=== PATIENT | female | born 1970 | race Caucasian/White ===

== ENCOUNTER 2017-01-16 07:15 | Emergency (ER) | payer BC ==
[2017-01-16 07:24] VITALS: BP 112/71
[2017-01-16] MEDS ORDERED: Lidocaine 2% EPI 1:200000 MPF* 20 ML VIAL INJ ONE (07:33)
[2017-01-16] MEDS ORDERED: Lidocaine 2% W/EPI 1:100,000* 20 ML MDV ONE (07:35)
--- NOTE | 2017-01-16 07:55 | UC ---
Skin Complaint HPI - HPI Summary HPI Summary: cyst upper back x 3 years getting bigger for the past 3 days, + redness, tender, no fever, no chills - History of Current Complaint Chief Complaint: UCSkin Time Seen by Provider: 01/16/17 07:29 Stated Complaint: SKIN COMPLAINT Hx Obtained From: Patient Hx Last Menstrual Period: n/a ?: No Onset/Duration: Gradual Onset, Lasting Days - 3, Still Present Timing: Constant Onset Severity: Moderate Current Severity: Moderate Location: Discrete - upper back Character: Swelling, Pain, Redness, Raised, Painful Aggravating Factor(s): Touch Alleviating Factor(s): Nothing Associated Signs & Symptoms: Positive: Tenderness - Allergy/Home Medications Allergies/Adverse Reactions: Allergies Allergy/AdvReac Type Severity Reaction Status Date / Time Penicillins Allergy Hives Verified 01/16/17 07:24 Home Medications: Home Medications Calcium Carbonate [Calcium 600] 600 mg PO DAILY 01/16/17 [History Confirmed ] Cholecalciferol TAB* [Vitamin D TAB*] 1,000 unit PO DAILY 01/16/17 [History Confirmed 01/16/17] Citalopram TAB* [Celexa TAB*] 20 mg PO DAILY 01/16/17 [History Confirmed ] Ibrance 100 mg PO DAILY 01/16/17 [History Confirmed 01/16/17] Letrozole (NF) [Femara (NF)] 2.5 mg PO DAILY 01/16/17 [History Confirmed ] Venlafaxine EXT RELEASE CAP* [Effexor Xr CAP*] 75 mg PO BID 01/16/17 [History Confirmed 01/16/17] Review of Systems Constitutional: Negative Eyes: Negative ENT: Negative Respiratory: Negative Cardiovascular: Negative Gastrointestinal: Negative Is Patient Immunocompromised?: No All Other Systems Reviewed And Are Negative: Yes PMH/Surg Hx/FS Hx/Imm Hx Previously Healthy: Yes - Surgical History Surgical History: Yes Surgery Procedure, Year, and Place: mastectomy with reconstruction. hysterectomy. knee surgery - Family History Known Family History: Negative: Diabetes - Social History Alcohol Use: Weekly Substance Use Type: None Smoking Status (MU): Never Smoked Tobacco - Immunization History Most Recent Influenza Vaccination: no Physical Exam Triage Information Reviewed: Yes Appearance: Well-Appearing, No Pain Distress, Well-Nourished Vital Signs: Initial Vital Signs Temp 98.2 F 01/16/17 07:19 Pulse 83 01/16/17 07:19 Resp 15 01/16/17 07:19 BP 112/71 01/16/17 07:19 Pulse Ox 100 01/16/17 07:19 Vital Signs Reviewed: Yes Eyes: Positive: Conjunctiva Clear ENT: Positive: Normal ENT inspection, Hearing grossly normal, Pharynx normal Neck: Positive: Supple, Nontender, No Lymphadenopathy Respiratory: Positive: Chest non-tender, Lungs clear, Normal breath sounds Cardiovascular: Positive: RRR, No Murmur, Pulses Normal Musculoskeletal Exam: Normal Musculoskeletal: Positive: Strength Intact Skin: Positive: Other - cyst mid upper back : + erythema, tender, swelling , Course/Dx - Diagnoses Provider Diagnoses: inclusion cyst mid upper back Procedures - Incision and Drainage Site: cyst mid upper back Anesthesia: Local - lidocane 2 % with epi x 5 cc , Lidocaine Instrument(s): Scalpel - # 11 , Needle - 25 g Discharge - Discharge Plan Condition: Stable Disposition: HOME Patient Education Materials: Epidermal Inclusion Cysts (ED) Additional Instructions: follow up as needed
== END 2017-01-16 08:02 | disposition home or self-care (01) ==
LOC: UCCORT 07:15
DX: L72.0 Epidermal cyst (principal); Z90.710 Acquired absence of both cervix and uterus; Z90.10 Acquired absence of unspecified breast and nipple; Z88.0 Allergy status to penicillin
CPT/HCPCS: 10060; 99211; G0463

== ENCOUNTER 2017-03-15 07:50 | Emergency (ER) | payer BC ==
[2017-03-15 08:23] VITALS: BP 124/77
--- NOTE | 2017-03-15 08:52 | RAD ---
INDICATION: Pain following fall on outstretched hand COMPARISON: None. TECHNIQUE: AP, lateral, and oblique views RIGHT wrist. REPORT AND IMPRESSION: Comminuted impacted fracture of the distal radius extending from the distal metaphysis to the distal radioarticular surface. Disproportionate dorsal impaction with resulting loss of the normal volar tilt of the distal radioarticular surface. Negative for associated fracture of the ulna. Negative for dislocation.
--- NOTE | 2017-03-15 08:52 | RAD ---
Indication: Left ankle pain. 3 views of left ankle demonstrates no fracture. No definite fracture is noted. IMPRESSION: No fracture of the left ankle is noted.
--- NOTE | 2017-03-15 09:06 | ED ---
Upper Extremity Pain - HPI Summary HPI Summary: 47 yr old female with right wrist pain and left ankle pain. Onset this morning. She was doing steps for exercise and she twisted left ankle. She fell and broke fall with right hand, and has pain in the right wrist. Pain is worse with movement, and palpation. The patient has some associated swelling over the wrist and also some swelling over the lateral left ankle. Pain is moderate. She has no other complaints. Denies other injuries. - History of Current Complaint Chief Complaint: UCUpperExtremity Stated Complaint: RIGHT WRIST INJURY Time Seen by Provider: 03/15/17 08:11 Hx Last Menstrual Period: n/a - Allergies/Home Medications Allergies/Adverse Reactions: Allergies Allergy/AdvReac Type Severity Reaction Status Date / Time Penicillins Allergy Hives Verified 03/15/17 08:11 PMH/Surg Hx/FS Hx/Imm Hx - Cancer History Cancer Type, Location and Year: Breast CA, currently undergoing chemo - Surgical History Surgery Procedure, Year, and Place: BILATERAL mastectomy with reconstruction. hysterectomy. knee surgery Infectious Disease History: Yes Infectious Disease History: Reports: Hx Clostridium Difficile Denies: Traveled Outside the [place] in Last 30 Days - Family History Known Family History: Negative: Diabetes - Social History Alcohol Use: Occasionally Substance Use Type: Reports: None Smoking Status (MU): Never Smoked Tobacco Review of Systems Constitutional: Negative Positive: Other - pain right wrist,and left ankle. Negative: Paresthesia, Numbness All Other Systems Reviewed And Are Negative: Yes Physical Exam Triage Information Reviewed: Yes Vital Signs On Initial Exam: Initial Vitals Temp Pulse Resp BP Pulse Ox 97.5 F 62 20 124/77 100 03/15/17 08:16 03/15/17 08:16 03/15/17 08:16 03/15/17 08:16 03/15/17 08:16 Vital Signs Reviewed: Yes Appearance: Positive: Well-Appearing, Pain Distress - mild Skin: Positive: Warm, Skin Color Reflects Adequate Perfusion Head/Face: Positive: Normal Head/Face Inspection Eyes: Positive: EOMI ENT: Positive: Normal ENT inspection Respiratory/Lung Sounds: Positive: Clear to Auscultation, Breath Sounds Present Cardiovascular: Positive: RRR, Pulses are Symmetrical in both Upper and Lower Extremities Abdomen Description: Positive: Nontender Musculoskeletal: Positive: Other - There is tenderness and STS over the right distal radius. She has mild tenderness over the left lateral malleolus. Neurological: Positive: Sensory/Motor Intact, Alert, Oriented to Person Place, Time, CN Intact II-III Psychiatric: Positive: Normal - Ever Coma Scale Best Eye Response: 4 - Spontaneous Best Motor Response: 6 - Obeys Commands Best Verbal Response: 5 - Oriented Procedures - Splinting Location: right forearm, wrist Hand-Made Type: orthoglass Splint: volar Pre-Proc Neuro Vasc Exam: normal Post-Proc Neuro Vasc Exam: normal Diagnostics - Vital Signs Vital Signs Temp Pulse Resp BP Pulse Ox 03/15/17 08:16 97.5 F 62 20 124/77 100 - Laboratory Lab Statement: Any lab studies that have been ordered have been reviewed, and results considered in the medical decision making process. - Radiology right wrist and left ankle xrays Xray Interpretation: Positive (See Comments) - Ankle neg; right wrist with comminuted impacted distal radius fracutre. Radiology Interpretation Completed By: Radiologist Course/Dx - Course Course Of Treatment: Dr Altamirano office at [facility] contacted and they will see the patient tomorrow. Splint and sling applied. - Diagnoses Provider Diagnoses: Distal radius fracture, right Discharge - Discharge Plan Condition: Good Disposition: HOME Patient Education Materials: Wrist Fracture in Adults (ED), Splint Care (ED) Referrals: Katie Blakely MD [Primary Care Provider] - Dante Altamirano MD [Medical Doctor] - 03/15/17 Additional Instructions: See Dr Altamirano tomorrow at [facility] [employer] [place], [place] [phone]
== END 2017-03-15 09:43 | disposition home or self-care (01) ==
LOC: UCCORT 07:50
DX: S52.501A Unspecified fracture of the lower end of right radius, initial encounter for closed fracture (principal); W10.9XXA Fall (on) (from) unspecified stairs and steps, initial encounter; Y93.A9 Activity, other involving cardiorespiratory exercise; Y92.9 Unspecified place or not applicable; Z88.0 Allergy status to penicillin
CPT/HCPCS: 24640; 25600; 99211; 99212; G0463

== ENCOUNTER 2017-03-18 15:03 | Day surgery (SDC) | payer BC ==
[~2017-03-18 15:03] MED LIST: Buffered Lidocaine 0.9% SYRIN* 5 ML/SYR SYRINGE INTRADERM ONE; Clindamycin 900 MG IVPREMIX(* 900 MG/50 ML SDV IV ONE; Dexamethasone IV* 4 MG/ML 1 ML (4 MG) IV SLOW PU ONE; Famotidine IV* 10 MG/ML 2 ML (20 mg) IV ONE
[2017-03-18] MEDS ORDERED: Bupivacaine 0.25% SDV* 30 ML ONE (15:47)
[2017-03-18] MEDS ORDERED: fentaNYL* 50 MCG/ML 5 ML VIAL (250 MCG VIAL) ONE (16:03)
[2017-03-18] MEDS ORDERED: Midazolam* 1 MG/ML 2 ML VIAL (2 MG) ONE (16:03)
[2017-03-18] MEDS ORDERED: Lidocaine 2% PF * 5 ML VIAL ONE (16:04)
[2017-03-18] MEDS ORDERED: Ondansetron INJ* 2 MG/ML VIAL ONE (16:04)
[2017-03-18] MEDS ORDERED: Propofol* 10 MG/ML 20 ML BTL IV PUSH ONE (16:04)
[2017-03-18] MEDS ORDERED: Ketorolac INJ* 30 MG/ML 1 ML VIAL ONE (16:04)
[2017-03-18] MEDS ORDERED: Buffered Lidocaine 0.9% SYRIN* 5 ML/SYR SYRINGE ONE (16:10)
[2017-03-18] MEDS ORDERED: Glycopyrrolate IV* 0.2 MG/ML 1 ML VIAL ONE (16:41)
[2017-03-18] MEDS ORDERED: oxyCODONE/Acetamin 5/325 MG* TAB PO PRN (16:53)
[2017-03-18] MEDS ORDERED: Scopolamine 1.5 mg* PATCH TRANSDERM PRN (16:53)
[2017-03-18] MEDS ORDERED: fentaNYL* 50 MCG/ML 2 ML VIAL (100 MCG VIAL) IV PRN (16:53)
[2017-03-18] MEDS ORDERED: HYDROmorphone INJ* 1 MG/ML CARPUJECT SYRINGE IV PRN (16:53)
[2017-03-18] MEDS ORDERED: DiMENhydriNATE IV* 50 MG/ML VIAL IV PUSH PRN (16:53)
[2017-03-18] MEDS ORDERED: Ondansetron INJ* 2 MG/ML VIAL IV PRN (16:53)
[2017-03-18] MEDS ORDERED: fentaNYL* 50 MCG/ML 2 ML VIAL (100 MCG VIAL) ONE (17:13)
[2017-03-18 18:18] VITALS: BP 127/68
--- NOTE | 2017-03-20 19:07 | OP ---
DATE OF OPERATION: 03/18/17 - [facility] DATE OF : 70 SURGEON: Dante Altamirano MD BOXING MACHINE OPERATOR: ELIAZAR Lambert. An lpn or medical assistant was needed to aid in positioning of the arm and to assist with the placement of the pins as I held the reduction. ANESTHESIOLOGIST: Dr. Mcnamara. ANESTHESIA: General. PRE-OP DIAGNOSIS: Right distal radius displaced fracture. POST-OP DIAGNOSIS: Right distal radius displaced fracture. OPERATIVE PROCEDURE: Open reduction and pin fixation of right distal radius intraarticular fracture. INDICATIONS: Catarina fell and fractured the right distal radius. She had some dorsal tilt and loss of radial inclination. She has had a prior lymph node dissection, which was about 15 or 16 years ago. Last year she had recurrence of her cancer. She is on a daily chemotherapy medicine, Ibrance, daily. She went to her oncologist and got a shot of Neupogen. I had talked to her about her options. I told her we probably should not put a tourniquet on the arm. I wanted to minimize any additional trauma to the arm and that it was not displaced such that I felt likely we needed to proceed with an open reduction internal fixation, but I would try to just do a closed reduction and pin fixation of the fracture to see if we can keep it in pretty good alignment while it heals. She understood the risk of lymphedema and other risks, she wanted to proceed. ESTIMATED BLOOD LOSS: 10 mL. COMPLICATIONS: None. FINDINGS: As expected. DESCRIPTION OF PROCEDURE: Catarina was seen in the preoperative holding area. The correct side, site, and procedure were identified. We came back to the operating room. The arm was prepped and draped in the usual fashion. A time- out was performed. I began by placing the arm in 10 pounds of traction. I performed a closed reduction maneuver. There was an impacted intraarticular piece with a dorsal rim that was actually reasonably well aligned. I made a 1 cm incision dorsally and then introduced through that a barajas elevator. This was placed between the fracture fragments dorsally and brought up on to the subchondral bone. A mallet was used and that piece was tapped back up into good position. Once I had it in good position, I placed two 0.062 K-wires through the radial styloid and out the ulnar cortex. I then placed one K-wire starting on the dorsal ulnar aspect of the bone and it was placed in rafting position, exiting out volarly and holding the articular piece up in good position. Once all the pins were placed, I confirmed the alignment with mini C-arm fluoroscopy. The arm was then washed off. The wound was irrigated out and closed with a couple of 3- 0 Monocryl sutures. The pins were clipped and bent and pin caps were placed. They were dressed with Xeroform, 4x4s, they were well padded, and then a dorsal and volar slab wrist splint was applied. She was then woken up and taken to the recovery room in stable condition. Tourniquet was not used throughout any portion of the procedure. [id number]/[facility] #: [id number] CAROL
[2017-03-21] MEDS ORDERED: Scopolamine PATCH Remove* 1 NOTE MISC PATCH OFF ONE (16:54)
--- NOTE | 2017-03-24 14:55 | RAD ---
INDICATION: Traumatic fracture right wrist COMPARISON: March 15, 2017 FINDINGS: 2 minutes and 14 seconds of fluoroscopy were provided for the orthopedics department. Fluoroscopic spot imaging of the right wrist were obtained for operative control and show interval pinning of the intra-articular distal radial fracture . CPT II Codes: 6045F (fluoro time doc)
== END 2017-03-18 18:18 | disposition home or self-care (01) ==
LOC: OREAST 15:03
PROVIDERS: ATTEND Orthopaedic Surgery Hand Surgery
DX: S52.571A Other intraarticular fracture of lower end of right radius, initial encounter for closed fracture (principal); W18.30XA Fall on same level, unspecified, initial encounter; Y92.9 Unspecified place or not applicable; Z85.3 Personal history of malignant neoplasm of breast; S93.402A Sprain of unspecified ligament of left ankle, initial encounter; F41.9 Anxiety disorder, unspecified; Z88.0 Allergy status to penicillin
CPT/HCPCS: 76000; C1776; J1885; J2250; J2405; J2704; J3010

== ENCOUNTER 2019-01-18 07:06 | Emergency (ER) | payer BC ==
--- OUTSIDE RECORDS SUMMARY | 2019-01-18 07:19 | XMS REPORT | Continuity of Care Document ---
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 Pleural effusion, not elsewhere Tim Aquino DO Onset: 06/08/2016 classified Neutropenia due to and following Tim Aquino DO Onset: 07/09/2016 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 Cough Tim Aquino DO Onset: 02/07/2018 Generalized anxiety disorder Gladis Hannah FNP Onset: 04/28/2018 Neutropenia Cyn Pacheco DO Onset: 10/28/2018 Vitamin B deficiency Cyn Pacheco DO Onset: 10/03/2018 Neutropenia due to and following Tim Aquino DO Onset: 05/13/2018 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 Social History Type Date Description Comments Sex Unknown Tobacco Use Start: Unknown Never Smoked Cigarettes ETOH Use Occasionally consumes alcohol Tobacco Use Start: Unknown Patient has never smoked Recreational Drug Use Denies Drug Use Smoking Status Reviewed: 05/13/18 Patient has never smoked Exercise Type/Frequency Exercises regularly Allergies, Adverse Reactions, Alerts Active Allergies Reaction Severity Comments Date Penicillins 09/24/2008 Amoxicillin 12/02/2011 Medications Active Medications SIG Qnty Indications Ordering Date Provider Magic Mouthwash 1 part diphenhydramine 240ml Boufal, 11/30/2018 12.5mg/5mL; 1 part Cyn, DO viscous lidocaine 2%; 1 part Maalox Swish and spit 5 ml four times daily as needed Afinitor 1 tab by mouth daily, 28tabs D48.61 Boufal, 11/11/2018 10mg days 1-28 Cyn, DO Tablets C79.51 Benadryl Itch apply to affected 28.300gm Cyn Pacheco, 10/03/2018 Stopping area up to three DO 1-0.1% Cream times a day Miralax 1 tablespoon in 8 510gm K59.00 Clune, 04/28/2018 3350NF Powder ounces of water Jeninkunjferchaka, V[employer]YL INSTALLER twice a day Xgeva SQ q6 Months Cyn Pacheco, 08/18/2016 120mg/1.7ML DO Solution Vitamin D 1 by mouth every Boufal, Cyn, 07/08/2016 4000Units day DO Tablets Venlafaxine HCL 1 by mouth twice a 180tabs [place]une, 05/03/2012 100mg day Jenniferleigh, VINYL INSTALLER Tablets Citalopram 1 by mouth every 90tabs [place], 05/03/2012 Hydrobromide day Jenniferleimartín, VINYL INSTALLER 20mg Tablets Calcium 1200 chew one by mouth Unknown daily [id number] Chewtabs Medications Administered in Office Medication SIG Qnty Indications Ordering Provider Date Vitamin B12 Injection 1000 Cyn Pacheco, DO 10/28/2018 mcg/Ml Injection Vitamin B12 Injection 1000 Oncology Nurse 10/14/2018 mcg/Ml Injection Immunizations CPT Code Status Date Vaccine Lot # [id number] Given 10/15/2015 Tdap injection [id number] U-Td Given 02/18/2000 Td(Adult),Unspecified Vital Signs Date Vital Result Comment 01/11/2019 7:55am BP Systolic 129 mmHg left BP Diastolic 82 mmHg left Body Temperature 97.7 F Heart Rate 78 /min Respiratory Rate 16 /min Height 64 inches 5'4" Weight 153.50 lb BMI (Body Mass Index) 26.3 kg/m2 BSA (Body Surface Area) 1.75 m2 Coyle body weight in kilograms 54 kg O2 % BldC Oximetry 98 % Ra Pain Level 0 12/14/2018 7:44am BP Systolic 113 mmHg BP Diastolic 77 mmHg Body Temperature 98.3 F Heart Rate 87 /min Respiratory Rate 16 /min Weight 154.00 lb O2 % BldC Oximetry 97 % Pain Level 0 Results Test Date Facility Test Result H/L Range Note CBC 01/11/2019 [facility] White Blood 3.0 K/uL Low 3.1-10.7 1 W/Automated [address] [place] [address] [phone] Red Blood Count 4.18 M/uL Normal 3.90-5.40 Hemoglobin 12.7 gm/dL Normal 11.6-15.8 Hematocrit 38.0 % Normal 36.0-46.1 Mean Cell Volume 90.9 fl Normal 80.9-99.0 Mean Corpuscular HGB 30.4 pg Normal 25.9-32.7 Mean Corpuscular HGB Conc 33.4 g/dL Normal 30.8-34.3 Platelet Count 187 K/uL Normal 155-360 Red Cell Distri Width SD 43.3 fl Normal 36-47 Red Cell Distri Width %CV 13.0 % Normal 11.7-14.4 Mean Platelet Volume 10.1 fl Normal 8.9-12.4 Neut% 59.3 % Normal 40.4-72.8 Lymph % 24.0 % Normal 20.0-42.0 [place] % 11.0 % Normal 4.3-13.2 Eo% 4.7 % Normal 0.0-6.6 Bas% 0.7 % Normal 0.0-1.1 Immature Grans 0.3 % Normal 0.0-5.0 NRBC % 0.0 /100WBC < 10/ 100 WBC Neut# 1.78 K/uL Low 1.8-7.0 Lymph # 0.72 K/uL Low 1.0-4.0 [place] # 0.33 K/uL Normal 0.3-0.9 Eos # 0.14 K/uL Normal 0.0-0.5 Baso # 0.02 K/uL Normal 0.0-0.1 Immature Grans Absolute 0.01 K/uL NRBC # 0.00 K/uL Comprehensive Metabolic 01/11/2019 [facility] Glucose 127 mg/dL High 74-[address] [place] [address] [phone] BUN 17 mg/dL Normal 7-18 Creatinine 0.7 mg/dL Normal 0.6-1.3 Glom Filtration Rate, Estimate >60 mL/min >60 If >60 mL/min >60 2 BUN/Creat 24.2 ratio Sodium 137 mmol/L Normal 136-145 Potassium 3.7 mmol/L Normal 3.5-5.1 Chloride 106 mmol/L Normal 98-107 Carbon Dioxide 25 mmol/L Normal 21-32 Anion Gap 6 mEq/L Low 8-16 Calcium 9.0 mg/dL Normal 8.5-10.1 Total Protein 7.5 g/dL Normal 6.4-8.2 Albumin 3.6 g/dL Normal 3.4-5.0 Globulin 3.9 g/dL Normal 1.9-4.3 Alb/Glob 0.9 ratio Bilirubin,Total 0.3 mg/dL Normal 0.2-1.0 Sgot/Ast 36 U/L Normal 15-37 SGPT/Alt 23 U/L Normal 12-78 Alkaline Phosphatase 130 U/L High 45-117 Laboratory test 01/11/2019 [facility] CA 27.29 391.6 U/mL High 0.0-38.6 [address] [place] [address] [phone] Slide Review 01/11/2019 [facility] Slide (SEE NOTE) [address] [place] [address] [phone] Path Review: 01/11/2019 [facility] Path NI [address] Review: AVE [place] [address] [phone] CBC W/Automated 12/14/2018 [facility] White Blood 3.5 K/uL Normal 3.1-10.7 [address] [place] [address] [phone] Red Blood Count 4.22 M/uL Normal 3.90-5.40 Hemoglobin 13.6 gm/dL Normal 11.6-15.8 Hematocrit 40.3 % Normal 36.0-46.1 Mean Cell Volume 95.5 fl Normal 80.9-99.0 Mean Corpuscular HGB 32.2 pg Normal 25.9-32.7 Mean Corpuscular HGB Conc 33.7 g/dL Normal 30.8-34.3 Platelet Count 190 K/uL Normal 155-360 Red Cell Distri Width SD 44.5 fl Normal 36-47 Red Cell Distri Width %CV 12.6 % Normal 11.7-14.4 Mean Platelet Volume 10.0 fl Normal 8.9-12.4 Neut% 42.4 % Normal 40.4-72.8 Lymph % 26.8 % Normal 20.0-42.0 [place] % 10.1 % Normal 4.3-13.2 Eo% 19.3 % High 0.0-6.6 Bas% 1.4 % High 0.0-1.1 Immature Grans 0.0 % Normal 0.0-5.0 NRBC % 0.0 /100WBC < 10/ 100 WBC Neut# 1.47 K/uL Low 1.8-7.0 Lymph # 0.93 K/uL Low 1.0-4.0 [place] # 0.35 K/uL Normal 0.3-0.9 Eos # 0.67 K/uL High 0.0-0.5 Baso # 0.05 K/uL Normal 0.0-0.1 Immature Grans Absolute 0.00 K/uL NRBC # 0.00 K/uL Comprehensive Metabolic 12/14/2018 [facility] Glucose 128 mg/dL High 74-106 Panel [address] [place] [address] [phone] BUN 20 mg/dL High 7-18 Creatinine 0.8 mg/dL Normal 0.6-1.3 Glom Filtration Rate, Estimate >60 mL/min >60 If >60 mL/min >60 7 BUN/Creat 25.0 ratio Sodium 140 mmol/L Normal 136-145 Potassium 3.7 mmol/L Normal 3.5-5.1 Chloride 106 mmol/L Normal 98-107 Carbon Dioxide 26 mmol/L Normal 21-32 Anion Gap 8 mEq/L Normal 8-16 Calcium 9.5 mg/dL Normal 8.5-10.1 Total Protein 7.8 g/dL Normal 6.4-8.2 Albumin 3.4 g/dL Normal 3.4-5.0 Globulin 4.4 g/dL High 1.9-4.3 Alb/Glob 0.8 ratio Bilirubin,Total 0.2 mg/dL Normal 0.2-1.0 Sgot/Ast 44 U/L High 15-37 SGPT/Alt 30 U/L Normal 12-78 Alkaline Phosphatase 126 U/L High 45-117 Laboratory test 12/14/2018 [facility] CA 27.29 510.0 High 0.0-38.6 [address] U/mL AVE [place] [address] [phone] Laboratory test 11/30/2018 [facility] Path <pending> [address] Review: AVE [place] [address] [phone] Slide Review 11/30/2018 [facility] Slide (SEE [address] Review NOTE) AVE [place] [address] [phone] Comprehensive 11/30/2018 [facility] Glucose 102 mg/dL Normal 74-106 Metabolic Panel [address] [place] [address] [phone] BUN 21 mg/dL High 7-18 Creatinine 0.8 mg/dL Normal 0.6-1.3 Glom Filtration Rate, Estimate >60 mL/min >60 If >60 mL/min >60 11 BUN/Creat 26.2 ratio Sodium 140 mmol/L Normal 136-145 Potassium 3.7 mmol/L Normal 3.5-5.1 Chloride 107 mmol/L Normal 98-107 Carbon Dioxide 26 mmol/L Normal 21-32 Anion Gap 7 mEq/L Low 8-16 Calcium 9.0 mg/dL Normal 8.5-10.1 Total Protein 7.4 g/dL Normal 6.4-8.2 Albumin 3.3 g/dL Low 3.4-5.0 Globulin 4.1 g/dL Normal 1.9-4.3 Alb/Glob 0.8 ratio Bilirubin,Total 0.4 mg/dL Normal 0.2-1.0 Sgot/Ast 42 U/L High 15-37 SGPT/Alt 25 U/L Normal 12-78 Alkaline Phosphatase 108 U/L Normal 45-117 CBC W/Automated 11/30/2018 [facility] White Blood 2.4 K/uL Low 3.1-10.[address] [place] [address] [phone] Red Blood Count 4.06 M/uL Normal 3.90-5.40 Hemoglobin 13.4 gm/dL Normal 11.6-15.8 Hematocrit 40.1 % Normal 36.0-46.1 Mean Cell Volume 98.8 fl Normal 80.9-99.0 Mean Corpuscular HGB 33.0 pg High 25.9-32.7 Mean Corpuscular HGB Conc 33.4 g/dL Normal 30.8-34.3 Platelet Count 143 K/uL Low 155-360 Red Cell Distri Width SD 45.1 fl Normal 36-47 Red Cell Distri Width %CV 12.4 % Normal 11.7-14.4 Mean Platelet Volume 9.9 fl Normal 8.9-12.4 Neut% 45.4 % Normal 40.4-72.8 Lymph % 30.6 % Normal 20.0-42.0 [place] % 8.7 % Normal 4.3-13.2 Eo% 14.5 % High 0.0-6.6 Bas% 0.8 % Normal 0.0-1.1 Immature Grans 0.0 % Normal 0.0-5.0 NRBC % 0.0 /100WBC < 10/ 100 WBC Neut# 1.10 K/uL Low 1.8-7.0 Lymph # 0.74 K/uL Low 1.0-4.0 [place] # 0.21 K/uL Low 0.3-0.9 Eos # 0.35 K/uL Normal 0.0-0.5 Baso # 0.02 K/uL Normal 0.0-0.1 Immature Grans Absolute 0.00 K/uL NRBC # 0.00 K/uL CBC W/Automated 11/15/2018 [facility] White Blood 4.1 K/uL 3.1-10.7 [address] [place] [address] [phone] Red Blood Count 3.89 M/uL Low 3.90-5.40 Hemoglobin 13.4 gm/dL Normal 11.6-15.8 Hematocrit 39.1 % Normal 36.0-46.1 Mean Cell Volume 100.5 fl High 80.9-99.0 Mean Corpuscular HGB 34.4 pg High 25.9-32.7 Mean Corpuscular HGB Conc 34.3 g/dL Normal 30.8-34.3 Platelet Count 291 K/uL Normal 155-360 Red Cell Distri Width SD 47.8 fl High 36-47 Red Cell Distri Width %CV 12.9 % Normal 11.7-14.4 Mean Platelet Volume 9.4 fl Normal 8.9-12.4 Neut% 54.2 % Normal 40.4-72.8 Lymph % 31.0 % Normal 20.0-42.0 [place] % 11.1 % Normal 4.3-13.2 Eo% 1.5 % Normal 0.0-6.6 Bas% 2.0 % High 0.0-1.1 Immature Grans 0.2 % Normal 0.0-5.0 NRBC % 0.0 /100WBC < 10/ 100 WBC Neut# 2.20 K/uL Normal 1.8-7.0 Lymph # 1.26 K/uL Normal 1.0-4.0 [place] # 0.45 K/uL Normal 0.3-0.9 Eos # 0.06 K/uL Normal 0.0-0.5 Baso # 0.08 K/uL Normal 0.0-0.1 Immature Grans Absolute 0.01 K/uL NRBC # 0.00 K/uL Comprehensive Metabolic 11/15/2018 [facility] Glucose 70 mg/dL Low 74-106 Panel [address] [place] [address] [phone] BUN 24 mg/dL High 7-18 Creatinine 0.9 mg/dL Normal 0.6-1.3 Glom Filtration Rate, Estimate >60 mL/min >60 If >60 mL/min >60 13 BUN/Creat 26.6 ratio Sodium 139 mmol/L Normal 136-145 Potassium 4.4 mmol/L Normal 3.5-5.1 Chloride 103 mmol/L Normal 98-107 Carbon Dioxide 29 mmol/L Normal 21-32 Anion Gap 7 mEq/L Low 8-16 Calcium 9.3 mg/dL Normal 8.5-10.1 Total Protein 8.1 g/dL Normal 6.4-8.2 Albumin 3.9 g/dL Normal 3.4-5.0 Globulin 4.2 g/dL Normal 1.9-4.3 Alb/Glob 0.9 ratio Bilirubin,Total 0.3 mg/dL Normal 0.2-1.0 Sgot/Ast 36 U/L Normal 15-37 SGPT/Alt 27 U/L Normal 12-78 Alkaline Phosphatase 108 U/L Normal 45-117 Laboratory test 11/15/2018 [facility] Magnesium 2.3 Normal 1.8-2.[address] mg/dL [place]VE [place] [address] [phone] Path Review: 11/09/2018 [facility] Path Review: NI 14, [address] [place] [address] [phone] Slide Review 11/09/2018 [facility] Slide Review (SEE [address] NOTE) AVE [place] [address] [phone] Laboratory test 11/09/2018 [facility] CA 27.29 635.6 High 0.0-38.6 [address] U/mL AVE [place] [address] [phone] Comprehensive 11/09/2018 [facility] Glucose 89 mg/dL Normal 74-106 Metabolic Panel [address] [place] [address] [phone] BUN 18 mg/dL Normal 7-18 Creatinine 0.8 mg/dL Normal 0.6-1.3 Glom Filtration Rate, Estimate >60 mL/min >60 If >60 mL/min >60 18 BUN/Creat 22.5 ratio Sodium 140 mmol/L Normal 136-145 Potassium 4.1 mmol/L Normal 3.5-5.1 Chloride 105 mmol/L Normal 98-107 Carbon Dioxide 28 mmol/L Normal 21-32 Anion Gap 7 mEq/L Low 8-16 Calcium 9.4 mg/dL Normal 8.5-10.1 Total Protein 8.0 g/dL Normal 6.4-8.2 Albumin 3.8 g/dL Normal 3.4-5.0 Globulin 4.2 g/dL Normal 1.9-4.3 Alb/Glob 0.9 ratio Bilirubin,Total 0.2 mg/dL Normal 0.2-1.0 Sgot/Ast 37 U/L Normal 15-37 SGPT/Alt 25 U/L Normal 12-78 Alkaline Phosphatase 97 U/L Normal 45-117 CBC W/Automated 11/09/2018 [facility] White Blood 2.4 K/uL Low 3.1-10.[address] [place] [address] [phone] Red Blood Count 3.80 M/uL Low 3.90-5.40 Hemoglobin 13.0 gm/dL Normal 11.6-15.8 Hematocrit 39.2 % Normal 36.0-46.1 Mean Cell Volume 103.2 fl High 80.9-99.0 Mean Corpuscular HGB 34.2 pg High 25.9-32.7 Mean Corpuscular HGB Conc 33.2 g/dL Normal 30.8-34.3 Platelet Count 286 K/uL Normal 155-360 Red Cell Distri Width SD 50.9 fl High 36-47 Red Cell Distri Width %CV 13.3 % Normal 11.7-14.4 Mean Platelet Volume 9.4 fl Normal 8.9-12.4 Neut% 49.8 % Normal 40.4-72.8 Lymph % 33.6 % Normal 20.0-42.0 [place] % 12.4 % Normal 4.3-13.2 Eo% 1.7 % Normal 0.0-6.6 Bas% 2.1 % High 0.0-1.1 Immature Grans 0.4 % Normal 0.0-5.0 NRBC % 0.0 /100WBC < 10/ 100 WBC Neut# 1.20 K/uL Low 1.8-7.0 Lymph # 0.81 K/uL Low 1.0-4.0 [place] # 0.30 K/uL Normal 0.3-0.9 Eos # 0.04 K/uL Normal 0.0-0.5 Baso # 0.05 K/uL Normal 0.0-0.1 Immature Grans Absolute 0.01 K/uL NRBC # 0.00 K/uL CBC W/Automated 10/28/2018 [facility] White 1.4 K/uL Critical low 3.1-10.[address] [place] [address] Count [phone] Red Blood Count 3.70 M/uL Low 3.90-5.40 Hemoglobin 12.5 gm/dL Normal 11.6-15.8 Hematocrit 37.9 % Normal 36.0-46.1 Mean Cell Volume 102.4 fl High 80.9-99.0 Mean Corpuscular HGB 33.8 pg High 25.9-32.7 Mean Corpuscular HGB Conc 33.0 g/dL Normal 30.8-34.3 Platelet Count 172 K/uL Normal 155-360 Red Cell Distri Width SD 52.0 fl High 36-47 Red Cell Distri Width %CV 13.8 % Normal 11.7-14.4 Mean Platelet Volume 9.7 fl Normal 8.9-12.4 Neut% 40.9 % Normal 40.4-72.8 Lymph % 42.4 % High 20.0-42.0 [place] % 11.8 % Normal 4.3-13.2 Eo% 1.4 % Normal 0.0-6.6 Bas% 3.5 % High 0.0-1.1 Immature Grans 0.0 % Normal 0.0-5.0 NRBC % 0.0 /100WBC < 10/ 100 WBC Neut# 0.59 K/uL Critical low 1.8-7.0 Lymph # 0.61 K/uL Low 1.0-4.0 [place] # 0.17 K/uL Low 0.3-0.9 Eos # 0.02 K/uL Normal 0.0-0.5 Baso # 0.05 K/uL Normal 0.0-0.1 Immature Grans Absolute 0.00 K/uL NRBC # 0.00 K/uL [facility] 10/28/2018 [facility] Glucose 88 mg/dL Normal 74-106 Metabolic Panel [address] [place] [address] [phone] BUN 21 mg/dL High 7-18 Creatinine 1.0 mg/dL Normal 0.6-1.3 Glom Filtration Rate, Estimate >60 mL/min >60 If >60 mL/min >60 19 BUN/Creat 21.0 ratio Sodium 139 mmol/L Normal 136-145 Potassium 4.0 mmol/L Normal 3.5-5.1 Chloride 105 mmol/L Normal 98-107 Carbon Dioxide 28 mmol/L Normal 21-32 Anion Gap 6 mEq/L Low 8-16 Calcium 9.5 mg/dL Normal 8.5-10.1 Total Protein 7.7 g/dL Normal 6.4-8.2 Albumin 3.8 g/dL Normal 3.4-5.0 Globulin 3.9 g/dL Normal 1.9-4.3 Alb/Glob 1.0 ratio Bilirubin,Total 0.4 mg/dL Normal 0.2-1.0 Sgot/Ast 32 U/L Normal 15-37 SGPT/Alt 23 U/L Normal 12-78 Alkaline Phosphatase 98 U/L Normal 45-117 Vitamin B12 And 10/28/2018 [facility] Vitamin B12 350 pg/mL Normal 193-[address] [place] [address] [phone] Folic Acid 10.7 ng/mL Normal 3.1-17.5 Slide Review 10/28/2018 [facility] Slide Review (SEE NOTE) [address] [place] [address] [phone] Laboratory test 10/28/2018 [facility] Path Review: (SEE NOTE) [address] [place] [address] [phone] Path Review: 10/18/2018 [facility] Anticoagulant Unknown [address] Therapy? [place] [address] [phone] Slide Review 10/18/2018 [facility] Slide Review (SEE NOTE) [address] [place] [address] [phone] Anticoagulant Therapy? Unknown Laboratory 10/18/2018 [facility] Vitamin 65.8 30.0-100.0 23 test finding [address] D,25-Hydroxy ng/[place] [address] [phone] Vitamin B12 10/18/2018 [facility] Vitamin B12 471 Normal 193-9[address] pg/[place] [address] [phone] Folic Acid 9.2 ng/mL Normal 3.1-17.5 CBC W/Automated 10/18/2018 [facility] White 1.8 K/uL Critical low 3.1-10.[address] [place] [address] Count [phone] Red Blood Count 3.81 M/uL Low 3.90-5.40 Hemoglobin 13.2 gm/dL Normal 11.6-15.8 Hematocrit 39.0 % Normal 36.0-46.1 Mean Cell Volume 102.4 fl High 80.9-99.0 Mean Corpuscular HGB 34.6 pg High 25.9-32.7 Mean Corpuscular HGB Conc 33.8 g/dL Normal 30.8-34.3 Platelet Count 272 K/uL Normal 155-360 Red Cell Distri Width SD 51.6 fl High 36-47 Red Cell Distri Width %CV 13.6 % Normal 11.7-14.4 Mean Platelet Volume 9.1 fl Normal 8.9-12.4 Neut% 62.2 % Normal 40.4-72.8 Lymph % 27.2 % Normal 20.0-42.0 [place] % 6.1 % Normal 4.3-13.2 Eo% 1.1 % Normal 0.0-6.6 Bas% 2.8 % High 0.0-1.1 Immature Grans 0.6 % Normal 0.0-5.0 NRBC % 0.0 /100WBC < 10/ 100 WBC Neut# 1.12 K/uL Low 1.8-7.0 Lymph # 0.49 K/uL Low 1.0-4.0 [place] # 0.11 K/uL Low 0.3-0.9 Eos # 0.02 K/uL Normal 0.0-0.5 Baso # 0.05 K/uL Normal 0.0-0.1 Immature Grans Absolute 0.01 K/uL NRBC # 0.00 K/uL Anticoagulant Therapy? Unknown Protime 10/18/2018 [facility] Protime 13.2 seconds Normal 12.0-14.4 [address] [place] [address] [phone] Inr 1.0 Normal 0.9-1.1 24 Anticoagulant Therapy? Unknown Act Partial 10/18/2018 [facility] Act Partial 26.8 seconds Normal 23.4-35.0 Thrombo Time [address] [facility] [place] [place] [address] [phone] Anticoagulant Therapy? Unknown Laboratory test 10/18/2018 [facility] Ferritin 62 ng/mL Normal 8-252 25 finding [address] [place] [address] [phone] Iron-Tibc-%Sat 10/18/2018 [facility] Serum Iron 92 g/dL Normal 50-170 [address] [place] [address] [phone] Total Iron Binding Capacity 417 g/dL Normal 250-450 Transferrin %Saturation 22 % Normal 12-57 Comprehensive 10/18/2018 [facility] Glucose 90 mg/dL Normal 74-106 Metabolic Panel [address] [place] [address] [phone] BUN 26 mg/dL High 7-18 Creatinine 1.1 mg/dL Normal 0.6-1.3 Glom Filtration Rate, Estimate 56 mL/min >60 If >60 mL/min >60 26 BUN/Creat 23.6 ratio Sodium 139 mmol/L Normal 136-145 Potassium 4.6 mmol/L Normal 3.5-5.1 Chloride 104 mmol/L Normal 98-107 Carbon Dioxide 27 mmol/L Normal 21-32 Anion Gap 8 mEq/L Normal 8-16 Calcium 9.6 mg/dL Normal 8.5-10.1 Total Protein 8.1 g/dL Normal 6.4-8.2 Albumin 4.0 g/dL Normal 3.4-5.0 Globulin 4.1 g/dL Normal 1.9-4.3 Alb/Glob 1.0 ratio Bilirubin,Total 0.3 mg/dL Normal 0.2-1.0 Sgot/Ast 38 U/L High 15-37 SGPT/Alt 29 U/L Normal 12-78 Alkaline Phosphatase 113 U/L Normal 45-117 Laboratory test finding 10/18/2018 [facility] Nucleotidase,5 7 IU/L 0-10 27 [address] [place] [address] [phone] CA 27.29 595.7 U/mL High 0.0-38.6 28 Laboratory test 09/20/2018 [facility] Ferritin 58 ng/mL Normal 8-252 finding [address] [place], [place] [id number] [phone] Laboratory test 09/20/2018 [facility] CA 27.29 506.9 High 0.0-38.6 29 finding [address] [facility] U/[place] [address] [phone] Vitamin B12 And 09/20/2018 [facility] Vitamin B12 273 pg/mL Normal 193-986 Folate [address] [place] [address] [phone] Folic Acid 9.4 ng/mL Normal 3.1-17.5 Iron-Tibc-%Sat 09/20/2018 [facility] Serum Iron 106 g/dL Normal 50-[address] [place] [address] [phone] Total Iron Binding Capacity 452 g/dL High 250-450 Transferrin %Saturation 23 % Normal 12-57 Laboratory test 09/20/2018 [facility] Vitamin 68.6 30.0-100.0 [address] D,25-Hydroxy ng/[place] [address] [phone] Laboratory test 09/19/2018 [facility] Path Review: <pendin [address] g> [place] [address] [phone] Comprehensive 09/19/2018 [facility] Glucose 86 Normal 74-106 Metabolic Panel [address] mg/[place] [address] [phone] BUN 24 mg/dL High 7-18 Creatinine 0.9 mg/dL Normal 0.6-1.3 Glom Filtration Rate, Estimate >60 mL/min >60 If >60 mL/min >60 32 BUN/Creat 26.6 ratio Sodium 136 mmol/L Normal 136-145 Potassium 4.2 mmol/L Normal 3.5-5.1 Chloride 103 mmol/L Normal 98-107 Carbon Dioxide 27 mmol/L Normal 21-32 Anion Gap 6 mEq/L Low 8-16 Calcium 9.1 mg/dL Normal 8.5-10.1 Total Protein 7.4 g/dL Normal 6.4-8.2 Albumin 3.6 g/dL Normal 3.4-5.0 Globulin 3.8 g/dL Normal 1.9-4.3 Alb/Glob 0.9 ratio Bilirubin,Total 0.3 mg/dL Normal 0.2-1.0 Sgot/Ast 40 U/L High 15-37 SGPT/Alt 31 U/L Normal 12-78 Alkaline Phosphatase 96 U/L Normal 45-117 CBC W/Automated 09/19/2018 [facility] White Blood 2.5 K/uL Low 3.1-10.[address] [place] [address] [phone] Red Blood Count 3.62 M/uL Low 3.90-5.40 Hemoglobin 12.4 gm/dL Normal 11.6-15.8 Hematocrit 37.7 % Normal 36.0-46.1 Mean Cell Volume 104.1 fl High 80.9-99.0 Mean Corpuscular HGB 34.3 pg High 25.9-32.7 Mean Corpuscular HGB Conc 32.9 g/dL Normal 30.8-34.3 Platelet Count 297 K/uL Normal 155-360 Red Cell Distri Width SD 50.6 fl High 36-47 Red Cell Distri Width %CV 13.1 % Normal 11.7-14.4 Mean Platelet Volume 9.2 fl Normal 8.9-12.4 Neut% 64.7 % Normal 40.4-72.8 Lymph % 26.1 % Normal 20.0-42.0 [place] % 5.2 % Normal 4.3-13.2 Eo% 1.2 % Normal 0.0-6.6 Bas% 2.8 % High 0.0-1.1 Immature Grans 0.0 % Normal 0.0-5.0 NRBC % 0.0 /100WBC < 10/ 100 WBC Neut# 1.61 K/uL Low 1.8-7.0 Lymph # 0.65 K/uL Low 1.0-4.0 [place] # 0.13 K/uL Low 0.3-0.9 Eos # 0.03 K/uL Normal 0.0-0.5 Baso # 0.07 K/uL Normal 0.0-0.1 Immature Grans Absolute 0.00 K/uL NRBC # 0.00 K/uL Slide Review 09/19/2018 [facility] Slide Review (SEE NOTE) [address] [place] [address] [phone] CBC 08/22/2018 [facility] White Blood 2.4 K/uL Low 3.1-10.7 W/Automated [address] [place] [address] [phone] Red Blood Count 3.72 M/uL Low 3.90-5.40 Hemoglobin 12.5 gm/dL Normal 11.6-15.8 Hematocrit 38.9 % Normal 36.0-46.1 Mean Cell Volume 104.6 fl High 80.9-99.0 Mean Corpuscular HGB 33.6 pg High 25.9-32.7 Mean Corpuscular HGB Conc 32.1 g/dL Normal 30.8-34.3 Platelet Count 265 K/uL Normal 155-360 Red Cell Distri Width SD 46.8 fl Normal 36-47 Red Cell Distri Width %CV 12.1 % Normal 11.7-14.4 Mean Platelet Volume 9.2 fl Normal 8.9-12.4 Neut% 53.8 % Normal 40.4-72.8 Lymph % 35.0 % Normal 20.0-42.0 [place] % 5.8 % Normal 4.3-13.2 Eo% 2.5 % Normal 0.0-6.6 Bas% 2.1 % High 0.0-1.1 Immature Grans 0.8 % Normal 0.0-5.0 NRBC % 0.0 /100WBC < 10/ 100 WBC Neut# 1.29 K/uL Low 1.8-7.0 Lymph # 0.84 K/uL Low 1.0-4.0 [place] # 0.14 K/uL Low 0.3-0.9 Eos # 0.06 K/uL Normal 0.0-0.5 Baso # 0.05 K/uL Normal 0.0-0.1 Immature Grans Absolute 0.02 K/uL NRBC # 0.00 K/uL Slide Review 08/22/2018 [facility] Slide Review . [address] [place] [address] [phone] Laboratory test 08/22/2018 [facility] Path Review: <pending finding [address] > [place] [address] [phone] Comprehensive 08/22/2018 [facility] Glucose 82 mg/dL Normal 74-10 Metabolic Panel [address] [place] [address] [phone] BUN 24 mg/dL High 7-18 Creatinine 0.9 mg/dL Normal 0.6-1.3 Glom Filtration Rate, Estimate >60 mL/min >60 If >60 mL/min >60 35 BUN/Creat 26.6 ratio Sodium 134 mmol/L Low 136-145 Potassium 3.9 mmol/L Normal 3.5-5.1 Chloride 103 mmol/L Normal 98-107 Carbon Dioxide 27 mmol/L Normal 21-32 Anion Gap 4 mEq/L Low 8-16 Calcium 9.0 mg/dL Normal 8.5-10.1 Total Protein 7.9 g/dL Normal 6.4-8.2 Albumin 4.0 g/dL Normal 3.4-5.0 Globulin 3.9 g/dL Normal 1.9-4.3 Alb/Glob 1.0 ratio Bilirubin,Total 0.3 mg/dL Normal 0.2-1.0 Sgot/Ast 33 U/L Normal 15-37 SGPT/Alt 26 U/L Normal 12-78 Alkaline Phosphatase 111 U/L Normal 45-117 CBC W/Automated 08/08/2018 [facility] White 3.2 K/uL Normal 3.1-10.7 36 Diff [address] [place] [address] Count [phone] Red Blood Count 3.85 M/uL Low 3.90-5.40 Hemoglobin 13.6 gm/dL Normal 11.6-15.8 Hematocrit 39.5 % Normal 36.0-46.1 Mean Cell Volume 102.6 fl High 80.9-99.0 Mean Corpuscular HGB 35.3 pg High 25.9-32.7 Mean Corpuscular HGB Conc 34.4 g/dL High 30.8-34.3 Platelet Count 334 K/uL Normal 155-360 Red Cell Distri Width SD 45.7 fl Normal 36-47 Red Cell Distri Width %CV 12.1 % Normal 11.7-14.4 Mean Platelet Volume 9.3 fl Normal 8.9-12.4 Neut% 55.7 % Normal 40.4-72.8 Lymph % 28.5 % Normal 20.0-42.0 [place] % 9.8 % Normal 4.3-13.2 Eo% 1.9 % Normal 0.0-6.6 Bas% 3.5 % High 0.0-1.1 Immature Grans 0.6 % Normal 0.0-5.0 NRBC % 0.0 /100WBC < 10/ 100 WBC Neut# 1.76 K/uL Low 1.8-7.0 Lymph # 0.90 K/uL Low 1.0-4.0 [place] # 0.31 K/uL Normal 0.3-0.9 Eos # 0.06 K/uL Normal 0.0-0.5 Baso # 0.11 K/uL High 0.0-0.1 Immature Grans Absolute 0.02 K/uL NRBC # 0.00 K/uL Comprehensive 08/08/2018 [facility] Glucose 88 mg/dL Normal 74-106 Metabolic Panel [address] [place] [address] [phone] BUN 18 mg/dL Normal 7-18 Creatinine 0.9 mg/dL Normal 0.6-1.3 Glom Filtration Rate, Estimate >60 mL/min >60 If >60 mL/min >60 37 BUN/Creat 20.0 ratio Sodium 139 mmol/L Normal 136-145 Potassium 4.1 mmol/L Normal 3.5-5.1 Chloride 106 mmol/L Normal 98-107 Carbon Dioxide 26 mmol/L Normal 21-32 Anion Gap 7 mEq/L Low 8-16 Calcium 9.3 mg/dL Normal 8.5-10.1 Total Protein 7.7 g/dL Normal 6.4-8.2 Albumin 3.5 g/dL Normal 3.4-5.0 Globulin 4.2 g/dL Normal 1.9-4.3 Alb/Glob 0.8 ratio Bilirubin,Total 0.3 mg/dL Normal 0.2-1.0 Sgot/Ast 36 U/L Normal 15-37 SGPT/Alt 24 U/L Normal 12-78 Alkaline Phosphatase 106 U/L Normal 45-117 CBC W/Automated 08/01/2018 [facility] White Blood 2.8 K/uL Low 3.1-10.[address] [place] [address] [phone] Red Blood Count 3.72 M/uL Low 3.90-5.40 Hemoglobin 13.2 gm/dL Normal 11.6-15.8 Hematocrit 39.1 % Normal 36.0-46.1 Mean Cell Volume 105.1 fl High 80.9-99.0 Mean Corpuscular HGB 35.5 pg High 25.9-32.7 Mean Corpuscular HGB Conc 33.8 g/dL Normal 30.8-34.3 Platelet Count 188 K/uL Normal 155-360 Red Cell Distri Width SD 49.2 fl High 36-47 Red Cell Distri Width %CV 12.6 % Normal 11.7-14.4 Mean Platelet Volume 9.0 fl Normal 8.9-12.4 Neut% 48.5 % Normal 40.4-72.8 Lymph % 34.4 % Normal 20.0-42.0 [place] % 12.8 % Normal 4.3-13.2 Eo% 0.7 % Normal 0.0-6.6 Bas% 3.2 % High 0.0-1.1 Immature Grans 0.4 % Normal 0.0-5.0 NRBC % 0.0 /100WBC < 10/ 100 WBC Neut# 1.37 K/uL Low 1.8-7.0 Lymph # 0.97 K/uL Low 1.0-4.0 [place] # 0.36 K/uL Normal 0.3-0.9 Eos # 0.02 K/uL Normal 0.0-0.5 Baso # 0.09 K/uL Normal 0.0-0.1 Immature Grans Absolute 0.01 K/uL NRBC # 0.00 K/uL Comprehensive 08/01/2018 [facility] Glucose 83 mg/dL Normal 74-106 Metabolic Panel [address] [place] [address] [phone] BUN 23 mg/dL High 7-18 Creatinine 0.8 mg/dL Normal 0.6-1.3 Glom Filtration Rate, Estimate >60 mL/min >60 If >60 mL/min >60 38 BUN/Creat 28.7 ratio Sodium 137 mmol/L Normal 136-145 Potassium 3.9 mmol/L Normal 3.5-5.1 Chloride 103 mmol/L Normal 98-107 Carbon Dioxide 30 mmol/L Normal 21-32 Anion Gap 4 mEq/L Low 8-16 Calcium 9.1 mg/dL Normal 8.5-10.1 Total Protein 7.8 g/dL Normal 6.4-8.2 Albumin 4.0 g/dL Normal 3.4-5.0 Globulin 3.8 g/dL Normal 1.9-4.3 Alb/Glob 1.1 ratio Bilirubin,Total 0.3 mg/dL Normal 0.2-1.0 Sgot/Ast 36 U/L Normal 15-37 SGPT/Alt 26 U/L Normal 12-78 Alkaline Phosphatase 99 U/L Normal 45-117 Slide Review 08/01/2018 [facility] Slide Review (SEE NOTE) [address] [place] [address] [phone] Path Review: 08/01/2018 [facility] Path Review: TNP [address] [place] [address] [phone] CBC 07/25/2018 [facility] White Blood 1.6 K/uL Critical low 3.1-1 41 W/Automated [address] [place] [address] [phone] Red Blood Count 3.47 M/uL Low 3.90-5.40 Hemoglobin 12.5 gm/dL Normal 11.6-15.8 Hematocrit 36.5 % Normal 36.0-46.1 Mean Cell Volume 105.2 fl High 80.9-99.0 Mean Corpuscular HGB 36.0 pg High 25.9-32.7 Mean Corpuscular HGB Conc 34.2 g/dL Normal 30.8-34.3 Platelet Count 154 K/uL Low 155-360 Red Cell Distri Width SD 48.8 fl High 36-47 Red Cell Distri Width %CV 12.6 % Normal 11.7-14.4 Mean Platelet Volume 9.3 fl Normal 8.9-12.4 Neut% 47.2 % Normal 40.4-72.8 Lymph % 36.8 % Normal 20.0-42.0 [place] % 11.7 % Normal 4.3-13.2 Eo% 1.2 % Normal 0.0-6.6 Bas% 3.1 % High 0.0-1.1 Immature Grans 0.0 % Normal 0.0-5.0 NRBC % 0.0 /100WBC < 10/ 100 WBC Neut# 0.77 K/uL Critical low 1.8-7.0 Lymph # 0.60 K/uL Low 1.0-4.0 [place] # 0.19 K/uL Low 0.3-0.9 Eos # 0.02 K/uL Normal 0.0-0.5 Baso # 0.05 K/uL Normal 0.0-0.1 Immature Grans Absolute 0.00 K/uL NRBC # 0.00 K/uL Comprehensive 07/25/2018 [facility] Glucose 88 mg/dL Normal 74-106 Metabolic Panel [address] [place] [address] [phone] BUN 21 mg/dL High 7-18 Creatinine 0.9 mg/dL Normal 0.6-1.3 Glom Filtration Rate, Estimate >60 mL/min >60 If >60 mL/min >60 42 BUN/Creat 23.3 ratio Sodium 137 mmol/L Normal 136-145 Potassium 3.9 mmol/L Normal 3.5-5.1 Chloride 104 mmol/L Normal 98-107 Carbon Dioxide 28 mmol/L Normal 21-32 Anion Gap 5 mEq/L Low 8-16 Calcium 9.3 mg/dL Normal 8.5-10.1 Total Protein 7.3 g/dL Normal 6.4-8.2 Albumin 3.6 g/dL Normal 3.4-5.0 Globulin 3.7 g/dL Normal 1.9-4.3 Alb/Glob 1.0 ratio Bilirubin,Total 0.4 mg/dL Normal 0.2-1.0 Sgot/Ast 37 U/L Normal 15-37 SGPT/Alt 21 U/L Normal 12-78 Alkaline Phosphatase 93 U/L Normal 45-117 Laboratory test 07/25/2018 [facility] CA 27.29 438.2 U/mL High 0.0-38.6 43 finding [address] [place] [address] [phone] Slide Review 07/25/2018 [facility] Slide Review (SEE NOTE) [address] [place] [address] [phone] Laboratory test 07/25/2018 [facility] Path Review: (SEE NOTE) 45 finding [address] [place] [address] [phone] 1 D48.61 C79.51 Z51.11 2 Note: Persistent reduction for 3 months or more in an eGFR <60 mL/min/1.73 m2 defines CKD. Patients with eGFR values >/=60 mL/min/1.73 m2 may also have CKD if evidence of persistent proteinuria is present. The original MDRD equation for estimated GFR is not valid for patients less than 18 years of age. Additional information may be found at [email or web address]. 3 Quick2LAUNCH Immunochemiluminometric Methodology (ICMA) Values obtained with different assay methods or kits cannot be used interchangeably. Results cannot be interpreted as absolute evidence of the presence or absence of malignant disease. Performed at: [address] [id number] Vocational Horticulture Instructor: Paulina Miranda MD, Phone: [phone] 4 Instrument flagged sample for slide review. Less than 10% Bands seen, no other immature WBC's seen. RBC morphology essentially normal. Platelet estimate = NORMAL 5 Reviewed previous history, path review not indicated 6 Z51.11 C79.51 D48.61 E53.9 D64.9 Z51.12 7 Note: Persistent reduction for 3 months or more in an eGFR <60 mL/min/1.73 m2 defines CKD. Patients with eGFR values >/=60 mL/min/1.73 m2 may also have CKD if evidence of persistent proteinuria is present. The original MDRD equation for estimated GFR is not valid for patients less than 18 years of age. Additional information may be found at [email or web address]. 8 Specimen was diluted in order to obtain results. Results were repeated. Siemens Centaur Immunochemiluminometric Methodology (ICMA) Values obtained with different assay methods or kits cannot be used interchangeably. Results cannot be interpreted as absolute evidence of the presence or absence of malignant disease. Performed at: [address] [id number] Vocational Horticulture Instructor: Paulina Miranda MD, Phone: [phone] 9 Z51.11 D48.61 C79.51 E53.9 10 Instrument flagged sample for slide review. Less than 10% Bands seen, no other immature WBC's seen. RBC morphology essentially normal. Platelet estimate = SLIGHTLY DECREASED 11 Note: Persistent reduction for 3 months or more in an eGFR <60 mL/min/1.73 m2 defines CKD. Patients with eGFR values >/=60 mL/min/1.73 m2 may also have CKD if evidence of persistent proteinuria is present. The original MDRD equation for estimated GFR is not valid for patients less than 18 years of age. Additional information may be found at [email or web address]. 12 D48.61 C79.51 Z51.11 13 Note: Persistent reduction for 3 months or more in an eGFR <60 mL/min/1.73 m2 defines CKD. Patients with eGFR values >/=60 mL/min/1.73 m2 may also have CKD if evidence of persistent proteinuria is present. The original MDRD equation for estimated GFR is not valid for patients less than 18 years of age. Additional information may be found at [email or web address]. 14 D48.61 C79.51 15 Reviewed previous history, path review not indicated 16 Instrument flagged sample for slide review. Less than 10% Bands seen, no other immature WBC's seen. RBC morphology essentially normal. Platelet estimate = NORMAL 17 Specimen was diluted in order to obtain results. Results were repeated. Siemens Pink Rebel Shoesauip.access Immunochemiluminometric Methodology (ICMA) Values obtained with different assay methods or kits cannot be used interchangeably. Results cannot be interpreted as absolute evidence of the presence or absence of malignant disease. Performed at: - [facility] [address] [id number] Vocational Horticulture Instructor: Paulina Miranda MD, Phone: [phone] 18 Note: Persistent reduction for 3 months or more in an eGFR <60 mL/min/1.73 m2 defines CKD. Patients with eGFR values >/=60 mL/min/1.73 m2 may also have CKD if evidence of persistent proteinuria is present. The original MDRD equation for estimated GFR is not valid for patients less than 18 years of age. Additional information may be found at [email or web address]. 19 Note: Persistent reduction for 3 months or more in an eGFR <60 mL/min/1.73 m2 defines CKD. Patients with eGFR values >/=60 mL/min/1.73 m2 may also have CKD if evidence of persistent proteinuria is present. The original MDRD equation for estimated GFR is not valid for patients less than 18 years of age. Additional information may be found at [email or web address]. 20 Instrument flagged sample for slide review. Less than 10% Bands seen, no other immature WBC's seen. RBC morphology essentially normal. Platelet estimate = NORMAL 21 CHECKED CALLED WBC, ANC TO CLAUDIA C AT 0945 10/28/18 by LAB.[email or web address] 22 Instrument flagged sample for slide review. Less than 10% Bands seen, no other immature WBC's seen. RBC morphology essentially normal. Platelet estimate = NORMAL 23 Vitamin D deficiency has been defined by the [place] of [employer] and an Endocrine Society practice guideline as a level of serum 25-OH vitamin D less than 20 ng/mL (1,2). The Endocrine Society went on to further define vitamin D insufficiency as a level between 21 and 29 ng/mL (2). 1. IOM ([place] of Medicine). 2010. Dietary reference intakes for calcium and D. [place]: The National Academies Press. 2. Dick MF, Leticia [place], Romina CHAVEZ, et al. Evaluation, treatment, and prevention of vitamin D deficiency: an Endocrine Society clinical practice guideline. JCEM. 2010; 96(7):1911-30. Performed at: [address] [id number] Vocational Horticulture Instructor: Paulina Miranda MD, Phone: [phone] 24 THERAPEUTIC INR RANGE: 2.0 - 3.0 DVT, Pulmonary embolus, prophylaxis against venous thrombosis or systemic embolization in high risk patients. 2.5 - 3.5 Mechanical heart valves [address] [place] 26 Note: Persistent reduction for 3 months or more in an eGFR <60 mL/min/1.73 m2 defines CKD. Patients with eGFR values >/=60 mL/min/1.73 m2 may also have CKD if evidence of persistent proteinuria is present. The original MDRD equation for estimated GFR is not valid for patients less than 18 years of age. Additional information may be found at [email or web address]. 27 Performed at: [facility] [address] [id number] Vocational Horticulture Instructor: Paulina Miranda MD, Phone: [phone] Performed at: [facility] [address] [id number] Vocational Horticulture Instructor: Domenic Pulido MD, Phone: [phone] 28 Specimen was diluted in order to obtain results. Results were repeated. Siemens Centaur Immunochemiluminometric Methodology (ICMA) Values obtained with different assay methods or kits cannot be used interchangeably. Results cannot be interpreted as absolute evidence of the presence or absence of malignant disease. 29 Specimen was diluted in order to obtain results. Results were repeated. Siemens Centaur Immunochemiluminometric Methodology (ICMA) Values obtained with different assay methods or kits cannot be used interchangeably. Results cannot be interpreted as absolute evidence of the presence or absence of malignant disease. Performed at: RN - [facility] [address] [id number] Vocational Horticulture Instructor: Paulina Miranda MD, Phone: [phone] 30 Vitamin D deficiency has been defined by the [place] of [employer] and an Endocrine Society practice guideline as a level of serum 25-OH vitamin D less than 20 ng/mL (1,2). The Endocrine Society went on to further define vitamin D insufficiency as a level between 21 and 29 ng/mL (2). 1. IOM ([place] of Medicine). 2010. Dietary reference intakes for calcium and D. [place]: The National Academies Press. 2. Dick MF, [place], Romina CHAVEZ, et al. Evaluation, treatment, and prevention of vitamin D deficiency: an Endocrine Society clinical practice guideline. JCEM. 2010; 96(7):1911-30. Performed at: RN - [facility] [address] [id number] Vocational Horticulture Instructor: Paulina Miranda MD, Phone: [phone] 31 Z51.11 D48.61 32 Note: Persistent reduction for 3 months or more in an eGFR <60 mL/min/1.73 m2 defines CKD. Patients with eGFR values >/=60 mL/min/1.73 m2 may also have CKD if evidence of persistent proteinuria is present. The original MDRD equation for estimated GFR is not valid for patients less than 18 years of age. Additional information may be found at www.[email or web address]. 33 Instrument flagged sample for slide review. Less than 10% Bands seen, no other immature WBC's seen. RBC morphology essentially normal. Platelet estimate = NORMAL 34 Instrument flagged sample for slide review. Less than 10% Bands seen, no other immature WBC's seen. RBC morphology essentially normal. Platelet estimate = NORMAL 35 Note: Persistent reduction for 3 months or more in an eGFR <60 mL/min/1.73 m2 defines CKD. Patients with eGFR values >/=60 mL/min/1.73 m2 may also have CKD if evidence of persistent proteinuria is present. The original MDRD equation for estimated GFR is not valid for patients less than 18 years of age. Additional information may be found at www.[email or web address]. 36 D48.61 D70.1 Z51.11 37 Note: Persistent reduction for 3 months or more in an eGFR <60 mL/min/1.73 m2 defines CKD. Patients with eGFR values >/=60 mL/min/1.73 m2 may also have CKD if evidence of persistent proteinuria is present. The original MDRD equation for estimated GFR is not valid for patients less than 18 years of age. Additional information may be found at [email or web address]. 38 Note: Persistent reduction for 3 months or more in an eGFR <60 mL/min/1.73 m2 defines CKD. Patients with eGFR values >/=60 mL/min/1.73 m2 may also have CKD if evidence of persistent proteinuria is present. The original MDRD equation for estimated GFR is not valid for patients less than 18 years of age. Additional information may be found at [email or web address]. 39 Instrument flagged sample for slide review. Less than 10% Bands seen, no other immature WBC's seen. RBC morphology essentially normal. Platelet estimate = NORMAL 40 Reviewed previous history, path review not indicated 41 D48.61 D70.1 42 Note: Persistent reduction for 3 months or more in an eGFR <60 mL/min/1.73 m2 defines CKD. Patients with eGFR values >/=60 mL/min/1.73 m2 may also have CKD if evidence of persistent proteinuria is present. The original MDRD equation for estimated GFR is not valid for patients less than 18 years of age. Additional information may be found at [email or web address]. 43 Siemens Pink Rebel Shoesaur Immunochemiluminometric Methodology (ICMA) Values obtained with different assay methods or kits cannot be used interchangeably. Results cannot be interpreted as absolute evidence of the presence or absence of malignant disease. Performed at: RN - [facility] [address] [id number] Vocational Horticulture Instructor: Paulina Miranda MD, Phone: [phone] 44 Instrument flagged sample for slide review. Less than 10% Bands seen, no other immature WBC's seen. RBC morphology essentially normal. 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 K12.31 Oral mucositis (ulcerative) due to antineoplastic therapy D70.1 Agranulocytosis secondary to cancer chemotherapy Office Visit 11/30/2018 7:30a Infusion Center Aga Z51.11 Encounter for Savita Hare., antineoplastic [facility] [facility] chemotherapy 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 K12.31 Oral mucositis (ulcerative) due to antineoplastic therapy Office Visit 11/16/2018 7:30a Infusion Center [facility] Z51.11 Encounter for Savita Hare., antineoplastic [facility] [facility] chemotherapy 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 Office Visit 11/09/2018 7:30a Oncology Office [place], D48.61 Neoplasm of Cyn, DO uncertain 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 E53.9 Vitamin B deficiency, unspecified Office Visit 10/28/2018 7:30a Oncology Office [place], D48.61 Neoplasm of Cyn, DO uncertain 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 E53.9 Vitamin B deficiency, unspecified D70.9 Neutropenia, unspecified Office Visit 10/18/2018 7:45a Oncology Office [place], D48.61 Neoplasm of Cyn, DO uncertain 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 Office Visit 10/03/2018 4:30p Oncology Office [place], D48.61 Neoplasm of Cyn, DO uncertain 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 E53.9 Vitamin B deficiency, unspecified Office Visit 09/20/2018 7:45a Oncology Office [place], D48.61 Neoplasm of Cyn, DO uncertain 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 D70.1 Agranulocytosis secondary to cancer chemotherapy Office Visit 08/29/2018 7:45a Oncology Office [place], D48.61 Neoplasm of Cyn, DO uncertain 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 D70.1 Agranulocytosis secondary to cancer chemotherapy Office Visit 07/25/2018 4:00p Oncology Office Aga Z51.11 Encounter for Savita B., antineoplastic [facility] [facility] chemotherapy 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 , [employer] breast 01/11/2019 C79.51 Secondary malignant neoplasm of bone [place], Savita B., [employer] 01/11/2019 K12.31 Oral mucositis (ulcerative) due to [place] am[place] B., [facility] [facility]ER antineoplastic therapy 12/14/2018 Z51.11 Encounter for antineoplastic chemotherapy AgaSavita B., [facility] [facility] 12/14/2018 D48.61 Neoplasm of uncertain behavior of right [place], Savita B. , [employer] breast 12/14/2018 C79.51 Secondary malignant neoplasm of bone [place], Savita B., [employer]ER 12/14/2018 K12.31 Oral mucositis (ulcerative) due to [place] B., [employer] [facility] antineoplastic therapy 12/14/2018 D70.1 Agranulocytosis secondary to cancer [place], Savita B., [employer] chemotherapy 11/30/2018 Z51.11 Encounter for antineoplastic chemotherapy AgaRyanie B., [employer] 11/30/2018 C79.51 Secondary malignant neoplasm of bone [place], Savita B., [employer] 11/30/2018 D48.61 Neoplasm of uncertain behavior of right Aga, Savita B. , [employer] breast 11/30/2018 K12.31 Oral mucositis (ulcerative) due to AgaRyanie B., [employer]ER antineoplastic therapy 11/16/2018 Z51.11 Encounter for antineoplastic chemotherapy [place], Savita B., [employer] 11/16/2018 D48.61 Neoplasm of uncertain behavior of right [place], Savita B. , [employer] breast 11/16/2018 C79.51 Secondary malignant neoplasm of bone Aga, Saivta B., [employer] 11/09/2018 D48.61 Neoplasm of uncertain behavior of right [place], Cyn, DO breast 11/09/2018 C79.51 Secondary malignant neoplasm of bone [place], Cyn, DO 11/09/2018 E53.9 Vitamin B deficiency, unspecified [place], Cyn, DO 10/28/2018 D48.61 Neoplasm of uncertain behavior of right [place], Cyn, DO breast 10/28/2018 C79.51 Secondary malignant neoplasm of bone [place], Cyn, DO 10/28/2018 E53.9 Vitamin B deficiency, unspecified [place], Cyn, DO 10/28/2018 D70.9 Neutropenia, unspecified [place], Cyn, DO 10/18/2018 D48.61 Neoplasm of uncertain behavior of right [place], Cyn, DO breast 10/18/2018 C79.51 Secondary malignant neoplasm of bone [place], Cyn, DO 10/14/2018 D48.61 Neoplasm of uncertain behavior of right [place], Cyn, DO breast 10/14/2018 D48.61 Neoplasm of uncertain behavior of right Oncology Nurse breast 10/14/2018 E53.9 Vitamin B deficiency, unspecified [place], Cyn, DO 10/14/2018 E53.9 Vitamin B deficiency, unspecified Oncology Nurse 10/03/2018 D48.61 Neoplasm of uncertain behavior of right [place]fal, Cyn, DO breast 10/03/2018 C79.51 Secondary malignant neoplasm of bone Bou[place], Cyn, DO 10/03/2018 E53.9 Vitamin B deficiency, unspecified [place], Cyn, DO 09/20/2018 D48.61 Neoplasm of uncertain behavior of right Boufal, Cyn, DO breast 09/20/2018 C79.51 Secondary malignant neoplasm of bone Bou[place], Cyn, DO 09/20/2018 D70.1 Agranulocytosis secondary to cancer [place], Cyn, DO chemotherapy 08/29/2018 D48.61 Neoplasm of uncertain behavior of right Boufal, Cyn, DO breast 08/29/2018 C79.51 Secondary malignant neoplasm of bone Boufal, Cyn, DO 08/29/2018 D70.1 Agranulocytosis secondary to cancer [place], Cyn, DO chemotherapy 07/25/2018 Z51.11 Encounter for antineoplastic chemotherapy Savita Yung, [employer]CHER 07/25/2018 D48.61 Neoplasm of uncertain behavior of right Savita Yung , [place] breast 07/25/2018 C79.51 Secondary malignant neoplasm of bone Savita Yung, [employer]CHER 07/25/2018 D70.1 Agranulocytosis secondary to cancer Savita Yung NP chemotherapy Plan of Treatment Future Appointment(s):02/08/2019 7:30 am - Infusion Chair 8 at Infusion Kbtfvc5702/08/2019 8:00 am - Savita Yung, CARROT BUNCHER at Infusion Qsackp7903/08/2019 7:30 am - Infusion Chair 8 at Infusion Olyxbu7603/08/2019 8:00 am - Savita Yung, C[facility]OT BUNCHER at Infusion Rivcmo7301/11/2019 - Savita Yung, NPZ51.11 Encounter for antineoplastic chemotherapyComments:No contraindication to continuation of HamtzcemV97.61 Neoplasm of uncertain behavior of right breastComments:Continue Afinitor. Patient is tolerating it well. CA-27-29 was 510 last month and is 391 today. Faslodex is due today-patient reports tolerating this with no adverse effects as well.C79.51 Secondary malignant neoplasm of boneComments:Patient was last administered Denosumab 120 mg subcutaneously 12/14/18. She is currently on a every 3 month dosing schedule. She tolerates this with no adverse effects.Follow up:As scheduled for evaluation for [id number] Oral mucositis (ulcerative) due to antineoplastic therapyComments:Patient had no issues with oral mucositis over the course of the last month. Continue to monitor Functional Status Description No Information Available Mental Status Description No Information Available Referrals Description No Information Available
--- OUTSIDE RECORDS SUMMARY | 2019-01-18 07:20 | XMS REPORT | Continuity of Care Document ---
:1970 External Reference #:[id number] Author Name Savita Yung [employer] Address [address] [place] [address] Care Team Providers Name Role Phone Gladis Hannah NP - Nurse Care Team Information Informatics Spec Practitioner Problems Active Problems Provider Date Personal [...] Clune, 04/28/2018 [id number] Powder ounces of water Jennikunjferchaka, [employer] SUPER[employer]OR twice a day Xgeva SQ q6 Months Cyn Pacheco, 08/18/2016 120mg/1.7ML DO Solution Vitamin D 1 by mouth every [place], Cyn, 07/08/2016 4000Units day DO Tablets Venlafaxine HCL 1 by mouth twice a 180tabs Clune, 05/03/2012 100mg day Jenniferleigh, [employer]OR Tablets Citalopram 1 by mouth every 90tabs [place], 05/03/2012 Hydrobromide day Jenniferchaka, [employer]OR 20mg Tablets Calcium 1200 chew one by mouth Unknown daily [id number] Chewtabs Medications Administered in Office Medication SIG Qnty Indications Ordering Provider Date Vitamin B12 Injection 1000 Cyn Pacheco, DO 10/28/2018 mcg/Ml Injection Vitamin B12 Injection 1000 Oncology Nurse 10/14/2018 mcg/Ml Injection Immunizations CPT Code Status Date Vaccine Lot # [id number] Given 10/15/2015 Tdap injection [id number] U-Td Given 02/18/2000 Td(Adult),Unspecified Vital Signs Date Vital Result Comment 12/14/2018 7:44am BP Systolic 113 mmHg BP Diastolic 77 mmHg Body Temperature 98.3 F Heart Rate 87 /min Respiratory Rate 16 /min Weight 154.00 lb O2 % BldC Oximetry 97 % Pain Level 0 11/30/2018 7:38am BP Systolic 113 mmHg BP Diastolic 75 mmHg Body Temperature 98.5 F Heart Rate 73 /min Respiratory Rate 18 /min Weight 153.50 lb O2 % BldC Oximetry 99 % Pain Level 3 mouth ulcers Results Test Date Facility Test Result H/L Range Note CBC 12/14/2018 [facility] White Blood 3.5 K/uL Normal 3.1-10.7 1 W/Automated [address] [place] [address] [phone] Red Blood Count 4.22 M/uL Normal 3.90-5.40 [...] 40.4-72.8 Lymph % 26.8 % Normal 20.0-42.0 Toombs % 10.1 % Normal 4.3-13.2 Eo% 19.3 % High 0.0-6.6 Bas% 1.4 % High 0.0-1.1 Immature Grans 0.0 % Normal 0.0-5.0 NRBC % 0.0 /100WBC < 10/ 100 WBC Neut# 1.47 K/uL Low 1.8-7.0 Lymph # 0.93 K/uL Low 1.0-4.0 Toombs # 0.35 K/uL Normal 0.3-0.9 Eos # 0.67 K/uL High 0.0-0.5 Baso # 0.05 K/uL Normal 0.0-0.1 Immature Grans Absolute 0.00 K/uL NRBC # 0.00 K/uL Comprehensive Metabolic 12/14/2018 [facility] Glucose 128 mg/dL High 74-106 Panel [address] [place] [address] [phone] BUN 20 mg/dL High 7-18 Creatinine 0.8 mg/dL Normal 0.6-1.3 Glom Filtration Rate, Estimate >60 mL/min >60 If >60 mL/min >60 2 BUN/Creat 25.0 ratio Sodium 140 mmol/L Normal [...] 126 U/L High 45-117 Laboratory test 12/14/2018 [facility] CA 27.29 <pending> finding [address] [place] [address] [phone] CBC W/Automated 11/30/2018 [facility] White Blood 2.4 K/uL Low 3.1-10. 3 Diff 134 [facility] Count 7 [place] [address] [phone] Red Blood Count 4.06 M/uL Normal 3.90-5.40 [...] 40.4-72.8 Lymph % 30.6 % Normal 20.0-42.0 Toombs % 8.7 % Normal 4.3-13.2 Eo% 14.5 % High 0.0-6.6 Bas% 0.8 % Normal 0.0-1.1 Immature Grans 0.0 % Normal 0.0-5.0 NRBC % 0.0 /100WBC < 10/ 100 WBC Neut# 1.10 K/uL Low 1.8-7.0 Lymph # 0.74 K/uL Low 1.0-4.0 Toombs # 0.21 K/uL Low 0.3-0.9 Eos # 0.35 K/uL Normal 0.0-0.5 Baso # 0.02 K/uL Normal 0.0-0.1 Immature Grans Absolute 0.00 K/uL NRBC # 0.00 K/uL Comprehensive 11/30/2018 [facility] Glucose 102 mg/dL Normal 74-106 Metabolic Panel [address] [place] [address] [phone] BUN 21 mg/dL High 7-18 Creatinine 0.8 mg/dL Normal 0.6-1.3 Glom Filtration Rate, Estimate >60 mL/min >60 If >60 mL/min >60 4 BUN/Creat 26.2 ratio Sodium 140 mmol/L Normal [...] 12-78 Alkaline Phosphatase 108 U/L Normal 45-117 Slide Review 11/30/2018 [facility] Slide Review (SEE NOTE) 5 [address] [place] [address] [phone] Laboratory test 11/30/2018 [facility] Path Review: <pending> finding [address] [place] [address] [phone] CBC W/Automated 11/15/2018 [facility] White Blood 4.1 K/uL 3.1-10. [address] [place] [address] [phone] Red Blood Count 3.89 M/uL Low 3.90-5.40 [...] 40.4-72.8 Lymph % 31.0 % Normal 20.0-42.0 Toombs % 11.1 % Normal 4.3-13.2 Eo% 1.5 % Normal 0.0-6.6 Bas% 2.0 % High 0.0-1.1 Immature Grans 0.2 % Normal 0.0-5.0 NRBC % 0.0 /100WBC < 10/ 100 WBC Neut# 2.20 K/uL Normal 1.8-7.0 Lymph # 1.26 K/uL Normal 1.0-4.0 Toombs # 0.45 K/uL Normal 0.3-0.9 Eos # 0.06 K/uL Normal 0.0-0.5 Baso # 0.08 K/uL Normal 0.0-0.1 Immature Grans Absolute 0.01 K/uL NRBC # 0.00 K/uL Comprehensive Metabolic 11/15/2018 [facility] Glucose 70 mg/dL Low 74-[address] [place] [address] [phone] BUN 24 mg/dL High 7-18 Creatinine 0.9 mg/dL Normal 0.6-1.3 Glom Filtration Rate, Estimate >60 mL/min >60 If >60 mL/min >60 7 BUN/Creat 26.6 ratio Sodium 139 mmol/L Normal [...] 108 U/L Normal 45-117 Laboratory test 11/15/2018 [facility] Magnesium 2.3 Normal 1.8-2.[address] mg/[place] [address] [phone] Path Review: 11/09/2018 [facility] Path Review: NI 8, [address] [place] [address] [phone] Slide Review 11/09/2018 [facility] Slide Review (SEE [address] NOTE) [place] [address] [phone] Laboratory test 11/09/2018 [facility] CA 27.29 635.6 High 0.0-38.6 [address] U/[place] [address] [phone] Comprehensive 11/09/2018 [facility] Glucose 89 mg/dL Normal 74-106 Metabolic Panel [address] [place] [address] [phone] BUN 18 mg/dL Normal 7-18 Creatinine 0.8 mg/dL Normal 0.6-1.3 Glom Filtration Rate, Estimate >60 mL/min >60 If >60 mL/min >60 12 BUN/Creat 22.5 ratio Sodium 140 mmol/L Normal [...] 97 U/L Normal 45-117 CBC W/Automated 11/09/2018 [facility] White Blood 2.4 K/uL Low 3.1-10.[address] [place] [address] [phone] Red Blood Count 3.80 M/uL Low 3.90-5.40 [...] 40.4-72.8 Lymph % 33.6 % Normal 20.0-42.0 Toombs % 12.4 % Normal 4.3-13.2 Eo% 1.7 % Normal 0.0-6.6 Bas% 2.1 % High 0.0-1.1 Immature Grans 0.4 % Normal 0.0-5.0 NRBC % 0.0 /100WBC < 10/ 100 WBC Neut# 1.20 K/uL Low 1.8-7.0 Lymph # 0.81 K/uL Low 1.0-4.0 Toombs # 0.30 K/uL Normal 0.3-0.9 Eos # 0.04 K/uL Normal 0.0-0.5 Baso # 0.05 K/uL Normal 0.0-0.1 Immature Grans Absolute 0.01 K/uL NRBC # 0.00 K/uL CBC W/Automated 10/28/2018 [facility] White 1.4 K/uL Critical low 3.1-10.[address] [place] [address] Count [phone] Red Blood Count 3.70 M/uL Low 3.90-5.40 [...] 40.4-72.8 Lymph % 42.4 % High 20.0-42.0 Toombs % 11.8 % Normal 4.3-13.2 Eo% 1.4 % Normal 0.0-6.6 Bas% 3.5 % High 0.0-1.1 Immature Grans 0.0 % Normal 0.0-5.0 NRBC % 0.0 /100WBC < 10/ 100 WBC Neut# 0.59 K/uL Critical low 1.8-7.0 Lymph # 0.61 K/uL Low 1.0-4.0 Toombs # 0.17 K/uL Low 0.3-0.9 Eos # 0.02 K/uL Normal 0.0-0.5 Baso # 0.05 K/uL Normal 0.0-0.1 Immature Grans Absolute 0.00 K/uL NRBC # 0.00 K/uL Comprehensive 10/28/2018 [facility] Glucose 88 mg/dL Normal 74-106 Metabolic Panel [address] [place] [address] [phone] BUN 21 mg/dL High 7-18 Creatinine 1.0 mg/dL Normal 0.6-1.3 Glom Filtration Rate, Estimate >60 mL/min >60 If >60 mL/min >60 13 BUN/Creat 21.0 ratio Sodium 139 mmol/L Normal [...] U/L Normal 45-117 Vitamin B12 And 10/28/2018 [facility] Vitamin B12 350 pg/mL Normal 193-986 Folate [address] [place], [place] [phone] Folic Acid 10.7 ng/mL Normal 3.1-17.5 Slide Review 10/28/2018 [facility] Slide Review (SEE NOTE) 14 [address] [place] [address] [phone] Laboratory test 10/28/2018 [facility] Path Review: (SEE NOTE) 15 finding [address] [place], [place] [address] [phone] Path Review: 10/18/2018 [facility] Anticoagulant Unknown [address] Therapy? [place] [address] [phone] Slide Review 10/18/2018 [facility] Slide Review (SEE NOTE) 16 [address] [place] [address] [phone] Anticoagulant Therapy? Unknown Laboratory 10/18/2018 [facility] Vitamin 65.8 30.0-100.0 17 test finding [address] D,25-Hydroxy ng/[place] [address] [phone] Vitamin B12 10/18/2018 [facility] Vitamin B12 471 Normal 193-[address] pg/[place] [address] [phone] Folic Acid 9.2 ng/mL Normal 3.1-17.5 CBC W/Automated 10/18/2018 [facility] White 1.8 K/uL Critical low 3.1-10.[address] [place] [address] Count [phone] Red Blood Count 3.81 M/uL Low 3.90-5.40 [...] 40.4-72.8 Lymph % 27.2 % Normal 20.0-42.0 Toombs % 6.1 % Normal 4.3-13.2 Eo% 1.1 % Normal 0.0-6.6 Bas% 2.8 % High 0.0-1.1 Immature Grans 0.6 % Normal 0.0-5.0 NRBC % 0.0 /100WBC < 10/ 100 WBC Neut# 1.12 K/uL Low 1.8-7.0 Lymph # 0.49 K/uL Low 1.0-4.0 Toombs # 0.11 K/uL Low 0.3-0.9 Eos # 0.02 K/uL Normal 0.0-0.5 Baso # 0.05 K/uL Normal 0.0-0.1 Immature Grans Absolute 0.01 K/uL NRBC # 0.00 K/uL Anticoagulant Therapy? Unknown Protime 10/18/2018 [facility] Protime 13.2 seconds Normal 12.0-14.4 [address] [place], [place] [id number] [phone] Inr 1.0 Normal 0.9-1.1 18 Anticoagulant Therapy? Unknown Act Partial 10/18/2018 [facility] Act Partial 26.8 seconds Normal 23.4-35.0 Thrombo Time 134 [facility] [place] [address] [phone] Anticoagulant Therapy? Unknown Laboratory test 10/18/2018 [facility] Ferritin 62 ng/mL Normal 8-252 19 finding [address] [place] [address] [phone] Iron-Tibc-%Sat 10/18/2018 [facility] Serum Iron 92 g/dL Normal 50-170 [address] [place] [address] [phone] Total Iron Binding Capacity 417 g/dL Normal 250-450 Transferrin %Saturation 22 % Normal 12-57 Comprehensive 10/18/2018 [facility] Glucose 90 mg/dL Normal 74-106 Metabolic Panel [address] [place], [place] [address] [phone] BUN 26 mg/dL High 7-18 Creatinine 1.1 mg/dL Normal 0.6-1.3 Glom Filtration Rate, Estimate 56 mL/min >60 If >60 mL/min >60 20 BUN/Creat 23.6 ratio Sodium 139 mmol/L Normal [...] U/L Normal 45-117 Laboratory test finding 10/18/2018 [facility] Nucleotidase,5 7 IU/L 0-10 21 134 [place] [address] [phone] CA 27.29 595.7 U/mL High 0.0-38.6 22 Laboratory test 09/20/2018 [facility] Ferritin 58 ng/mL Normal 8-[address] [place] [address] [phone] Laboratory test 09/20/2018 [facility] CA 27.29 506.9 High 0.0-38.6 [address] U/[place] [address] [phone] Vitamin B12 And 09/20/2018 [facility] Vitamin B12 273 pg/mL Normal 193-986 Folate [address] [place] [address] [phone] Folic Acid 9.4 ng/mL Normal 3.1-17.5 Iron-Tibc-%Sat 09/20/2018 [facility] Serum Iron 106 g/dL Normal 50-170 [address] [place] [address] [phone] Total Iron Binding Capacity 452 g/dL High 250-450 Transferrin %Saturation 23 % Normal 12-57 Laboratory test 09/20/2018 [facility] Vitamin 68.6 30.0-100.0 [address] D,25-Hydroxy ng/[place] [address] [phone] Laboratory test 09/19/2018 [facility] Path Review: <pendin [address] g> [place] [address] [phone] Comprehensive 09/19/2018 [facility] Glucose 86 Normal 74-106 Metabolic Panel [address] mg/[place] [address] [phone] BUN 24 mg/dL High 7-18 Creatinine 0.9 mg/dL Normal 0.6-1.3 Glom Filtration Rate, Estimate >60 mL/min >60 If >60 mL/min >60 26 BUN/Creat 26.6 ratio Sodium 136 mmol/L Normal [...] 96 U/L Normal 45-117 CBC W/Automated 09/19/2018 [facility] White Blood 2.5 K/uL Low 3.1-10.[address] [place] [address] [phone] Red Blood Count 3.62 M/uL Low 3.90-5.40 [...] 40.4-72.8 Lymph % 26.1 % Normal 20.0-42.0 Toombs % 5.2 % Normal 4.3-13.2 Eo% 1.2 % Normal 0.0-6.6 Bas% 2.8 % High 0.0-1.1 Immature Grans 0.0 % Normal 0.0-5.0 NRBC % 0.0 /100WBC < 10/ 100 WBC Neut# 1.61 K/uL Low 1.8-7.0 Lymph # 0.65 K/uL Low 1.0-4.0 Toombs # 0.13 K/uL Low 0.3-0.9 Eos # 0.03 K/uL Normal 0.0-0.5 Baso # 0.07 K/uL Normal 0.0-0.1 Immature Grans Absolute 0.00 K/uL NRBC # 0.00 K/uL Slide Review 09/19/2018 [facility] Slide Review (SEE NOTE) [address] [place] [address] [phone] Comprehensive 08/22/2018 [facility] Glucose 82 mg/dL Normal 74-10 Metabolic Panel [address] [place] [address] [phone] BUN 24 mg/dL High 7-18 Creatinine 0.9 mg/dL Normal 0.6-1.3 Glom Filtration Rate, Estimate >60 mL/min >60 If >60 mL/min >60 28 BUN/Creat 26.6 ratio Sodium 134 mmol/L Low [...] Phosphatase 111 U/L Normal 45-117 CBC W/Automated 08/22/2018 [facility] White Blood 2.4 K/uL Low 3.1-10.[address] [place] [address] [phone] Red Blood Count 3.72 M/uL Low 3.90-5.40 [...] 40.4-72.8 Lymph % 35.0 % Normal 20.0-42.0 Toombs % 5.8 % Normal 4.3-13.2 Eo% 2.5 % Normal 0.0-6.6 Bas% 2.1 % High 0.0-1.1 Immature Grans 0.8 % Normal 0.0-5.0 NRBC % 0.0 /100WBC < 10/ 100 WBC Neut# 1.29 K/uL Low 1.8-7.0 Lymph # 0.84 K/uL Low 1.0-4.0 Toombs # 0.14 K/uL Low 0.3-0.9 Eos # 0.06 K/uL Normal 0.0-0.5 Baso # 0.05 K/uL Normal 0.0-0.1 Immature Grans Absolute 0.02 K/uL NRBC # 0.00 K/uL Slide Review 08/22/2018 [facility] Slide Review . [address] [place] [address] [phone] Laboratory test 08/22/2018 [facility] Path Review: <pending finding [address] > AVE [place] [id number] [phone] CBC W/Automated 08/08/2018 [facility] White Blood 3.2 K/uL Normal 3.1-10. [address] Count [address] [place] [address] [phone] Red Blood Count 3.85 M/uL Low 3.90-5.40 [...] 40.4-72.8 Lymph % 28.5 % Normal 20.0-42.0 Toombs % 9.8 % Normal 4.3-13.2 Eo% 1.9 % Normal 0.0-6.6 Bas% 3.5 % High 0.0-1.1 Immature Grans 0.6 % Normal 0.0-5.0 NRBC % 0.0 /100WBC < 10/ 100 WBC Neut# 1.76 K/uL Low 1.8-7.0 Lymph # 0.90 K/uL Low 1.0-4.0 Toombs # 0.31 K/uL Normal 0.3-0.9 Eos # 0.06 K/uL Normal 0.0-0.5 Baso # 0.11 K/uL High 0.0-0.1 Immature Grans Absolute 0.02 K/uL NRBC # 0.00 K/uL Comprehensive 08/08/2018 [facility] Glucose 88 mg/dL Normal 74-106 Metabolic Panel [address] [place] [id number] [phone] BUN 18 mg/dL Normal 7-18 Creatinine 0.9 mg/dL Normal 0.6-1.3 Glom Filtration Rate, Estimate >60 mL/min >60 If >60 mL/min >60 31 BUN/Creat 20.0 ratio Sodium 139 mmol/L Normal [...] 12-78 Alkaline Phosphatase 106 U/L Normal 45-117 Comprehensive 08/01/2018 [facility] Glucose 83 mg/dL Normal 74-[address] [place] [address] [phone] BUN 23 mg/dL High 7-18 Creatinine 0.8 mg/dL Normal 0.6-1.3 Glom Filtration Rate, Estimate >60 mL/min >60 If >60 mL/min >60 32 BUN/Creat 28.7 ratio Sodium 137 mmol/L Normal [...] 99 U/L Normal 45-117 Slide Review 08/01/2018 [facility] Slide Review (SEE NOTE) [address] [place] [phone] Path Review: 08/01/2018 [facility] Path Review: TNP [address] [facility] [address] [address] [phone] CBC 08/01/2018 [facility] White Blood 2.8 K/uL Low 3.1-10.7 W/Automated [address] Count Diff [place], [place] [phone] Red Blood Count 3.72 M/uL Low 3.90-5.40 [...] 40.4-72.8 Lymph % 34.4 % Normal 20.0-42.0 Toombs % 12.8 % Normal 4.3-13.2 Eo% 0.7 % Normal 0.0-6.6 Bas% 3.2 % High 0.0-1.1 Immature Grans 0.4 % Normal 0.0-5.0 NRBC % 0.0 /100WBC < 10/ 100 WBC Neut# 1.37 K/uL Low 1.8-7.0 Lymph # 0.97 K/uL Low 1.0-4.0 Toombs # 0.36 K/uL Normal 0.3-0.9 Eos # 0.02 K/uL Normal 0.0-0.5 Baso # 0.09 K/uL Normal 0.0-0.1 Immature Grans Absolute 0.01 K/uL NRBC # 0.00 K/uL CBC W/Automated 07/25/2018 [facility] White 1.6 K/uL Critical low 3.1-10.7 35 Diff [address] [facility] [place] [address] Count [phone] Red Blood Count 3.47 M/uL Low 3.90-5.40 [...] 40.4-72.8 Lymph % 36.8 % Normal 20.0-42.0 Toombs % 11.7 % Normal 4.3-13.2 Eo% 1.2 % Normal 0.0-6.6 Bas% 3.1 % High 0.0-1.1 Immature Grans 0.0 % Normal 0.0-5.0 NRBC % 0.0 /100WBC < 10/ 100 WBC Neut# 0.77 K/uL Critical low 1.8-7.0 Lymph # 0.60 K/uL Low 1.0-4.0 Toombs # 0.19 K/uL Low 0.3-0.9 Eos # 0.02 K/uL Normal 0.0-0.5 Baso # 0.05 K/uL Normal 0.0-0.1 Immature Grans Absolute 0.00 K/uL NRBC # 0.00 K/uL Comprehensive 07/25/2018 [facility] Glucose 88 mg/dL Normal 74-106 Metabolic Panel [address] [place] [address] [phone] BUN 21 mg/dL High 7-18 Creatinine 0.9 mg/dL Normal 0.6-1.3 Glom Filtration Rate, Estimate >60 mL/min >60 If >60 mL/min >60 36 BUN/Creat 23.3 ratio Sodium 137 mmol/L Normal [...] 93 U/L Normal 45-117 Laboratory test 07/25/2018 [facility] CA 27.29 438.2 High 0.0-38.6 [address] U/mL AVE [place] [address] [phone] Slide Review 07/25/2018 [facility] Slide (SEE [address] Review NOTE) AVE [place] [address] [phone] Laboratory test 07/25/2018 [facility] Path (SEE [address] Review: NOTE) [place], [place] [id number] [phone] Comprehensive 06/28/2018 [facility] Glucose 75 mg/dL Normal 74-106 40 Metabolic Panel [address] [place], [place] [id number] [phone] BUN 14 mg/dL Normal 7-18 Creatinine 0.8 mg/dL Normal 0.6-1.3 Glom Filtration Rate, Estimate >60 mL/min >60 If >60 mL/min >60 41 BUN/Creat 17.5 ratio Sodium 137 mmol/L Normal 136-145 Potassium 3.8 mmol/L Normal 3.5-5.1 Chloride 102 mmol/L Normal 98-107 Carbon Dioxide 29 mmol/L Normal 21-32 Anion Gap 6 mEq/L Low 8-16 Calcium 8.9 mg/dL Normal 8.5-10.1 Total Protein 7.6 g/dL Normal 6.4-8.2 Albumin 3.8 g/dL Normal 3.4-5.0 Globulin 3.8 g/dL Normal 1.9-4.3 Alb/Glob 1.0 ratio Bilirubin,Total 0.3 mg/dL Normal 0.2-1.0 Sgot/Ast 41 U/L High 15-37 SGPT/Alt 25 U/L Normal 12-78 Alkaline Phosphatase 88 U/L Normal 45-117 CBC W/Automated 06/28/2018 [facility] White 2.0 K/uL Critical low 3.1-10.[address] [place] [address] Count [phone] Red Blood Count 3.63 M/uL Low 3.90-5.40 Hemoglobin 12.5 gm/dL Normal 11.6-15.8 Hematocrit 38.8 % Normal 36.0-46.1 Mean Cell Volume 106.9 fl High 80.9-99.0 Mean Corpuscular HGB 34.4 pg High 25.9-32.7 Mean Corpuscular HGB Conc 32.2 g/dL Normal 30.8-34.3 Platelet Count 149 K/uL Low 155-360 Red Cell Distri Width SD 49.3 fl High 36-47 Red Cell Distri Width %CV 13.1 % Normal 11.7-14.4 Mean Platelet Volume 9.1 fL Normal 8.9-12.4 Neut% 47.3 % Normal 40.4-72.8 Lymph % 40.2 % Normal 20.0-42.0 Toombs % 8.5 % Normal 4.3-13.2 Eo% 0.5 % Normal 0.0-6.6 Bas% 3.5 % High 0.0-1.1 Neut# 0.94 K/uL Critical low 1.8-7.0 Lymph # 0.80 K/uL Low 1.0-4.0 Toombs # 0.17 K/uL Low 0.3-0.9 Eos # 0.01 K/uL Normal 0.0-0.5 Baso # 0.07 K/uL Normal 0.0-0.1 Slide Review 06/28/2018 [facility] Slide Review (SEE NOTE) [address] [place] [address] [phone] Laboratory test finding 06/28/2018 [facility] Path Review: <pending> [address] [place] [address] [phone] RBC Morphology Only 06/28/2018 [facility] Hypochromia 0-1+ [address] [place] [address] [phone] Macrocytosis 1+ 1 Z51.11 C79.51 D48.61 E53.9 D64.9 Z51.12 2 Note: Persistent reduction for 3 months or more in an eGFR <60 mL/min/1.73 m2 defines CKD. Patients with eGFR values >/=60 mL/min/1.73 m2 may also have CKD if evidence of persistent proteinuria is present. The original MDRD equation for estimated GFR is not valid for patients less than 18 years of age. Additional information may be found at www.kdoqi.org. 3 Z51.11 D48.61 C79.51 E53.9 4 Note: Persistent reduction for 3 months or more in an eGFR <60 mL/min/1.73 m2 defines CKD. Patients with eGFR values >/=60 mL/min/1.73 m2 may also have CKD if evidence of persistent proteinuria is present. The original MDRD equation for estimated GFR is not valid for patients less than 18 years of age. Additional information may be found at [email or web address]. 5 Instrument flagged sample for slide review. Less than 10% Bands seen, no other immature WBC's seen. RBC morphology essentially normal. Platelet estimate = SLIGHTLY DECREASED 6 D48.61 C79.51 Z51.11 7 Note: Persistent reduction for 3 months or more in an eGFR <60 mL/min/1.73 m2 defines CKD. Patients with eGFR values >/=60 mL/min/1.73 m2 may also have CKD if evidence of persistent proteinuria is present. The original MDRD equation for estimated GFR is not valid for patients less than 18 years of age. Additional information may be found at [email or web address]. 8 D48.61 C79.51 9 Reviewed previous history, path review not indicated 10 Instrument flagged sample for slide review. Less than 10% Bands seen, no other immature WBC's seen. RBC morphology essentially normal. Platelet estimate = NORMAL 11 Specimen was diluted in order to obtain results. Results were repeated. meevl Immunochemiluminometric Methodology (ICMA) Values obtained with different assay methods or kits cannot be used interchangeably. Results cannot be interpreted as absolute evidence of the presence or absence of malignant disease. Performed at: RN - [facility] [address] [id number] Hr Recruiter: Paulina Miranda MD, Phone: [phone] 12 Note: Persistent reduction for 3 months or more in an eGFR <60 mL/min/1.73 m2 defines CKD. Patients with eGFR values >/=60 mL/min/1.73 m2 may also have CKD if evidence of persistent proteinuria is present. The original MDRD equation for estimated GFR is not valid for patients less than 18 years of age. Additional information may be found at [email or web address] 13 Note: Persistent reduction for 3 months or more in an eGFR <60 mL/min/1.73 m2 defines CKD. Patients with eGFR values >/=60 mL/min/1.73 m2 may also have CKD if evidence of persistent proteinuria is present. The original MDRD equation for estimated GFR is not valid for patients less than 18 years of age. Additional information may be found at [email or web address] 14 Instrument flagged sample for slide review. Less than 10% Bands seen, no other immature WBC's seen. RBC morphology essentially normal. Platelet estimate = NORMAL 15 CHECKED CALLED WBC, ANC TO CLAUDIA C AT 0945 10/28/18 by [email or web address] 16 Instrument flagged sample for slide review. Less than 10% Bands seen, no other immature WBC's seen. RBC morphology essentially normal. Platelet estimate = NORMAL 17 Vitamin D deficiency has been defined by the [place] [employer] and an Endocrine Society practice guideline as a level of serum 25-OH vitamin D less than 20 ng/mL (1,2). The Endocrine Society went on to further define vitamin D insufficiency as a level between 21 and 29 ng/mL (2). 1. IOM ([place] [employer]). 2010. Dietary reference intakes for calcium and D. [place]: The National Academies Press. 2. Dick MF, Leticia RAMEY, Romina CHAVEZ, et al. Evaluation, treatment, and prevention of vitamin D deficiency: an Endocrine Society clinical practice guideline. JCEM. 2010; 96(7):1911-30. Performed at: [facility] [address] [id number] Hr Recruiter: Paulina Miranda MD, Phone: [phone] 18 THERAPEUTIC INR RANGE: 2.0 - 3.0 DVT, Pulmonary embolus, prophylaxis against venous thrombosis or systemic embolization in high risk patients. 2.5 - 3.5 Mechanical heart valves [address] PACHECO 20 Note: Persistent reduction for 3 months or more in an eGFR <60 mL/min/1.73 m2 defines CKD. Patients with eGFR values >/=60 mL/min/1.73 m2 may also have CKD if evidence of persistent proteinuria is present. The original MDRD equation for estimated GFR is not valid for patients less than 18 years of age. Additional information may be found at [email or web address] 21 Performed at: [facility] [address] [id number] Hr Recruiter: Paulina Miranda MD, Phone: [phone] Performed at: [facility] [address] [id number] Hr Recruiter: Domenic Pulido MD, Phone: [phone] 22 Specimen was diluted in order to obtain results. Results were repeated. Siemens ActiveRainaur Immunochemiluminometric Methodology (ICMA) Values obtained with different assay methods or kits cannot be used interchangeably. Results cannot be interpreted as absolute evidence of the presence or absence of malignant disease. 23 Specimen was diluted in order to obtain results. Results were repeated. Siemens ActiveRainauLoveSurf Immunochemiluminometric Methodology (ICMA) Values obtained with different assay methods or kits cannot be used interchangeably. Results cannot be interpreted as absolute evidence of the presence or absence of malignant disease. Performed at: [facility] [id number] Hr Recruiter: Paulina Miranda MD, Phone: [phone] 24 Vitamin D deficiency has been defined by the [place] of [employer] and an Endocrine Society practice guideline as a level of serum 25-OH vitamin D less than 20 ng/mL (1,2). The Endocrine Society went on to further define vitamin D insufficiency as a level between 21 and 29 ng/mL (2). 1. IOM ([place] of [employer]). 2010. Dietary reference intakes for calcium and D. [place]: The National Academies Press. 2. Dick MF, Leticia RAMEY, Romina CHAVEZ, et al. Evaluation, treatment, and prevention of vitamin D deficiency: an Endocrine Society clinical practice guideline. JCEM. 2010; 96(7):1911-30. Performed at: [facility] [id number] Hr Recruiter: Paulina Miranda MD, Phone: [phone] 25 Z51.11 D48.61 26 Note: Persistent reduction for 3 months or more in an eGFR <60 mL/min/1.73 m2 defines CKD. Patients with eGFR values >/=60 mL/min/1.73 m2 may also have CKD if evidence of persistent proteinuria is present. The original MDRD equation for estimated GFR is not valid for patients less than 18 years of age. Additional information may be found at [email or web address]. 27 Instrument flagged sample for slide review. Less than 10% Bands seen, no other immature WBC's seen. RBC morphology essentially normal. Platelet estimate = NORMAL 28 Note: Persistent reduction for 3 months or more in an eGFR <60 mL/min/1.73 m2 defines CKD. Patients with eGFR values >/=60 mL/min/1.73 m2 may also have CKD if evidence of persistent proteinuria is present. The original MDRD equation for estimated GFR is not valid for patients less than 18 years of age. Additional information may be found at [email or web address]. 29 Instrument flagged sample for slide review. Less than 10% Bands seen, no other immature WBC's seen. RBC morphology essentially normal. Platelet estimate = NORMAL 30 D48.61 D70.1 Z51.11 31 Note: Persistent reduction for 3 months or more in an eGFR <60 mL/min/1.73 m2 defines CKD. Patients with eGFR values >/=60 mL/min/1.73 m2 may also have CKD if evidence of persistent proteinuria is present. The original MDRD equation for estimated GFR is not valid for patients less than 18 years of age. Additional information may be found at [email or web address]. 32 Note: Persistent reduction for 3 months [...] essentially normal. Platelet estimate = NORMAL 34 Reviewed previous history, path review not indicated 35 D48.61 D70.1 36 Note: Persistent reduction for 3 months or more in an eGFR <60 mL/min/1.73 m2 defines CKD. Patients with eGFR values >/=60 mL/min/1.73 m2 may also have CKD if evidence of persistent proteinuria is present. The original MDRD equation for estimated GFR is not valid for patients less than 18 years of age. Additional information may be found at [email or web address]. 37 Siemens Centaur Immunochemiluminometric Methodology (ICMA) Values obtained with different assay methods or kits cannot be used interchangeably. Results cannot be interpreted as absolute evidence of the presence or absence of malignant disease. Performed at: RN [facility] [address] [id number] Hr Recruiter: Paulina Miranda MD, Phone: [phone] 38 Instrument flagged sample for slide review. Less than 10% Bands seen, no other immature WBC's seen. RBC morphology essentially normal. Platelet estimate = NORMAL 39 CHECKED CALLED WBC, ANC TO CLAUDIA C AT 1200 07/25/18 by [email or web address] 40 D48.61 C79.51 D64.9 41 Note: Persistent reduction for 3 months or more in an eGFR <60 mL/min/1.73 m2 defines CKD. Patients with eGFR values >/=60 mL/min/1.73 m2 may also have CKD if evidence of persistent proteinuria is present. The original MDRD equation for estimated GFR is not valid for patients less than 18 years of age. Additional information may be found at [email or web address]. 42 Instrument flagged sample for slide review. Less than 10% Bands seen, no other immature WBC's seen. 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 K12.31 Oral mucositis (ulcerative) due to antineoplastic therapy Office Visit 11/16/2018 7:30a Infusion Center Aga Z51.11 Encounter for Savita Solares, antineoplastic [employer]OR chemotherapy 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 Office Visit 11/09/2018 7:30a Oncology Office Boufal, D48.61 Neoplasm of Cyn, DO uncertain 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 E53.9 Vitamin B deficiency, unspecified Office Visit 10/28/2018 7:30a Oncology Office Lloyd, D48.61 Neoplasm of Cyn, DO uncertain 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 E53.9 Vitamin B deficiency, unspecified D70.9 Neutropenia, unspecified Office Visit 10/18/2018 7:45a Oncology Office [place], D48.61 Neoplasm of Cyn, DO uncertain behavior [...] chemotherapy Office Visit 08/29/2018 7:45a Oncology Office [place], D48.61 Neoplasm of Cyn, DO uncertain 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 D70.1 Agranulocytosis secondary to cancer chemotherapy Office Visit 07/25/2018 4:00p Oncology Office Aga, Z51.11 Encounter for Savita Solares, antineoplastic [employer] chemotherapy 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 , VET[employer]INARY [employer] INSPECTOR breast 12/14/2018 C79.51 Secondary malignant neoplasm of bone Savita Yung B., VET[employer] INSPECTOR 12/14/2018 K12.31 Oral mucositis (ulcerative) due to Savita Yung., VET[employer]OR antineoplastic therapy 12/14/2018 D70.1 Agranulocytosis secondary to cancer ChadwicksSavita B., VET[employer]PECTOR chemotherapy 11/30/2018 Z51.11 Encounter for antineoplastic chemotherapy Savita Yung B., VET[employer]ARY [employer] INSPECTOR 11/30/2018 C79.51 Secondary malignant neoplasm of bone Savita Yung B., VETERINARY [employer] INSPECTOR 11/30/2018 D48.61 Neoplasm of uncertain behavior of right AgaSavita B. , VET[employer]PECTOR breast 11/30/2018 K12.31 Oral mucositis (ulcerative) due to Savita Yung B., VET[employer]INARY [employer] INSPECTOR antineoplastic therapy 11/16/2018 Z51.11 Encounter for antineoplastic chemotherapy Savita Yung B., VETERINARY [employer] INSPECTOR 11/16/2018 D48.61 Neoplasm of uncertain behavior of right Savita Yung B. , VET[employer]OR breast 11/16/2018 C79.51 Secondary malignant neoplasm of bone Savita Yung B., VET[employer]INARY [employer] INSPECTOR 11/09/2018 D48.61 Neoplasm of uncertain behavior of right Boufal Cyn, DO breast 11/09/2018 C79.51 Secondary malignant [...] of uncertain behavior of right Boufal, Cyn, breast 08/29/2018 C79.51 Secondary malignant neoplasm of bone Cyn Pacheco, DO 08/29/2018 D70.1 Agranulocytosis secondary to cancer Cyn Pacheco, DO chemotherapy 07/25/2018 Z51.11 Encounter for antineoplastic chemotherapy Savita Yung, V[employer]OR 07/25/2018 D48.61 Neoplasm of uncertain behavior of right Savita Yung , V[employer] INS[employer]OR breast 07/25/2018 C79.51 Secondary malignant neoplasm of bone Savita Yung, V[employer] INS[employer]OR 07/25/2018 D70.1 Agranulocytosis secondary to cancer Savita Yung, [place] chemotherapy Plan of Treatment Future Appointment(s):03/08/2019 7:30 am - Infusion Chair 8 at Infusion Wldmzt8303/08/2019 8:00 am - Savita Yung, VETERINARY VIRUS [employer]UM INSPECTOR at Infusion Euppaq6701/11/2019 7:30 am - Infusion Chair 8 at Infusion Qtgctw6601/11/2019 8:00 am - Savita Yung, VETERINARY V[employer]US [employer]UM INSPECTOR at Infusion Xhshns2512/14/2018 - Savita Yung, NPZ51.11 Encounter for antineoplastic chemotherapyComments:No contraindication to continuation of DkpqpialO74.61 Neoplasm of uncertain behavior of right breastComments:Patient's disease progressed on Ibrance. Treatment regimen has been changed to Faslodex/Afinitor - C1D1 on 11/16. Pt is to begin C2 today. Overall, she is tolerating treatment well. Did suffer a Grade 2 oral mucositis a couple of weeks ago. This has resolved. Ca 27-29 drawn todayFollow up:4 weeks for evaluation for cycle 3 day 1 of treatment.C79.51 Secondary malignant neoplasm of boneComments:Denosumab 120mg SubQ today. Per Dr. Pacheco, pt will return to q3 month dosing. Patient has had this in the past with no adverse effects. She denies jaw pain and recent invasive dental procedures.K12.31 Oral mucositis (ulcerative) due to antineoplastic therapyComments:Patient did suffer a grade 2 oral mucositis couple of weeks ago. This has since completely resolved.D70.1 Agranulocytosis secondary to cancer chemotherapyComments:Grade 2 neutropenia with ANC of 1.1 2 weeks ago and an ANC of 1.47 today. Patient has been afebrilewith no signs or symptoms of infection. Continue to monitor. No change in treatment plan at this time. Functional Status Description No Information Available Mental Status Description No Information Available Referrals Description No Information Available
--- OUTSIDE RECORDS SUMMARY | 2019-01-18 07:20 | XMS REPORT | Continuity of Care Document ---
:1970 External Reference #:[id number] Author Name Savita Yung [employer]DD TICKET CLERK Address [address] [place] [address] Care Team Providers Name Role Phone Gladis Hannah NP - Nurse Care Team Information Is Analyst [phone] Practitioner Problems Active Problems Provider Date Personal [...] 04/28/2018 [id number] Powder ounces of water Jennikunjferchaka, MD ALLERGY IMMUNOLOGY twice a day Xgeva SQ q6 Months Cyn Pacheco, 08/18/2016 120mg/1.7ML DO Solution Vitamin D 1 by mouth every Boufal, Cyn, 07/08/2016 4000Units day DO Tablets Venlafaxine HCL 1 by mouth twice a 180tabs Clune, 05/03/2012 100mg day Jenniferleigh, MD ALLERGY IMMUNOLOGY Tablets Citalopram 1 by mouth every 90tabs Clayton, 05/03/2012 Hydrobromide day Jenniferchaka, MD ALLERGY IMMUNOLOGY 20mg Tablets Calcium 1200 chew one by mouth Unknown daily [id number]-Uwyn Chewtabs Medications Administered in Office Medication SIG Qnty Indications Ordering Provider Date Vitamin B12 Injection 1000 Cyn Pacheco, DO 10/28/2018 mcg/Ml Injection Vitamin B12 Injection 1000 Oncology Nurse 10/14/2018 mcg/Ml Injection Immunizations CPT Code Status Date Vaccine Lot # [id number] Given 10/15/2015 Tdap injection [id number] U-Td Given 02/18/2000 Td(Adult),Unspecified Vital Signs Date Vital Result Comment 11/30/2018 7:38am BP Systolic 113 mmHg BP Diastolic 75 mmHg Body Temperature 98.5 F Heart Rate 73 /min Respiratory Rate 18 /min Weight 153.50 lb O2 % BldC Oximetry 99 % Pain Level 3 mouth ulcers 11/16/2018 7:48am BP Systolic 118 mmHg L BP Diastolic 81 mmHg L Body Temperature 97.3 F Heart Rate 78 /min Respiratory Rate 16 /min Weight 153.12 lb O2 % BldC Oximetry 98 % Pain Level 0 Results Test Date Facility Test Result H/L Range Note CBC 11/30/2018 [facility] White Blood 2.4 K/uL Low 3.1-10.7 1 W/Automated [address] [place] [address] [phone] Red Blood Count 4.06 M/uL Normal 3.90-5.40 [...] 40.4-72.8 Lymph % 30.6 % Normal 20.0-42.0 [place] % 8.7 % Normal 4.3-13.2 Eo% 14.5 % High 0.0-6.6 Bas% 0.8 % Normal 0.0-1.1 Immature Grans 0.0 % Normal 0.0-5.0 NRBC % 0.0 /100WBC < 10/ 100 WBC Neut# 1.10 K/uL Low 1.8-7.0 Lymph # 0.74 K/uL Low 1.0-4.0 [place] # 0.21 K/uL Low 0.3-0.9 Eos # 0.35 K/uL Normal 0.0-0.5 Baso # 0.02 K/uL Normal 0.0-0.1 Immature Grans Absolute 0.00 K/uL NRBC # 0.00 K/uL Comprehensive 11/30/2018 [facility] Glucose 102 mg/dL Normal 74-[address] [address] [phone] BUN 21 mg/dL High 7-18 Creatinine 0.8 mg/dL Normal 0.6-1.3 Glom Filtration Rate, Estimate >60 mL/min >60 If >60 mL/min >60 2 BUN/Creat 26.2 ratio Sodium 140 mmol/L Normal [...] 108 U/L Normal 45-117 Slide Review 11/30/2018 [facility] Slide Review (SEE NOTE) [address] [address] [phone] Laboratory test 11/30/2018 [facility] Path Review: <pending> finding [address] [place] [address] [phone] CBC W/Automated 11/15/2018 [facility] White Blood 4.1 K/uL 3.1-10. 4 Diff [address] [place] Count [address] [place] [address] [phone] Red Blood Count 3.89 M/uL Low 3.90-5.40 [...] 40.4-72.8 Lymph % 31.0 % Normal 20.0-42.0 [place] % 11.1 % Normal 4.3-13.2 Eo% 1.5 % Normal 0.0-6.6 Bas% 2.0 % High 0.0-1.1 Immature Grans 0.2 % Normal 0.0-5.0 NRBC % 0.0 /100WBC < 10/ 100 WBC Neut# 2.20 K/uL Normal 1.8-7.0 Lymph # 1.26 K/uL Normal 1.0-4.0 [place] # 0.45 K/uL Normal 0.3-0.9 Eos # 0.06 K/uL Normal 0.0-0.5 Baso # 0.08 K/uL Normal 0.0-0.1 Immature Grans Absolute 0.01 K/uL NRBC # 0.00 K/uL Comprehensive Metabolic 11/15/2018 [facility] Glucose 70 mg/dL Low 74-106 Panel [address] [place] [address] [phone] BUN 24 mg/dL High 7-18 Creatinine 0.9 mg/dL Normal 0.6-1.3 Glom Filtration Rate, Estimate >60 mL/min >60 If >60 mL/min >60 5 BUN/Creat 26.6 ratio Sodium 139 mmol/L Normal [...] 108 U/L Normal 45-117 Laboratory test 11/15/2018 [facility] Magnesium 2.3 Normal 1.8-2.[address] mg/dL [place]VE [place] [address] [phone] Path Review: 11/09/2018 [facility] Path Review: NI 6, [address] [place] [phone] Slide Review 11/09/2018 [facility] Slide Review (SEE [address] NOTE) AVE [place] [phone] Laboratory test 11/09/2018 [facility] CA 27.29 635.6 High 0.0-38.6 [address] U/mL AVE [place] [phone] Comprehensive 11/09/2018 [facility] Glucose 89 mg/dL Normal 74-106 Metabolic Panel [address] [place] [address] [phone] BUN 18 mg/dL Normal 7-18 Creatinine 0.8 mg/dL Normal 0.6-1.3 Glom Filtration Rate, Estimate >60 mL/min >60 If >60 mL/min >60 10 BUN/Creat 22.5 ratio Sodium 140 mmol/L Normal [...] 97 U/L Normal 45-117 CBC W/Automated 11/09/2018 [facility] White Blood 2.4 K/uL Low 3.1-10.[address] [place] [place] [address] [phone] Red Blood Count 3.80 M/uL Low 3.90-5.40 [...] 40.4-72.8 Lymph % 33.6 % Normal 20.0-42.0 [place] % 12.4 % Normal 4.3-13.2 Eo% 1.7 % Normal 0.0-6.6 Bas% 2.1 % High 0.0-1.1 Immature Grans 0.4 % Normal 0.0-5.0 NRBC % 0.0 /100WBC < 10/ 100 WBC Neut# 1.20 K/uL Low 1.8-7.0 Lymph # 0.81 K/uL Low 1.0-4.0 [place] # 0.30 K/uL Normal 0.3-0.9 Eos # 0.04 K/uL Normal 0.0-0.5 Baso # 0.05 K/uL Normal 0.0-0.1 Immature Grans Absolute 0.01 K/uL NRBC # 0.00 K/uL CBC W/Automated 10/28/2018 [facility] White 1.4 K/uL Critical low 3.1-10.[address] [place] [address] Count [phone] Red Blood Count 3.70 M/uL Low 3.90-5.40 [...] 40.4-72.8 Lymph % 42.4 % High 20.0-42.0 [place] % 11.8 % Normal 4.3-13.2 Eo% 1.4 % Normal 0.0-6.6 Bas% 3.5 % High 0.0-1.1 Immature Grans 0.0 % Normal 0.0-5.0 NRBC % 0.0 /100WBC < 10/ 100 WBC Neut# 0.59 K/uL Critical low 1.8-7.0 Lymph # 0.61 K/uL Low 1.0-4.0 [place] # 0.17 K/uL Low 0.3-0.9 Eos # 0.02 K/uL Normal 0.0-0.5 Baso # 0.05 K/uL Normal 0.0-0.1 Immature Grans Absolute 0.00 K/uL NRBC # 0.00 K/uL Comprehensive 10/28/2018 [facility] Glucose 88 mg/dL Normal 74-106 Metabolic Panel [address] [place] [address] [phone] BUN 21 mg/dL High 7-18 Creatinine 1.0 mg/dL Normal 0.6-1.3 Glom Filtration Rate, Estimate >60 mL/min >60 If >60 mL/min >60 11 BUN/Creat 21.0 ratio Sodium 139 mmol/L Normal [...] U/L Normal 45-117 Vitamin B12 And 10/28/2018 [facility] Vitamin B12 350 pg/mL Normal 193-[address] [place] [address] [phone] Folic Acid 10.7 ng/mL Normal 3.1-17.5 Slide Review 10/28/2018 [facility] Slide Review (SEE NOTE) [address] [place] [address] [phone] Laboratory test 10/28/2018 [facility] Path Review: (SEE NOTE) [address] [place] [address] [phone] Path Review: 10/18/2018 [facility] Anticoagulant Unknown [address] Therapy? AVE [place] [address] [phone] Slide Review 10/18/2018 [facility] Slide Review (SEE NOTE) [address] [place] [address] [phone] Anticoagulant Therapy? Unknown Laboratory 10/18/2018 [facility] Vitamin 65.8 30.0-100.0 15 test finding [address] D,25-Hydroxy ng/[place] [address] [phone] Vitamin B12 10/18/2018 [facility] Vitamin B12 471 Normal 193-[address] pg/[place] [address] [phone] Folic Acid 9.2 ng/mL Normal 3.1-17.5 CBC W/Automated 10/18/2018 [facility] White 1.8 K/uL Critical low 3.1-10.[address] [place] [address] Count [phone] Red Blood Count 3.81 M/uL Low 3.90-5.40 [...] 40.4-72.8 Lymph % 27.2 % Normal 20.0-42.0 [place] % 6.1 % Normal 4.3-13.2 Eo% 1.1 % Normal 0.0-6.6 Bas% 2.8 % High 0.0-1.1 Immature Grans 0.6 % Normal 0.0-5.0 NRBC % 0.0 /100WBC < 10/ 100 WBC Neut# 1.12 K/uL Low 1.8-7.0 Lymph # 0.49 K/uL Low 1.0-4.0 [place] # 0.11 K/uL Low 0.3-0.9 Eos # 0.02 K/uL Normal 0.0-0.5 Baso # 0.05 K/uL Normal 0.0-0.1 Immature Grans Absolute 0.01 K/uL NRBC # 0.00 K/uL Anticoagulant Therapy? Unknown Protime 10/18/2018 [facility] Protime 13.2 seconds Normal 12.0-14.4 [address] [place] [address] [phone] Inr 1.0 Normal 0.9-1.1 16 Anticoagulant Therapy? Unknown Act Partial 10/18/2018 [facility] Act Partial 26.8 seconds Normal 23.4-35.0 Thrombo Time [address] [facility] [place] [address] [phone] Anticoagulant Therapy? Unknown Laboratory test 10/18/2018 [facility] Ferritin 62 ng/mL Normal 8-252 17 finding [address] [place] [address] [phone] Iron-Tibc-%Sat 10/18/2018 [facility] Serum Iron 92 g/dL Normal 50-170 [address] [place] [address] [phone] Total Iron Binding Capacity 417 g/dL Normal 250-450 Transferrin %Saturation 22 % Normal 12-57 Comprehensive 10/18/2018 [facility] Glucose 90 mg/dL Normal 74-106 Metabolic Panel [address] [place] [address] [phone] BUN 26 mg/dL High 7-18 Creatinine 1.1 mg/dL Normal 0.6-1.3 Glom Filtration Rate, Estimate 56 mL/min >60 If >60 mL/min >60 18 BUN/Creat 23.6 ratio Sodium 139 mmol/L Normal [...] U/L Normal 45-117 Laboratory test finding 10/18/2018 [facility] Nucleotidase,5 7 IU/L 0-10 19 [address] [place] [address] [phone] CA 27.29 595.7 U/mL High 0.0-38.6 20 Laboratory test 09/20/2018 [facility] Ferritin 58 ng/mL Normal 8-252 finding [address] [place] [address] [phone] Laboratory test 09/20/2018 [facility] [place] 27.29 506.9 High 0.0-38.6 21 finding [address] [facility] U/[place] [address] [phone] Vitamin B12 And 09/20/2018 [facility] Vitamin B12 273 pg/mL Normal 193-986 Folate [address] [place], [place] [address] [phone] Folic Acid 9.4 ng/mL Normal 3.1-17.5 Iron-Tibc-%Sat 09/20/2018 [facility] Serum Iron 106 g/dL Normal 50-170 [address] [place] [address] [phone] Total Iron Binding Capacity 452 g/dL High 250-450 Transferrin %Saturation 23 % Normal 12-57 Laboratory test 09/20/2018 [facility] Vitamin 68.6 30.0-100.0 [address] D,25-Hydroxy ng/mL [place] [address] [phone] Laboratory test 09/19/2018 [facility] Path Review: <pendin [address] g> AVE [place] [facility] [phone] Comprehensive 09/19/2018 [facility] Glucose 86 Normal 74-106 Metabolic Panel [address] mg/dL [place] [address] [phone] BUN 24 mg/dL High 7-18 Creatinine 0.9 mg/dL Normal 0.6-1.3 Glom Filtration Rate, Estimate >60 mL/min >60 If >60 mL/min >60 24 BUN/Creat 26.6 ratio Sodium 136 mmol/L Normal [...] 96 U/L Normal 45-117 CBC W/Automated 09/19/2018 [facility] White Blood 2.5 K/uL Low 3.1-10.[address] [place] [address] [phone] Red Blood Count 3.62 M/uL Low 3.90-5.40 [...] 40.4-72.8 Lymph % 26.1 % Normal 20.0-42.0 [place] % 5.2 % Normal 4.3-13.2 Eo% 1.2 % Normal 0.0-6.6 Bas% 2.8 % High 0.0-1.1 Immature Grans 0.0 % Normal 0.0-5.0 NRBC % 0.0 /100WBC < 10/ 100 WBC Neut# 1.61 K/uL Low 1.8-7.0 Lymph # 0.65 K/uL Low 1.0-4.0 [place] # 0.13 K/uL Low 0.3-0.9 Eos # 0.03 K/uL Normal 0.0-0.5 Baso # 0.07 K/uL Normal 0.0-0.1 Immature Grans Absolute 0.00 K/uL NRBC # 0.00 K/uL Slide Review 09/19/2018 [facility] Slide Review (SEE NOTE) [address] [place] [address] [phone] [facility] 08/22/2018 [facility] Glucose 82 mg/dL Normal 74-10 Metabolic Panel [address] [place] [address] [phone] BUN 24 mg/dL High 7-18 Creatinine 0.9 mg/dL Normal 0.6-1.3 Glom Filtration Rate, Estimate >60 mL/min >60 If >60 mL/min >60 26 BUN/Creat 26.6 ratio Sodium 134 mmol/L Low [...] 111 U/L Normal 45-117 CBC W/Automated 08/22/2018 [facility] White Blood 2.4 K/uL Low 3.1-10.[address] [place] [address] [phone] Red Blood Count 3.72 M/uL Low 3.90-5.40 [...] 40.4-72.8 Lymph % 35.0 % Normal 20.0-42.0 [place] % 5.8 % Normal 4.3-13.2 Eo% 2.5 % Normal 0.0-6.6 Bas% 2.1 % High 0.0-1.1 Immature Grans 0.8 % Normal 0.0-5.0 NRBC % 0.0 /100WBC < 10/ 100 WBC Neut# 1.29 K/uL Low 1.8-7.0 Lymph # 0.84 K/uL Low 1.0-4.0 [place] # 0.14 K/uL Low 0.3-0.9 Eos # 0.06 K/uL Normal 0.0-0.5 Baso # 0.05 K/uL Normal 0.0-0.1 Immature Grans Absolute 0.02 K/uL NRBC # 0.00 K/uL Slide Review 08/22/2018 [facility] Slide Review . [address] [place] [address] [phone] Laboratory test 08/22/2018 [facility] Path Review: <pending finding [address] > AVE [place] [address] [phone] CBC W/Automated 08/08/2018 [facility] White Blood 3.2 K/uL Normal 3.1-10. [address] Count [address] [place] [address] [phone] Red Blood Count 3.85 M/uL Low 3.90-5.40 [...] 40.4-72.8 Lymph % 28.5 % Normal 20.0-42.0 [place] % 9.8 % Normal 4.3-13.2 Eo% 1.9 % Normal 0.0-6.6 Bas% 3.5 % High 0.0-1.1 Immature Grans 0.6 % Normal 0.0-5.0 NRBC % 0.0 /100WBC < 10/ 100 WBC Neut# 1.76 K/uL Low 1.8-7.0 Lymph # 0.90 K/uL Low 1.0-4.0 [place] # 0.31 K/uL Normal 0.3-0.9 Eos # 0.06 K/uL Normal 0.0-0.5 Baso # 0.11 K/uL High 0.0-0.1 Immature Grans Absolute 0.02 K/uL NRBC # 0.00 K/uL Comprehensive 08/08/2018 [facility] Glucose 88 mg/dL Normal 74-106 Metabolic Panel [address] [place] [address] [phone] BUN 18 mg/dL Normal 7-18 Creatinine 0.9 mg/dL Normal 0.6-1.3 Glom Filtration Rate, Estimate >60 mL/min >60 If >60 mL/min >60 29 BUN/Creat 20.0 ratio Sodium 139 mmol/L Normal [...] 106 U/L Normal 45-117 CBC W/Automated 08/01/2018 [facility] White Blood 2.8 K/uL Low 3.1-10.[address] [place] [address] [phone] Red Blood Count 3.72 M/uL Low 3.90-5.40 [...] 40.4-72.8 Lymph % 34.4 % Normal 20.0-42.0 [place] % 12.8 % Normal 4.3-13.2 Eo% 0.7 % Normal 0.0-6.6 Bas% 3.2 % High 0.0-1.1 Immature Grans 0.4 % Normal 0.0-5.0 NRBC % 0.0 /100WBC < 10/ 100 WBC Neut# 1.37 K/uL Low 1.8-7.0 Lymph # 0.97 K/uL Low 1.0-4.0 [place] # 0.36 K/uL Normal 0.3-0.9 Eos # 0.02 K/uL Normal 0.0-0.5 Baso # 0.09 K/uL Normal 0.0-0.1 Immature Grans Absolute 0.01 K/uL NRBC # 0.00 K/uL Comprehensive 08/01/2018 [facility] Glucose 83 mg/dL Normal 74-106 Metabolic Panel [address] [place] [place] [address] [phone] BUN 23 mg/dL High 7-18 Creatinine 0.8 mg/dL Normal 0.6-1.3 Glom Filtration Rate, Estimate >60 mL/min >60 If >60 mL/min >60 30 BUN/Creat 28.7 ratio Sodium 137 mmol/L Normal [...] 99 U/L Normal 45-117 Slide Review 08/01/2018 [facility] Slide (SEE [address] Review NOTE) [place]VE [place] [address] [phone] Path Review: 08/01/2018 [facility] Path TNP [address] Review: AVE [place] [address] [phone] Laboratory test 07/25/2018 [facility] Path (SEE 33, [address] Review: NOTE) AVE [place] [address] [phone] Laboratory test 07/25/2018 [facility] CA 27.29 438.2 High 0.0- [address] U/mL 38.[address] [place] [address] [phone] Slide Review 07/25/2018 [facility] Slide (SEE [address] Review NOTE) AVE [place] [address] [phone] CBC W/Automated 07/25/2018 [facility] White 1.6 K/uL Critical low 3.1- Diff [address] Blood [address] [place] [address] Count [phone] Red Blood Count 3.47 M/uL Low 3.90-5.40 [...] 40.4-72.8 Lymph % 36.8 % Normal 20.0-42.0 [place] % 11.7 % Normal 4.3-13.2 Eo% 1.2 % Normal 0.0-6.6 Bas% 3.1 % High 0.0-1.1 Immature Grans 0.0 % Normal 0.0-5.0 NRBC % 0.0 /100WBC < 10/ 100 WBC Neut# 0.77 K/uL Critical low 1.8-7.0 Lymph # 0.60 K/uL Low 1.0-4.0 [place] # 0.19 K/uL Low 0.3-0.9 Eos # 0.02 K/uL Normal 0.0-0.5 Baso # 0.05 K/uL Normal 0.0-0.1 Immature Grans Absolute 0.00 K/uL NRBC # 0.00 K/uL Comprehensive 07/25/2018 [facility] Glucose 88 mg/dL Normal 74-106 Metabolic Panel [address] [place] [address] [phone] BUN 21 mg/dL High 7-18 Creatinine 0.9 mg/dL Normal 0.6-1.3 Glom Filtration Rate, Estimate >60 mL/min >60 If >60 mL/min >60 37 BUN/Creat 23.3 ratio Sodium 137 mmol/L Normal [...] Phosphatase 93 U/L Normal 45-117 Laboratory test 06/28/2018 [facility] Path Review: <pending> 38, 39 finding [address] [place] [address] [phone] RBC Morphology Only 06/28/2018 [facility] Hypochromia 0-1+ [address] [place] [address] [phone] Macrocytosis 1+ Comprehensive 06/28/2018 [facility] Glucose 75 mg/dL Normal 74-106 Metabolic Panel [address] [place] [address] [phone] BUN 14 mg/dL Normal 7-18 Creatinine 0.8 mg/dL Normal 0.6-1.3 Glom Filtration Rate, Estimate >60 mL/min >60 If >60 mL/min >60 40 BUN/Creat 17.5 ratio Sodium 137 mmol/L Normal [...] 88 U/L Normal 45-117 CBC W/Automated 06/28/2018 [facility] White 2.0 K/uL Critical low 3.1-10.7 Diff [address] [facility] [place] [place] [address] Count [phone] Red Blood Count 3.63 M/uL Low 3.90-5.40 [...] 40.4-72.8 Lymph % 40.2 % Normal 20.0-42.0 [place] % 8.5 % Normal 4.3-13.2 Eo% 0.5 % Normal 0.0-6.6 Bas% 3.5 % High 0.0-1.1 Neut# 0.94 K/uL Critical low 1.8-7.0 Lymph # 0.80 K/uL Low 1.0-4.0 [place] # 0.17 K/uL Low 0.3-0.9 Eos # 0.01 K/uL Normal 0.0-0.5 Baso # 0.07 K/uL Normal 0.0-0.1 Slide Review 06/28/2018 [facility] Slide Review (SEE NOTE) [address] [place] [place] [address] [phone] Laboratory test 06/14/2018 [facility] CA 27.29 493.7 U/mL High 0.0-3 42, [address] 8.6 [place] [address] [phone] Differential-WBC 06/13/2018 [facility] Total Cells 100 #CELLS [address] Counted [place] [address] [phone] Neutrophils% 48 % Normal 33-73 Lymph% 29 % Normal 20-42 Atypical Lymph% 8 % High 0-7 Monocyte% 14 % High 0-10 Basophil% 1 % Normal 0-2 Platelet Estimate NORMAL Anisocytosis 1+ Macrocytosis 2+ Differential Comment FEW SMUDGE CELLS 45 Laboratory test 06/13/2018 [facility] CA 27.29 <pending> finding [address] [place] [address] [phone] CBC W/Automated 06/13/2018 [facility] White Blood 2.3 K/uL Low 3.1-10. Diff [address] Count [address] [place] [address] [phone] Red Blood Count 3.63 M/uL Low 3.90-5.40 Hemoglobin 12.3 gm/dL Normal 11.6-15.8 Hematocrit 38.4 % Normal 36.0-46.1 Mean Cell Volume 105.8 fl High 80.9-99.0 Mean Corpuscular HGB 33.9 pg High 25.9-32.7 Mean Corpuscular HGB Conc 32.0 g/dL Normal 30.8-34.3 Platelet Count 290 K/uL Normal 155-360 Red Cell Distri Width SD 48.5 fl High 36-47 Red Cell Distri Width %CV 13.0 % Normal 11.7-14.4 Mean Platelet Volume 9.0 fL Normal 8.9-12.4 Neut% 46.6 % Normal 40.4-72.8 Lymph % 40.1 % Normal 20.0-42.0 [place] % 7.5 % Normal 4.3-13.2 Eo% 1.8 % Normal 0.0-6.6 Bas% 4.0 % High 0.0-1.1 Neut# 1.06 K/uL Critical low 1.8-7.0 46 Lymph # 0.91 K/uL Low 1.0-4.0 [place] # 0.17 K/uL Low 0.3-0.9 Eos # 0.04 K/uL Normal 0.0-0.5 Baso # 0.09 K/uL Normal 0.0-0.1 Comprehensive 06/13/2018 [facility] Glucose 79 mg/dL Normal 74-[address] [place] [address] [phone] BUN 19 mg/dL High 7-18 Creatinine 0.9 mg/dL Normal 0.6-1.3 Glom Filtration Rate, Estimate >60 mL/min >60 If >60 mL/min >60 47 BUN/Creat 21.1 ratio Sodium 137 mmol/L Normal 136-145 Potassium 3.9 mmol/L Normal 3.5-5.1 Chloride 103 mmol/L Normal 98-107 Carbon Dioxide 29 mmol/L Normal 21-32 Anion Gap 5 mEq/L Low 8-16 Calcium 8.8 mg/dL Normal 8.5-10.1 Total Protein 7.7 g/dL Normal 6.4-8.2 Albumin 3.8 g/dL Normal 3.4-5.0 Globulin 3.9 g/dL Normal 1.9-4.3 Alb/Glob 1.0 ratio Bilirubin,Total 0.3 mg/dL Normal 0.2-1.0 Sgot/Ast 32 U/L Normal 15-37 SGPT/Alt 24 U/L Normal 12-78 Alkaline Phosphatase 95 U/L Normal 45-117 Slide Review 06/13/2018 [facility] Slide Review DIFF ORDERED [address] [place] [address] [phone] Laboratory test 06/13/2018 [facility] Path Review: <pending> finding [address] [place] [address] [phone] 1 Z51.11 D48.61 C79.51 E53.9 2 Note: Persistent reduction for 3 months or more in an eGFR <60 mL/min/1.73 m2 defines CKD. Patients with eGFR values >/=60 mL/min/1.73 m2 may also have CKD if evidence of persistent proteinuria is present. The original MDRD equation for estimated GFR is not valid for patients less than 18 years of age. Additional information may be found at www.[email or web address]. 3 Instrument flagged sample for slide review. Less than 10% Bands seen, no other immature WBC's seen. RBC morphology essentially normal. Platelet estimate = SLIGHTLY DECREASED 4 D48.61 C79.51 Z51.11 5 Note: Persistent reduction for 3 months or more in an eGFR <60 mL/min/1.73 m2 defines CKD. Patients with eGFR values >/=60 mL/min/1.73 m2 may also have CKD if evidence of persistent proteinuria is present. The original MDRD equation for estimated GFR is not valid for patients less than 18 years of age. Additional information may be found at [email or web address]. 6 D48.61 C79.51 7 Reviewed previous history, path review not indicated 8 Instrument flagged sample for slide review. Less than 10% Bands seen, no other immature WBC's seen. RBC morphology essentially normal. Platelet estimate = NORMAL 9 Specimen was diluted in order to obtain results. Results were repeated. Siemens AMCADaur Immunochemiluminometric Methodology (ICMA) Values obtained with different assay methods or kits cannot be used interchangeably. Results cannot be interpreted as absolute evidence of the presence or absence of malignant disease. Performed at: RN - [facility] [address] [id number] [employer]: Paulina Miranda MD, Phone: [phone] Note: Persistent reduction for 3 months or more in an eGFR <60 mL/min/1.73 m2 defines CKD. Patients with eGFR values >/=60 mL/min/1.73 m2 may also have CKD if evidence of persistent proteinuria is present. The original MDRD equation for estimated GFR is not valid for patients less than 18 years of age. Additional information may be found at [email or web address]. 11 Note: Persistent reduction for 3 months or more in an eGFR <60 mL/min/1.73 m2 defines CKD. Patients with eGFR values >/=60 mL/min/1.73 m2 may also have CKD if evidence of persistent proteinuria is present. The original MDRD equation for estimated GFR is not valid for patients less than 18 years of age. Additional information may be found at [email or web address]. 12 Instrument flagged sample for slide review. Less than 10% Bands seen, no other immature WBC's seen. RBC morphology essentially normal. Platelet estimate = NORMAL 13 CHECKED CALLED WBC, ANC TO CLAUDIA Nava AT 0945 10/28/18 by [email or web address] 14 Instrument flagged sample for slide review. Less than 10% Bands seen, no other immature WBC's seen. RBC morphology essentially normal. Platelet estimate = NORMAL 15 Vitamin D deficiency has been defined by the [place] [employer] and an Endocrine Society practice guideline as a level of serum 25-OH vitamin D less than 20 ng/mL (1,2). The Endocrine Society went on to further define vitamin D insufficiency as a level between 21 and 29 ng/mL (2). 1. IOM ([place] of [employer]). 2010. Dietary reference intakes for calcium and D. [place]: The National Academies Press. 2. Dick MF, Leticia RAMEY, Romina CHAVEZ, et al. Evaluation, treatment, and prevention of vitamin D deficiency: an Endocrine Society clinical practice guideline. JCEM. 2010; 96(7):1911-30. Performed at: [facility] [id number] [employer]: Paulina Miranda MD, Phone: [phone] 16 THERAPEUTIC INR RANGE: 2.0 - 3.0 DVT, Pulmonary embolus, prophylaxis against venous thrombosis or systemic embolization in high risk patients. 2.5 - 3.5 Mechanical heart valves [address] PACHECO 18 Note: Persistent reduction for 3 months or more in an eGFR <60 mL/min/1.73 m2 defines CKD. Patients with eGFR values >/=60 mL/min/1.73 m2 may also have CKD if evidence of persistent proteinuria is present. The original MDRD equation for estimated GFR is not valid for patients less than 18 years of age. Additional information may be found at [email or web address]. 19 Performed at: [facility] Near [address] [id number] [employer]: Paulina Miranda MD, Phone: [phone] Performed at: [facility] [address], [place] [id number] [employer]: Domenic Pulido MD, Phone: [phone] 20 Specimen was diluted in order to obtain results. Results were repeated. Siemens Centaur Immunochemiluminometric Methodology (ICMA) Values obtained with different assay methods or kits cannot be used interchangeably. Results cannot be interpreted as absolute evidence of the presence or absence of malignant disease. 21 Specimen was diluted in order to obtain results. Results were repeated. Siemens Centaur Immunochemiluminometric Methodology (ICMA) Values obtained with different assay methods or kits cannot be used interchangeably. Results cannot be interpreted as absolute evidence of the presence or absence of malignant disease. Performed at: [address] [id number] [employer]: Paulina Miranda MD, Phone: [phone] 22 Vitamin D deficiency has been defined by the [place] of [employer] and an Endocrine Society practice guideline as a level of serum 25-OH vitamin D less than 20 ng/mL (1,2). The Endocrine Society went on to further define vitamin D insufficiency as a level between 21 and 29 ng/mL (2). 1. IOM ([place] of Medicine). 2010. Dietary reference intakes for calcium and D. [place]: The National Academies Press. 2. Dick MF, [place], Romina CHAVEZ, et al. Evaluation, treatment, and prevention of vitamin D deficiency: an Endocrine Society clinical practice guideline. JCEM. 2010; 96(7):1911-30. Performed at: [facility] [address] [id number] [employer]: Paulina Miranda MD, Phone: [phone] 23 Z51.11 D48.61 24 Note: Persistent reduction for 3 months or more in an eGFR <60 mL/min/1.73 m2 defines CKD. Patients with eGFR values >/=60 mL/min/1.73 m2 may also have CKD if evidence of persistent proteinuria is present. The original MDRD equation for estimated GFR is not valid for patients less than 18 years of age. Additional information may be found at [email or web address]. 25 Instrument flagged sample for slide review. Less than 10% Bands seen, no other immature WBC's seen. RBC morphology essentially normal. Platelet estimate = NORMAL 26 Note: Persistent reduction for 3 months [...] essentially normal. Platelet estimate = NORMAL 28 D48.61 D70.1 Z51.11 29 Note: Persistent reduction for 3 months or more in an eGFR <60 mL/min/1.73 m2 defines CKD. Patients with eGFR values >/=60 mL/min/1.73 m2 may also have CKD if evidence of persistent proteinuria is present. The original MDRD equation for estimated GFR is not valid for patients less than 18 years of age. Additional information may be found at [email or web address]. 30 Note: Persistent reduction for 3 months or more in an eGFR <60 mL/min/1.73 m2 defines CKD. Patients with eGFR values >/=60 mL/min/1.73 m2 may also have CKD if evidence of persistent proteinuria is present. The original MDRD equation for estimated GFR is not valid for patients less than 18 years of age. Additional information may be found at [email or web address]. 31 Instrument flagged sample for slide review. Less than 10% Bands seen, no other immature WBC's seen. RBC morphology essentially normal. Platelet estimate = NORMAL 32 Reviewed previous history, path review not indicated 33 D48.61 D70.1 34 CHECKED CALLED WBC, ANC TO CLAUDIA C AT 1200 07/25/18 by [email or web address] 35 Siemens Centaur Immunochemiluminometric Methodology (ICMA) Values obtained with different assay methods or kits cannot be used interchangeably. Results cannot be interpreted as absolute evidence of the presence or absence of malignant disease. Performed at: RN - [facility] [address] [id number] [employer]: Paulina Miranda MD, Phone: [phone] 36 Instrument flagged sample for slide review. Less than 10% Bands seen, no other immature WBC's seen. RBC morphology essentially normal. Platelet estimate = NORMAL 37 Note: Persistent reduction for 3 months or more in an eGFR <60 mL/min/1.73 m2 defines CKD. Patients with eGFR values >/=60 mL/min/1.73 m2 may also have CKD if evidence of persistent proteinuria is present. The original MDRD equation for estimated GFR is not valid for patients less than 18 years of age. Additional information may be found at [email or web address]. 38 D48.61 C79.51 D64.9 39 CALLED WBC AND NEUT TO BAL G AT 1528 06/28/18 by [email or web address] 40 Note: Persistent reduction for 3 months or more in an eGFR <60 mL/min/1.73 m2 defines CKD. Patients with eGFR values >/=60 mL/min/1.73 m2 may also have CKD if evidence of persistent proteinuria is present. The original MDRD equation for estimated GFR is not valid for patients less than 18 years of age. Additional information may be found at [email or web address]. 41 Instrument flagged sample for slide review. Less than 10% Bands seen, no other immature WBC's seen. Platelet estimate = NORMAL 42 D48.61 C79.51 Z51.11 43 Specimen was diluted in order to obtain results. Results were repeated. Siemens AMCAD[employer]Elsa[employer] Biotech Immunochemiluminometric Methodology (ICMA) Values obtained with different assay methods or kits cannot be used interchangeably. Results cannot be interpreted as absolute evidence of the presence or absence of malignant disease. Performed at: RN - [facility] [address] [id number] [employer]: Paulina Miranda MD, Phone: [phone] 44 D48.61 C79.51 D64.9 45 FEW SMUDGE CELLS 46 Result confirmed by repeat analysis. 47 Note: Persistent reduction for 3 months or more in an eGFR <60 mL/min/1.73 m2 defines CKD. Patients with eGFR values >/=60 mL/min/1.73 m2 may also have CKD if evidence of persistent proteinuria is present. The original MDRD equation for estimated GFR is not valid for patients less than 18 years of age. Additional information may be found at [email or web address]. 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 Office Visit 11/09/2018 7:30a Oncology Office [place], D48.61 Neoplasm of Cyn, DO uncertain 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 E53.9 Vitamin B deficiency, unspecified Office Visit 10/28/2018 7:30a Oncology Office [place], D48.61 Neoplasm of [...] chemotherapy Office Visit 07/25/2018 4:00p Oncology Office Wally Yung51.11 Encounter for Savita Solares, antineoplastic ODD TICKET CLERK chemotherapy 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 D70.1 Agranulocytosis secondary to cancer chemotherapy Office Visit 06/14/2018 8:00a Infusion Center Wally Yung51.12 Encounter for Savita B., antineoplastic ODD TICKET CLERK immunotherapy 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 , ODD TICKET CLERK breast 11/30/2018 K12.31 Oral mucositis (ulcerative) due to Savita Yung, ODD TICKET CLERK antineoplastic therapy 11/16/2018 Z51.11 Encounter for antineoplastic chemotherapy Savita Yung, ODD TICKET CLERK 11/16/2018 D48.61 Neoplasm of uncertain behavior of right Aga Savita B. , ODD TICKET CLERK breast 11/16/2018 C79.51 Secondary malignant neoplasm of bone AgaSavita amador, ODD TICKET CLERK 11/09/2018 D48.61 Neoplasm of uncertain behavior of [...] D48.61 Neoplasm of uncertain behavior of right Cyn Pacheco, DO breast 10/03/2018 C79.51 Secondary malignant neoplasm of bone Cyn Pacheco, DO 10/03/2018 E53.9 Vitamin B deficiency, unspecified Cyn Pacheco, DO 09/20/2018 D48.61 Neoplasm of uncertain behavior of right Cyn Pacheco, DO breast 09/20/2018 C79.51 Secondary malignant neoplasm of bone Cyn Pacheco, DO 09/20/2018 D70.1 Agranulocytosis secondary to cancer Cyn Pacheco, DO chemotherapy 08/29/2018 D48.61 Neoplasm of uncertain behavior of right Cyn Pacheco, DO breast 08/29/2018 C79.51 Secondary malignant neoplasm of bone Cyn Pacheco, DO 08/29/2018 D70.1 Agranulocytosis secondary to cancer Cyn Pacheco, DO chemotherapy 07/25/2018 Z51.11 Encounter for antineoplastic chemotherapy Savita Yung, ODD TICKET CLERK 07/25/2018 D48.61 Neoplasm of uncertain behavior of right Savita Yung. , ODD TICKET CLERK breast 07/25/2018 C79.51 Secondary malignant neoplasm of bone Savita Yung, ODD TICKET CLERK 07/25/2018 D70.1 Agranulocytosis secondary to cancer Savita Yung, ODD TICKET CLERK chemotherapy 06/14/2018 Z51.12 Encounter for antineoplastic immunotherapy Savita Yung, ODD TICKET CLERK 06/14/2018 D48.61 Neoplasm of uncertain behavior of right Savita Yung , ODD TICKET CLERK breast 06/14/2018 D70.1 Agranulocytosis secondary to cancer Savita Yung, ODD TICKET CLERK chemotherapy 06/14/2018 Z79.811 manager intermediate (current) use of aromatase Savita Yung ODD TICKET CLERK inhibitors 06/14/2018 C79.51 Secondary malignant neoplasm of bone Savita Yung, [place] Plan of Treatment Future Appointment(s):12/14/2018 7:30 am - Savita Yung NP at Infusion [id number]/14/2018 7:30 am - Infusion Chair 2 at Infusion [id number]/30/2018 - Savita Yung, NPZ51.11 Encounter for antineoplastic chemotherapyComments: No contraindication to continuation of YhrozdrpK26.51 Secondary malignant neoplasm of boneComments:Patient is to receive Denosumab with her next Faslodex injection. Per Dr. Pacheco, patient will be changed to a every 3 month dosing schedule.Follow up:As scheduled for evaluation for roxxanuxwC81.61 Neoplasm of uncertain behavior of right breastComments:Patient's disease progressed on Ibrance. Treatment regimen has been changed to Faslodex/Afinitor - C1D1 on . Patient is suffering from a grade 2 oral mucositis. She is otherwise tolerating treatment well. Due for Faslodex today.Follow up:2 weeks for evaluation for cycle 2 day 1 of treatment.K12.31 Oral mucositis (ulcerative) due to antineoplastic therapyComments:Grade 2. Discussed importance of avoiding spicy and acidic foods. Magic mouthwash was prescribed.Discussed medication reason for use, instructions for use, potential risks and benefits, as well as common side effects. Patient verbalized understanding and stated questions were answered to her satisfactionFollow up:Patient is to call the office if mucositis interferes with her ability to eat or drink. Functional Status Description No Information Available Mental Status Description No Information Available Referrals Description No Information Available
--- OUTSIDE RECORDS SUMMARY | 2019-01-18 07:20 | XMS REPORT | Continuity of Care Document ---
:1970 External Reference #:[id number] Author Name Savita Yung DYE AND CHEMICAL COORDINATOR Address [address] [place] [address] Care Team Providers Name Role Phone Gladis Hannah NP - Nurse Care Team Information Scheduling Administrator [phone] Practitioner Problems Active Problems Provider Date Personal [...] Medications Active Medications SIG Qnty Indications Ordering Provider Date Afinitor 1 tab by mouth 28tabs D48.61 LloydRadhat, 11/11/2018 10mg Tablets daily, days DO 1-28 C79.51 Benadryl Itch apply to affected 28.300gm Cyn Pacheco, 10/03/2018 Stopping area up to three DO 1-0.1% Cream times a day Miralax 1 tablespoon in 8 510gm K59.00 Clune, 04/28/2018 [id number] Powder ounces of water LEISA Griffith twice a day Xgeva SQ q6 Months Cyn Pacheco, 08/18/2016 120mg/1.7ML DO Solution Vitamin D 1 by mouth every Cyn Pacheco, 07/08/2016 4000Units day DO Tablets Venlafaxine HCL 1 by mouth twice a 180tabs Tera López MD 05/03/2012 100mg day Tablets Citalopram 1 by mouth every 90tabs Brielle, 05/03/2012 Hydrobromide day LEISA Griffith 20mg Tablets Calcium 1200 chew one by mouth Unknown daily [id number]-[id number] Chewtabs Probiotic Acidophilus 1 po daily Unknown Capsules Medications Administered in Office Medication SIG Qnty Indications Ordering Provider Date Vitamin B12 Injection 1000 Cyn Pacheco, DO 10/28/2018 mcg/Ml Injection Vitamin B12 Injection 1000 Oncology Nurse 10/14/2018 mcg/Ml Injection Immunizations CPT Code Status Date Vaccine Lot # [id number] Given 10/15/2015 Tdap injection [id number] U-Td Given 02/18/2000 Td(Adult),Unspecified Vital Signs Date Vital Result Comment 11/16/2018 7:48am BP Systolic 118 mmHg L BP Diastolic 81 mmHg L Body Temperature 97.3 F Heart Rate 78 /min Respiratory Rate 16 /min Weight 153.12 lb O2 % BldC Oximetry 98 % Pain Level 0 10/28/2018 7:43am BP Systolic 124 mmHg BP Diastolic 74 mmHg Body Temperature 97.5 F Heart Rate 71 /min Weight 153.38 lb O2 % BldC Oximetry 99 % Pain Level 0 Results Test Date Facility Test Result H/L Range Note CBC 11/15/2018 [facility] White Blood 4.1 K/uL 3.1-10.7 1 W/Automated [address] [place] [address] [phone] Red Blood Count 3.89 M/uL Low 3.90-5.40 [...] 40.4-72.8 Lymph % 31.0 % Normal 20.0-42.0 [place] % 11.1 % Normal 4.3-13.2 Eo% 1.5 % Normal 0.0-6.6 Bas% 2.0 % High 0.0-1.1 Immature Grans 0.2 % Normal 0.0-5.0 NRBC % 0.0 /100WBC < 10/ 100 WBC Neut# 2.20 K/uL Normal 1.8-7.0 Lymph # 1.26 K/uL Normal 1.0-4.0 [place] # 0.45 K/uL Normal 0.3-0.9 Eos # 0.06 K/uL Normal 0.0-0.5 Baso # 0.08 K/uL Normal 0.0-0.1 Immature Grans Absolute 0.01 K/uL NRBC # 0.00 K/uL Comprehensive Metabolic 11/15/2018 [facility] Glucose 70 mg/dL Low 74-[address] [place] [address] [phone] BUN 24 mg/dL High 7-18 Creatinine 0.9 mg/dL Normal 0.6-1.3 Glom Filtration Rate, Estimate >60 mL/min >60 If >60 mL/min >60 2 BUN/Creat 26.6 ratio Sodium 139 mmol/L Normal [...] 108 U/L Normal 45-117 Laboratory test 11/15/2018 [facility] Magnesium 2.3 mg/dL Normal 1.8-2.[address] [place] [address] [phone] CBC W/Automated 11/09/2018 [facility] White Blood 2.4 K/uL Low 3.1-10.7 [address] [place] [address] [phone] Red Blood Count 3.80 M/uL Low 3.90-5.40 [...] 40.4-72.8 Lymph % 33.6 % Normal 20.0-42.0 [place] % 12.4 % Normal 4.3-13.2 Eo% 1.7 % Normal 0.0-6.6 Bas% 2.1 % High 0.0-1.1 Immature Grans 0.4 % Normal 0.0-5.0 NRBC % 0.0 /100WBC < 10/ 100 WBC Neut# 1.20 K/uL Low 1.8-7.0 Lymph # 0.81 K/uL Low 1.0-4.0 [place] # 0.30 K/uL Normal 0.3-0.9 Eos # 0.04 K/uL Normal 0.0-0.5 Baso # 0.05 K/uL Normal 0.0-0.1 Immature Grans Absolute 0.01 K/uL NRBC # 0.00 K/uL Comprehensive 11/09/2018 [facility] Glucose 89 mg/dL Normal 74-106 Metabolic Panel [address] [place] [address] [phone] BUN 18 mg/dL Normal 7-18 Creatinine 0.8 mg/dL Normal 0.6-1.3 Glom Filtration Rate, Estimate >60 mL/min >60 If >60 mL/min >60 4 BUN/Creat 22.5 ratio Sodium 140 mmol/L Normal [...] 12-78 Alkaline Phosphatase 97 U/L Normal 45-117 Laboratory test 11/09/2018 [facility] CA 27.29 635.6 U/mL High 0.0-38.6 5 finding [address] [place] [address] [phone] Slide Review 11/09/2018 [facility] Slide Review (SEE NOTE) [address] [address] [phone] Path Review: 11/09/2018 [facility] Path Review: NI [address] [address] [phone] Laboratory test 10/28/2018 [facility] Path Review: (SEE NOTE) [address] [address] [phone] Slide Review 10/28/2018 [facility] Slide Review (SEE NOTE) [address] [place] [address] [phone] Vitamin B12 And 10/28/2018 [facility] Vitamin B12 350 pg/mL Normal 193-[address] [id number] [phone] Folic Acid 10.7 ng/mL Normal 3.1-17.5 Comprehensive 10/28/2018 [facility] Glucose 88 mg/dL Normal 74-106 Metabolic Panel [address] [id number] [phone] BUN 21 mg/dL High 7-18 Creatinine 1.0 mg/dL Normal 0.6-1.3 Glom Filtration Rate, Estimate >60 mL/min >60 If >60 mL/min >60 10 BUN/Creat 21.0 ratio Sodium 139 mmol/L Normal [...] 12-78 Alkaline Phosphatase 98 U/L Normal 45-117 CBC W/Automated 10/28/2018 [facility] White 1.4 K/uL Critical low 3.1-10.7 Diff [address] [place] [address] Count [phone] Red Blood Count 3.70 M/uL Low 3.90-5.40 [...] 40.4-72.8 Lymph % 42.4 % High 20.0-42.0 [place] % 11.8 % Normal 4.3-13.2 Eo% 1.4 % Normal 0.0-6.6 Bas% 3.5 % High 0.0-1.1 Immature Grans 0.0 % Normal 0.0-5.0 NRBC % 0.0 /100WBC < 10/ 100 WBC Neut# 0.59 K/uL Critical low 1.8-7.0 Lymph # 0.61 K/uL Low 1.0-4.0 [place] # 0.17 K/uL Low 0.3-0.9 Eos # 0.02 K/uL Normal 0.0-0.5 Baso # 0.05 K/uL Normal 0.0-0.1 Immature Grans Absolute 0.00 K/uL NRBC # 0.00 K/uL Path Review: 10/18/2018 [facility] Anticoagulant Therapy? Unknown [address] [place] [address] [phone] Slide Review 10/18/2018 [facility] Slide Review (SEE NOTE) 11 [address] [place] [address] [phone] Anticoagulant Therapy? Unknown Laboratory 10/18/2018 [facility] Vitamin 65.8 30.0-100.0 12 test finding [address] D,25-Hydroxy ng/[place] [address] [phone] Vitamin B12 10/18/2018 [facility] Vitamin B12 471 Normal 193-[address] pg/mL [place], [place] [phone] Folic Acid 9.2 ng/mL Normal 3.1-17.5 CBC W/Automated 10/18/2018 [facility] White 1.8 K/uL Critical low 3.1-10.[address] [place] [place] [address] Count [phone] Red Blood Count 3.81 M/uL Low 3.90-5.40 [...] 40.4-72.8 Lymph % 27.2 % Normal 20.0-42.0 [place] % 6.1 % Normal 4.3-13.2 Eo% 1.1 % Normal 0.0-6.6 Bas% 2.8 % High 0.0-1.1 Immature Grans 0.6 % Normal 0.0-5.0 NRBC % 0.0 /100WBC < 10/ 100 WBC Neut# 1.12 K/uL Low 1.8-7.0 Lymph # 0.49 K/uL Low 1.0-4.0 [place] # 0.11 K/uL Low 0.3-0.9 Eos # 0.02 K/uL Normal 0.0-0.5 Baso # 0.05 K/uL Normal 0.0-0.1 Immature Grans Absolute 0.01 K/uL NRBC # 0.00 K/uL Anticoagulant Therapy? Unknown Protime 10/18/2018 [facility] Protime 13.2 seconds Normal 12.0-14.[address] [place], [place] [id number] [phone] Inr 1.0 Normal 0.9-1.1 13 Anticoagulant Therapy? Unknown Act Partial 10/18/2018 [facility] Act Partial 26.8 seconds Normal 23.4-35.0 Thrombo Time [address] [facility] [place] [address] [phone] Anticoagulant Therapy? Unknown Laboratory test 10/18/2018 [facility] Ferritin 62 ng/mL Normal 8-252 14 finding [address] [place] [address] [phone] Iron-Tibc-%Sat 10/18/2018 [facility] Serum Iron 92 g/dL Normal 50-170 [address] [place] [address] [phone] Total Iron Binding Capacity 417 g/dL Normal 250-450 Transferrin %Saturation 22 % Normal 12-57 Comprehensive 10/18/2018 [facility] Glucose 90 mg/dL Normal 74-106 Metabolic Panel [address] [place] [address] [phone] BUN 26 mg/dL High 7-18 Creatinine 1.1 mg/dL Normal 0.6-1.3 Glom Filtration Rate, Estimate 56 mL/min >60 If >60 mL/min >60 15 BUN/Creat 23.6 ratio Sodium 139 mmol/L Normal [...] U/L Normal 45-117 Laboratory test finding 10/18/2018 [facility] Nucleotidase,5 7 IU/L 0-10 16 [address] [place] [address] [phone] CA 27.29 595.7 U/mL High 0.0-38.6 17 Laboratory test 09/20/2018 [facility] Ferritin 58 ng/mL Normal 8-[address] [place] [address] [phone] Laboratory test 09/20/2018 [facility] CA 27.29 506.9 High 0.0-38.6 [address] U/[place] [address] [phone] Vitamin B12 And 09/20/2018 [facility] Vitamin B12 273 pg/mL Normal 193-[address] [place] [address] [phone] Folic Acid 9.4 ng/mL Normal 3.1-17.5 Iron-Tibc-%Sat 09/20/2018 [facility] Serum Iron 106 g/dL Normal 50-[address] [place] [address] [phone] Total Iron Binding Capacity 452 g/dL High 250-450 Transferrin %Saturation 23 % Normal 12-57 Laboratory test 09/20/2018 [facility] Vitamin 68.6 30.0-100.0 [address] D,25-Hydroxy ng/[place] [address] [phone] Laboratory test 09/19/2018 [facility] Path Review: <pendin [address] g> [place] [address] [phone] Comprehensive 09/19/2018 [facility] Glucose 86 Normal 74-106 Metabolic Panel [address] mg/[place] [address] [phone] BUN 24 mg/dL High 7-18 Creatinine 0.9 mg/dL Normal 0.6-1.3 Glom Filtration Rate, Estimate >60 mL/min >60 If >60 mL/min >60 21 BUN/Creat 26.6 ratio Sodium 136 mmol/L Normal [...] 96 U/L Normal 45-117 CBC W/Automated 09/19/2018 [facility] White Blood 2.5 K/uL Low 3.1-10.[address] [place] [address] [phone] Red Blood Count 3.62 M/uL Low 3.90-5.40 [...] 40.4-72.8 Lymph % 26.1 % Normal 20.0-42.0 [place] % 5.2 % Normal 4.3-13.2 Eo% 1.2 % Normal 0.0-6.6 Bas% 2.8 % High 0.0-1.1 Immature Grans 0.0 % Normal 0.0-5.0 NRBC % 0.0 /100WBC < 10/ 100 WBC Neut# 1.61 K/uL Low 1.8-7.0 Lymph # 0.65 K/uL Low 1.0-4.0 [place] # 0.13 K/uL Low 0.3-0.9 Eos # 0.03 K/uL Normal 0.0-0.5 Baso # 0.07 K/uL Normal 0.0-0.1 Immature Grans Absolute 0.00 K/uL NRBC # 0.00 K/uL Slide Review 09/19/2018 [facility] Slide Review (SEE NOTE) [address] [place] [phone] Comprehensive 08/22/2018 [facility] Glucose 82 mg/dL Normal 74-10 Metabolic Panel [address] [place] [address] [phone] BUN 24 mg/dL High 7-18 Creatinine 0.9 mg/dL Normal 0.6-1.3 Glom Filtration Rate, Estimate >60 mL/min >60 If >60 mL/min >60 23 BUN/Creat 26.6 ratio Sodium 134 mmol/L Low [...] 111 U/L Normal 45-117 CBC W/Automated 08/22/2018 [facility] White Blood 2.4 K/uL Low 3.1-10.[address] [place] [address] [phone] Red Blood Count 3.72 M/uL Low 3.90-5.40 [...] 40.4-72.8 Lymph % 35.0 % Normal 20.0-42.0 [place] % 5.8 % Normal 4.3-13.2 Eo% 2.5 % Normal 0.0-6.6 Bas% 2.1 % High 0.0-1.1 Immature Grans 0.8 % Normal 0.0-5.0 NRBC % 0.0 /100WBC < 10/ 100 WBC Neut# 1.29 K/uL Low 1.8-7.0 Lymph # 0.84 K/uL Low 1.0-4.0 [place] # 0.14 K/uL Low 0.3-0.9 Eos # 0.06 K/uL Normal 0.0-0.5 Baso # 0.05 K/uL Normal 0.0-0.1 Immature Grans Absolute 0.02 K/uL NRBC # 0.00 K/uL Slide Review 08/22/2018 [facility] Slide Review . [address] [place] [address] [phone] Laboratory test 08/22/2018 [facility] Path Review: <pending finding [address] > [place] [address] [phone] CBC W/Automated 08/08/2018 [facility] White Blood 3.2 K/uL Normal 3.1-10. [address] Count 7 [place] [address] [phone] Red Blood Count 3.85 M/uL Low 3.90-5.40 [...] 40.4-72.8 Lymph % 28.5 % Normal 20.0-42.0 [place] % 9.8 % Normal 4.3-13.2 Eo% 1.9 % Normal 0.0-6.6 Bas% 3.5 % High 0.0-1.1 Immature Grans 0.6 % Normal 0.0-5.0 NRBC % 0.0 /100WBC < 10/ 100 WBC Neut# 1.76 K/uL Low 1.8-7.0 Lymph # 0.90 K/uL Low 1.0-4.0 [place] # 0.31 K/uL Normal 0.3-0.9 Eos # 0.06 K/uL Normal 0.0-0.5 Baso # 0.11 K/uL High 0.0-0.1 Immature Grans Absolute 0.02 K/uL NRBC # 0.00 K/uL Comprehensive 08/08/2018 [facility] Glucose 88 mg/dL Normal 74-106 Metabolic Panel [address] [place] [address] [phone] BUN 18 mg/dL Normal 7-18 Creatinine 0.9 mg/dL Normal 0.6-1.3 Glom Filtration Rate, Estimate >60 mL/min >60 If >60 mL/min >60 26 BUN/Creat 20.0 ratio Sodium 139 mmol/L Normal [...] 106 U/L Normal 45-117 CBC W/Automated 08/01/2018 [facility] White Blood 2.8 K/uL Low 3.1-10.[address] [place] [address] [phone] Red Blood Count 3.72 M/uL Low 3.90-5.40 [...] 40.4-72.8 Lymph % 34.4 % Normal 20.0-42.0 [place] % 12.8 % Normal 4.3-13.2 Eo% 0.7 % Normal 0.0-6.6 Bas% 3.2 % High 0.0-1.1 Immature Grans 0.4 % Normal 0.0-5.0 NRBC % 0.0 /100WBC < 10/ 100 WBC Neut# 1.37 K/uL Low 1.8-7.0 Lymph # 0.97 K/uL Low 1.0-4.0 [place] # 0.36 K/uL Normal 0.3-0.9 Eos # 0.02 K/uL Normal 0.0-0.5 Baso # 0.09 K/uL Normal 0.0-0.1 Immature Grans Absolute 0.01 K/uL NRBC # 0.00 K/uL Slide Review 08/01/2018 [facility] Slide Review (SEE NOTE) [address] [place] [address] [phone] Comprehensive 08/01/2018 [facility] Glucose 83 mg/dL Normal 74-10 Metabolic Panel [address] [place] [address] [phone] BUN 23 mg/dL High 7-18 Creatinine 0.8 mg/dL Normal 0.6-1.3 Glom Filtration Rate, Estimate >60 mL/min >60 If >60 mL/min >60 28 BUN/Creat 28.7 ratio Sodium 137 mmol/L Normal [...] 12-78 Alkaline Phosphatase 99 U/L Normal 45-117 Path Review: 08/01/2018 [facility] Path Review: TNP [address] [place] [address] [phone] [facility] 07/25/2018 [facility] Glucose 88 mg/dL Normal 74-10 30 Metabolic Panel [address] [place] [address] [phone] BUN 21 mg/dL High 7-18 Creatinine 0.9 mg/dL Normal 0.6-1.3 Glom Filtration Rate, Estimate >60 mL/min >60 If >60 mL/min >60 31 BUN/Creat 23.3 ratio Sodium 137 mmol/L Normal [...] 93 U/L Normal 45-117 Laboratory test 07/25/2018 [facility] Path Review: (SEE [address] NOTE) [place], [place] [id number] [phone] CBC W/Automated 07/25/2018 [facility] White Blood 1.6 K/uL Critical low 3.1- Diff [address] Count 10.7 [place] [address] [phone] Red Blood Count 3.47 M/uL Low 3.90-5.40 [...] 40.4-72.8 Lymph % 36.8 % Normal 20.0-42.0 [place] % 11.7 % Normal 4.3-13.2 Eo% 1.2 % Normal 0.0-6.6 Bas% 3.1 % High 0.0-1.1 Immature Grans 0.0 % Normal 0.0-5.0 NRBC % 0.0 /100WBC < 10/ 100 WBC Neut# 0.77 K/uL Critical low 1.8-7.0 Lymph # 0.60 K/uL Low 1.0-4.0 [place] # 0.19 K/uL Low 0.3-0.9 Eos # 0.02 K/uL Normal 0.0-0.5 Baso # 0.05 K/uL Normal 0.0-0.1 Immature Grans Absolute 0.00 K/uL NRBC # 0.00 K/uL Laboratory test 07/25/2018 [facility] CA 27.29 438.2 High 0.0-38.6 [address] U/mL [place], [place] [id number] [phone] Slide Review 07/25/2018 [facility] Slide (SEE [address] Review NOTE) [place] [address] [phone] Comprehensive 06/28/2018 [facility] Glucose 75 mg/dL Normal 74-106 35 Metabolic Panel [address] [place], [place] [address] [phone] BUN 14 mg/dL Normal 7-18 Creatinine 0.8 mg/dL Normal 0.6-1.3 Glom Filtration Rate, Estimate >60 mL/min >60 If >60 mL/min >60 36 BUN/Creat 17.5 ratio Sodium 137 mmol/L Normal [...] 88 U/L Normal 45-117 CBC W/Automated 06/28/2018 [facility] White 2.0 K/uL Critical low 3.1-10.7 Diff [address] [facility] [place] [address] Count [phone] Red Blood Count 3.63 M/uL Low 3.90-5.40 [...] 40.4-72.8 Lymph % 40.2 % Normal 20.0-42.0 [place] % 8.5 % Normal 4.3-13.2 Eo% 0.5 % Normal 0.0-6.6 Bas% 3.5 % High 0.0-1.1 Neut# 0.94 K/uL Critical low 1.8-7.0 Lymph # 0.80 K/uL Low 1.0-4.0 [place] # 0.17 K/uL Low 0.3-0.9 Eos # 0.01 K/uL Normal 0.0-0.5 Baso # 0.07 K/uL Normal 0.0-0.1 Slide Review 06/28/2018 [facility] Slide Review (SEE NOTE) 37 [address] [place] [address] [phone] Laboratory test finding 06/28/2018 [facility] Path Review: <pending> [address] [place], [place] [id number] [phone] RBC Morphology Only 06/28/2018 [facility] Hypochromia 0-1+ [address] [place] [address] [phone] Macrocytosis 1+ Laboratory test 06/14/2018 [facility] CA 27.29 493.7 High 0.0-38.6 39, [address] U/[place] [address] [phone] CBC W/Automated 06/13/2018 [facility] White 2.3 K/uL Low 3.1-10.7 [address] [place] [address] Count [phone] Red Blood Count 3.63 M/uL Low 3.90-5.40 [...] 40.4-72.8 Lymph % 40.1 % Normal 20.0-42.0 [place] % 7.5 % Normal 4.3-13.2 Eo% 1.8 % Normal 0.0-6.6 Bas% 4.0 % High 0.0-1.1 Neut# 1.06 K/uL Critical low 1.8-7.0 42 Lymph # 0.91 K/uL Low 1.0-4.0 [place] # 0.17 K/uL Low 0.3-0.9 Eos # 0.04 K/uL Normal 0.0-0.5 Baso # 0.09 K/uL Normal 0.0-0.1 Comprehensive 06/13/2018 [facility] Glucose 79 mg/dL Normal 74-106 Metabolic Panel [address] [place] [address] [phone] BUN 19 mg/dL High 7-18 Creatinine 0.9 mg/dL Normal 0.6-1.3 Glom Filtration Rate, Estimate >60 mL/min >60 If >60 mL/min >60 43 BUN/Creat 21.1 ratio Sodium 137 mmol/L Normal [...] 95 U/L Normal 45-117 Slide Review 06/13/2018 [facility] Slide Review DIFF ORDERED [address] [place] [address] [phone] Laboratory test 06/13/2018 [facility] Path Review: <pending> finding [address] [place] [address] [phone] Differential-WBC 06/13/2018 [facility] Total Cells 100 #CELLS Confirm [address] [place] [address] [phone] Neutrophils% 48 % Normal 33-73 Lymph% 29 % Normal 20-42 Atypical Lymph% 8 % High 0-7 Monocyte% 14 % High 0-10 Basophil% 1 % Normal 0-2 Platelet Estimate NORMAL Anisocytosis 1+ Macrocytosis 2+ Differential Comment FEW SMUDGE CELLS 44 Laboratory test finding 06/13/2018 [facility] CA 27.29 <pending> [address] [place] [address] [phone] 1 D48.61 C79.51 Z51.11 2 Note: Persistent [...] information may be found at www.kdoqi.org. 3 D48.61 C79.51 4 Note: Persistent reduction for 3 months or more in an eGFR <60 mL/min/1.73 m2 defines CKD. Patients with eGFR values >/=60 mL/min/1.73 m2 may also have CKD if evidence of persistent proteinuria is present. The original MDRD equation for estimated GFR is not valid for patients less than 18 years of age. Additional information may be found at www.kdoqi.org. 5 Specimen was diluted in order to obtain results. Results were repeated. Siemens OpenBookaur Immunochemiluminometric Methodology (ICMA) Values obtained with different assay methods or kits cannot be used interchangeably. Results cannot be interpreted as absolute evidence of the presence or absence of malignant disease. Performed at: RN - [facility] [address] [id number] Computer [employer]ical Control Machinist: Paulina Miranda MD, Phone: [phone] 6 Instrument flagged sample for slide review. Less than 10% Bands seen, no other immature WBC's seen. RBC morphology essentially normal. Platelet estimate = NORMAL 7 Reviewed previous history, path review not indicated 8 CHECKED CALLED WBC, ANC TO CLAUDIA Nava AT 0945 10/28/18 by LAB.[email or web address] 9 Instrument flagged sample for slide review. Less than 10% Bands seen, no other immature WBC's seen. RBC morphology essentially normal. Platelet estimate = NORMAL 10 Note: Persistent reduction for 3 months or more in an eGFR <60 mL/min/1.73 m2 defines CKD. Patients with eGFR values >/=60 mL/min/1.73 m2 may also have CKD if evidence of persistent proteinuria is present. The original MDRD equation for estimated GFR is not valid for patients less than 18 years of age. Additional information may be found at www.kdoqi.org. 11 Instrument flagged sample for slide review. Less than 10% Bands seen, no other immature WBC's seen. RBC morphology essentially normal. Platelet estimate = NORMAL 12 Vitamin D deficiency has been defined by the [place] of [employer] and an Endocrine Society practice guideline as a level of serum 25-OH vitamin D less than 20 ng/mL (1,2). The Endocrine Society went on to further define vitamin D insufficiency as a level between 21 and 29 ng/mL (2). 1. IOM ([place] of [employer]). 2010. Dietary reference intakes for calcium and D. [place]: The National Academies Press. 2. Dick MF, Leticia [place], Romina CHAVEZ, et al. Evaluation, treatment, and prevention of vitamin D deficiency: an Endocrine Society clinical practice guideline. JCEM. 2010; 96(7):1911-30. Performed at: RN - [facility] [address] [id number] Computer Numer[employer] Control Machinist: Paulina Miranda MD, Phone: [phone] 13 THERAPEUTIC INR RANGE: 2.0 - 3.0 DVT, Pulmonary embolus, prophylaxis against venous thrombosis or systemic embolization in high risk patients. 2.5 - 3.5 Mechanical heart valves [address] PACHECO 15 Note: Persistent reduction for 3 months or more in an eGFR <60 mL/min/1.73 m2 defines CKD. Patients with eGFR values >/=60 mL/min/1.73 m2 may also have CKD if evidence of persistent proteinuria is present. The original MDRD equation for estimated GFR is not valid for patients less than 18 years of age. Additional information may be found at www.kdoqi.org. 16 Performed at: [facility] [id number] Computer Numerical Control Machinist: Paulina Miranda MD, Phone: [phone] Performed at: [facility] [address] [id number] Computer Numerical Control Machinist: Domenic Pulido MD, Phone: [phone] 17 Specimen was diluted in order to obtain results. Results were repeated. Siemens Centaur Immunochemiluminometric Methodology (ICMA) Values obtained with different assay methods or kits cannot be used interchangeably. Results cannot be interpreted as absolute evidence of the presence or absence of malignant disease. 18 Specimen was diluted in order to obtain results. Results were repeated. Siemens Centaur Immunochemiluminometric Methodology (ICMA) Values obtained with different assay methods or kits cannot be used interchangeably. Results cannot be interpreted as absolute evidence of the presence or absence of malignant disease. Performed at: [address] [id number] Computer Numer[employer] Control Machinist: Paulina Miranda MD, Phone: [phone] 19 Vitamin D deficiency has been defined by the [place] [employer] and an Endocrine Society practice guideline as a level of serum 25-OH vitamin D less than 20 ng/mL (1,2). The Endocrine Society went on to further define vitamin D insufficiency as a level between 21 and 29 ng/mL (2). 1. IOM ([place] [employer]). 2010. Dietary reference intakes for calcium and D. [place]: The National Academies Press. 2. Dick MF, Leticia [place], Romina CHAVEZ, et al. Evaluation, treatment, and prevention of vitamin D deficiency: an Endocrine Society clinical practice guideline. JCEM. 2010; 96(7):1911-30. Performed at: [facility] [id number] Computer Numerical Control Machinist: Paulina Miranda MD, Phone: [phone] Z51.11 D48.61 21 Note: Persistent reduction for 3 months or more in an eGFR <60 mL/min/1.73 m2 defines CKD. Patients with eGFR values >/=60 mL/min/1.73 m2 may also have CKD if evidence of persistent proteinuria is present. The original MDRD equation for estimated GFR is not valid for patients less than 18 years of age. Additional information may be found at www.[email or web address]. 22 Instrument flagged sample for slide review. Less than 10% Bands seen, no other immature WBC's seen. RBC morphology essentially normal. Platelet estimate = NORMAL 23 Note: Persistent reduction for 3 months or more in an eGFR <60 mL/min/1.73 m2 defines CKD. Patients with eGFR values >/=60 mL/min/1.73 m2 may also have CKD if evidence of persistent proteinuria is present. The original MDRD equation for estimated GFR is not valid for patients less than 18 years of age. Additional information may be found at [email or web address]. 24 Instrument flagged sample for slide review. Less than 10% Bands seen, no other immature WBC's seen. RBC morphology essentially normal. Platelet estimate = NORMAL 25 D48.61 D70.1 Z51.11 26 Note: Persistent reduction for 3 months [...] information may be found at [email or web address]. 29 Reviewed previous history, path review not indicated 30 D48.61 D70.1 31 Note: Persistent reduction for 3 months or more in an eGFR <60 mL/min/1.73 m2 defines CKD. Patients with eGFR values >/=60 mL/min/1.73 m2 may also have CKD if evidence of persistent proteinuria is present. The original MDRD equation for estimated GFR is not valid for patients less than 18 years of age. Additional information may be found at [email or web address]. 32 CHECKED CALLED WBC, ANC TO CLAUDIA C AT 1200 07/25/18 by [email or web address] 33 Siemens Centaur Immunochemiluminometric Methodology (ICMA) Values obtained with different assay methods or kits cannot be used interchangeably. Results cannot be interpreted as absolute evidence of the presence or absence of malignant disease. Performed at: [address] [id number] Computer Numerical Control Machinist: Paulina Miranda MD, Phone: [phone] 34 Instrument flagged sample for slide review. Less than 10% Bands seen, no other immature WBC's seen. RBC morphology essentially normal. Platelet estimate = NORMAL 35 D48.61 C79.51 D64.9 36 Note: Persistent reduction for 3 months or more in an eGFR <60 mL/min/1.73 m2 defines CKD. Patients with eGFR values >/=60 mL/min/1.73 m2 may also have CKD if evidence of persistent proteinuria is present. The original MDRD equation for estimated GFR is not valid for patients less than 18 years of age. Additional information may be found at [email or web address]. 37 Instrument flagged sample for slide review. Less than 10% Bands seen, no other immature WBC's seen. Platelet estimate = NORMAL 38 CALLED WBC AND NEUT TO BAL G AT 1528 06/28/18 by [email or web address] 39 D48.61 C79.51 Z51.11 40 Specimen was diluted in order to obtain results. Results were repeated. Siemens Centaur Immunochemiluminometric Methodology (ICMA) Values obtained with different assay methods or kits cannot be used interchangeably. Results cannot be interpreted as absolute evidence of the presence or absence of malignant disease. Performed at: [facility] [id number] Computer Numerical Control Machinist: Paulina Miranda MD, Phone: [phone] 41 D48.61 C79.51 D64.9 42 Result confirmed by repeat analysis. 43 Note: Persistent reduction for 3 months or more in an eGFR <60 mL/min/1.73 m2 defines CKD. Patients with eGFR values >/=60 mL/min/1.73 m2 may also have CKD if evidence of persistent proteinuria is present. The original MDRD equation for estimated GFR is not valid for patients less than 18 years of age. Additional information may be found at [email or web address]. 44 FEW SMUDGE CELLS Procedures Date Code Description Status 10/28/2018 36126 Theraputic Or Diagnostic Injection Completed 10/14/2018 42369 Theraputic Or Diagnostic Injection Completed 05/13/2017 361826265 Bone Mineral Density Test Completed Medical Devices Description No Information Available Encounters Type Date Location Provider Dx Diagnosis Office Visit 11/09/2018 Oncology Office Cyn Pacheco D48.61 Neoplasm of 7:30a DO uncertain 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 E53.9 Vitamin B deficiency, unspecified Office Visit 10/28/2018 7:30a Oncology Office Lloyd D48.61 Neoplasm of Cyn, DO uncertain 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 E53.9 Vitamin B deficiency, unspecified D70.9 Neutropenia, unspecified Office Visit 10/18/2018 7:45a Oncology Office [place] D48.61 Neoplasm of Cyn, DO uncertain 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 Office Visit 10/03/2018 4:30p Oncology Office [place], D48.61 Neoplasm of Cyn, DO uncertain 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 E53.9 Vitamin B deficiency, unspecified Office Visit 09/20/2018 7:45a Oncology Office [place], D48.61 Neoplasm of Cyn, DO uncertain 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 D70.1 Agranulocytosis secondary to cancer chemotherapy Office Visit 08/29/2018 7:45a Oncology Office [place], D48.61 Neoplasm of Cyn, DO uncertain 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 D70.1 Agranulocytosis secondary to cancer chemotherapy Office Visit 07/25/2018 4:00p Oncology Office Arnol Yung.11 Encounter for Savita Solares, antineoplastic DYE AND CHEMICAL COORDINATOR chemotherapy 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 D70.1 Agranulocytosis secondary to cancer chemotherapy Office Visit 06/14/2018 8:00a Infusion Center Arnol Yung.12 Encounter for Savita Solares, antineoplastic DYE AND CHEMICAL COORDINATOR immunotherapy D48.61 Neoplasm of uncertain behavior of right breast D70.1 Agranulocytosis secondary to cancer chemotherapy Z79.811 moth exterminator (current) use of aromatase inhibitors C79.51 Secondary malignant neoplasm of bone Assessments Date Code Description Provider 11/16/2018 Z51.11 Encounter for antineoplastic chemotherapy Aga Savita Beck, DYE AND CHEMICAL COORDINATOR 11/16/2018 D48.61 Neoplasm of uncertain behavior of right Aga Savita B. , DYE AND CHEMICAL COORDINATOR breast 11/16/2018 C79.51 Secondary malignant neoplasm of bone Aga Savita Beck, DYE AND CHEMICAL COORDINATOR 11/09/2018 D48.61 Neoplasm of uncertain behavior of right Boufal Cyn, DO breast 11/09/2018 C79.51 Secondary malignant neoplasm of bone Boufal, Cyn, DO 11/09/2018 E53.9 Vitamin B deficiency, unspecified Boufal, Cyn, DO 10/28/2018 D48.61 Neoplasm of uncertain behavior of right Boufal Cyn, DO breast 10/28/2018 C79.51 Secondary malignant neoplasm of bone Boufal, Cyn, DO 10/28/2018 E53.9 Vitamin B deficiency, unspecified Boufal, Cyn, DO 10/28/2018 D70.9 Neutropenia, unspecified Boufal, Cyn, DO 10/18/2018 D48.61 Neoplasm of uncertain behavior of right Boufal Cyn, DO breast 10/18/2018 C79.51 Secondary malignant neoplasm of bone Boufal, Cyn, DO 10/14/2018 D48.61 Neoplasm of uncertain behavior of right Boufal Cyn, DO breast 10/14/2018 D48.61 Neoplasm of [...] 08/29/2018 C79.51 Secondary malignant neoplasm of bone Radha Pachecot, DO 08/29/2018 D70.1 Agranulocytosis secondary to cancer Cyn Pacheco, DO chemotherapy 07/25/2018 Z51.11 Encounter for antineoplastic chemotherapy Savita Yung, DYE AND CHEMICAL COORDINATOR 07/25/2018 D48.61 Neoplasm of uncertain behavior of right Savita Yung. , DYE AND CHEMICAL COORDINATOR breast 07/25/2018 C79.51 Secondary malignant neoplasm of bone Savita Yung, DYE AND CHEMICAL COORDINATOR 07/25/2018 D70.1 Agranulocytosis secondary to cancer Savita Yung, DYE AND CHEMICAL COORDINATOR chemotherapy 06/14/2018 Z51.12 Encounter for antineoplastic immunotherapy Savita Yung, DYE AND CHEMICAL COORDINATOR 06/14/2018 D48.61 Neoplasm of uncertain behavior of right Savita Yung. , DYE AND CHEMICAL COORDINATOR breast 06/14/2018 D70.1 Agranulocytosis secondary to cancer Savita Yung, DYE AND CHEMICAL COORDINATOR chemotherapy 06/14/2018 Z79.811 longterm (current) use of aromatase Savita Yung, DYE AND CHEMICAL COORDINATOR inhibitors 06/14/2018 C79.51 Secondary malignant neoplasm of bone Savita Yung, [place] Plan of Treatment Future Appointment(s):11/30/2018 7:30 am - Savita Yung DYE AND CHEMICAL COORDINATOR at Infusion Nkjlsm5211/30/2018 7:30 am - Infusion Chair 1 at Infusion Afolho0912/12/2018 8:00 am - Infusion Chair 2 at Infusion Rscnrk1812/12/2018 8:00 am - Savita Yung , DYE AND CHEMICAL COORDINATOR at Infusion Zgapkt2911/16/2018 - Savita Yung NPZ51.11 Encounter for antineoplastic chemotherapyComments:No contraindication to initiation of HxsdqgbwY14.61 Neoplasm of uncertain behavior of right breastComments:Patient's disease has progressed on Ibrance. Treatment regimen has been changed to Faslodex/Afinitor. Discussed at length potential risks and benefits of both medications, instructions for use, and common side effects. Printed patient educational materials were also provided. Patient verbalized understanding and stated questions were answered to her satisfaction.Follow up:4 kzrkaN00.51 Secondary malignant neoplasm of boneComments:Denosumab Q 6 month dosing schedule. Last administered 06/14/18Follow up:As scheduled for evaluation for injection Functional Status Description No Information Available Mental Status Description No Information Available Referrals Description No Information Available
[2019-01-18 07:25] VITALS: BP 118/76
--- NOTE | 2019-01-18 07:41 | ED ---
Lower Extremity - HPI Summary HPI Summary: 48 yr old female with the complaint of left knee pain. Onset wednesday, no trauma or injuries, it hurt more, and then she ran 4 miles yesterday. progressively her pain has worsened, with redness, swelling, and increased warmth. No fever. She is on chemo for breast cancer. Pain is moderate and worse with weight bearing. - History of Current Complaint Chief Complaint: UCLowerExtremity Stated Complaint: L KNEE PAIN Time Seen by Provider: 01/18/19 07:29 Hx Last Menstrual Period: n/a - hysterectomy Pain Intensity: 7 - Allergies/Home Medications Allergies/Adverse Reactions: Allergies Allergy/AdvReac Type Severity Reaction Status Date / Time Penicillins Allergy Rash Verified 01/18/19 07:25 Home Medications: Home Medications Denosumab* [Xgeva*] 1.7 ml IM MONTHLY 01/18/19 [History Confirmed 01/18/19] Everolimus [Afinitor] 1 tab PO DAILY 01/18/19 [History Confirmed 01/18/19] Fulvestrant* [Faslodex*] 500 ml IV MONTHLY 01/18/19 [History Confirmed 01/18/19] PMH/Surg Hx/FS Hx/Imm Hx Cardiovascular History: Denies: Hx Pacemaker/ICD Respiratory History: Reports: Other Respiratory Problems/Disorders - PLEURAL EFFUSION 03/2016-STATES RESOLVED Comment Only: Hx Pulmonary Edema - PLEURAL EFFUSION 03/2016- STATES RESOLVED Sensory History: Denies: Hx Contacts or Glasses, Hx Hearing Aid Opthamlomology History: Denies: Hx Contacts or Glasses Psychiatric History: Reports: Hx Anxiety - ON MEDICATION FOR - Cancer History Cancer Type, Location and Year: metastatic breast cancer - currently being treated Hx Chemotherapy: Yes - 2000 AND CURRENTLY ORAL CHEMO - Surgical History Surgery Procedure, Year, and Place: BILATERAL mastectomy with reconstruction. hysterectomy. L knee surgery 05/2016-CATHETER FOR PLEURAL EFFUSION. AND THEM REMOVED. FOOT SURGERY-2015. R wrist Hx Anesthesia Reactions: No Infectious Disease History: No Infectious Disease History: Reports: Hx Clostridium Difficile Denies: Traveled Outside the [place] in Last 30 Days - Family History Known Family History: Positive: None Negative: Diabetes - Social History Alcohol Use: Weekly Substance Use Type: Reports: None Smoking Status (MU): Never Smoked Tobacco Review of Systems Constitutional: Negative Positive: Other - knee pain All Other Systems Reviewed And Are Negative: Yes Physical Exam Triage Information Reviewed: Yes Vital Signs On Initial Exam: Initial Vitals Temp Pulse Resp BP Pulse Ox 98.4 F 86 18 118/76 100 01/18/19 07:19 01/18/19 07:19 01/18/19 07:19 01/18/19 07:19 01/18/19 07:19 Vital Signs Reviewed: Yes Appearance: Positive: Well-Appearing, No Pain Distress Skin: Positive: Warm Head/Face: Positive: Normal Head/Face Inspection Eyes: Positive: EOMI ENT: Positive: Normal ENT inspection Neck: Positive: Nontender Respiratory/Lung Sounds: Positive: Clear to Auscultation, Breath Sounds Present Cardiovascular: Positive: RRR. Negative: Murmur Abdomen Description: Negative: Distended Musculoskeletal: Positive: Strength/ROM Intact, Other - left knee with effusion , redness, and tenderness. Neurological: Positive: Alert, Oriented to Person Place, Time, Speech Normal Psychiatric: Positive: Normal Diagnostics - Vital Signs Vital Signs Temp Pulse Resp BP Pulse Ox 01/18/19 07:19 98.4 F 86 18 118/76 100 - Laboratory Lab Statement: Any lab studies that have been ordered have been reviewed, and results considered in the medical decision making process. Lower Extremity Course/Dx - Course Course Of Treatment: 48 yr old with a possible septic knee. Plan She was offered an ambulance, but she states she will drive to the ER now for further evaluation. Possible septic joint. - Diagnoses Provider Diagnoses: Left knee pain Discharge ED - Sign-Out/Discharge Documenting (check all that apply): Patient Departure All imaging exams completed and their final reports reviewed: No Studies - Discharge Plan Condition: Good Disposition: HOME Patient Education Materials: Swollen Knee Joint (ED), Knee Pain (ED) Referrals: Ketty Hannah NP [Primary Care Provider] - 2 Days - Billing Disposition and Condition Condition: GOOD Disposition: Home
== END 2019-01-18 07:46 | disposition home or self-care (01) ==
LOC: UCCORT 07:06
DX: M25.562 Pain in left knee (principal); Z88.0 Allergy status to penicillin; C79.9 Secondary malignant neoplasm of unspecified site; Z85.3 Personal history of malignant neoplasm of breast; Z90.13 Acquired absence of bilateral breasts and nipples
CPT/HCPCS: 99212; G0463

== ENCOUNTER 2019-03-22 21:36 | Emergency (ER) | payer BC ==
--- NOTE | 2019-03-22 21:42 | UC ---
Skin Complaint HPI - HPI Summary HPI Summary: Patient is a 49yo female currently being treated for metastatic breast cancer presenting with c/o "possible shingles." Patient states that she had burning, tingling, and pain of R upper back/shoulder that began two weeks ago. Notes that a rash appeared 5-6 days ago. Notes some itching. Unsure of any drainage. Notes persistent pain. Denies applying anything to the skin for relief. States that she thought the pain was getting better but that it flared up again today. Patient denies h/o shingles. Does note history of chickenpox. - History of Current Complaint Stated Complaint: SKIN COMPLAINT Hx Obtained From: Patient Hx Last Menstrual Period: n/a - hysterectomy Onset/Duration: Gradual Onset, Lasting Weeks Onset Severity: Mild Current Severity: Moderate - Allergy/Home Medications Allergies/Adverse Reactions: Allergies Allergy/AdvReac Type Severity Reaction Status Date / Time Penicillins Allergy Rash Verified 03/22/19 21:42 PMH/Surg Hx/FS Hx/Imm Hx Cancer History: Breast Cancer - Surgical History Surgical History: Yes Surgery Procedure, Year, and Place: BILATERAL mastectomy with reconstruction. hysterectomy. L knee surgery 2006. 05/2016-CATHETER FOR PLEURAL EFFUSION. AND THEM REMOVED. FOOT SURGERY-2016. R wrist - Family History Known Family History: Positive: None Negative: Diabetes - Social History Alcohol Use: Weekly Substance Use Type: None Smoking Status (MU): Never Smoked Tobacco - Immunization History Most Recent Influenza Vaccination: no Review of Systems All Other Systems Reviewed And Are Negative: No Constitutional: Positive: Negative Skin: Positive: Rash - painful, burning, pruritic rash on R upper back/shoulder Respiratory: Positive: Negative Cardiovascular: Positive: Negative Musculoskeletal: Positive: Negative. Negative: Edema Neurological: Positive: Paresthesia - R upper back. Negative: Numbness Physical Exam Triage Information Reviewed: Yes Appearance: Well-Appearing, No Pain Distress, Well-Nourished Vital Signs: Vital Signs (72 hours) 03/22/19 21:43 Temperature 97.5 F Pulse Rate 85 Respiratory 15 Rate Blood Pressure 125/76 (mmHg) O2 Sat by Pulse 99 Oximetry Vital Signs Reviewed: Yes Eyes: Positive: Conjunctiva Clear Neck: Positive: Supple Respiratory: Positive: No respiratory distress Musculoskeletal: Positive: ROM Intact, No Edema Neurological Exam: Other Neurological: Positive: Alert Skin: Positive: Rashes - multiple scabbed over lesions on an erythematous base in linear distribution noted on R upper back extending laterally from midline. Does not cross the midline. tender to palpation Course/Dx - Course Course Of Treatment: I treated patient with Valtrex for shingles. Instructed to follow up if symptoms do not resolve within 7-10 days. Patient voiced understanding and agreed with treatment plan. - Diagnoses Provider Diagnosis: Shingles rash Discharge ED - Sign-Out/Discharge Documenting (check all that apply): Patient Departure All imaging exams completed and their final reports reviewed: No Studies - Discharge Plan Condition: Stable Disposition: HOME Prescriptions: ValACYclovir (*) [Valtrex 1 GM(*)] 1 gm PO TID #30 tab Patient Education Materials: Shingles (ED) Referrals: Ketty Hannah NP [Primary Care Provider] - If Needed Additional Instructions: Take Valtrex 3 times daily for 10 days. Keep the area clean and dry. Follow up with your PCP if symptom persist or worsen. - Billing Disposition and Condition Condition: STABLE Disposition: Home
--- OUTSIDE RECORDS SUMMARY | 2019-03-22 21:44 | XMS REPORT | Continuity of Care Document ---
:1970 External Reference #:[id number] Author Name Savita Yung, TELEVISION HOST Address [address] [place] [address] Care Team Providers Name Role Phone Gladis Hannah NP - Nurse Care Team Information Grain Shipper [phone] Practitioner Problems Active Problems Provider Date Personal [...] anxiety disorder Gladis Hannah FNP Onset: 04/28/2018 Edema Karen Ramos PA Onset: 02/02/2019 Knee joint effusion Karen Ramos PA Onset: 02/02/2019 Neutropenia Cyn Pacheco DO Onset: 10/28/2018 Vitamin [...] Use Denies Drug Use Smoking Status Reviewed: 02/15/19 Patient has never smoked Exercise Type/Frequency Exercises regularly Allergies, Adverse Reactions, Alerts Active Allergies Reaction Severity Comments Date Penicillins 09/24/2008 Amoxicillin 12/02/2011 Medications Active Medications SIG Qnty Indications Ordering Provider Date Afinitor 1 tab by mouth 28tabs D48.61 Cyn Pacheco, 11/11/2018 10mg Tablets daily, days DO 1-28 C79.51 Miralax 1 tablespoon in 8 510gm K59.00 IfeanyidovLaurynrejichaka, 04/28/2018 [id number] Powder ounces of water PRODUCT DEMONSTRATOR twice a day prn Xgeva SQ q3 Months Cyn Pacheco, DO 08/18/2016 120mg/1.7ML Solution Vitamin D 1 by mouth every Cyn Pacheco, DO 07/08/2016 4000Units day Tablets Venlafaxine HCL 1 by mouth twice a 180tabs Gladis Hannah, 2012 100mg day PRODUCT DEMONSTRATOR Tablets Citalopram 1 by mouth every 90tabs Gladis Hannah, 05/03/2012 Hydrobromide day PRODUCT DEMONSTRATOR 20mg Tablets Calcium 1200 chew one by mouth Unknown daily [id number]-Ldem Chewtabs Faslodex once a month Unknown 250mg/5ML Solution History Medications Magic Mouthwash 1 part diphenhydramine 240ml Cyn Pacheco, 2018 - 12.5mg/5mL; 1 part DO 02/02/2019 viscous lidocaine 2%; 1 part Maalox Swish and spit 5 ml four times daily as needed Benadryl Itch apply to affected area 28.300gm Cyn Pacheco, 2018 - Stopping up to three times a day DO 02/15/2019 1-0.1% Cream Medications Administered in Office Medication SIG Qnty Indications Ordering Provider Date Vitamin B12 Injection 1000 Cyn Pacheco, DO 10/28/2018 mcg/Ml Injection Vitamin B12 Injection 1000 Oncology Nurse 10/14/2018 mcg/Ml Injection Immunizations CPT Code Status Date Vaccine Lot # [id number] Given 10/15/2015 Tdap injection [id number] U-Td Given 02/18/2000 Td(Adult),Unspecified Vital Signs Date Vital Result Comment 03/08/2019 7:40am BP Systolic 135 mmHg BP Diastolic 86 mmHg Body Temperature 97.8 F Heart Rate 99 /min Respiratory Rate 20 /min Height 64 inches 5'4" Weight 157.38 lb BMI (Body Mass Index) 27.0 kg/m2 BSA (Body Surface Area) 1.77 m2 Show Low body weight in kilograms 54 kg O2 % BldC Oximetry 100 % Ra Pain Level 0 02/15/2019 8:39am BP Systolic Sitting Left Arm 115 mmHg BP Diastolic Sitting Left Arm 85 mmHg Body Temperature 96.9 F Heart Rate 78 /min Weight 154.00 lb O2 % BldC Oximetry 98 % Results Test Acquired Date Facility Test Result H/L Range Note CBC 03/08/2019 [facility] White Blood 4.3 K/uL Normal 3.1-10.7 1 W/Automated [address] [place] [address] [phone] Red Blood Count 4.70 M/uL Normal 3.90-5.40 Hemoglobin 12.4 gm/dL Normal 11.6-15.8 Hematocrit 40.2 % Normal 36.0-46.1 Mean Cell Volume 85.5 fl Normal 80.9-99.0 Mean Corpuscular HGB 26.4 pg Normal 25.9-32.7 Mean Corpuscular HGB Conc 30.8 g/dL Normal 30.8-34.3 Platelet Count 251 K/uL Normal 155-360 Red Cell Distri Width SD 41.2 fl Normal 36-47 Red Cell Distri Width %CV 13.2 % Normal 11.7-14.4 Mean Platelet Volume 9.5 fl Normal 8.9-12.4 Neut% 64.0 % Normal 40.4-72.8 Lymph % 20.9 % Normal 20.0-42.0 Searcy % 8.5 % Normal 4.3-13.2 Eo% 5.2 % Normal 0.0-6.6 Bas% 1.2 % High 0.0-1.1 Immature Grans 0.2 % Normal 0.0-5.0 NRBC % 0.0 /100WBC < 10/ 100 WBC Neut# 2.72 K/uL Normal 1.8-7.0 Lymph # 0.89 K/uL Low 1.0-4.0 [place]cy # 0.36 K/uL Normal 0.3-0.9 Eos # 0.22 K/uL Normal 0.0-0.5 Baso # 0.05 K/uL Normal 0.0-0.1 Immature Grans Absolute 0.01 K/uL NRBC # 0.00 K/uL Comprehensive Metabolic 03/08/2019 [facility] Glucose 120 mg/dL High 74-106 Panel [address] [place] [address] [phone] BUN 24 mg/dL High 7-18 Creatinine 1.0 mg/dL Normal 0.6-1.3 Glom Filtration Rate, Estimate >60 mL/min >60 If >60 mL/min >60 2 BUN/Creat 24.0 ratio Sodium 140 mmol/L Normal 136-145 Potassium 4.4 mmol/L Normal 3.5-5.1 Chloride 105 mmol/L Normal 98-107 Carbon Dioxide 29 mmol/L Normal 21-32 Anion Gap 6 mEq/L Low 8-16 Calcium 10.3 mg/dL High 8.5-10.1 Total Protein 7.6 g/dL Normal 6.4-8.2 Albumin 3.6 g/dL Normal 3.4-5.0 Globulin 4.0 g/dL Normal 1.9-4.3 Alb/Glob 0.9 ratio Bilirubin,Total 0.2 mg/dL Normal 0.2-1.0 Sgot/Ast 34 U/L Normal 15-37 SGPT/Alt 25 U/L Normal 12-78 Alkaline Phosphatase 138 U/L High 45-117 Laboratory test 03/08/2019 [facility] CA 27.29 <pending> finding [address] [place] [address] [phone] CBC W/Automated 02/08/2019 [facility] White Blood 3.9 K/uL Normal 3.1-10 3 Diff [address] Count .7 [place] [address] [phone] Red Blood Count 4.51 M/uL Normal 3.90-5.40 Hemoglobin 12.4 gm/dL Normal 11.6-15.8 Hematocrit 40.5 % Normal 36.0-46.1 Mean Cell Volume 89.8 fl Normal 80.9-99.0 Mean Corpuscular HGB 27.5 pg Normal 25.9-32.7 Mean Corpuscular HGB Conc 30.6 g/dL Low 30.8-34.3 Platelet Count 244 K/uL Normal 155-360 Red Cell Distri Width SD 42.3 fl Normal 36-47 Red Cell Distri Width %CV 12.9 % Normal 11.7-14.4 Mean Platelet Volume 9.6 fl Normal 8.9-12.4 Neut% 61.5 % Normal 40.4-72.8 Lymph % 22.1 % Normal 20.0-42.0 Searcy % 9.2 % Normal 4.3-13.2 Eo% 5.6 % Normal 0.0-6.6 Bas% 1.3 % High 0.0-1.1 Immature Grans 0.3 % Normal 0.0-5.0 NRBC % 0.0 /100WBC < 10/ 100 WBC Neut# 2.40 K/uL Normal 1.8-7.0 Lymph # 0.86 K/uL Low 1.0-4.0 Searcy # 0.36 K/uL Normal 0.3-0.9 Eos # 0.22 K/uL Normal 0.0-0.5 Baso # 0.05 K/uL Normal 0.0-0.1 Immature Grans Absolute 0.01 K/uL NRBC # 0.00 K/uL Comprehensive 02/08/2019 [facility] Glucose 103 mg/dL Normal 74-106 Metabolic Panel [address] [place] [address] [phone] BUN 19 mg/dL High 7-18 Creatinine 0.8 mg/dL Normal 0.6-1.3 Glom Filtration Rate, Estimate >60 mL/min >60 If >60 mL/min >60 4 BUN/Creat 23.7 ratio Sodium 138 mmol/L Normal 136-145 Potassium 3.5 mmol/L Normal 3.5-5.1 Chloride 105 mmol/L Normal 98-107 Carbon Dioxide 27 mmol/L Normal 21-32 Anion Gap 6 mEq/L Low 8-16 Calcium 9.8 mg/dL Normal 8.5-10.1 Total Protein 7.8 g/dL Normal 6.4-8.2 Albumin 3.3 g/dL Low 3.4-5.0 Globulin 4.5 g/dL High 1.9-4.3 Alb/Glob 0.7 ratio Bilirubin,Total 0.3 mg/dL Normal 0.2-1.0 Sgot/Ast 33 U/L Normal 15-37 SGPT/Alt 25 U/L Normal 12-78 Alkaline Phosphatase 139 U/L High 45-117 Laboratory test finding 02/08/2019 [facility] Triglycerides 62 mg/dL <[address] [place] [address] [phone] HDL Cholesterol 70 mg/dL >40 6 Direct LDL 02/08/2019 [facility] LDL Chol. 155 mg/dL High 0-[address] (Direct) [place] [address] [phone] Laboratory test 02/08/2019 [facility] CA 27.29 473.9 High 0.0-38.6 [address] U/[place] [address] [phone] Laboratory test 01/20/2019 [facility] Vancomycin,Tr 11.1 Low 15.0-20. [address] ough ug/mL 0 [place] [address] [phone] Basic Metabolic 01/20/2019 [facility] Glucose 90 mg/dL Normal 74-106 Panel [address] [place] [address] [phone] BUN 14 mg/dL Normal 7-18 Creatinine 0.8 mg/dL Normal 0.6-1.3 Glom Filtration Rate, Estimate >60 mL/min >60 If >60 mL/min >60 9 BUN/Creat 17.5 ratio Sodium 142 mmol/L Normal 136-145 Potassium 4.2 mmol/L Normal 3.5-5.1 Chloride 108 mmol/L High 98-107 Carbon Dioxide 28 mmol/L Normal 21-32 Anion Gap 6 mEq/L Low 8-16 Calcium 7.8 mg/dL Low 8.5-10.1 Path Review: 01/20/2019 [facility] Path Review: TNP [address] [place] [address] [phone] CBC 01/20/2019 [facility] White Blood Count 2.9 K/uL Low 3.1-10.7 [address] [place] [address] [phone] Red Blood Count 4.02 M/uL Normal 3.90-5.40 Hemoglobin 11.6 gm/dL Normal 11.6-15.8 Hematocrit 37.0 % Normal 36.0-46.1 Mean Cell Volume 92.0 fl Normal 80.9-99.0 Mean Corpuscular HGB 28.9 pg Normal 25.9-32.7 Mean Corpuscular HGB Conc 31.4 g/dL Normal 30.8-34.3 Platelet Count 169 K/uL Normal 155-360 Red Cell Distri Width SD 42.9 fl Normal 36-47 Red Cell Distri Width %CV 12.6 % Normal 11.7-14.4 Mean Platelet Volume 9.7 fl Normal 8.9-12.4 NRBC % 0.0 /100WBC < 10/ 100 WBC Differential-WBC Confirm 01/19/2019 [facility] Total Cells 100 #CELLS [address] [place] [address] [phone] Band% 9 % High 0-8 Neutrophils% 74 % High 33-73 Lymph% 14 % Low 20-42 Atypical Lymph% 1 % Normal 0-7 Monocyte% 1 % Normal 0-10 Basophil% 1 % Normal 0-2 Platelet Estimate NORMAL Poikilocytosis 0-1+ Anisocytosis 0-1+ Chlam/GC/Trichomonas 01/19/2019 [facility] Ur Trichomonas NEGATIVE Negative PCR, Ur [address] vaginalis,[place] [address] [phone] Ur Chlamydia trachomatis,PCR NEGATIVE Negative Ur Neisseria gonorrhoeae,PCR NEGATIVE Negative 10 Basic Metabolic Panel 01/19/2019 [facility] Glucose 157 mg/dL High 74-[address] [place] [address] [phone] BUN 14 mg/dL Normal 7-18 Creatinine 0.8 mg/dL Normal 0.6-1.3 Glom Filtration Rate, Estimate >60 mL/min >60 If >60 mL/min >60 11 BUN/Creat 17.5 ratio Sodium 139 mmol/L Normal 136-145 Potassium 4.0 mmol/L Normal 3.5-5.1 Chloride 105 mmol/L Normal 98-107 Carbon Dioxide 26 mmol/L Normal 21-32 Anion Gap 8 mEq/L Normal 8-16 Calcium 8.2 mg/dL Low 8.5-10.1 CBC W/Automated 01/19/2019 [facility] White Blood 2.3 K/uL Low 3.1-10.7 Diff [address] [place] [address] [phone] Red Blood Count 3.98 M/uL Normal 3.90-5.40 Hemoglobin 11.9 gm/dL Normal 11.6-15.8 Hematocrit 36.7 % Normal 36.0-46.1 Mean Cell Volume 92.2 fl Normal 80.9-99.0 Mean Corpuscular HGB 29.9 pg Normal 25.9-32.7 Mean Corpuscular HGB Conc 32.4 g/dL Normal 30.8-34.3 Platelet Count 171 K/uL Normal 155-360 Red Cell Distri Width SD 43.2 fl Normal 36-47 Red Cell Distri Width %CV 12.7 % Normal 11.7-14.4 Mean Platelet Volume 10.3 fl Normal 8.9-12.4 Neut% 78.7 % High 40.4-72.8 Lymph % 18.2 % Low 20.0-42.0 Searcy % 2.7 % Low 4.3-13.2 Eo% 0.0 % Normal 0.0-6.6 Bas% 0.4 % Normal 0.0-1.1 Immature Grans 0.0 % Normal 0.0-5.0 NRBC % 0.0 /100WBC < 10/ 100 WBC Neut# 1.77 K/uL Low 1.8-7.0 Lymph # 0.41 K/uL Low 1.0-4.0 Searcy # 0.06 K/uL Low 0.3-0.9 Eos # 0.00 K/uL Normal 0.0-0.5 Baso # 0.01 K/uL Normal 0.0-0.1 Immature Grans Absolute 0.00 K/uL NRBC # 0.00 K/uL Slide Review 01/19/2019 [facility] Slide Review DIFF ORDERED [address] [place] [address] [phone] Laboratory test 01/19/2019 [facility] Path Review: <pending> finding [address] [place] [address] [phone] Anaerobic Culture 01/18/2019 [facility] Gram Stain NO ORGANISMS SEE 12 W/ GR Stain [address] <SEE NOTE> [place] [address] [phone] Gram Stain RARE WHITE BLOOD <SEE NOTE> 13 Anaerobic Culture NO GROWTH Routine Culture W/ 01/18/2019 [facility] Gram Stain NO ORGANISMS SEE 14 Gram Stain [address] <SEE NOTE> [place] [address] [phone] Gram Stain RARE WHITE BLOOD <SEE NOTE> 15 Aerobic Culture NO GROWTH: FINAL <SEE NOTE> 16 Fungal 01/18/2019 [facility] Fungal DANIELITO/Calcofluor p 17 Culture With [address] Fluorochrome <SEE NOTE> [place] [address] Stain [phone] Fungal Culture; Other Sources No yeast or mold <SEE NOTE> 18 Synovial FLD 01/18/2019 [facility] Synovial FLD LEFT KNEE 19 cc/Diff [address] [place] [address] [phone] Synovial FLD Color RED Synovial FLD Appearance HAZY Total Nucleated Cells 99210 /uL < 200 RBC 89052 /uL None Polymorphonuclear % 95 % < 25 Mononuclear % 5 % 20 Smear Review (SEE NOTE) 21 Lyme AB/Western 01/18/2019 [facility] Lyme Total < 0.91 0.00-0.90 22, [address]lex [address] AB/[place] [address] WB [phone] Lyme Disease Antibody,QT,Igm < 0.80 index 0.00-0.79 24 Laboratory 01/18/2019 [facility] Sedimentation 59 mm/hr High 2-40 25, 26 test finding [address] [place] [address] [phone] CBC 01/18/2019 [facility] White Blood 3.1 K/uL Normal 3.1-10. W/Automated [address] Count 7 [place] [address] [phone] Red Blood Count 4.00 M/uL Normal 3.90-5.40 Hemoglobin 11.9 gm/dL Normal 11.6-15.8 Hematocrit 36.4 % Normal 36.0-46.1 Mean Cell Volume 91.0 fl Normal 80.9-99.0 Mean Corpuscular HGB 29.8 pg Normal 25.9-32.7 Mean Corpuscular HGB Conc 32.7 g/dL Normal 30.8-34.3 Platelet Count 169 K/uL Normal 155-360 Red Cell Distri Width SD 42.5 fl Normal 36-47 Red Cell Distri Width %CV 12.8 % Normal 11.7-14.4 Mean Platelet Volume 9.4 fl Normal 8.9-12.4 Neut% 58.6 % Normal 40.4-72.8 Lymph % 22.0 % Normal 20.0-42.0 Searcy % 13.9 % High 4.3-13.2 Eo% 4.9 % Normal 0.0-6.6 Bas% 0.6 % Normal 0.0-1.1 Immature Grans 0.0 % Normal 0.0-5.0 NRBC % 0.0 /100WBC < 10/ 100 WBC Neut# 1.81 K/uL Normal 1.8-7.0 Lymph # 0.68 K/uL Low 1.0-4.0 Searcy # 0.43 K/uL Normal 0.3-0.9 Eos # 0.15 K/uL Normal 0.0-0.5 Baso # 0.02 K/uL Normal 0.0-0.1 Immature Grans Absolute 0.00 K/uL NRBC # 0.00 K/uL Laboratory test 01/18/2019 [facility] C-Reactive 14.7 mg/L High <3.0 27 finding [address] [place] [address] [phone] Uric Acid 2.9 mg/dL Normal 2.6-6.0 Afb Smear And Culture 01/18/2019 [facility] Afb Culture (SEE NOTE) 28 [address] [place] [address] [phone] Aot Request 01/18/2019 [facility] Aot Request Already done [address] [facility] [address] [address] [phone] Tests to be added: serum lyme testi <SEE NOTE> 30 Aot Request 01/18/2019 [facility] Aot Request Test(s) added [address] [place] [address] [phone] Tests to be added: URIC ACID Laboratory test 01/18/2019 [facility] Synovial NO CRYSTALS None [address] [place] [place] [address] Crystals [phone] Comprehensive 01/18/2019 [facility] Glucose 97 mg/dL Normal 74-106 Metabolic Panel [address] [place], [place] [address] [phone] BUN 14 mg/dL Normal 7-18 Creatinine 0.8 mg/dL Normal 0.6-1.3 Glom Filtration Rate, Estimate >60 mL/min >60 If >60 mL/min >60 33 BUN/Creat 17.5 ratio Sodium 138 mmol/L Normal 136-145 Potassium 3.6 mmol/L Normal 3.5-5.1 Chloride 106 mmol/L Normal 98-107 Carbon Dioxide 29 mmol/L Normal 21-32 Anion Gap 3 mEq/L Low 8-16 Calcium 8.8 mg/dL Normal 8.5-10.1 Total Protein 7.4 g/dL Normal 6.4-8.2 Albumin 3.5 g/dL Normal 3.4-5.0 Globulin 3.9 g/dL Normal 1.9-4.3 Alb/Glob 0.9 ratio Bilirubin,Total 0.3 mg/dL Normal 0.2-1.0 Sgot/Ast 33 U/L Normal 15-37 SGPT/Alt 20 U/L Normal 12-78 Alkaline Phosphatase 129 U/L High 45-117 Blood Culture 01/18/2019 [facility] Blood Culture NO GROWTH: FINAL [address] Aerobic <SEE NOTE> [place], [place] [address] [phone] Blood Culture Anaerobic NO GROWTH: FINAL <SEE NOTE> 35 Blood Culture 01/18/2019 [facility] Blood Culture NO GROWTH: FINAL [address] Aerobic <SEE NOTE> [place], [place] [address] [phone] Blood Culture Anaerobic NO GROWTH: FINAL <SEE NOTE> 37 Laboratory test 01/18/2019 [facility] Synovial FLD Total 3.0 g/dL . [address] Protein [place], [place] [address] [phone] Synovial FLD Glucose 55 mg/dL . 39 Fluid Culture W/ 01/18/2019 [facility] Gram Stain MODERATE WHITE B 40 Gram Stain [address] <SEE NOTE> [place] [address] [phone] Gram Stain NO ORGANISMS SEE <SEE NOTE> 41 Fluid Culture NO GROWTH: FINAL <SEE NOTE> 42 CBC W/Automated 01/11/2019 [facility] White Blood 3.0 K/uL Low 3.1-10.7 [address] [place] [address] [phone] Red Blood Count 4.18 M/uL Normal 3.90-5.40 [...] 40.4-72.8 Lymph % 24.0 % Normal 20.0-42.0 Searcy % 11.0 % Normal 4.3-13.2 Eo% 4.7 % Normal 0.0-6.6 Bas% 0.7 % Normal 0.0-1.1 Immature Grans 0.3 % Normal 0.0-5.0 NRBC % 0.0 /100WBC < 10/ 100 WBC Neut# 1.78 K/uL Low 1.8-7.0 Lymph # 0.72 K/uL Low 1.0-4.0 Searcy # 0.33 K/uL Normal 0.3-0.9 Eos # 0.14 K/uL Normal 0.0-0.5 Baso # 0.02 K/uL Normal 0.0-0.1 Immature Grans Absolute 0.01 K/uL NRBC # 0.00 K/uL Comprehensive Metabolic 01/11/2019 [facility] Glucose 127 mg/dL High 74-[address] [place] [address] [phone] BUN 17 mg/dL Normal 7-18 Creatinine 0.7 mg/dL Normal 0.6-1.3 Glom Filtration Rate, Estimate >60 mL/min >60 If >60 mL/min >60 44 BUN/Creat 24.2 ratio Sodium 137 mmol/L Normal [...] 130 U/L High 45-117 Laboratory test 01/11/2019 [facility] CA 27.29 391.6 U/mL High 0.0-38.6 [address] [address] [phone] Slide Review 01/11/2019 [facility] Slide (SEE NOTE) [address] Review [place] [address] [phone] Path Review: 01/11/2019 [facility] Path NI [address] Review: [place] [address] [phone] CBC W/Automated 12/14/2018 [facility] White Blood 3.5 K/uL Normal 3.1-10.[address] [place] [address] [phone] Red Blood Count 4.22 M/uL Normal 3.90-5.40 [...] 40.4-72.8 Lymph % 26.8 % Normal 20.0-42.0 Searcy % 10.1 % Normal 4.3-13.2 Eo% 19.3 % High 0.0-6.6 Bas% 1.4 % High 0.0-1.1 Immature Grans 0.0 % Normal 0.0-5.0 NRBC % 0.0 /100WBC < 10/ 100 WBC Neut# 1.47 K/uL Low 1.8-7.0 Lymph # 0.93 K/uL Low 1.0-4.0 Searcy # 0.35 K/uL Normal 0.3-0.9 Eos # 0.67 K/uL High 0.0-0.5 Baso # 0.05 K/uL Normal 0.0-0.1 Immature Grans Absolute 0.00 K/uL NRBC # 0.00 K/uL Comprehensive Metabolic 12/14/2018 [facility] Glucose 128 mg/dL High 74-106 Panel [address] [place] [address] [phone] BUN 20 mg/dL High 7-18 Creatinine 0.8 mg/dL Normal 0.6-1.3 Glom Filtration Rate, Estimate >60 mL/min >60 If >60 mL/min >60 49 BUN/Creat 25.0 ratio Sodium 140 mmol/L Normal [...] 126 U/L High 45-117 Laboratory test 12/14/2018 [facility] CA 27.29 510.0 U/mL High 0.0-38.6 50 finding [address] [place] [address] [phone] CBC W/Automated 11/30/2018 [facility] White Blood 2.4 K/uL Low 3.1-10.7 [address] [place] [place] [address] [phone] Red Blood Count 4.06 M/uL Normal 3.90-5.40 [...] 40.4-72.8 Lymph % 30.6 % Normal 20.0-42.0 Searcy % 8.7 % Normal 4.3-13.2 Eo% 14.5 % High 0.0-6.6 Bas% 0.8 % Normal 0.0-1.1 Immature Grans 0.0 % Normal 0.0-5.0 NRBC % 0.0 /100WBC < 10/ 100 WBC Neut# 1.10 K/uL Low 1.8-7.0 Lymph # 0.74 K/uL Low 1.0-4.0 Searcy # 0.21 K/uL Low 0.3-0.9 Eos # 0.35 K/uL Normal 0.0-0.5 Baso # 0.02 K/uL Normal 0.0-0.1 Immature Grans Absolute 0.00 K/uL NRBC # 0.00 K/uL Comprehensive 11/30/2018 [facility] Glucose 102 mg/dL Normal 74-106 Metabolic Panel [address] [place] [address] [phone] BUN 21 mg/dL High 7-18 Creatinine 0.8 mg/dL Normal 0.6-1.3 Glom Filtration Rate, Estimate >60 mL/min >60 If >60 mL/min >60 52 BUN/Creat 26.2 ratio Sodium 140 mmol/L Normal [...] 108 U/L Normal 45-117 Slide Review 11/30/2018 [facility] Slide Review (SEE NOTE) [address] [place] [address] [phone] Laboratory test 11/30/2018 [facility] Path Review: <pending> finding [address] [place] [address] [phone] CBC W/Automated 11/15/2018 [facility] White Blood 4.1 K/uL 3.1-10. 54 Diff [address] Count [address] [place] [address] [phone] Red Blood Count 3.89 M/uL Low 3.90-5.40 [...] 40.4-72.8 Lymph % 31.0 % Normal 20.0-42.0 Searcy % 11.1 % Normal 4.3-13.2 Eo% 1.5 % Normal 0.0-6.6 Bas% 2.0 % High 0.0-1.1 Immature Grans 0.2 % Normal 0.0-5.0 NRBC % 0.0 /100WBC < 10/ 100 WBC Neut# 2.20 K/uL Normal 1.8-7.0 Lymph # 1.26 K/uL Normal 1.0-4.0 Searcy # 0.45 K/uL Normal 0.3-0.9 Eos # 0.06 K/uL Normal 0.0-0.5 Baso # 0.08 K/uL Normal 0.0-0.1 Immature Grans Absolute 0.01 K/uL NRBC # 0.00 K/uL Comprehensive Metabolic 11/15/2018 [facility] Glucose 70 mg/dL Low 74-106 Panel [address] [place] [address] [phone] BUN 24 mg/dL High 7-18 Creatinine 0.9 mg/dL Normal 0.6-1.3 Glom Filtration Rate, Estimate >60 mL/min >60 If >60 mL/min >60 55 BUN/Creat 26.6 ratio Sodium 139 mmol/L Normal [...] 108 U/L Normal 45-117 Laboratory test 11/15/2018 [facility] Magnesium 2.3 mg/dL Normal 1.8-2.[address] [place] [address] [phone] CBC W/Automated 11/09/2018 [facility] White Blood 2.4 K/uL Low 3.1-10.7 [address] [place] [address] [phone] Red Blood Count 3.80 M/uL Low 3.90-5.40 [...] 40.4-72.8 Lymph % 33.6 % Normal 20.0-42.0 Searcy % 12.4 % Normal 4.3-13.2 Eo% 1.7 % Normal 0.0-6.6 Bas% 2.1 % High 0.0-1.1 Immature Grans 0.4 % Normal 0.0-5.0 NRBC % 0.0 /100WBC < 10/ 100 WBC Neut# 1.20 K/uL Low 1.8-7.0 Lymph # 0.81 K/uL Low 1.0-4.0 Searcy # 0.30 K/uL Normal 0.3-0.9 Eos # 0.04 K/uL Normal 0.0-0.5 Baso # 0.05 K/uL Normal 0.0-0.1 Immature Grans Absolute 0.01 K/uL NRBC # 0.00 K/uL Comprehensive 11/09/2018 [facility] Glucose 89 mg/dL Normal 74-106 Metabolic Panel [address] [place] [address] [phone] BUN 18 mg/dL Normal 7-18 Creatinine 0.8 mg/dL Normal 0.6-1.3 Glom Filtration Rate, Estimate >60 mL/min >60 If >60 mL/min >60 57 BUN/Creat 22.5 ratio Sodium 140 mmol/L Normal [...] Alkaline Phosphatase 97 U/L Normal 45-117 Laboratory 11/09/2018 [facility] CA 27.29 635.6 High 0.0-38.6 58 test finding [address] U/[place] [address] [phone] Slide Review 11/09/2018 [facility] Slide (SEE [address] Review NOTE) AVE [place] [address] [phone] Path Review: 11/09/2018 [facility] Path NI [address] Review: [place]VE [place] [address] [phone] CBC 10/28/2018 [facility] White 1.4 K/uL Critical 3.1-10.7 W/Automated [address] Blood low Diff [place] [address] Count [phone] Red Blood Count 3.70 M/uL Low 3.90-5.40 [...] 40.4-72.8 Lymph % 42.4 % High 20.0-42.0 [place] % 11.8 % Normal 4.3-13.2 Eo% 1.4 % Normal 0.0-6.6 Bas% 3.5 % High 0.0-1.1 Immature Grans 0.0 % Normal 0.0-5.0 NRBC % 0.0 /100WBC < 10/ 100 WBC Neut# 0.59 K/uL Critical low 1.8-7.0 Lymph # 0.61 K/uL Low 1.0-4.0 [place] # 0.17 K/uL Low 0.3-0.9 Eos # 0.02 K/uL Normal 0.0-0.5 Baso # 0.05 K/uL Normal 0.0-0.1 Immature Grans Absolute 0.00 K/uL NRBC # 0.00 K/uL Comprehensive 10/28/2018 [facility] Glucose 88 mg/dL Normal 74-106 Metabolic Panel [address] [place] [address] [phone] BUN 21 mg/dL High 7-18 Creatinine 1.0 mg/dL Normal 0.6-1.3 Glom Filtration Rate, Estimate >60 mL/min >60 If >60 mL/min >60 61 BUN/Creat 21.0 ratio Sodium 139 mmol/L Normal [...] U/L Normal 45-117 Vitamin B12 And 10/28/2018 [facility] Vitamin B12 350 pg/mL Normal 193-[address] [place] [address] [phone] Folic Acid 10.7 ng/mL Normal 3.1-17.5 Slide Review 10/28/2018 [facility] Slide (SEE NOTE) [address] [place] [address] [phone] Laboratory test 10/28/2018 [facility] Path (SEE NOTE) [address] Review: [place] [address] [phone] CBC W/Automated 10/18/2018 [facility] White Blood 1.8 K/uL Critical low 3.1- Diff [address] [place] [address] [phone] Red Blood Count 3.81 M/uL Low 3.90-5.40 [...] 40.4-72.8 Lymph % 27.2 % Normal 20.0-42.0 [place] % 6.1 % Normal 4.3-13.2 Eo% 1.1 % Normal 0.0-6.6 Bas% 2.8 % High 0.0-1.1 Immature Grans 0.6 % Normal 0.0-5.0 NRBC % 0.0 /100WBC < 10/ 100 WBC Neut# 1.12 K/uL Low 1.8-7.0 Lymph # 0.49 K/uL Low 1.0-4.0 [place] # 0.11 K/uL Low 0.3-0.9 Eos # 0.02 K/uL Normal 0.0-0.5 Baso # 0.05 K/uL Normal 0.0-0.1 Immature Grans Absolute 0.01 K/uL NRBC # 0.00 K/uL Anticoagulant Therapy? Unknown Protime 10/18/2018 [facility] Protime 13.2 seconds Normal 12.0-14.[address] [place] [address] [phone] Inr 1.0 Normal 0.9-1.1 64 Anticoagulant Therapy? Unknown Path Review: 10/18/2018 [facility] Anticoagulant Unknown [address] Therapy? [place] [address] [phone] Act Partial 10/18/2018 [facility] Act Partial 26.8 seconds Normal 23.[address] Thrombo Time -35. [place] [id number] [phone] Anticoagulant Therapy? Unknown Slide Review 10/18/2018 [facility] Slide Review (SEE NOTE) [address] [place] [address] [phone] Anticoagulant Therapy? Unknown Laboratory test 10/18/2018 [facility] Vitamin 65.8 30.0-100.0 [address] D,25-Hydroxy ng/[place] [address] [phone] Comprehensive 10/18/2018 [facility] Glucose 90 Normal 74-106 Metabolic Panel [address] mg/[place] [address] [phone] BUN 26 mg/dL High 7-18 Creatinine 1.1 mg/dL Normal 0.6-1.3 Glom Filtration Rate, Estimate 56 mL/min >60 If >60 mL/min >60 67 BUN/Creat 23.6 ratio Sodium 139 mmol/L Normal [...] 12-78 Alkaline Phosphatase 113 U/L Normal 45-117 Vitamin B12 And 10/18/2018 [facility] Vitamin B12 471 pg/mL Normal 193-986 Folate [address] [place] [address] [phone] Folic Acid 9.2 ng/mL Normal 3.1-17.5 Laboratory test finding 10/18/2018 [facility] Nucleotidase,5 7 IU/L 0-10 68 [address] [place] [address] [phone] CA 27.29 595.7 U/mL High 0.0-38.6 69 Laboratory test 10/18/2018 [facility] Ferritin 62 ng/mL Normal 8-252 70 finding [address] [place] [address] [phone] Iron-Tibc-%Sat 10/18/2018 [facility] Serum Iron 92 g/dL Normal 50-170 [address] [place] [address] [phone] Total Iron Binding Capacity 417 g/dL Normal 250-450 Transferrin %Saturation 22 % Normal 12-57 Vitamin B12 And 09/20/2018 [facility] Vitamin B12 273 pg/mL Normal 193-986 Folate [address] [place] [address] [phone] Folic Acid 9.4 ng/mL Normal 3.1-17.5 Laboratory 09/20/2018 [facility] Vitamin 68.6 30.0-100.0 71 test finding [address] D,25-Hydroxy ng/[place] [address] [phone] Iron-Tibc-%Sa 09/20/2018 [facility] Serum Iron 106 Normal 50-[address] g/[place] [address] [phone] Total Iron Binding Capacity 452 g/dL High 250-450 Transferrin %Saturation 23 % Normal 12-57 Laboratory test 09/20/2018 [facility] CA 27.29 506.9 High 0.0-38.6 [address] U/[place] [address] [phone] Laboratory test 09/20/2018 [facility] Ferritin 58 ng/mL Normal 8-[address] [place] [address] [phone] Comprehensive 09/19/2018 [facility] Glucose 86 mg/dL Normal 74-106 73 Metabolic Panel [address] [place] [address] [phone] BUN 24 mg/dL High 7-18 Creatinine 0.9 mg/dL Normal 0.6-1.3 Glom Filtration Rate, Estimate >60 mL/min >60 If >60 mL/min >60 74 BUN/Creat 26.6 ratio Sodium 136 mmol/L Normal [...] 96 U/L Normal 45-117 CBC W/Automated 09/19/2018 [facility] White Blood 2.5 K/uL Low 3.1-10.[address] [place] [address] [phone] Red Blood Count 3.62 M/uL Low 3.90-5.40 [...] 40.4-72.8 Lymph % 26.1 % Normal 20.0-42.0 [place] % 5.2 % Normal 4.3-13.2 Eo% 1.2 % Normal 0.0-6.6 Bas% 2.8 % High 0.0-1.1 Immature Grans 0.0 % Normal 0.0-5.0 NRBC % 0.0 /100WBC < 10/ 100 WBC Neut# 1.61 K/uL Low 1.8-7.0 Lymph # 0.65 K/uL Low 1.0-4.0 [place] # 0.13 K/uL Low 0.3-0.9 Eos # 0.03 K/uL Normal 0.0-0.5 Baso # 0.07 K/uL Normal 0.0-0.1 Immature Grans Absolute 0.00 K/uL NRBC # 0.00 K/uL Slide Review 09/19/2018 [facility] Slide Review (SEE NOTE) [address] [place] [address] [phone] Laboratory test finding 09/19/2018 [facility] Path Review: <pending> [address] [place] [address] [phone] 1 Z51.11 C79.51 C78.7 D48.61 Z85.3 2 Note: Persistent reduction for 3 months or more in an eGFR <60 mL/min/1.73 m2 defines CKD. Patients with eGFR values >/=60 mL/min/1.73 m2 may also have CKD if evidence of persistent proteinuria is present. The original MDRD equation for estimated GFR is not valid for patients less than 18 years of age. Additional information may be found at [email or web address]. 3 C79.51 C78.7 D48.61 Z51.11 E53.9 4 Note: Persistent reduction for 3 months or more in an eGFR <60 mL/min/1.73 m2 defines CKD. Patients with eGFR values >/=60 mL/min/1.73 m2 may also have CKD if evidence of persistent proteinuria is present. The original MDRD equation for estimated GFR is not valid for patients less than 18 years of age. Additional information may be found at [email or web address]. 5 Reference Guidelines*: Normal: ............. < 150 mg/dL Borderline High: .... 150-199 mg/dL High: ............... 200-499 mg/dL Very High: .......... > 500 mg/dL * Source: National Cholesterol Education Program (NCEP) 6 Reference Guidelines*: Low HDL: ..... < 40 mg/dL Normal: ..... 40-60 mg/dL Desirable: ... > 60 mg/dL *The National Cholesterol Education Program(NCEP) 7 Specimen was diluted in order to obtain results. Results were repeated. [employer] Immunochemiluminometric Methodology (ICMA) Values obtained with different assay methods or kits cannot be used interchangeably. Results cannot be interpreted as absolute evidence of the presence or absence of malignant disease. Performed at: RN - [facility] [address] [id number] Stacker Tender: Paulina Miranda MD, Phone: [phone] 8 INTRACTABLE PAIN 9 Note: Persistent reduction for 3 months or more in an eGFR <60 mL/min/1.73 m2 defines CKD. Patients with eGFR values >/=60 mL/min/1.73 m2 may also have CKD if evidence of persistent proteinuria is present. The original MDRD equation for estimated GFR is not valid for patients less than 18 years of age. Additional information may be found at www.[email or web address]. 10 A negative result for either C. trachomatis and/or N. gonorrhoeae does not preclued an infection because results are dependent on adequate specimen collection, absence of inhibitors, and sufficient DNA to be detected. 11 Note: Persistent reduction for 3 months or more in an eGFR <60 mL/min/1.73 m2 defines CKD. Patients with eGFR values >/=60 mL/min/1.73 m2 may also have CKD if evidence of persistent proteinuria is present. The original MDRD equation for estimated GFR is not valid for patients less than 18 years of age. Additional information may be found at [email or web address]. 12 NO ORGANISMS SEEN 13 RARE WHITE BLOOD CELLS 14 NO ORGANISMS SEEN 15 RARE WHITE BLOOD CELLS 16 NO GROWTH: FINAL REPORT 17 DANIELITO/Calcofluor preparation: no fungus observed 18 No yeast or mold isolated after 4 weeks. Performed at: [address] [id number] Stacker Tender: Paulina Miranda MD, Phone: [phone] 19 SWOLLEN LT KNEE,RED,HOT TO TOUCH 20 TNC (Total Nucleated Cells) = WBCs Mesothelials PMN% = Neutrophils Eosinophils MN% = Lymphocytes Monocytes 21 A cytospin smear has been reviewed. Cell types present in numbers that correlate with the automated differential. No atypical cells or cell clusters seen. 22 INTRACTABLE PAIN 23 Negative <0.91 Equivocal 0.91 - 1.09 Positive >1.09 24 Negative <0.80 Equivocal 0.80 - 1.19 Positive >1.19 IgM levels may peak at 3-6 weeks post infection, then gradually decline. Performed at: [address] [id number] Stacker Tender: Paulina Miranda MD, Phone: [phone] 25 SWOLLEN LT KNEE,RED,HOT TO TOUCH 26 This result was obtained with an ESR method that is not based on the standard Westergren Method. When comparing results obtained from the traditional Westergren ESR and this method it is important to refer to the reference range for each method. Method: Capillary Photometry 27 INTRACTABLE PAIN 28 No acid fast bacilli isolated after 6 weeks Performed at: [address] [id number] Stacker Tender: Paulina Miranda MD, Phone: [phone] 29 Tests: serum lyme testing with reflex Instructions: 30 serum lyme testing with reflex 31 Tests: URIC ACID Instructions: 32 NO CRYSTALS SEEN 33 Note: Persistent reduction for 3 months or more in an eGFR <60 mL/min/1.73 m2 defines CKD. Patients with eGFR values >/=60 mL/min/1.73 m2 may also have CKD if evidence of persistent proteinuria is present. The original MDRD equation for estimated GFR is not valid for patients less than 18 years of age. Additional information may be found at [email or web address]. 34 NO GROWTH: FINAL REPORT 35 NO GROWTH: FINAL REPORT 36 NO GROWTH: FINAL REPORT 37 NO GROWTH: FINAL REPORT 38 : Peritoneal : Pleural : Synovial : : : : : : : Transudate : Exudate : : : : : : : : Not Estab. : <3 g/dL : >3 g/dL : <2.5 g/dL : : : : : : The method performance specifications have not been established for this test in body fluid. The test result should be integrated into the clinical context for interpretation. The method performance specifications have not been established for this test in body fluid. The test result should be integrated into the clinical context for interpretation. Performed at: [facility] [address], [place] [id number] Stacker Tender: Paulina Miranda MD, Phone: [phone] 39 : Peritoneal : Pleural : Synovial : : : : : : : Transudate : Exudate : : : : : : : : Not Estab. : Equal to simultaneously drawn plasma : : : : The method performance specifications have not been established for this test in body fluid. The test result should be integrated into clinical context for interpretation. The reference intervals and other method performance specifications have not been established for this test. The test result should be integrated into the clinical context for interpretation. 40 MODERATE WHITE BLOOD CELLS 41 NO ORGANISMS SEEN 42 NO GROWTH: FINAL REPORT 43 D48.61 C79.51 Z51.11 44 Note: Persistent reduction for 3 months or more in an eGFR <60 mL/min/1.73 m2 defines CKD. Patients with eGFR values >/=60 mL/min/1.73 m2 may also have CKD if evidence of persistent proteinuria is present. The original MDRD equation for estimated GFR is not valid for patients less than 18 years of age. Additional information may be found at [email or web address]. 45 [employer] Immunochemiluminometric Methodology (ICMA) Values obtained with different assay methods or kits cannot be used interchangeably. Results cannot be interpreted as absolute evidence of the presence or absence of malignant disease. Performed at: - [facility] [id number] Stacker Tender: Paulina Miranda MD, Phone: [phone] 46 Instrument flagged sample for slide review. Less than 10% Bands seen, no other immature WBC's seen. RBC morphology essentially normal. Platelet estimate = NORMAL 47 Reviewed previous history, path review not indicated 48 Z51.11 C79.51 D48.61 E53.9 D64.9 Z51.12 49 Note: Persistent reduction for 3 months or more in an eGFR <60 mL/min/1.73 m2 defines CKD. Patients with eGFR values >/=60 mL/min/1.73 m2 may also have CKD if evidence of persistent proteinuria is present. The original MDRD equation for estimated GFR is not valid for patients less than 18 years of age. Additional information may be found at [email or web address]. 50 Specimen was diluted in order to obtain results. Results were repeated. [employer] Immunochemiluminometric Methodology (ICMA) Values obtained with different assay methods or kits cannot be used interchangeably. Results cannot be interpreted as absolute evidence of the presence or absence of malignant disease. Performed at: - [facility] [id number] Stacker Tender: Paulina Miranda MD, Phone: [phone] 51 Z51.11 D48.61 C79.51 E53.9 52 Note: Persistent reduction for 3 months or more in an eGFR <60 mL/min/1.73 m2 defines CKD. Patients with eGFR values >/=60 mL/min/1.73 m2 may also have CKD if evidence of persistent proteinuria is present. The original MDRD equation for estimated GFR is not valid for patients less than 18 years of age. Additional information may be found at [email or web address]. 53 Instrument flagged sample for slide review. Less than 10% Bands seen, no other immature WBC's seen. RBC morphology essentially normal. Platelet estimate = SLIGHTLY DECREASED 54 D48.61 C79.51 Z51.11 55 Note: Persistent reduction for 3 months or more in an eGFR <60 mL/min/1.73 m2 defines CKD. Patients with eGFR values >/=60 mL/min/1.73 m2 may also have CKD if evidence of persistent proteinuria is present. The original MDRD equation for estimated GFR is not valid for patients less than 18 years of age. Additional information may be found at [email or web address]. 56 D48.61 C79.51 57 Note: Persistent reduction for 3 months or more in an eGFR <60 mL/min/1.73 m2 defines CKD. Patients with eGFR values >/=60 mL/min/1.73 m2 may also have CKD if evidence of persistent proteinuria is present. The original MDRD equation for estimated GFR is not valid for patients less than 18 years of age. Additional information may be found at [email or web address]. 58 Specimen was diluted in order to obtain results. Results were repeated. [employer] Immunochemiluminometric Methodology (ICMA) Values obtained with different assay methods or kits cannot be used interchangeably. Results cannot be interpreted as absolute evidence of the presence or absence of malignant disease. Performed at: [facility] [id number] Stacker Tender: Paulina Miranda MD, Phone: [phone] 59 Instrument flagged sample for slide review. Less than 10% Bands seen, no other immature WBC's seen. RBC morphology essentially normal. Platelet estimate = NORMAL 60 Reviewed previous history, path review not indicated 61 Note: Persistent reduction for 3 months or more in an eGFR <60 mL/min/1.73 m2 defines CKD. Patients with eGFR values >/=60 mL/min/1.73 m2 may also have CKD if evidence of persistent proteinuria is present. The original MDRD equation for estimated GFR is not valid for patients less than 18 years of age. Additional information may be found at [email or web address]. 62 Instrument flagged sample for slide review. Less than 10% Bands seen, no other immature WBC's seen. RBC morphology essentially normal. Platelet estimate = NORMAL 63 CHECKED CALLED WBC, ANC TO CLAUDIA C AT 0945 10/28/18 by [email or web address] 64 THERAPEUTIC INR RANGE: 2.0 - 3.0 DVT, Pulmonary embolus, prophylaxis against venous thrombosis or systemic embolization in high risk patients. 2.5 - 3.5 Mechanical heart valves 65 Instrument flagged sample for slide review. Less than 10% Bands seen, no other immature WBC's seen. RBC morphology essentially normal. Platelet estimate = NORMAL 66 Vitamin D deficiency has been defined by the [place] of [employer] and an Endocrine Society practice guideline as a level of serum 25-OH vitamin D less than 20 ng/mL (1,2). The Endocrine Society went on to further define vitamin D insufficiency as a level between 21 and 29 ng/mL (2). 1. IOM ([place] [employer]). 2010. Dietary reference intakes for calcium and D. [place]: The National Academies Press. 2. Dick BRANCH, Leticia RAMEY, Romina CHAVEZ, et al. Evaluation, treatment, and prevention of vitamin D deficiency: an Endocrine Society clinical practice guideline. JCEM. 2010; 96(7):1911-30. Performed at: RN - [facility] [address] [place], [place] [id number] Stacker Tender: Paulina Miranda MD, Phone: [phone] 67 Note: Persistent reduction for 3 months or more in an eGFR <60 mL/min/1.73 m2 defines CKD. Patients with eGFR values >/=60 mL/min/1.73 m2 may also have CKD if evidence of persistent proteinuria is present. The original MDRD equation for estimated GFR is not valid for patients less than 18 years of age. Additional information may be found at www.[email or web address]. 68 Performed at: [facility] [address] [id number] Stacker Tender: Paulina Miranda MD, Phone: [phone] Performed at: [facility] [address] [id number] Stacker Tender: Domenic Pulido MD, Phone: [phone] 69 Specimen was diluted in order to obtain results. Results were repeated. [employer] Immunochemiluminometric Methodology (ICMA) Values obtained with different assay methods or kits cannot be used interchangeably. Results cannot be interpreted as absolute evidence of the presence or absence of malignant disease. [address] [place] 71 Vitamin D deficiency has been defined by the [place] [employer] and an Endocrine Society practice guideline as a level of serum 25-OH vitamin D less than 20 ng/mL (1,2). The Endocrine Society went on to further define vitamin D insufficiency as a level between 21 and 29 ng/mL (2). 1. IOM ([place] [employer]). 2010. Dietary reference intakes for calcium and D. [place]: The National Academies Press. 2. Dick MF, Leticia [place], Romina CHAVEZ, et al. Evaluation, treatment, and prevention of vitamin D deficiency: an Endocrine Society clinical practice guideline. JCEM. 2010; 96(7):1911-30. Performed at: [facility] [id number] Stacker Tender: Paulina Miranda MD, Phone: [phone] 72 Specimen was diluted in order to obtain results. Results were repeated. [employer] Immunochemiluminometric Methodology (ICMA) Values obtained with different assay methods or kits cannot be used interchangeably. Results cannot be interpreted as absolute evidence of the presence or absence of malignant disease. Performed at: RN - [facility] [address] [id number] Stacker Tender: Paulina Miranda MD, Phone: [phone] 73 Z51.11 D46.61 74 Note: Persistent reduction for 3 months or more in an eGFR <60 mL/min/1.73 m2 defines CKD. Patients with eGFR values >/=60 mL/min/1.73 m2 may also have CKD if evidence of persistent proteinuria is present. The original MDRD equation for estimated GFR is not valid for patients less than 18 years of age. Additional information may be found at www.[email or web address]. 75 Instrument flagged sample for slide review. Less than 10% Bands seen, no other immature WBC's seen. RBC morphology essentially normal. Platelet estimate = NORMAL Procedures Date Code Description Status 01/20/2019 57081 EKG Interpretation And Report Only Completed 01/19/2019 64064 EKG Interpretation And Report Only Completed 01/18/2019 04822 I&D deep abscess busa hematoma thigh/knee Completed 10/28/2018 24534 Theraputic Or Diagnostic Injection Completed 10/14/2018 50486 Theraputic Or Diagnostic Injection Completed 05/13/2017 [id number] Bone Mineral Density Test Completed Medical Devices Description No Information Available Encounters Type Date Location Provider Dx Diagnosis Office Visit 02/08/2019 Infusion Center Savita Yung Z51.11 Encounter for 8:00a B., TELEVISION HOST antineoplastic chemotherapy Z85.3 Personal history of malignant neoplasm of breast 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 Office Visit 01/27/2019 4:00p Walk In [facility], R60.0 Localized edema Clinic LEISA Menendez M79.605 Pain in left leg Office Visit 01/11/2019 8:00a Infusion Center [facility] Z51.11 Encounter for Savita Solares, antineoplastic TELEVISION HOST chemotherapy 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 K12.31 Oral mucositis (ulcerative) due to antineoplastic therapy Office Visit 12/14/2018 7:30a Infusion Center [facility] Z51.11 Encounter for Savita Solares, antineoplastic TELEVISION HOST chemotherapy 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 K12.31 Oral mucositis (ulcerative) due to antineoplastic therapy D70.1 Agranulocytosis secondary to cancer chemotherapy Office Visit 11/30/2018 7:30a Infusion Center [facility], Z51.11 Encounter for Savita HareBeulah, antineoplastic TELEVISION HOST chemotherapy 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 K12.31 Oral mucositis (ulcerative) due to antineoplastic therapy Office Visit 11/16/2018 7:30a Infusion Center [facility], Z51.11 Encounter for Savita HareBeulah, antineoplastic TELEVISION HOST chemotherapy D48.61 Neoplasm of uncertain behavior of [...] cancer chemotherapy Assessments Date Code Description Provider 03/08/2019 Z51.11 Encounter for antineoplastic Savita Yung, TELEVISION HOST chemotherapy 03/08/2019 Z85.3 Personal history of malignant Savita Yung, TELEVISION HOST neoplasm of breast 03/08/2019 C79.51 Secondary malignant neoplasm of bone Savita Yung, TELEVISION HOST 03/08/2019 C78.7 Secondary malignant neoplasm of Savita Yung., TELEVISION HOST liver and intrahepatic bile duct 03/08/2019 M25.462 Effusion, left knee Savita Yung., TELEVISION HOST 03/08/2019 R06.02 Shortness of breath Savita Yung., TELEVISION HOST 02/15/2019 M25.462 Effusion, left knee Karen Ramos, PA 02/08/2019 Z51.11 Encounter for antineoplastic Savita Yung., TELEVISION HOST chemotherapy 02/08/2019 Z85.3 Personal history of malignant Savita Yung., TELEVISION HOST neoplasm of breast 02/08/2019 C79.51 Secondary malignant neoplasm of bone Savita Yung., TELEVISION HOST 02/08/2019 C78.7 Secondary malignant neoplasm of Savita Yung., TELEVISION HOST liver and intrahepatic bile duct 02/02/2019 M25.462 Effusion, left knee Karen Ramos, PA 02/02/2019 R60.0 Localized edema Karen Ramos, PA 01/27/2019 R60.0 Localized edema Ba-Haydee Cano, PRODUCT DEMONSTRATOR 01/27/2019 M79.605 Pain in left leg Ba-Haydee Cano, PRODUCT DEMONSTRATOR 01/20/2019 M25.562 Pain in left knee Kendall Koroma M.D., [facility] 01/20/2019 M25.562 Pain in left knee Luca Yusuf M.D. 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 chemotherapy 01/20/2019 Z92.21 Personal history of antineoplastic Kendall Koroma M.D., chemotherapy [facility] 01/20/2019 M25.462 Effusion, left knee Luca Yusuf M.D. 01/20/2019 C79.51 Secondary malignant neoplasm of bone Luca Yusuf M.D. 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 chemotherapy 01/19/2019 M25.462 Effusion, left knee Cyn Pacheco, DO 01/19/2019 M25.462 Effusion, left knee Luca Yusuf M.D. 01/19/2019 Z85.3 Personal history of malignant SealurdesCyn woodruff, DO neoplasm of breast 01/19/2019 C79.51 Secondary malignant neoplasm of bone Luca Yusuf M.D. 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 chemotherapy 01/18/2019 Z92.21 Personal history of antineoplastic Clari Chahal MD chemotherapy 01/18/2019 M25.462 Effusion, left knee Cyn Pacheco, DO 01/18/2019 M25.462 Effusion, left knee Luca Yusuf M.D. 01/18/2019 Z85.3 Personal history of malignant Clari Chahal MD neoplasm of breast 01/18/2019 Z85.3 Personal history of malignant Cyn Pacheco, DO neoplasm of breast 01/18/2019 C79.51 Secondary malignant neoplasm of bone Luca Yusuf M.D. 01/11/2019 Z51.11 Encounter for antineoplastic Aga, Savita B., TELEVISION HOST chemotherapy 01/11/2019 D48.61 Neoplasm of uncertain behavior of [place], Savita B., TELEVISION HOST right breast 01/11/2019 C79.51 Secondary malignant neoplasm of bone Aga, Savita B., TELEVISION HOST 01/11/2019 K12.31 Oral mucositis (ulcerative) due to Aga, Savita B., TELEVISION HOST antineoplastic therapy 12/14/2018 Z51.11 Encounter for antineoplastic [place], Savita B., TELEVISION HOST chemotherapy 12/14/2018 D48.61 Neoplasm of uncertain behavior of Aga, Savita B., TELEVISION HOST right breast 12/14/2018 C79.51 Secondary malignant neoplasm of bone Aga, Savita B., TELEVISION HOST 12/14/2018 K12.31 Oral mucositis (ulcerative) due to [place], Savita B., TELEVISION HOST antineoplastic therapy 12/14/2018 D70.1 Agranulocytosis secondary to cancer [place], Savita B., TELEVISION HOST chemotherapy 11/30/2018 Z51.11 Encounter for antineoplastic [place], Savita B., TELEVISION HOST chemotherapy 11/30/2018 C79.51 Secondary malignant neoplasm of bone [place], Savita B., TELEVISION HOST 11/30/2018 D48.61 Neoplasm of uncertain behavior of Aga, Savita B., TELEVISION HOST right breast 11/30/2018 K12.31 Oral mucositis (ulcerative) due to [place], Savita B., TELEVISION HOST antineoplastic therapy 11/16/2018 Z51.11 Encounter for antineoplastic [place], Savita B., TELEVISION HOST chemotherapy 11/16/2018 D48.61 Neoplasm of uncertain behavior of Aga, Savita B., TELEVISION HOST right breast 11/16/2018 C79.51 Secondary malignant neoplasm of bone Aga, Savita B., TELEVISION HOST 11/09/2018 D48.61 Neoplasm of uncertain behavior of Cyn Pacheco, right breast 11/09/2018 C79.51 Secondary malignant neoplasm of bone Cyn Pacheco, DO 11/09/2018 E53.9 Vitamin B deficiency, unspecified Cyn Pacheco, DO 10/28/2018 D48.61 Neoplasm of uncertain behavior of Boufal Cyn, DO right breast 10/28/2018 C79.51 Secondary malignant neoplasm of bone BolurdesalErinCyn, DO 10/28/2018 E53.9 Vitamin B deficiency, unspecified BoufalErinCyn, DO 10/28/2018 D70.9 Neutropenia, unspecified BoufalErinCyn, DO 10/18/2018 D48.61 Neoplasm of uncertain behavior of BoufalErinCyn, DO right breast 10/18/2018 C79.51 Secondary malignant neoplasm of bone Boufal Cyn, DO 10/14/2018 D48.61 Neoplasm of uncertain behavior of BoufalErinCyn, DO right breast 10/14/2018 D48.61 Neoplasm of uncertain behavior of Oncology Nurse right breast 10/14/2018 E53.9 Vitamin B deficiency, unspecified BoufalErinCyn, DO 10/14/2018 E53.9 Vitamin B deficiency, unspecified Oncology Nurse 10/03/2018 D48.61 Neoplasm of uncertain behavior of BoufalErinCyn, DO right breast 10/03/2018 C79.51 Secondary malignant neoplasm of bone HazelalErinCyn, DO 10/03/2018 E53.9 Vitamin B deficiency, unspecified HazelalErinCyn, DO 09/20/2018 D48.61 Neoplasm of uncertain behavior of BoufalErinCyn, DO right breast 09/20/2018 C79.51 Secondary malignant neoplasm of bone Erin Pachecoaret, DO 09/20/2018 D70.1 Agranulocytosis secondary to cancer HazelalRadhat, DO chemotherapy Plan of Treatment Future Appointment(s):04/05/2019 8:00 am - Infusion Chair 8 at Infusion Ljjvoi2204/05/2019 8:00 am - Cyn Pacheco DO at Oncology Kfuias9003/08/2019 - Savita Yung, NPZ51.11 Encounter for antineoplastic chemotherapyComments: No contraindication to continuation of VybrlaxmQ12.3 Personal history of malignant neoplasm of breastNew Xrays:CT, Chest, With Contrast Materials, Ordered: 03/08/19CT, Abdomen & Pelvis W Contrast, Ordered: 03/08/19Bone/ Joint Imaging, Whole Body, Ordered: 03/08/19Comments:Continue Afinitor and Faslodex. Faslodex is due today. Patient reports that she is tolerating it with no significant adverse effects C 2729 did increase from December to January. Results from today's lab draw are pending.C79.51 Secondary malignant neoplasm of boneNew Xrays:Chest, 2 Views, Ordered: 03/08/19CT, Chest, With Contrast Materials, Ordered: 03/08/19CT, Abdomen & Pelvis W Contrast, Ordered: 03/08/19Bone/Joint Imaging, Whole Body, Ordered: 03/08/19Comments: Patient was last administered Denosumab 120 mg subcutaneously 12/14/18. It will be administered today. Bone scan to evaluate for potential disease progression ordered.C78.7 Secondary malignant neoplasm of liver and intrahepatic bile ductNew Xrays:CT, Chest, With Contrast Materials, Ordered: 03/08/19CT, Abdomen & amp; Pelvis W Contrast, Ordered: 03/08/19Bone/Joint Imaging, Whole Body, Ordered : 03/08/19Comments:Liver function studies are stable. However, CA-27-29 increased from December to January. CT of the abdomen and pelvis to evaluate for potential disease [id number] Effusion, left kneeComments:Improved. Orthopedics is jtyiohxqlL78.02 Shortness of breathNew Xrays:Chest, 2 Views, Ordered: 03/08/19Comments:Increased shortness of breath with exertion. This is a new finding. Chest x-ray was ordered and completed. It was read as right pleural thickening versus small pleural effusion. There is also hazy opacity noted within the right mid to lower lung field. This in conjunction with patient's increasing CA-27-29 despite recent regimen change is concerning. CT of the chest abdomen and pelvis ordered for evaluation for disease progression. Functional Status Description No Information Available Mental Status Description No Information Available Referrals Description No Information Available
--- OUTSIDE RECORDS SUMMARY | 2019-03-22 21:45 | XMS REPORT | Continuity of Care Document ---
:1970 External Reference #:[id number] Author Name Haydee Avery FNP (transmitted by agent of provider Mickie Yung) Address [address] [place] [id number] Care Team Providers Name Role Phone Galdis Hannah SUPERVISOR CONTINGENTS - Nurse Care Team Information Help Desk Administrator [phone] Practitioner Problems Active Problems Provider Date Personal [...] Use Denies Drug Use Smoking Status Reviewed: 01/27/19 Patient has never smoked Exercise Type/Frequency Exercises regularly Allergies, Adverse Reactions, Alerts Active Allergies Reaction Severity Comments Date Penicillins 09/24/2008 Amoxicillin 12/02/2011 Medications Active Medications SIG Qnty Indications Ordering Date Provider Magic Mouthwash 1 part diphenhydramine 240ml [facility], 11/30/2018 12.5mg/5mL; 1 part Cyn, DO viscous lidocaine 2%; 1 part Maalox Swish and spit 5 ml four times daily as needed Afinitor 1 tab by mouth daily, 28tabs D48.61 [facility], 11/11/2018 10mg days 1-28 Cyn, DO Tablets C79.51 Benadryl Itch apply to affected 28.300gm Cyn Pacheco, 10/03/2018 Stopping area up to three DO 1-0.1% Cream times a day Miralax 1 tablespoon in 8 510gm K59.00 [place], 04/28/2018 [id number] Powder ounces of water LEISA Griffith twice a day Xgeva SQ q6 Months Cyn Pacheco, 08/18/2016 120mg/1.7ML DO Solution Vitamin D 1 by mouth every Cyn Pacheco, 07/08/2016 4000Units day DO Tablets Venlafaxine HCL 1 by mouth twice a 180tabs [place], 05/03/2012 100mg day Riaferchaka, [employer] DESIGN ENGINEER Tablets Citalopram 1 by mouth every 90tabs [place], 05/03/2012 Hydrobromide day Gladis [employer] PRODUCT DESIGN ENGINEER 20mg Tablets Calcium 1200 chew one by mouth Unknown daily [id number] [place] Medications Administered in Office Medication SIG Qnty Indications Ordering Provider Date Vitamin B12 Injection 1000 Cyn Pacheco DO 10/28/2018 mcg/Ml Injection Vitamin B12 Injection 1000 Oncology Nurse 10/14/2018 mcg/Ml Injection Immunizations CPT Code Status Date Vaccine Lot # [id number] Given 10/15/2015 Tdap injection [id number] U-Td Given 02/18/2000 Td(Adult),Unspecified Vital Signs Date Vital Result Comment 01/27/2019 3:51pm BP Systolic 106 mmHg BP Diastolic 71 mmHg Body Temperature 98.4 F Heart Rate 77 /min Respiratory Rate 18 /min Weight 159.50 lb O2 % BldC Oximetry 100 % Pain Level 3 01/11/2019 7:55am BP Systolic 129 mmHg left BP Diastolic 82 mmHg left Body Temperature 97.7 F Heart Rate 78 /min Respiratory Rate 16 /min Height 64 inches 5'4" Weight 153.50 lb BMI (Body Mass Index) 26.3 kg/m2 BSA (Body Surface Area) 1.75 m2 [place] body weight in kilograms 54 kg O2 % BldC Oximetry 98 % Ra Pain Level 0 Results Test Date Facility Test Result H/L Range Note CBC 01/20/2019 [facility] White Blood Count 2.9 K/uL Low 3.1-10.7 1 [address] [place] [address] [phone] Red Blood Count 4.02 M/uL Normal 3.90-5.40 [...] % 0.0 /100WBC < 10/ 100 WBC Path Review: 01/20/2019 [facility] Path Review: TNP [address] [place] [address] [phone] Basic Metabolic 01/20/2019 [facility] Glucose 90 mg/dL Normal 74-106 Panel [address] [place] [address] [phone] BUN 14 mg/dL Normal 7-18 Creatinine 0.8 mg/dL Normal 0.6-1.3 Glom Filtration Rate, Estimate >60 mL/min >60 If >60 mL/min >60 2 BUN/Creat 17.5 ratio Sodium 142 mmol/L Normal 136-145 Potassium 4.2 mmol/L Normal 3.5-5.1 Chloride 108 mmol/L High 98-107 Carbon Dioxide 28 mmol/L Normal 21-32 Anion Gap 6 mEq/L Low 8-16 Calcium 7.8 mg/dL Low 8.5-10.1 Laboratory 01/20/2019 [facility] Vancomycin,Trough 11.1 Low 15.0-20.0 test finding [address] ug/[place] [address] [phone] Differential- 01/19/2019 [facility] Total Cells Counted 100 WBC Confirm [address] #CELLS [place], [place] [id number] [phone] Band% 9 % High 0-8 Neutrophils% 74 % High 33-73 Lymph% 14 % Low 20-42 Atypical Lymph% 1 % Normal 0-7 Monocyte% 1 % Normal 0-10 Basophil% 1 % Normal 0-2 Platelet Estimate NORMAL Poikilocytosis 0-1+ Anisocytosis 0-1+ Laboratory test 01/19/2019 [facility] Path Review: <pending> finding [address] [place], [place] [id number] [phone] Chlam/GC/Tricho 01/19/2019 [facility] Ur Trichomonas NEGATIVE Negative monas PCR, Ur [address] vaginalis,[place] [address] [phone] Ur Chlamydia trachomatis,PCR NEGATIVE Negative Ur Neisseria gonorrhoeae,PCR NEGATIVE Negative 3 Basic Metabolic Panel 01/19/2019 [facility] Glucose 157 mg/dL High 74-106 [address] [place] [address] [phone] BUN 14 mg/dL Normal 7-18 Creatinine 0.8 mg/dL Normal 0.6-1.3 Glom Filtration Rate, Estimate >60 mL/min >60 If >60 mL/min >60 4 BUN/Creat 17.5 ratio Sodium 139 mmol/L Normal 136-145 Potassium 4.0 mmol/L Normal 3.5-5.1 Chloride 105 mmol/L Normal 98-107 Carbon Dioxide 26 mmol/L Normal 21-32 Anion Gap 8 mEq/L Normal 8-16 Calcium 8.2 mg/dL Low 8.5-10.1 Slide Review 01/19/2019 [facility] Slide Review DIFF ORDERED [address] [place] [address] [phone] CBC 01/19/2019 [facility] White Blood 2.3 K/uL Low 3.1-10. W/Automated [address] Count 7 [place] [address] [phone] Red Blood Count 3.98 M/uL Normal 3.90-5.40 [...] 40.4-72.8 Lymph % 18.2 % Low 20.0-42.0 Barnes % 2.7 % Low 4.3-13.2 Eo% 0.0 % Normal 0.0-6.6 Bas% 0.4 % Normal 0.0-1.1 Immature Grans 0.0 % Normal 0.0-5.0 NRBC % 0.0 /100WBC < 10/ 100 WBC Neut# 1.77 K/uL Low 1.8-7.0 Lymph # 0.41 K/uL Low 1.0-4.0 Barnes # 0.06 K/uL Low 0.3-0.9 Eos # 0.00 K/uL Normal 0.0-0.5 Baso # 0.01 K/uL Normal 0.0-0.1 Immature Grans Absolute 0.00 K/uL NRBC # 0.00 K/uL Synovial FLD 01/18/2019 [facility] Synovial FLD Source LEFT KNEE 5 cc/Diff [address] [place] [address] [phone] Synovial FLD Color RED Synovial FLD Appearance HAZY Total Nucleated Cells 24458 /uL < 200 RBC 95264 /uL None Polymorphonuclear % 95 % < 25 Mononuclear % 5 % 6 Smear Review (SEE NOTE) 7 Lyme AB/Western 01/18/2019 [facility] Lyme Total < 0.91 0.00-0.90 8, [address] Bl[address]lex [address] AB/[place] [address] [phone] Lyme Disease Antibody,QT,Igm < 0.80 index 0.00-0.79 10 Laboratory 01/18/2019 [facility] Sedimentation 59 mm/hr High 2-40 11, 12 test finding [address] Rate [place], [place] [id number] [phone] CBC 01/18/2019 [facility] White Blood 3.1 K/uL Normal 3.1-10. W/Automated [address] Count 7 [place] [address] [phone] Red Blood Count 4.00 M/uL Normal 3.90-5.40 [...] 40.4-72.8 Lymph % 22.0 % Normal 20.0-42.0 Barnes % 13.9 % High 4.3-13.2 Eo% 4.9 % Normal 0.0-6.6 Bas% 0.6 % Normal 0.0-1.1 Immature Grans 0.0 % Normal 0.0-5.0 NRBC % 0.0 /100WBC < 10/ 100 WBC Neut# 1.81 K/uL Normal 1.8-7.0 Lymph # 0.68 K/uL Low 1.0-4.0 Barnes # 0.43 K/uL Normal 0.3-0.9 Eos # 0.15 K/uL Normal 0.0-0.5 Baso # 0.02 K/uL Normal 0.0-0.1 Immature Grans Absolute 0.00 K/uL NRBC # 0.00 K/uL Laboratory test 01/18/2019 [facility] C-Reactive 14.7 mg/L High <3.0 [address] Protein,[place] [address] [phone] Uric Acid 2.9 mg/dL Normal 2.6-6.0 Comprehensive 01/18/2019 [facility] Glucose 97 mg/dL Normal 74-106 Metabolic Panel [address] [place] [address] [phone] BUN 14 mg/dL Normal 7-18 Creatinine 0.8 mg/dL Normal 0.6-1.3 Glom Filtration Rate, Estimate >60 mL/min >60 If >60 mL/min >60 14 BUN/Creat 17.5 ratio Sodium 138 mmol/L Normal [...] 12-78 Alkaline Phosphatase 129 U/L High 45-117 Anaerobic Culture 01/18/2019 [facility] Gram Stain NO ORGANISMS SEE 15 W/ GR Stain [address] <SEE NOTE> [place]VE [place] [address] [phone] Gram Stain RARE WHITE BLOOD <SEE NOTE> 16 Anaerobic Culture NO GROWTH Routine Culture W/ 01/18/2019 [facility] Gram Stain NO ORGANISMS SEE 17 Gram Stain [address] <SEE NOTE> [place]VE [place] [address] [phone] Gram Stain RARE WHITE BLOOD <SEE NOTE> 18 Aerobic Culture NO GROWTH: FINAL <SEE NOTE> 19 Aot Request 01/18/2019 [facility] Aot Request Already done [address] [place] [address] [phone] Tests to be added: serum lyme testi <SEE NOTE> 21 Aot Request 01/18/2019 [facility] Aot Request Test(s) added [address] [place] [address] [phone] Tests to be added: URIC ACID Blood Culture 01/18/2019 [facility] Blood Culture NO GROWTH: FINAL [address] Aerobic <SEE NOTE> [place] [address] [phone] Blood Culture Anaerobic NO GROWTH: FINAL <SEE NOTE> 24 Blood Culture 01/18/2019 [facility] Blood Culture NO GROWTH: FINAL [address] Aerobic <SEE NOTE> [place] [address] [phone] Blood Culture Anaerobic NO GROWTH: FINAL <SEE NOTE> 26 Laboratory test 01/18/2019 [facility] Synovial FLD NO CRYSTALS None Seen [address] [place] [address] [phone] Fluid Culture 01/18/2019 [facility] Gram Stain MODERATE 28 W/ Gram Stain [address] WHITE B <[place] [address] NOTE> [phone] Gram Stain NO ORGANISMS SEE <SEE NOTE> 29 Fluid Culture NO GROWTH: FINAL <SEE NOTE> 30 Laboratory test 01/18/2019 [facility] Synovial FLD Total 3.0 g/dL . [address] [place] [address] [phone] Synovial FLD Glucose 55 mg/dL . 32 CBC W/Automated 01/11/2019 [facility] White Blood 3.0 K/uL Low 3.1-10.7 [address] Count [place] [id number] [phone] Red Blood Count 4.18 M/uL Normal 3.90-5.40 [...] 40.4-72.8 Lymph % 24.0 % Normal 20.0-42.0 Barnes % 11.0 % Normal 4.3-13.2 Eo% 4.7 % Normal 0.0-6.6 Bas% 0.7 % Normal 0.0-1.1 Immature Grans 0.3 % Normal 0.0-5.0 NRBC % 0.0 /100WBC < 10/ 100 WBC Neut# 1.78 K/uL Low 1.8-7.0 Lymph # 0.72 K/uL Low 1.0-4.0 Barnes # 0.33 K/uL Normal 0.3-0.9 Eos # 0.14 K/uL Normal 0.0-0.5 Baso # 0.02 K/uL Normal 0.0-0.1 Immature Grans Absolute 0.01 K/uL NRBC # 0.00 K/uL Path Review: 01/11/2019 [facility] Path Review: NI 34 [address] [place] [address] [phone] [facility] 01/11/2019 [facility] Glucose 127 mg/dL High 74-106 Metabolic Panel [address] [place] [address] [phone] BUN 17 mg/dL Normal 7-18 Creatinine 0.7 mg/dL Normal 0.6-1.3 Glom Filtration Rate, Estimate >60 mL/min >60 If >60 mL/min >60 35 BUN/Creat 24.2 ratio Sodium 137 mmol/L Normal [...] 130 U/L High 45-117 Laboratory test 01/11/2019 [facility] CA 27.29 391.6 U/mL High 0.0-38.6 [address] [place] [address] [phone] Slide Review 01/11/2019 [facility] Slide (SEE NOTE) [address] [place] [address] [phone] CBC W/Automated 12/14/2018 [facility] White Blood 3.5 K/uL Normal 3.1-10.7 [address] [place] [address] [phone] Red Blood Count 4.22 M/uL Normal 3.90-5.40 [...] 40.4-72.8 Lymph % 26.8 % Normal 20.0-42.0 Barnes % 10.1 % Normal 4.3-13.2 Eo% 19.3 % High 0.0-6.6 Bas% 1.4 % High 0.0-1.1 Immature Grans 0.0 % Normal 0.0-5.0 NRBC % 0.0 /100WBC < 10/ 100 WBC Neut# 1.47 K/uL Low 1.8-7.0 Lymph # 0.93 K/uL Low 1.0-4.0 Barnes # 0.35 K/uL Normal 0.3-0.9 Eos # 0.67 K/uL High 0.0-0.5 Baso # 0.05 K/uL Normal 0.0-0.1 Immature Grans Absolute 0.00 K/uL NRBC # 0.00 K/uL Comprehensive Metabolic 12/14/2018 [facility] Glucose 128 mg/dL High 74-[address] [place] [address] [phone] BUN 20 mg/dL High 7-18 Creatinine 0.8 mg/dL Normal 0.6-1.3 Glom Filtration Rate, Estimate >60 mL/min >60 If >60 mL/min >60 39 BUN/Creat 25.0 ratio Sodium 140 mmol/L Normal [...] 126 U/L High 45-117 Laboratory test 12/14/2018 [facility] CA 27.29 510.0 U/mL High 0.0-38.6 [address] [place] [address] [phone] Laboratory test 11/30/2018 [facility] Path <pending> [address] Review: AVE [place] [address] [phone] CBC W/Automated 11/30/2018 [facility] White Blood 2.4 K/uL Low 3.1-10.[address] [place]VE [place] [address] [phone] Red Blood Count 4.06 M/uL Normal 3.90-5.40 [...] 40.4-72.8 Lymph % 30.6 % Normal 20.0-42.0 Barnes % 8.7 % Normal 4.3-13.2 Eo% 14.5 % High 0.0-6.6 Bas% 0.8 % Normal 0.0-1.1 Immature Grans 0.0 % Normal 0.0-5.0 NRBC % 0.0 /100WBC < 10/ 100 WBC Neut# 1.10 K/uL Low 1.8-7.0 Lymph # 0.74 K/uL Low 1.0-4.0 Barnes # 0.21 K/uL Low 0.3-0.9 Eos # 0.35 K/uL Normal 0.0-0.5 Baso # 0.02 K/uL Normal 0.0-0.1 Immature Grans Absolute 0.00 K/uL NRBC # 0.00 K/uL Comprehensive 11/30/2018 [facility] Glucose 102 mg/dL Normal 74-106 Metabolic Panel [address] [place] [address] [phone] BUN 21 mg/dL High 7-18 Creatinine 0.8 mg/dL Normal 0.6-1.3 Glom Filtration Rate, Estimate >60 mL/min >60 If >60 mL/min >60 42 BUN/Creat 26.2 ratio Sodium 140 mmol/L Normal [...] 108 U/L Normal 45-117 Slide Review 11/30/2018 [facility] Slide Review (SEE NOTE) [address] [place] [address] [phone] CBC W/Automated 11/15/2018 [facility] White Blood 4.1 K/uL 3.1-10.7 [address] [place] [address] [phone] Red Blood Count 3.89 M/uL Low 3.90-5.40 [...] 40.4-72.8 Lymph % 31.0 % Normal 20.0-42.0 Barnes % 11.1 % Normal 4.3-13.2 Eo% 1.5 % Normal 0.0-6.6 Bas% 2.0 % High 0.0-1.1 Immature Grans 0.2 % Normal 0.0-5.0 NRBC % 0.0 /100WBC < 10/ 100 WBC Neut# 2.20 K/uL Normal 1.8-7.0 Lymph # 1.26 K/uL Normal 1.0-4.0 Barnes # 0.45 K/uL Normal 0.3-0.9 Eos # 0.06 K/uL Normal 0.0-0.5 Baso # 0.08 K/uL Normal 0.0-0.1 Immature Grans Absolute 0.01 K/uL NRBC # 0.00 K/uL Laboratory test 11/15/2018 [facility] Magnesium 2.3 mg/dL Normal 1.8-2.4 finding [address] [place] [address] [phone] Comprehensive 11/15/2018 [facility] Glucose 70 mg/dL Low 74-106 Metabolic Panel [address] [place] [address] [phone] BUN 24 mg/dL High 7-18 Creatinine 0.9 mg/dL Normal 0.6-1.3 Glom Filtration Rate, Estimate >60 mL/min >60 If >60 mL/min >60 45 BUN/Creat 26.6 ratio Sodium 139 mmol/L Normal [...] Phosphatase 108 U/L Normal 45-117 CBC W/Automated 11/09/2018 [facility] White Blood 2.4 K/uL Low 3.1-10.7 46 Diff [address] [place] [address] [phone] Red Blood Count 3.80 M/uL Low 3.90-5.40 [...] 40.4-72.8 Lymph % 33.6 % Normal 20.0-42.0 Barnes % 12.4 % Normal 4.3-13.2 Eo% 1.7 % Normal 0.0-6.6 Bas% 2.1 % High 0.0-1.1 Immature Grans 0.4 % Normal 0.0-5.0 NRBC % 0.0 /100WBC < 10/ 100 WBC Neut# 1.20 K/uL Low 1.8-7.0 Lymph # 0.81 K/uL Low 1.0-4.0 Barnes # 0.30 K/uL Normal 0.3-0.9 Eos # 0.04 K/uL Normal 0.0-0.5 Baso # 0.05 K/uL Normal 0.0-0.1 Immature Grans Absolute 0.01 K/uL NRBC # 0.00 K/uL [facility] 11/09/2018 [facility] Glucose 89 mg/dL Normal 74-106 Metabolic Panel [address] [place] [address] [phone] BUN 18 mg/dL Normal 7-18 Creatinine 0.8 mg/dL Normal 0.6-1.3 Glom Filtration Rate, Estimate >60 mL/min >60 If >60 mL/min >60 47 BUN/Creat 22.5 ratio Sodium 140 mmol/L Normal [...] 12-78 Alkaline Phosphatase 97 U/L Normal 45-117 Path Review: 11/09/2018 [facility] Path Review: NI [address] [place] [address] [phone] Slide Review 11/09/2018 [facility] Slide Review (SEE [address] NOTE) AVE [place] [address] [phone] Laboratory test 11/09/2018 [facility] CA 27.29 635.6 High 0.0-38 [address] U/mL .[address] [place] [address] [phone] Slide Review 10/28/2018 [facility] Slide Review (SEE [address] NOTE) [place]VE [place] [address] [phone] Vitamin B12 And 10/28/2018 [facility] Vitamin B12 350 pg/mL Normal 193-[address] [place] [address] [phone] Folic Acid 10.7 ng/mL Normal 3.1-17.5 Laboratory test 10/28/2018 [facility] Path Review: (SEE [address] NOTE) AVE [place] [id number] [phone] CBC W/Automated 10/28/2018 [facility] White Blood 1.4 K/uL Critical low 3.1- Diff [address] Count [address] [place] [address] [phone] Red Blood Count 3.70 M/uL Low 3.90-5.40 [...] 40.4-72.8 Lymph % 42.4 % High 20.0-42.0 Barnes % 11.8 % Normal 4.3-13.2 Eo% 1.4 % Normal 0.0-6.6 Bas% 3.5 % High 0.0-1.1 Immature Grans 0.0 % Normal 0.0-5.0 NRBC % 0.0 /100WBC < 10/ 100 WBC Neut# 0.59 K/uL Critical low 1.8-7.0 Lymph # 0.61 K/uL Low 1.0-4.0 Barnes # 0.17 K/uL Low 0.3-0.9 Eos # 0.02 K/uL Normal 0.0-0.5 Baso # 0.05 K/uL Normal 0.0-0.1 Immature Grans Absolute 0.00 K/uL NRBC # 0.00 K/uL Comprehensive 10/28/2018 [facility] Glucose 88 mg/dL Normal 74-106 Metabolic Panel [address] [place] [address] [phone] BUN 21 mg/dL High 7-18 Creatinine 1.0 mg/dL Normal 0.6-1.3 Glom Filtration Rate, Estimate >60 mL/min >60 If >60 mL/min >60 53 BUN/Creat 21.0 ratio Sodium 139 mmol/L Normal [...] 12-78 Alkaline Phosphatase 98 U/L Normal 45-117 Iron-Tibc-%Sat 10/18/2018 [facility] Serum Iron 92 g/dL Normal 50-[address] [place] [id number] [phone] Total Iron Binding Capacity 417 g/dL Normal 250-450 Transferrin %Saturation 22 % Normal 12-57 Laboratory test 10/18/2018 [facility] Ferritin 62 ng/mL Normal 8-252 [address] [place] [address] [phone] Vitamin B12 And 10/18/2018 [facility] Vitamin B12 471 pg/mL Normal 193-[address] [place] [address] [phone] Folic Acid 9.2 ng/mL Normal 3.1-17.5 Laboratory test 10/18/2018 [facility] Vitamin 65.8 30.0-100.0 [address] D,25-Hydroxy ng/[place] [address] [phone] Slide Review 10/18/2018 [facility] Slide Review (SEE [address] NOTE) [place] [address] [phone] Anticoagulant Therapy? Unknown Path Review: 10/18/2018 [facility] Anticoagulant Unknown [address] Therapy? [place] [address] [phone] CBC 10/18/2018 [facility] White Blood Count 1.8 K/uL Critical low 3.1- W/Automated [address] 10.7 [place] [address] [phone] Red Blood Count 3.81 M/uL Low 3.90-5.40 [...] 40.4-72.8 Lymph % 27.2 % Normal 20.0-42.0 Barnes % 6.1 % Normal 4.3-13.2 Eo% 1.1 % Normal 0.0-6.6 Bas% 2.8 % High 0.0-1.1 Immature Grans 0.6 % Normal 0.0-5.0 NRBC % 0.0 /100WBC < 10/ 100 WBC Neut# 1.12 K/uL Low 1.8-7.0 Lymph # 0.49 K/uL Low 1.0-4.0 Barnes # 0.11 K/uL Low 0.3-0.9 Eos # 0.02 K/uL Normal 0.0-0.5 Baso # 0.05 K/uL Normal 0.0-0.1 Immature Grans Absolute 0.01 K/uL NRBC # 0.00 K/uL Anticoagulant Therapy? Unknown Protime 10/18/2018 [facility] Protime 13.2 seconds Normal 12.0-14.4 [address] [place] [address] [phone] Inr 1.0 Normal 0.9-1.1 57 Anticoagulant Therapy? Unknown Act Partial 10/18/2018 [facility] Act Partial 26.8 seconds Normal 23.4-35.0 Thrombo Time [address] [facility] [place] [address] [phone] Anticoagulant Therapy? Unknown Comprehensive 10/18/2018 [facility] Glucose 90 mg/dL Normal 74-106 Metabolic Panel [address] [place] [address] [phone] BUN 26 mg/dL High 7-18 Creatinine 1.1 mg/dL Normal 0.6-1.3 Glom Filtration Rate, Estimate 56 mL/min >60 If >60 mL/min >60 58 BUN/Creat 23.6 ratio Sodium 139 mmol/L Normal [...] U/L Normal 45-117 Laboratory test finding 10/18/2018 [facility] Nucleotidase,5 7 IU/L 0-[address] [place] [address] [phone] CA 27.29 595.7 U/mL High 0.0-38.6 60 Laboratory test 09/20/2018 [facility] CA 27.29 506.9 High 0.0-38.[address] U/[place] [address] [phone] Vitamin B12 And 09/20/2018 [facility] Vitamin B12 273 pg/mL Normal 193-986 Folate [address] [place] [address] [phone] Folic Acid 9.4 ng/mL Normal 3.1-17.5 Laboratory 09/20/2018 [facility] Vitamin 68.6 30.0-100.0 62 test finding [address] D,25-Hydroxy ng/[place] [address] [phone] Iron-Tibc-%Sa 09/20/2018 [facility] Serum Iron 106 Normal 50-[address] g/[place] [address] [phone] Total Iron Binding Capacity 452 g/dL High 250-450 Transferrin %Saturation 23 % Normal 12-57 Laboratory test 09/20/2018 [facility] Ferritin 58 ng/mL Normal 8-252 finding [address] [place] [address] [phone] Comprehensive 09/19/2018 [facility] Glucose 86 mg/dL Normal 74-106 63 Metabolic Panel [address] [place], [place] [id number] [phone] BUN 24 mg/dL High 7-18 Creatinine 0.9 mg/dL Normal 0.6-1.3 Glom Filtration Rate, Estimate >60 mL/min >60 If >60 mL/min >60 64 BUN/Creat 26.6 ratio Sodium 136 mmol/L Normal [...] 96 U/L Normal 45-117 CBC W/Automated 09/19/2018 [facility] White Blood 2.5 K/uL Low 3.1-10.[address] Count [place], [place] [id number] [phone] Red Blood Count 3.62 M/uL Low 3.90-5.40 [...] 40.4-72.8 Lymph % 26.1 % Normal 20.0-42.0 Barnes % 5.2 % Normal 4.3-13.2 Eo% 1.2 % Normal 0.0-6.6 Bas% 2.8 % High 0.0-1.1 Immature Grans 0.0 % Normal 0.0-5.0 NRBC % 0.0 /100WBC < 10/ 100 WBC Neut# 1.61 K/uL Low 1.8-7.0 Lymph # 0.65 K/uL Low 1.0-4.0 Barnes # 0.13 K/uL Low 0.3-0.9 Eos # 0.03 K/uL Normal 0.0-0.5 Baso # 0.07 K/uL Normal 0.0-0.1 Immature Grans Absolute 0.00 K/uL NRBC # 0.00 K/uL Slide Review 09/19/2018 [facility] Slide Review (SEE NOTE) [address] [place] [phone] Laboratory test 09/19/2018 [facility] Path Review: <pending> finding [address] [place] [phone] [phone] CBC W/Automated 08/22/2018 [facility] White Blood 2.4 K/uL Low 3.1-10 Diff [address] Count .7 [place] [address] [phone] Red Blood Count 3.72 M/uL Low 3.90-5.40 [...] 40.4-72.8 Lymph % 35.0 % Normal 20.0-42.0 Barnes % 5.8 % Normal 4.3-13.2 Eo% 2.5 % Normal 0.0-6.6 Bas% 2.1 % High 0.0-1.1 Immature Grans 0.8 % Normal 0.0-5.0 NRBC % 0.0 /100WBC < 10/ 100 WBC Neut# 1.29 K/uL Low 1.8-7.0 Lymph # 0.84 K/uL Low 1.0-4.0 Barnes # 0.14 K/uL Low 0.3-0.9 Eos # 0.06 K/uL Normal 0.0-0.5 Baso # 0.05 K/uL Normal 0.0-0.1 Immature Grans Absolute 0.02 K/uL NRBC # 0.00 K/uL Slide Review 08/22/2018 [facility] Slide Review . [address] [place] [address] [phone] Laboratory test 08/22/2018 [facility] Path Review: <pending finding [address] > [place] [address] [phone] Comprehensive 08/22/2018 [facility] Glucose 82 mg/dL Normal 74-10 Metabolic Panel [address] [place] [id number] [phone] BUN 24 mg/dL High 7-18 Creatinine 0.9 mg/dL Normal 0.6-1.3 Glom Filtration Rate, Estimate >60 mL/min >60 If >60 mL/min >60 67 BUN/Creat 26.6 ratio Sodium 134 mmol/L Low [...] 111 U/L Normal 45-117 CBC W/Automated 08/08/2018 [facility] White 3.2 K/uL Normal 3.1-10.7 [address] [place] [address] Count [phone] Red Blood Count 3.85 M/uL Low 3.90-5.40 [...] 40.4-72.8 Lymph % 28.5 % Normal 20.0-42.0 Barnes % 9.8 % Normal 4.3-13.2 Eo% 1.9 % Normal 0.0-6.6 Bas% 3.5 % High 0.0-1.1 Immature Grans 0.6 % Normal 0.0-5.0 NRBC % 0.0 /100WBC < 10/ 100 WBC Neut# 1.76 K/uL Low 1.8-7.0 Lymph # 0.90 K/uL Low 1.0-4.0 Barnes # 0.31 K/uL Normal 0.3-0.9 Eos # 0.06 K/uL Normal 0.0-0.5 Baso # 0.11 K/uL High 0.0-0.1 Immature Grans Absolute 0.02 K/uL NRBC # 0.00 K/uL Comprehensive 08/08/2018 [facility] Glucose 88 mg/dL Normal 74-106 Metabolic Panel [address] [place] [address] [phone] BUN 18 mg/dL Normal 7-18 Creatinine 0.9 mg/dL Normal 0.6-1.3 Glom Filtration Rate, Estimate >60 mL/min >60 If >60 mL/min >60 69 BUN/Creat 20.0 ratio Sodium 139 mmol/L Normal [...] 106 U/L Normal 45-117 CBC W/Automated 08/01/2018 [facility] White Blood 2.8 K/uL Low 3.1-10.[address] [place] [address] [phone] Red Blood Count 3.72 M/uL Low 3.90-5.40 [...] 40.4-72.8 Lymph % 34.4 % Normal 20.0-42.0 Barnes % 12.8 % Normal 4.3-13.2 Eo% 0.7 % Normal 0.0-6.6 Bas% 3.2 % High 0.0-1.1 Immature Grans 0.4 % Normal 0.0-5.0 NRBC % 0.0 /100WBC < 10/ 100 WBC Neut# 1.37 K/uL Low 1.8-7.0 Lymph # 0.97 K/uL Low 1.0-4.0 Barnes # 0.36 K/uL Normal 0.3-0.9 Eos # 0.02 K/uL Normal 0.0-0.5 Baso # 0.09 K/uL Normal 0.0-0.1 Immature Grans Absolute 0.01 K/uL NRBC # 0.00 K/uL Comprehensive 08/01/2018 [facility] Glucose 83 mg/dL Normal 74-106 Metabolic Panel [address] [place] [address] [phone] BUN 23 mg/dL High 7-18 Creatinine 0.8 mg/dL Normal 0.6-1.3 Glom Filtration Rate, Estimate >60 mL/min >60 If >60 mL/min >60 70 BUN/Creat 28.7 ratio Sodium 137 mmol/L Normal [...] 99 U/L Normal 45-117 Slide Review 08/01/2018 [facility] Slide Review (SEE NOTE) [address] [place] [address] [phone] Path Review: 08/01/2018 [facility] Path Review: TNP [address] [place] [address] [phone] 1 INTRACTABLE PAIN 2 Note: Persistent reduction for 3 months or more in an eGFR <60 mL/min/1.73 m2 defines CKD. Patients with eGFR values >/=60 mL/min/1.73 m2 may also have CKD if evidence of persistent proteinuria is present. The original MDRD equation for estimated GFR is not valid for patients less than 18 years of age. Additional information may be found at [email or web address]. 3 A negative result for either C. trachomatis and/or N. gonorrhoeae does not preclued an infection because results are dependent on adequate specimen collection, absence of inhibitors, and sufficient DNA to be detected. 4 Note: Persistent reduction for 3 months or more in an eGFR <60 mL/min/1.73 m2 defines CKD. Patients with eGFR values >/=60 mL/min/1.73 m2 may also have CKD if evidence of persistent proteinuria is present. The original MDRD equation for estimated GFR is not valid for patients less than 18 years of age. Additional information may be found at [email or web address]. 5 SWOLLEN LT KNEE,RED,HOT TO TOUCH 6 TNC (Total Nucleated Cells) = WBCs Mesothelials PMN% = Neutrophils Eosinophils MN% = Lymphocytes Monocytes 7 A cytospin smear has been reviewed. Cell types present in numbers that correlate with the automated differential. No atypical cells or cell clusters seen. 8 INTRACTABLE PAIN 9 Negative <0.91 Equivocal 0.91 - 1.09 Positive >1.09 10 Negative <0.80 Equivocal 0.80 - 1.19 Positive >1.19 IgM levels may peak at 3-6 weeks post infection, then gradually decline. Performed at: - [facility] [address] [id number] Skirt Clipper: Paulina Miranda MD, Phone: [phone] 11 SWOLLEN LT KNEE,RED,HOT TO TOUCH 12 This result was obtained with an ESR method that is not based on the standard Westergren Method. When comparing results obtained from the traditional Westergren ESR and this method it is important to refer to the reference range for each method. Method: Capillary Photometry 13 INTRACTABLE PAIN 14 Note: Persistent reduction for 3 months or more in an eGFR <60 mL/min/1.73 m2 defines CKD. Patients with eGFR values >/=60 mL/min/1.73 m2 may also have CKD if evidence of persistent proteinuria is present. The original MDRD equation for estimated GFR is not valid for patients less than 18 years of age. Additional information may be found at [email or web address]. 15 NO ORGANISMS SEEN 16 RARE WHITE BLOOD CELLS 17 NO ORGANISMS SEEN 18 RARE WHITE BLOOD CELLS 19 NO GROWTH: FINAL REPORT 20 Tests: serum lyme testing with reflex Instructions: 21 serum lyme testing with reflex 22 Tests: URIC ACID Instructions: 23 NO GROWTH: FINAL REPORT 24 NO GROWTH: FINAL REPORT 25 NO GROWTH: FINAL REPORT 26 NO GROWTH: FINAL REPORT 27 NO CRYSTALS SEEN 28 MODERATE WHITE BLOOD CELLS 29 NO ORGANISMS SEEN 30 NO GROWTH: FINAL REPORT 31 : Peritoneal : Pleural : Synovial : [...] the clinical context for interpretation. Performed at: [facility] [place], [place] [id number] Skirt Clipper: Paulina Miranda MD, Phone: [phone] 32 : Peritoneal : Pleural : Synovial : [...] integrated into the clinical context for interpretation. 33 D48.61 C79.51 Z51.11 34 Reviewed previous history, path review not indicated 35 Note: Persistent reduction for 3 months or more in an eGFR <60 mL/min/1.73 m2 defines CKD. Patients with eGFR values >/=60 mL/min/1.73 m2 may also have CKD if evidence of persistent proteinuria is present. The original MDRD equation for estimated GFR is not valid for patients less than 18 years of age. Additional information may be found at [email or web address]. 36 Siemens Centaur Immunochemiluminometric Methodology (ICMA) Values obtained with different assay methods or kits cannot be used interchangeably. Results cannot be interpreted as absolute evidence of the presence or absence of malignant disease. Performed at: - [facility] [id number] Skirt Clipper: Paulina Miranda MD, Phone: [phone] 37 Instrument flagged sample for slide review. Less than 10% Bands seen, no other immature WBC's seen. RBC morphology essentially normal. Platelet estimate = NORMAL 38 Z51.11 C79.51 D48.61 E53.9 D64.9 Z51.12 39 Note: Persistent reduction for 3 months or more in an eGFR <60 mL/min/1.73 m2 defines CKD. Patients with eGFR values >/=60 mL/min/1.73 m2 may also have CKD if evidence of persistent proteinuria is present. The original MDRD equation for estimated GFR is not valid for patients less than 18 years of age. Additional information may be found at [email or web address]. 40 Specimen was diluted in order to obtain results. Results were repeated. Siemens Centaur Immunochemiluminometric Methodology (ICMA) Values obtained with different assay methods or kits cannot be used interchangeably. Results cannot be interpreted as absolute evidence of the presence or absence of malignant disease. Performed at: - [facility] [id number] Skirt Clipper: Paulina Miranda MD, Phone: [phone] 41 Z51.11 D48.61 C79.51 E53.9 42 Note: Persistent reduction for 3 months or more in an eGFR <60 mL/min/1.73 m2 defines CKD. Patients with eGFR values >/=60 mL/min/1.73 m2 may also have CKD if evidence of persistent proteinuria is present. The original MDRD equation for estimated GFR is not valid for patients less than 18 years of age. Additional information may be found at [email or web address]. 43 Instrument flagged sample for slide review. Less than 10% Bands seen, no other immature WBC's seen. RBC morphology essentially normal. Platelet estimate = SLIGHTLY DECREASED 44 D48.61 C79.51 Z51.11 45 Note: Persistent reduction for 3 months or more in an eGFR <60 mL/min/1.73 m2 defines CKD. Patients with eGFR values >/=60 mL/min/1.73 m2 may also have CKD if evidence of persistent proteinuria is present. The original MDRD equation for estimated GFR is not valid for patients less than 18 years of age. Additional information may be found at [email or web address]. 46 D48.61 C79.51 47 Note: Persistent reduction for 3 months or more in an eGFR <60 mL/min/1.73 m2 defines CKD. Patients with eGFR values >/=60 mL/min/1.73 m2 may also have CKD if evidence of persistent proteinuria is present. The original MDRD equation for estimated GFR is not valid for patients less than 18 years of age. Additional information may be found at [email or web address]. 48 Reviewed previous history, path review not indicated 49 Instrument flagged sample for slide review. Less than 10% Bands seen, no other immature WBC's seen. RBC morphology essentially normal. Platelet estimate = NORMAL 50 Specimen was diluted in order to obtain results. Results were repeated. Siemens Anew OncologyauWannado Immunochemiluminometric Methodology (ICMA) Values obtained with different assay methods or kits cannot be used interchangeably. Results cannot be interpreted as absolute evidence of the presence or absence of malignant disease. Performed at: - [facility] [address] [id number] Skirt Clipper: Paulina Miranda MD, Phone: [phone] 51 Instrument flagged sample for slide review. Less than 10% Bands seen, no other immature WBC's seen. RBC morphology essentially normal. Platelet estimate = NORMAL 52 CHECKED CALLED WBC, ANC TO CLAUDIA C AT 0945 10/28/18 by [facility].JUAN 53 Note: Persistent reduction for 3 months or more in an eGFR <60 mL/min/1.73 m2 defines CKD. Patients with eGFR values >/=60 mL/min/1.73 m2 may also have CKD if evidence of persistent proteinuria is present. The original MDRD equation for estimated GFR is not valid for patients less than 18 years of age. Additional information may be found at [email or web address]. [address] PACHECO 55 Vitamin D deficiency has been defined by the [place] [employer] and an Endocrine Society practice guideline as a level of serum 25-OH vitamin D less than 20 ng/mL (1,2). The Endocrine Society went on to further define vitamin D insufficiency as a level between 21 and 29 ng/mL (2). 1. IOM ([place] [employer]). 2010. Dietary reference intakes for calcium and D. [place]: The National Academies Press. 2. Dick MF, Leticia NC, Romina CHAVEZ, et al. Evaluation, treatment, and prevention of vitamin D deficiency: an Endocrine Society clinical practice guideline. JCEM. 2010; 96(7):1911-30. Performed at: - [facility] [address] [id number] Skirt Clipper: Paulina Miranda MD, Phone: [phone] 56 Instrument flagged sample for slide review. Less than 10% Bands seen, no other immature WBC's seen. RBC morphology essentially normal. Platelet estimate = NORMAL 57 THERAPEUTIC INR RANGE: 2.0 - 3.0 DVT, Pulmonary embolus, prophylaxis against venous thrombosis or systemic embolization in high risk patients. 2.5 - 3.5 Mechanical heart valves 58 Note: Persistent reduction for 3 months or more in an eGFR <60 mL/min/1.73 m2 defines CKD. Patients with eGFR values >/=60 mL/min/1.73 m2 may also have CKD if evidence of persistent proteinuria is present. The original MDRD equation for estimated GFR is not valid for patients less than 18 years of age. Additional information may be found at [email or web address]. 59 Performed at: [address] [id number] Skirt Clipper: Paulina Miranda MD, Phone: [phone] Performed at: [address] [id number] Skirt Clipper: Domenic Pulido MD, Phone: [phone] 60 Specimen was diluted in order to obtain results. Results were repeated. Siemens Centaur Immunochemiluminometric Methodology (ICMA) Values obtained with different assay methods or kits cannot be used interchangeably. Results cannot be interpreted as absolute evidence of the presence or absence of malignant disease. 61 Specimen was diluted in order to obtain results. Results were repeated. Siemens Centaur Immunochemiluminometric Methodology (ICMA) Values obtained with different assay methods or kits cannot be used interchangeably. Results cannot be interpreted as absolute evidence of the presence or absence of malignant disease. Performed at: [address] [id number] Skirt Clipper: Paulina Miranda MD, Phone: [phone] 62 Vitamin D deficiency has been defined by the [place] [employer] and an Endocrine Society practice guideline as a level of serum 25-OH vitamin D less than 20 ng/mL (1,2). The Endocrine Society went on to further define vitamin D insufficiency as a level between 21 and 29 ng/mL (2). 1. IOM ([place] [employer]). 2010. Dietary reference intakes for calcium and D. [place]: The National Academies Press. 2. Dick MF, [place], Romina CHAVEZ, et al. Evaluation, treatment, and prevention of vitamin D deficiency: an Endocrine Society clinical practice guideline. JCEM. 2010; 96(7):1911-30. Performed at: [address] [id number] Skirt Clipper: Paulina Miranda MD, Phone: [phone] 63 Z51.11 D48.61 64 Note: Persistent reduction for 3 months or more in an eGFR <60 mL/min/1.73 m2 defines CKD. Patients with eGFR values >/=60 mL/min/1.73 m2 may also have CKD if evidence of persistent proteinuria is present. The original MDRD equation for estimated GFR is not valid for patients less than 18 years of age. Additional information may be found at [email or web address]. 65 Instrument flagged sample for slide review. Less than 10% Bands seen, no other immature WBC's seen. RBC morphology essentially normal. Platelet estimate = NORMAL 66 Instrument flagged sample for slide review. Less than 10% Bands seen, no other immature WBC's seen. RBC morphology essentially normal. Platelet estimate = NORMAL 67 Note: Persistent reduction for 3 months or more in an eGFR <60 mL/min/1.73 m2 defines CKD. Patients with eGFR values >/=60 mL/min/1.73 m2 may also have CKD if evidence of persistent proteinuria is present. The original MDRD equation for estimated GFR is not valid for patients less than 18 years of age. Additional information may be found at [email or web address]. 68 D48.61 D70.1 Z51.11 69 Note: Persistent reduction for 3 months or more in an eGFR <60 mL/min/1.73 m2 defines CKD. Patients with eGFR values >/=60 mL/min/1.73 m2 may also have CKD if evidence of persistent proteinuria is present. The original MDRD equation for estimated GFR is not valid for patients less than 18 years of age. Additional information may be found at [email or web address]. 70 Note: Persistent reduction for 3 months or more in an eGFR <60 mL/min/1.73 m2 defines CKD. Patients with eGFR values >/=60 mL/min/1.73 m2 may also have CKD if evidence of persistent proteinuria is present. The original MDRD equation for estimated GFR is not valid for patients less than 18 years of age. Additional information may be found at [email or web address]. 71 Instrument flagged sample for slide review. Less than 10% Bands seen, no other immature WBC's seen. RBC morphology essentially normal. Platelet estimate = NORMAL 72 Reviewed previous history, path review not indicated Procedures Date Code Description Status 01/20/2019 58174 EKG Interpretation And Report Only Completed 01/19/2019 67206 EKG Interpretation And Report Only Completed 01/18/2019 12288 I&D deep abscess busa hematoma thigh/knee Completed 10/28/2018 69408 Theraputic Or Diagnostic Injection Completed 10/14/2018 02826 Theraputic Or Diagnostic Injection Completed 05/13/2017 [id number] Bone Mineral Density Test Completed Medical Devices Description No Information Available Encounters Type Date Location Provider Dx Diagnosis Office Visit 01/27/2019 [facility], R60.0 Localized edema 4:00p Haydee M., MECHANICAL PRODUCT DESIGN ENGINEER M79.605 Pain in left leg Office Visit 01/11/2019 8:00a [facility] Yung51.11 Encounter for Savita B., antineoplastic SUPERVISOR [employer]INGENTS chemotherapy 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 K12.31 Oral mucositis (ulcerative) due to antineoplastic therapy Office Visit 12/14/2018 7:30a Infusion [facility] Yung51.11 Encounter for Savita B., antineoplastic SUPERVISOR [employer] chemotherapy 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] cancer chemotherapy Assessments Date Code Description Provider 01/27/2019 R60.0 Localized edema Ba-Haydee Cano, [facility] 01/27/2019 M79.605 Pain in left leg Haydee Avery, [facility] 01/20/2019 M25.562 Pain in left knee Kendall Koroma M.D., [facility] 01/20/2019 M25.562 Pain in left knee Luca Yusuf M.D. 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 chemotherapy 01/20/2019 Z92.21 Personal history of antineoplastic Kendall Koroma M.D., chemotherapy FAC 01/20/2019 M25.462 Effusion, left knee Luca Yusuf M.D. 01/20/2019 C79.51 Secondary malignant neoplasm of bone Luca Yusuf M.D. 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 chemotherapy 01/19/2019 M25.462 Effusion, left knee HazelalRadhat, DO 01/19/2019 M25.462 Effusion, left knee Luca Yusuf M.D. 01/19/2019 Z85.3 Personal history of malignant BolurdesalRadhat, DO neoplasm of breast 01/19/2019 C79.51 Secondary malignant neoplasm of bone Luca Yusuf M.D. 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 chemotherapy 01/18/2019 Z92.21 Personal history of antineoplastic Clari Chahal MD chemotherapy 01/18/2019 M25.462 Effusion, left knee HazelalCyn, DO 01/18/2019 M25.462 Effusion, left knee Luca Yusuf M.D. 01/18/2019 Z85.3 Personal history of malignant Clari Chahla MD neoplasm of breast 01/18/2019 Z85.3 Personal history of malignant BolurdesalRadhat, DO neoplasm of breast 01/18/2019 C79.51 Secondary malignant neoplasm of bone Luca Yusuf M.D. 01/11/2019 Z51.11 Encounter for antineoplastic Aga, Savita B., SUPERVISOR [employer]ING[employer] chemotherapy 01/11/2019 D48.61 Neoplasm of uncertain behavior of Aga, Savita B., SUPERVISOR CONTINGENTS right breast 01/11/2019 C79.51 Secondary malignant neoplasm of bone Aag, Savita B., SUPERVISOR [employer]INGENTS 01/11/2019 K12.31 Oral mucositis (ulcerative) due to Aga, Savita B., SUPERVISOR [employer]INGENTS antineoplastic therapy 12/14/2018 Z51.11 Encounter for antineoplastic Huron, Savita B., SUPERVISOR [employer]INGENTS chemotherapy 12/14/2018 D48.61 Neoplasm of uncertain behavior of Aga, Savita B., SUPERVISOR CONTINGENTS right breast 12/14/2018 C79.51 Secondary malignant neoplasm of bone Aag, Savita B., SUPERVISOR [employer]INGENTS 12/14/2018 K12.31 Oral mucositis (ulcerative) due to Gaa, Savita B., SUPERVISOR CONTINGENTS antineoplastic therapy 12/14/2018 D70.1 Agranulocytosis secondary to cancer Huron, Savita B., SUPERVISOR [employer]INGENTS chemotherapy 11/30/2018 Z51.11 Encounter for antineoplastic [place], Savita B., SUPERVISOR [employer]INGENTS chemotherapy 11/30/2018 C79.51 Secondary malignant neoplasm of bone Aga, Savita B., SUPERVISOR CONTINGENTS 11/30/2018 D48.61 Neoplasm of uncertain behavior of Aga, Savita B., SUPERVISOR CONTINGENTS right breast 11/30/2018 K12.31 Oral mucositis (ulcerative) due to [place]on, Savita B., SUPERVISOR [employer]INGENTS antineoplastic therapy 11/16/2018 Z51.11 Encounter for antineoplastic [place], Savita B., SUPERVISOR [employer]INGENTS chemotherapy 11/16/2018 D48.61 Neoplasm of uncertain behavior of [place], Savita B., SUPERVISOR [employer]INGENTS right breast 11/16/2018 C79.51 Secondary malignant neoplasm of bone Huron, Savita B., SUPERVISOR [employer]INGENTS 11/09/2018 D48.61 Neoplasm of uncertain behavior of Cyn Pacheco, DO right breast 11/09/2018 C79.51 Secondary malignant neoplasm of bone Cyn Pacheco, DO 11/09/2018 E53.9 Vitamin B deficiency, unspecified Cyn Pacheco, DO 10/28/2018 D48.61 Neoplasm of uncertain behavior of Cyn Pacheco, DO right breast 10/28/2018 C79.51 Secondary malignant neoplasm of bone Boufal, Cyn, DO 10/28/2018 E53.9 Vitamin B deficiency, unspecified Boufal, Cyn, DO 10/28/2018 D70.9 Neutropenia, unspecified Boufal, Cyn, DO 10/18/2018 D48.61 Neoplasm of uncertain behavior of Boufal, Cyn, DO right breast 10/18/2018 C79.51 Secondary malignant neoplasm of bone Boufal, Cyn, DO 10/14/2018 D48.61 Neoplasm of uncertain behavior of Boufal, Cyn, DO right breast 10/14/2018 D48.61 Neoplasm of uncertain behavior of Oncology Nurse right breast 10/14/2018 E53.9 Vitamin B deficiency, unspecified Boufal, Cyn, DO 10/14/2018 E53.9 Vitamin B deficiency, unspecified Oncology Nurse 10/03/2018 D48.61 Neoplasm of uncertain behavior of Boufal, Cyn, DO right breast 10/03/2018 C79.51 Secondary malignant neoplasm of bone Boufal, Cyn, DO 10/03/2018 E53.9 Vitamin B deficiency, unspecified Boufal, Cyn, DO 09/20/2018 D48.61 Neoplasm of uncertain behavior of Boufal, Cyn, DO right breast 09/20/2018 C79.51 Secondary malignant neoplasm of bone Boufal, Cyn, DO 09/20/2018 D70.1 Agranulocytosis secondary to cancer Boufal, Cyn, DO chemotherapy 08/29/2018 D48.61 Neoplasm of uncertain behavior of Boufal, Cyn, DO right breast 08/29/2018 C79.51 Secondary malignant neoplasm of bone Boufal, Cyn, DO 08/29/2018 D70.1 Agranulocytosis secondary to cancer Boufal, Cyn, DO chemotherapy Plan of Treatment Future Appointment(s):02/02/2019 8:45 am - Karen Ramos PA at Orthopaedic Cnhqax8002/08/2019 7:30 am - Infusion Chair 8 at Infusion Vojcln7402/08/2019 8:00 am - Savita Yung NP at Infusion Zvdzbf0303/08/2019 7:30 am - Infusion Chair 8 at Infusion Rnfjcy3403/08/2019 8:00 am - Savita Yung, SUPERVISOR CONTINGENTS at Infusion Center Functional Status Description No Information Available Mental Status Description No Information Available Referrals Description No Information Available
--- OUTSIDE RECORDS SUMMARY | 2019-03-22 21:45 | XMS REPORT | Continuity of Care Document ---
:1970 External Reference #:[id number] Author Name Karen Ramos PA Address [address] [place] [id number] Care Team Providers Name Role Phone Gladis Hannah NP - Nurse Care Team Information Cabinet Mounter [phone] Practitioner Problems Active Problems Provider Date Personal [...] Afinitor 1 tab by mouth 28tabs D48.61 LloydErinCyn, 11/11/2018 10mg Tablets daily, days DO 1-28 C79.51 Miralax 1 tablespoon in 8 510gm K59.00 IfeanyidovLaurynrejichaka, 04/28/2018 [id number] Powder ounces of water [employer]ING INSPECTOR twice a day prn Xgeva SQ q3 Months Cyn Pacheco, DO 08/18/2016 120mg/1.7ML Solution Vitamin D 1 by mouth every Cyn Pacheco, DO 07/08/2016 4000Units day Tablets Venlafaxine HCL 1 by mouth twice a 180tabs Gladis Hannah, 2012 100mg day [employer]ING INSPECTOR Tablets Citalopram 1 by mouth every 90tabs Gladis Hannah, 05/03/2012 Hydrobromide day PASTING INSPECTOR 20mg Tablets Calcium 1200 chew one by mouth Unknown daily [id number]-Seam Chewtabs Faslodex once a month Unknown 250mg/5ML [...] CPT Code Status Date Vaccine Lot # [id number] Given 10/15/2015 Tdap injection [id number] U-Td Given 02/18/2000 Td(Adult),Unspecified Vital Signs Date Vital Result Comment 02/15/2019 8:39am BP Systolic Sitting Left Arm 115 mmHg BP Diastolic Sitting Left Arm 85 mmHg Body Temperature 96.9 F Heart Rate 78 /min Weight 154.00 lb O2 % BldC Oximetry 98 % 02/08/2019 7:52am BP Systolic 138 mmHg left BP Diastolic 90 mmHg left Body Temperature 97.7 F Heart Rate 95 /min Respiratory Rate 16 /min Weight 156.00 lb O2 % BldC Oximetry 98 % Ra Pain Level 0 Results Test Acquired Date Facility Test Result H/L Range Note CBC 02/08/2019 [facility] White Blood 3.9 K/uL Normal 3.1-10.7 1 W/Automated [address] [place] [address] [phone] Red Blood Count 4.51 M/uL Normal 3.90-5.40 [...] 40.4-72.8 Lymph % 22.1 % Normal 20.0-42.0 [place] % 9.2 % Normal 4.3-13.2 Eo% 5.6 % Normal 0.0-6.6 Bas% 1.3 % High 0.0-1.1 Immature Grans 0.3 % Normal 0.0-5.0 NRBC % 0.0 /100WBC < 10/ 100 WBC Neut# 2.40 K/uL Normal 1.8-7.0 Lymph # 0.86 K/uL Low 1.0-4.0 [place] # 0.36 K/uL Normal 0.3-0.9 Eos # 0.22 K/uL Normal 0.0-0.5 Baso # 0.05 K/uL Normal 0.0-0.1 Immature Grans Absolute 0.01 K/uL NRBC # 0.00 K/uL Comprehensive 02/08/2019 [facility] Glucose 103 mg/dL Normal 74-106 Metabolic Panel [address] [place], [place] [id number] [phone] BUN 19 mg/dL High 7-18 Creatinine 0.8 mg/dL Normal 0.6-1.3 Glom Filtration Rate, Estimate >60 mL/min >60 If >60 mL/min >60 2 BUN/Creat 23.7 ratio Sodium 138 mmol/L Normal [...] U/L High 45-117 Laboratory test finding 02/08/2019 [facility] Triglycerides 62 mg/dL <150 3 [address] [place], [place] [id number] [phone] HDL Cholesterol 70 mg/dL >40 4 Direct LDL 02/08/2019 [facility] LDL Chol. 155 mg/dL High 0-99 Cholesterol [address] [facility] (Direct) [place], [place] [id number] [phone] Laboratory test 02/08/2019 [facility] CA 27.29 473.9 U/mL High 0.0-38.6 5 finding [address] [place], [place] [id number] [phone] CBC 01/20/2019 [facility] White Blood 2.9 K/uL Low 3.1-10.[address] Count [place], [place] [address] [phone] Red Blood Count 4.02 M/uL Normal 3.90-5.40 [...] < 10/ 100 WBC Path Review: 01/20/2019 [facility] Path Review: TNP [address] [place] [address] [phone] Basic Metabolic 01/20/2019 [facility] Glucose 90 mg/dL Normal 74-[address] [place] [address] [phone] BUN 14 mg/dL Normal 7-18 Creatinine 0.8 mg/dL Normal 0.6-1.3 Glom Filtration Rate, Estimate >60 mL/min >60 If >60 mL/min >60 7 BUN/Creat 17.5 ratio Sodium 142 mmol/L Normal 136-145 Potassium 4.2 mmol/L Normal 3.5-5.1 Chloride 108 mmol/L High 98-107 Carbon Dioxide 28 mmol/L Normal 21-32 Anion Gap 6 mEq/L Low 8-16 Calcium 7.8 mg/dL Low 8.5-10.1 Laboratory 01/20/2019 [facility] Vancomycin,Trough 11.1 Low 15.0-20.0 test finding [address] ug/[place] [address] [phone] Differential- 01/19/2019 [facility] Total Cells Counted 100 WBC Confirm [address] #[place] [address] [phone] Band% 9 % High 0-8 Neutrophils% 74 % High 33-73 Lymph% 14 % Low 20-42 Atypical Lymph% 1 % Normal 0-7 Monocyte% 1 % Normal 0-10 Basophil% 1 % Normal 0-2 Platelet Estimate NORMAL Poikilocytosis 0-1+ Anisocytosis 0-1+ Chlam/GC/Trichomonas 01/19/2019 [facility] Ur Trichomonas NEGATIVE Negative PCR, Ur [address] vaginalis,[place] [address] [phone] Ur Chlamydia trachomatis,PCR NEGATIVE Negative Ur Neisseria gonorrhoeae,PCR NEGATIVE Negative 8 Basic Metabolic Panel 01/19/2019 [facility] Glucose 157 mg/dL High 74-[address] [place], [place] [id number] [phone] BUN 14 mg/dL Normal 7-18 Creatinine 0.8 mg/dL Normal 0.6-1.3 Glom Filtration Rate, Estimate >60 mL/min >60 If >60 mL/min >60 9 BUN/Creat 17.5 ratio Sodium 139 mmol/L Normal 136-145 Potassium 4.0 mmol/L Normal 3.5-5.1 Chloride 105 mmol/L Normal 98-107 Carbon Dioxide 26 mmol/L Normal 21-32 Anion Gap 8 mEq/L Normal 8-16 Calcium 8.2 mg/dL Low 8.5-10.1 CBC W/Automated 01/19/2019 [facility] White Blood 2.3 K/uL Low 3.1-10.[address] [place] [address] [phone] Red Blood Count 3.98 M/uL Normal 3.90-5.40 [...] 40.4-72.8 Lymph % 18.2 % Low 20.0-42.0 [place] % 2.7 % Low 4.3-13.2 Eo% 0.0 % Normal 0.0-6.6 Bas% 0.4 % Normal 0.0-1.1 Immature Grans 0.0 % Normal 0.0-5.0 NRBC % 0.0 /100WBC < 10/ 100 WBC Neut# 1.77 K/uL Low 1.8-7.0 Lymph # 0.41 K/uL Low 1.0-4.0 [place] # 0.06 K/uL Low 0.3-0.9 Eos # 0.00 K/uL Normal 0.0-0.5 Baso # 0.01 K/uL Normal 0.0-0.1 Immature Grans Absolute 0.00 K/uL NRBC # 0.00 K/uL Slide Review 01/19/2019 [facility] Slide Review DIFF ORDERED [address] [place] [id number] [phone] Laboratory test 01/19/2019 [facility] Path Review: <pending> finding [address] [place] [address] [phone] Anaerobic Culture 01/18/2019 [facility] Gram Stain NO ORGANISMS SEE 10 W/ GR Stain [address] <SEE NOTE> [place] [address] [phone] Gram Stain RARE WHITE BLOOD <SEE NOTE> 11 Anaerobic Culture NO GROWTH Routine Culture W/ 01/18/2019 [facility] Gram Stain NO ORGANISMS SEE 12 Gram Stain [address] <SEE NOTE> [place] [address] [phone] Gram Stain RARE WHITE BLOOD <SEE NOTE> 13 Aerobic Culture NO GROWTH: FINAL <SEE NOTE> 14 Fungal 01/18/2019 [facility] Fungal DANIELITO/Calcofluor p 15 Culture With [address] Fluorochrome <SEE NOTE> [place] [address] Stain [phone] Fungal Culture; Other Sources No yeast or mold <SEE NOTE> 16 Synovial FLD 01/18/2019 [facility] Synovial FLD LEFT KNEE 17 cc/Diff [address] Source [place] [id number] [phone] Synovial FLD Color RED Synovial FLD Appearance HAZY Total Nucleated Cells 32985 /uL < 200 RBC 77876 /uL None Polymorphonuclear % 95 % < 25 Mononuclear % 5 % 18 Smear Review (SEE NOTE) 19 Lyme AB/Western 01/18/2019 [facility] Lyme Total < 0.91 0.00-0.90 20, 21 Blot Reflex [address] AB/[place] [address] WB [phone] Lyme Disease Antibody,QT,Igm < 0.80 index 0.00-0.79 22 Laboratory 01/18/2019 [facility] Sedimentation 59 mm/hr High 2-40 23, 24 test finding [address] [place] [address] [phone] CBC 01/18/2019 [facility] White Blood 3.1 K/uL Normal 3.1-10. W/Automated [address] Count 7 [place] [address] [phone] Red Blood Count 4.00 M/uL Normal 3.90-5.40 [...] 40.4-72.8 Lymph % 22.0 % Normal 20.0-42.0 [place] % 13.9 % High 4.3-13.2 Eo% 4.9 % Normal 0.0-6.6 Bas% 0.6 % Normal 0.0-1.1 Immature Grans 0.0 % Normal 0.0-5.0 NRBC % 0.0 /100WBC < 10/ 100 WBC Neut# 1.81 K/uL Normal 1.8-7.0 Lymph # 0.68 K/uL Low 1.0-4.0 [place] # 0.43 K/uL Normal 0.3-0.9 Eos # 0.15 K/uL Normal 0.0-0.5 Baso # 0.02 K/uL Normal 0.0-0.1 Immature Grans Absolute 0.00 K/uL NRBC # 0.00 K/uL Aot Request 01/18/2019 [facility] Aot Request Already done 25, 26 [address] [place] [address] [phone] Tests to be added: serum lyme testi <SEE NOTE> 27 Aot Request 01/18/2019 [facility] Aot Request Test(s) added [address] [place] [address] [phone] Tests to be added: URIC ACID Laboratory test 01/18/2019 [facility] Synovial FLD NO CRYSTALS None Seen [address] Crystals SEEN [place], [place] [address] [phone] Fluid Culture 01/18/2019 [facility] Gram Stain MODERATE 30 W/ Gram Stain [address] WHITE B <[place] [address] NOTE> [phone] Gram Stain NO ORGANISMS SEE <SEE NOTE> 31 Fluid Culture NO GROWTH: FINAL <SEE NOTE> 32 Laboratory test 01/18/2019 [facility] C-Reactive 14.7 mg/L High <3.[address] Protein,Quant [place], [place] [address] [phone] Uric Acid 2.9 mg/dL Normal 2.6-6.0 Comprehensive 01/18/2019 [facility] Glucose 97 mg/dL Normal 74-106 Metabolic Panel [address] [place], [place] [address] [phone] BUN 14 mg/dL Normal 7-18 Creatinine 0.8 [...] 129 U/L High 45-117 Blood Culture 01/18/2019 [facility] Blood Culture NO GROWTH: FINAL [address] Aerobic <SEE NOTE> [place] [address] [phone] Blood Culture Anaerobic NO GROWTH: FINAL <SEE NOTE> 35 Blood Culture 01/18/2019 [facility] Blood Culture NO GROWTH: FINAL [address] Aerobic <SEE NOTE> [place] [address] [phone] Blood Culture Anaerobic NO GROWTH: FINAL <SEE NOTE> 37 Laboratory test 01/18/2019 [facility] Synovial FLD Total 3.0 g/dL . [address] [place] [address] [phone] Synovial FLD Glucose 55 mg/dL . 39 CBC W/Automated 01/11/2019 [facility] White Blood 3.0 K/uL Low 3.1-10.7 [address] [place] [address] [phone] Red Blood Count 4.18 M/uL Normal 3.90-5.40 [...] 40.4-72.8 Lymph % 24.0 % Normal 20.0-42.0 [place] % 11.0 % Normal 4.3-13.2 Eo% 4.7 % Normal 0.0-6.6 Bas% 0.7 % Normal 0.0-1.1 Immature Grans 0.3 % Normal 0.0-5.0 NRBC % 0.0 /100WBC < 10/ 100 WBC Neut# 1.78 K/uL Low 1.8-7.0 Lymph # 0.72 K/uL Low 1.0-4.0 [place] # 0.33 K/uL Normal 0.3-0.9 Eos # 0.14 K/uL Normal 0.0-0.5 Baso # 0.02 K/uL Normal 0.0-0.1 Immature Grans Absolute 0.01 K/uL NRBC # 0.00 K/uL Comprehensive Metabolic 01/11/2019 [facility] Glucose 127 mg/dL High 74-106 Panel [address] [place] [address] [phone] BUN 17 mg/dL Normal 7-18 Creatinine 0.7 mg/dL Normal 0.6-1.3 Glom Filtration Rate, Estimate >60 mL/min >60 If >60 mL/min >60 41 BUN/Creat 24.2 ratio Sodium 137 mmol/L Normal [...] 130 U/L High 45-117 Laboratory test 01/11/2019 [facility] CA 27.29 391.6 U/mL High 0.0-38.6 42 finding [address] [place] [address] [phone] Slide Review 01/11/2019 [facility] Slide (SEE NOTE) [address] [place] [address] [phone] Path Review: 01/11/2019 [facility] Path NI [address] Review: AVE [place] [address] [phone] CBC W/Automated 12/14/2018 [facility] White Blood 3.5 K/uL Normal 3.1-10.7 [address] [place] [place] [address] [phone] Red Blood Count 4.22 M/uL Normal 3.90-5.40 [...] 40.4-72.8 Lymph % 26.8 % Normal 20.0-42.0 [place] % 10.1 % Normal 4.3-13.2 Eo% 19.3 % High 0.0-6.6 Bas% 1.4 % High 0.0-1.1 Immature Grans 0.0 % Normal 0.0-5.0 NRBC % 0.0 /100WBC < 10/ 100 WBC Neut# 1.47 K/uL Low 1.8-7.0 Lymph # 0.93 K/uL Low 1.0-4.0 [place] # 0.35 K/uL Normal 0.3-0.9 Eos # 0.67 K/uL High 0.0-0.5 Baso # 0.05 K/uL Normal 0.0-0.1 Immature Grans Absolute 0.00 K/uL NRBC # 0.00 K/uL Comprehensive Metabolic 12/14/2018 [facility] Glucose 128 mg/dL High 74-[address] [place] [place] [address] [phone] BUN 20 mg/dL High 7-18 Creatinine 0.8 mg/dL Normal 0.6-1.3 Glom Filtration Rate, Estimate >60 mL/min >60 If >60 mL/min >60 46 BUN/Creat 25.0 ratio Sodium 140 mmol/L Normal [...] 126 U/L High 45-117 Laboratory test 12/14/2018 [facility] CA 27.29 510.0 U/mL High 0.0-38.6 [address] [place], [place] [address] [phone] CBC W/Automated 11/30/2018 [facility] White Blood 2.4 K/uL Low 3.1-10.7 [address] Count [place], [place] [address] [phone] Red Blood Count 4.06 M/uL Normal 3.90-5.40 [...] 40.4-72.8 Lymph % 30.6 % Normal 20.0-42.0 [place] % 8.7 % Normal 4.3-13.2 Eo% 14.5 % High 0.0-6.6 Bas% 0.8 % Normal 0.0-1.1 Immature Grans 0.0 % Normal 0.0-5.0 NRBC % 0.0 /100WBC < 10/ 100 WBC Neut# 1.10 K/uL Low 1.8-7.0 Lymph # 0.74 K/uL Low 1.0-4.0 [place] # 0.21 K/uL Low 0.3-0.9 Eos # 0.35 K/uL Normal 0.0-0.5 Baso # 0.02 K/uL Normal 0.0-0.1 Immature Grans Absolute 0.00 K/uL NRBC # 0.00 K/uL Comprehensive 11/30/2018 [facility] Glucose 102 mg/dL Normal 74-106 Metabolic Panel [address] [place] [address] [phone] BUN 21 mg/dL High 7-18 Creatinine 0.8 mg/dL Normal 0.6-1.3 Glom Filtration Rate, Estimate >60 mL/min >60 If >60 mL/min >60 49 BUN/Creat 26.2 ratio Sodium 140 mmol/L Normal [...] 108 U/L Normal 45-117 Slide Review 11/30/2018 [facility] Slide Review (SEE NOTE) 50 [address] [place] [address] [phone] Laboratory test 11/30/2018 [facility] Path Review: <pending> finding [address] [place] [address] [phone] CBC W/Automated 11/15/2018 [facility] White Blood 4.1 K/uL 3.1-10. [address] Count 7 [place] [address] [phone] Red Blood Count 3.89 M/uL Low 3.90-5.40 [...] 40.4-72.8 Lymph % 31.0 % Normal 20.0-42.0 [place] % 11.1 % Normal 4.3-13.2 Eo% 1.5 % Normal 0.0-6.6 Bas% 2.0 % High 0.0-1.1 Immature Grans 0.2 % Normal 0.0-5.0 NRBC % 0.0 /100WBC < 10/ 100 WBC Neut# 2.20 K/uL Normal 1.8-7.0 Lymph # 1.26 K/uL Normal 1.0-4.0 [place] # 0.45 K/uL Normal 0.3-0.9 Eos # 0.06 K/uL Normal 0.0-0.5 Baso # 0.08 K/uL Normal 0.0-0.1 Immature Grans Absolute 0.01 K/uL NRBC # 0.00 K/uL Comprehensive Metabolic 11/15/2018 [facility] Glucose 70 mg/dL Low 74-106 Panel [address] [place] [address] [phone] BUN 24 mg/dL High 7-18 Creatinine 0.9 mg/dL Normal 0.6-1.3 Glom Filtration Rate, Estimate >60 mL/min >60 If >60 mL/min >60 52 BUN/Creat 26.6 ratio Sodium 139 mmol/L Normal [...] 108 U/L Normal 45-117 Laboratory test 11/15/2018 [facility] Magnesium 2.3 mg/dL Normal 1.8-2.[address] [place] [address] [phone] CBC W/Automated 11/09/2018 [facility] White Blood 2.4 K/uL Low 3.1-10.7 [address] [place] [address] [phone] Red Blood Count 3.80 M/uL Low 3.90-5.40 [...] 40.4-72.8 Lymph % 33.6 % Normal 20.0-42.0 [place] % 12.4 % Normal 4.3-13.2 Eo% 1.7 % Normal 0.0-6.6 Bas% 2.1 % High 0.0-1.1 Immature Grans 0.4 % Normal 0.0-5.0 NRBC % 0.0 /100WBC < 10/ 100 WBC Neut# 1.20 K/uL Low 1.8-7.0 Lymph # 0.81 K/uL Low 1.0-4.0 [place] # 0.30 K/uL Normal 0.3-0.9 Eos # 0.04 K/uL Normal 0.0-0.5 Baso # 0.05 K/uL Normal 0.0-0.1 Immature Grans Absolute 0.01 K/uL NRBC # 0.00 K/uL Comprehensive 11/09/2018 [facility] Glucose 89 mg/dL Normal 74-106 Metabolic Panel [address] [place] [place] [address] [phone] BUN 18 mg/dL Normal 7-18 Creatinine 0.8 mg/dL Normal 0.6-1.3 Glom Filtration Rate, Estimate >60 mL/min >60 If >60 mL/min >60 54 BUN/Creat 22.5 ratio Sodium 140 mmol/L Normal [...] Phosphatase 97 U/L Normal 45-117 Laboratory 11/09/2018 [facility] CA 27.29 635.6 High 0.0-38.6 55 test finding [address] U/mL [place] [address] [phone] Slide Review 11/09/2018 [facility] Slide (SEE [address] Review NOTE) AVE [place] [address] [phone] Path Review: 11/09/2018 [facility] Path NI [address] Review: [place]VE [place] [address] [phone] CBC 10/28/2018 [facility] White 1.4 K/uL Critical 3.1-10.7 W/Automated [address] Blood low Diff [place]VE [place] [address] Count [phone] Red Blood Count 3.70 M/uL Low 3.90-5.40 [...] 40.4-72.8 Lymph % 42.4 % High 20.0-42.0 [place] % 11.8 % Normal 4.3-13.2 Eo% 1.4 % Normal 0.0-6.6 Bas% 3.5 % High 0.0-1.1 Immature Grans 0.0 % Normal 0.0-5.0 NRBC % 0.0 /100WBC < 10/ 100 WBC Neut# 0.59 K/uL Critical low 1.8-7.0 Lymph # 0.61 K/uL Low 1.0-4.0 [place] # 0.17 K/uL Low 0.3-0.9 Eos # 0.02 K/uL Normal 0.0-0.5 Baso # 0.05 K/uL Normal 0.0-0.1 Immature Grans Absolute 0.00 K/uL NRBC # 0.00 K/uL Comprehensive 10/28/2018 [facility] Glucose 88 mg/dL Normal 74-106 Metabolic Panel [address] [place] [place] [address] [phone] BUN 21 mg/dL High 7-18 Creatinine 1.0 mg/dL Normal 0.6-1.3 Glom Filtration Rate, Estimate >60 mL/min >60 If >60 mL/min >60 58 BUN/Creat 21.0 ratio Sodium 139 mmol/L Normal [...] U/L Normal 45-117 Vitamin B12 And 10/28/2018 [facility] Vitamin B12 350 pg/mL Normal 193-[address] [place] [place] [address] [phone] Folic Acid 10.7 ng/mL Normal 3.1-17.5 Slide Review 10/28/2018 [facility] Slide (SEE NOTE) [address] [place] [place] [address] [phone] Laboratory test 10/28/2018 [facility] Path (SEE NOTE) [address] Review: [place] [address] [phone] CBC W/Automated 10/18/2018 [facility] White Blood 1.8 K/uL Critical low 3.1- Diff [address] Count 10.7 [place] [address] [phone] Red Blood Count 3.81 M/uL Low 3.90-5.40 [...] 40.4-72.8 Lymph % 27.2 % Normal 20.0-42.0 [place] % 6.1 % Normal 4.3-13.2 Eo% 1.1 % Normal 0.0-6.6 Bas% 2.8 % High 0.0-1.1 Immature Grans 0.6 % Normal 0.0-5.0 NRBC % 0.0 /100WBC < 10/ 100 WBC Neut# 1.12 K/uL Low 1.8-7.0 Lymph # 0.49 K/uL Low 1.0-4.0 [place] # 0.11 K/uL Low 0.3-0.9 Eos # 0.02 K/uL Normal 0.0-0.5 Baso # 0.05 K/uL Normal 0.0-0.1 Immature Grans Absolute 0.01 K/uL NRBC # 0.00 K/uL Anticoagulant Therapy? Unknown Protime 10/18/2018 [facility] Protime 13.2 seconds Normal 12.0-14.[address] [place] [address] [phone] Inr 1.0 Normal 0.9-1.1 61 Anticoagulant Therapy? Unknown Path Review: 10/18/2018 [facility] Anticoagulant Unknown [address] Therapy? [place] [id number] [phone] Laboratory test 10/18/2018 [facility] Ferritin 62 ng/mL Normal 8-[address] [place] [address] [phone] Iron-Tibc-%Sat 10/18/2018 [facility] Serum Iron 92 g/dL Normal 50-[address] [place] [address] [phone] Total Iron Binding Capacity 417 g/dL Normal 250-450 Transferrin %Saturation 22 % Normal 12-57 Act Partial 10/18/2018 [facility] Act Partial 26.8 seconds Normal 23.4-35.[address] Thrombo Time [place], [place] [address]4746 [phone] Anticoagulant Therapy? Unknown Vitamin B12 And 10/18/2018 [facility] Vitamin B12 471 pg/mL Normal 193-[address] [place] [address] [phone] Folic Acid 9.2 ng/mL Normal 3.1-17.5 Laboratory test 10/18/2018 [facility] Vitamin 65.8 30.0-100.[address] D,25-Hydroxy ng/[place] [address] [phone] Slide Review 10/18/2018 [facility] Slide Review (SEE [address] NOTE) [place] [address] [phone] Anticoagulant Therapy? Unknown Comprehensive 10/18/2018 [facility] Glucose 90 mg/dL Normal 74-106 Metabolic Panel [address] [place] [address] [phone] BUN 26 mg/dL High 7-18 Creatinine 1.1 mg/dL Normal 0.6-1.3 Glom Filtration Rate, Estimate 56 mL/min >60 If >60 mL/min >60 65 BUN/Creat 23.6 ratio Sodium 139 mmol/L Normal [...] U/L Normal 45-117 Laboratory test finding 10/18/2018 [facility] Nucleotidase,5 7 IU/L 0-[address] [place] [address] [phone] [place] 27.29 595.7 U/mL High 0.0-38.6 67 Vitamin B12 And 09/20/2018 [facility] Vitamin B12 273 pg/mL Normal 193-986 Folate [address] [place] [address] [phone] Folic Acid 9.4 ng/mL Normal 3.1-17.5 Laboratory 09/20/2018 [facility] Vitamin 68.6 30.0-100.0 68 test finding [address] D,25-Hydroxy ng/[place] [address] [phone] Iron-Tibc-%Sa 09/20/2018 [facility] Serum Iron 106 Normal 50-[address] g/[place] [address] [phone] Total Iron Binding Capacity 452 g/dL High 250-450 Transferrin %Saturation 23 % Normal 12-57 Laboratory test 09/20/2018 [facility] [place] 27.29 506.9 High 0.0-38.[address] U/[place] [address] [phone] Laboratory test 09/20/2018 [facility] Ferritin 58 ng/mL Normal 8-252 finding [address] [place], [place] [id number] [phone] Comprehensive 09/19/2018 [facility] Glucose 86 mg/dL Normal 74-106 70 Metabolic Panel [address] [place] [address] [phone] BUN 24 mg/dL High 7-18 Creatinine 0.9 mg/dL Normal 0.6-1.3 Glom Filtration Rate, Estimate >60 mL/min >60 If >60 mL/min >60 71 BUN/Creat 26.6 ratio Sodium 136 mmol/L Normal [...] 96 U/L Normal 45-117 CBC W/Automated 09/19/2018 [facility] White Blood 2.5 K/uL Low 3.1-10.[address] [place] [address] [phone] Red Blood Count 3.62 M/uL Low 3.90-5.40 [...] 40.4-72.8 Lymph % 26.1 % Normal 20.0-42.0 [place] % 5.2 % Normal 4.3-13.2 Eo% 1.2 % Normal 0.0-6.6 Bas% 2.8 % High 0.0-1.1 Immature Grans 0.0 % Normal 0.0-5.0 NRBC % 0.0 /100WBC < 10/ 100 WBC Neut# 1.61 K/uL Low 1.8-7.0 Lymph # 0.65 K/uL Low 1.0-4.0 [place] # 0.13 K/uL Low 0.3-0.9 Eos # 0.03 K/uL Normal 0.0-0.5 Baso # 0.07 K/uL Normal 0.0-0.1 Immature Grans Absolute 0.00 K/uL NRBC # 0.00 K/uL Slide Review 09/19/2018 [facility] Slide Review (SEE NOTE) [address] [place] [address] [phone] Laboratory test 09/19/2018 [facility] Path Review: <pending> finding [address] [place] [id number] [phone] Comprehensive 08/22/2018 [facility] Glucose 82 mg/dL Normal 74-10 Metabolic Panel [address] [place] [address] [phone] BUN 24 mg/dL High 7-18 Creatinine 0.9 mg/dL Normal 0.6-1.3 Glom Filtration Rate, Estimate >60 mL/min >60 If >60 mL/min >60 73 BUN/Creat 26.6 ratio Sodium 134 mmol/L Low [...] 111 U/L Normal 45-117 CBC W/Automated 08/22/2018 [facility] White Blood 2.4 K/uL Low 3.1-10.[address] [place] [address] [phone] Red Blood Count 3.72 M/uL Low 3.90-5.40 [...] 40.4-72.8 Lymph % 35.0 % Normal 20.0-42.0 [place] % 5.8 % Normal 4.3-13.2 Eo% 2.5 % Normal 0.0-6.6 Bas% 2.1 % High 0.0-1.1 Immature Grans 0.8 % Normal 0.0-5.0 NRBC % 0.0 /100WBC < 10/ 100 WBC Neut# 1.29 K/uL Low 1.8-7.0 Lymph # 0.84 K/uL Low 1.0-4.0 [place] # 0.14 K/uL Low 0.3-0.9 Eos # 0.06 K/uL Normal 0.0-0.5 Baso # 0.05 K/uL Normal 0.0-0.1 Immature Grans Absolute 0.02 K/uL NRBC # 0.00 K/uL Slide Review 08/22/2018 [facility] Slide Review . [address] [place] [address] [phone] Laboratory test finding 08/22/2018 [facility] Path Review: <pending> [address] [place] [address] [phone] 1 C79.51 C78.7 D48.61 Z51.11 E53.9 2 Note: Persistent reduction for 3 months or more in an eGFR <60 mL/min/1.73 m2 defines CKD. Patients with eGFR values >/=60 mL/min/1.73 m2 may also have CKD if evidence of persistent proteinuria is present. The original MDRD equation for estimated GFR is not valid for patients less than 18 years of age. Additional information may be found at www.kdoqi.org. 3 Reference Guidelines*: Normal: ............. < 150 mg/dL Borderline High: .... 150-199 mg/dL High: ............... 200-499 mg/dL Very High: .......... > 500 mg/dL * Source: National Cholesterol Education Program (NCEP) 4 Reference Guidelines*: Low HDL: ..... < 40 mg/dL Normal: ..... 40-60 mg/dL Desirable: ... > 60 mg/dL *The National Cholesterol Education Program(NCEP) 5 Specimen was diluted in order to obtain results. Results were repeated. Siem[employer] Immunochemiluminometric Methodology (ICMA) Values obtained with different assay methods or kits cannot be used interchangeably. Results cannot be interpreted as absolute evidence of the presence or absence of malignant disease. Performed at: [address] [id number] Professor Of Surgery: Paulina Miranda MD, Phone: [phone] 6 INTRACTABLE PAIN 7 Note: Persistent reduction for 3 months or more in an eGFR <60 mL/min/1.73 m2 defines CKD. Patients with eGFR values >/=60 mL/min/1.73 m2 may also have CKD if evidence of persistent proteinuria is present. The original MDRD equation for estimated GFR is not valid for patients less than 18 years of age. Additional information may be found at [email or web address].org. 8 A negative result for either C. trachomatis and/or N. gonorrhoeae does not preclued an infection because results are dependent on adequate specimen collection, absence of inhibitors, and sufficient DNA to be detected. 9 Note: Persistent reduction for 3 months or more in an eGFR <60 mL/min/1.73 m2 defines CKD. Patients with eGFR values >/=60 mL/min/1.73 m2 may also have CKD if evidence of persistent proteinuria is present. The original MDRD equation for estimated GFR is not valid for patients less than 18 years of age. Additional information may be found at [email or web address]. 10 NO ORGANISMS SEEN 11 RARE WHITE BLOOD CELLS 12 NO ORGANISMS SEEN 13 RARE WHITE BLOOD CELLS 14 NO GROWTH: FINAL REPORT 15 DANIELITO/Calcofluor preparation: no fungus observed 16 No yeast or mold isolated after 4 weeks. Performed at: [facility] [address] [id number] Professor Of Surgery: Paulina Miranda MD, Phone: [phone] 17 SWOLLEN LT KNEE,RED,HOT TO TOUCH 18 TNC (Total Nucleated Cells) = WBCs Mesothelials PMN% = Neutrophils Eosinophils MN% = Lymphocytes Monocytes 19 A cytospin smear has been reviewed. Cell types present in numbers that correlate with the automated differential. No atypical cells or cell clusters seen. 20 INTRACTABLE PAIN 21 Negative <0.91 Equivocal 0.91 - 1.09 Positive >1.09 22 Negative <0.80 Equivocal 0.80 - 1.19 Positive >1.19 IgM levels may peak at 3-6 weeks post infection, then gradually decline. Performed at: - [facility] [id number] Professor Of Surgery: Paulina Miranda MD, Phone: [phone] 23 SWOLLEN LT KNEE,RED,HOT TO TOUCH 24 This result was obtained with an ESR method that is not based on the standard Westergren Method. When comparing results obtained from the traditional Westergren ESR and this method it is important to refer to the reference range for each method. Method: Capillary Photometry 25 INTRACTABLE PAIN 26 Tests: serum lyme testing with reflex Instructions: 27 serum lyme testing with reflex 28 Tests: URIC ACID Instructions: 29 NO CRYSTALS SEEN 30 MODERATE WHITE BLOOD CELLS 31 NO ORGANISMS SEEN 32 NO GROWTH: FINAL REPORT 33 Note: Persistent reduction for 3 months [...] the clinical context for interpretation. Performed at: - [facility] [address] [place] [address] SHARON Donaldosn [id number] Professor Of Surgery: Paulina Miranda MD, Phone: [phone] 39 : Peritoneal : Pleural : Synovial [...] into the clinical context for interpretation. 40 D48.61 C79.51 Z51.11 41 Note: Persistent reduction for 3 months or more in an eGFR <60 mL/min/1.73 m2 defines CKD. Patients with eGFR values >/=60 mL/min/1.73 m2 may also have CKD if evidence of persistent proteinuria is present. The original MDRD equation for estimated GFR is not valid for patients less than 18 years of age. Additional information may be found at [email or web address]. 42 Siemens NexGen Storageaur Immunochemiluminometric Methodology (ICMA) Values obtained with different assay methods or kits cannot be used interchangeably. Results cannot be interpreted as absolute evidence of the presence or absence of malignant disease. Performed at: [facility] [address] [id number] Professor Of Surgery: Paulina Miranda MD, Phone: [phone] 43 Instrument flagged sample for slide review. Less than 10% Bands seen, no other immature WBC's seen. RBC morphology essentially normal. Platelet estimate = NORMAL 44 Reviewed previous history, path review not indicated 45 Z51.11 C79.51 D48.61 E53.9 D64.9 Z51.12 46 Note: Persistent reduction for 3 months or more in an eGFR <60 mL/min/1.73 m2 defines CKD. Patients with eGFR values >/=60 mL/min/1.73 m2 may also have CKD if evidence of persistent proteinuria is present. The original MDRD equation for estimated GFR is not valid for patients less than 18 years of age. Additional information may be found at [email or web address]. 47 Specimen was diluted in order to obtain results. Results were repeated. Siemens NexGen Storageaur Immunochemiluminometric Methodology (ICMA) Values obtained with different assay methods or kits cannot be used interchangeably. Results cannot be interpreted as absolute evidence of the presence or absence of malignant disease. Performed at: [facility] [address] [id number] Professor Of Surgery: Paulina Miranda MD, Phone: [phone] 48 Z51.11 D48.61 C79.51 E53.9 49 Note: Persistent reduction for 3 months or more in an eGFR <60 mL/min/1.73 m2 defines CKD. Patients with eGFR values >/=60 mL/min/1.73 m2 may also have CKD if evidence of persistent proteinuria is present. The original MDRD equation for estimated GFR is not valid for patients less than 18 years of age. Additional information may be found at [email or web address]. 50 Instrument flagged sample for slide review. Less than 10% Bands seen, no other immature WBC's seen. RBC morphology essentially normal. Platelet estimate = SLIGHTLY DECREASED 51 D48.61 C79.51 Z51.11 52 Note: Persistent reduction for 3 months or more in an eGFR <60 mL/min/1.73 m2 defines CKD. Patients with eGFR values >/=60 mL/min/1.73 m2 may also have CKD if evidence of persistent proteinuria is present. The original MDRD equation for estimated GFR is not valid for patients less than 18 years of age. Additional information may be found at [email or web address]. 53 D48.61 C79.51 54 Note: Persistent reduction for 3 months or more in an eGFR <60 mL/min/1.73 m2 defines CKD. Patients with eGFR values >/=60 mL/min/1.73 m2 may also have CKD if evidence of persistent proteinuria is present. The original MDRD equation for estimated GFR is not valid for patients less than 18 years of age. Additional information may be found at [email or web address]. 55 Specimen was diluted in order to obtain results. Results were repeated. Siemens NexGen Storageaur Immunochemiluminometric Methodology (ICMA) Values obtained with different assay methods or kits cannot be used interchangeably. Results cannot be interpreted as absolute evidence of the presence or absence of malignant disease. Performed at: RN - [facility] [address] [id number] Professor Of Surgery: Paulina Miranda MD, Phone: [phone] 56 Instrument flagged sample for slide review. Less than 10% Bands seen, no other immature WBC's seen. RBC morphology essentially normal. Platelet estimate = NORMAL 57 Reviewed previous history, path review not indicated 58 Note: Persistent reduction for 3 months or more in an eGFR <60 mL/min/1.73 m2 defines CKD. Patients with eGFR values >/=60 mL/min/1.73 m2 may also have CKD if evidence of persistent proteinuria is present. The original MDRD equation for estimated GFR is not valid for patients less than 18 years of age. Additional information may be found at [email or web address]. 59 Instrument flagged sample for slide review. Less than 10% Bands seen, no other immature WBC's seen. RBC morphology essentially normal. Platelet estimate = NORMAL 60 CHECKED CALLED WBC, ANC TO CLAUDIA C AT 0945 10/28/18 by LAB.JUAN 61 THERAPEUTIC INR RANGE: 2.0 - 3.0 DVT, Pulmonary embolus, prophylaxis against venous thrombosis or systemic embolization in high risk patients. 2.5 - 3.5 Mechanical heart valves [address] [facility] 63 Vitamin D deficiency has been defined by the [place] [employer] and an Endocrine Society practice guideline as a level of serum 25-OH vitamin D less than 20 ng/mL (1,2). The Endocrine Society went on to further define vitamin D insufficiency as a level between 21 and 29 ng/mL (2). 1. IOM ([place] [employer]). 2010. Dietary reference intakes for calcium and D. [place]: The National Academies Press. 2. Dick MF, Leticia [place], Romina CHAVEZ, et al. Evaluation, treatment, and prevention of vitamin D deficiency: an Endocrine Society clinical practice guideline. JCEM. 2010; 96(7):1911-30. Performed at: [facility] [address] [id number] Professor Of Surgery: Paulina Miranda MD, Phone: [phone] 64 Instrument flagged sample for slide review. Less than 10% Bands seen, no other immature WBC's seen. RBC morphology essentially normal. Platelet estimate = NORMAL 65 Note: Persistent reduction for 3 months or more in an eGFR <60 mL/min/1.73 m2 defines CKD. Patients with eGFR values >/=60 mL/min/1.73 m2 may also have CKD if evidence of persistent proteinuria is present. The original MDRD equation for estimated GFR is not valid for patients less than 18 years of age. Additional information may be found at [email or web address]. 66 Performed at: [facility] [address] [id number] Professor Of Surgery: Paulina Miranda MD, Phone: [phone] Performed at: [facility] [id number] Professor Of Surgery: Domenic Pulido MD, Phone: [phone] 67 Specimen was diluted in order to obtain results. Results were repeated. Siemens Centaur Immunochemiluminometric Methodology (ICMA) Values obtained with different assay methods or kits cannot be used interchangeably. Results cannot be interpreted as absolute evidence of the presence or absence of malignant disease. 68 Vitamin D deficiency has been defined by the [place] [employer] and an Endocrine Society practice guideline as a level of serum 25-OH vitamin D less than 20 ng/mL (1,2). The Endocrine Society went on to further define vitamin D insufficiency as a level between 21 and 29 ng/mL (2). 1. IOM ([place] [employer]). 2010. Dietary reference intakes for calcium and D. [place]: The National Academies Press. 2. Dick MF, Leticia RAMEY, Romina CHAVEZ, et al. Evaluation, treatment, and prevention of vitamin D deficiency: an Endocrine Society clinical practice guideline. JCEM. 2010; 96(7):1911-30. Performed at: [facility] [id number] Professor Of Surgery: Paulina Miranda MD, Phone: [phone] 69 Specimen was diluted in order to obtain results. Results were repeated. Siemens NexGen Storageaur Immunochemiluminometric Methodology (ICMA) Values obtained with different assay methods or kits cannot be used interchangeably. Results cannot be interpreted as absolute evidence of the presence or absence of malignant disease. Performed at: [facility] [id number] Professor Of Surgery: Paulina Miranda MD, Phone: [phone] 70 Z51.11 D48.61 71 Note: Persistent reduction for 3 months or more in an eGFR <60 mL/min/1.73 m2 defines CKD. Patients with eGFR values >/=60 mL/min/1.73 m2 may also have CKD if evidence of persistent proteinuria is present. The original MDRD equation for estimated GFR is not valid for patients less than 18 years of age. Additional information may be found at www.[email or web address]. 72 Instrument flagged sample for slide review. Less than 10% Bands seen, no other immature WBC's seen. RBC morphology essentially normal. Platelet estimate = NORMAL 73 Note: Persistent reduction for 3 months or more in an eGFR <60 mL/min/1.73 m2 defines CKD. Patients with eGFR values >/=60 mL/min/1.73 m2 may also have CKD if evidence of persistent proteinuria is present. The original MDRD equation for estimated GFR is not valid for patients less than 18 years of age. Additional information may be found at www.[email or web address]. 74 Instrument flagged sample for slide review. Less than 10% Bands seen, no other immature WBC's seen. RBC morphology essentially normal. Platelet estimate = NORMAL Procedures Date Code Description Status 01/20/2019 83929 EKG Interpretation And Report Only Completed 01/19/2019 32620 EKG Interpretation And Report Only Completed 01/18/2019 02724 I&D deep abscess busa hematoma thigh/knee Completed 10/28/2018 63929 Theraputic Or Diagnostic Injection Completed 10/14/2018 81007 Theraputic Or Diagnostic Injection Completed 05/13/2017 [id number] Bone Mineral Density Test Completed Medical Devices Description No Information Available Encounters Type Date Location Provider Dx Diagnosis Office Visit 02/15/2019 Orthopaedic Office RichardKaren, M25.462 Effusion, left knee 8:30a PA Office Visit 02/08/2019 Infusion Center Savita Yung Z51.11 Encounter for 8:00a BBeulah, CUSTOMER RESPONSE REPRESENTATIVE antineoplastic chemotherapy Z85.3 Personal history of malignant neoplasm of breast 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 Office Visit 01/27/2019 4:00p Walk In [facility], R60.0 Localized edema Clinic LEISA Menendez M79.605 Pain in left leg Office Visit 01/11/2019 8:00a Infusion Center [facility] Z51.11 Encounter for Savita Solares, antineoplastic CUSTOMER RESPONSE REPRESENTATIVE chemotherapy 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 K12.31 Oral mucositis (ulcerative) due to antineoplastic therapy Office Visit 12/14/2018 7:30a Infusion Center [facility] Z51.11 Encounter for Savita Solares, antineoplastic CUSTOMER RESPONSE REPRESENTATIVE chemotherapy 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 K12.31 Oral mucositis (ulcerative) due to antineoplastic therapy D70.1 Agranulocytosis secondary to cancer chemotherapy Office Visit 11/30/2018 7:30a Infusion [facility], Z51.11 Encounter for Savita Beck, antineoplastic CUSTOMER RESPONSE REPRESENTATIVE chemotherapy 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 K12.31 Oral mucositis (ulcerative) due to antineoplastic therapy Office Visit 11/16/2018 7:30a Infusion [facility], Z51.11 Encounter for Savita HareBeulah, antineoplastic CUSTOMER RESPONSE REPRESENTATIVE chemotherapy D48.61 Neoplasm of uncertain behavior of [...] cancer chemotherapy Assessments Date Code Description Provider 02/15/2019 M25.462 Effusion, left knee Karen Ramos PA 02/08/2019 Z51.11 Encounter for antineoplastic Savita Yung, CUSTOMER RESPONSE REPRESENTATIVE chemotherapy 02/08/2019 Z85.3 Personal history of malignant Savita Yung, CUSTOMER RESPONSE REPRESENTATIVE neoplasm of breast 02/08/2019 C79.51 Secondary malignant neoplasm of bone [facility] Savita Payam., CUSTOMER RESPONSE REPRESENTATIVE 02/08/2019 C78.7 Secondary malignant neoplasm of Savita Yung B., CUSTOMER RESPONSE REPRESENTATIVE liver and intrahepatic bile duct 02/02/2019 M25.462 Effusion, left knee Richard, Karen, PA 02/02/2019 R60.0 Localized edema Richard, Karen, PA 01/27/2019 R60.0 Localized edema Cosme-HelHaydee peña., PASTING INSPECTOR 01/27/2019 M79.605 Pain in left leg Cosme-JeromeDaryrnHaydee Jacqueline, PASTING INSPECTOR 01/20/2019 M25.562 Pain in left knee Kendall Koroma M.D., [facility] 01/20/2019 M25.562 Pain in left knee Luca Yusuf M.D. 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 chemotherapy 01/20/2019 Z92.21 Personal history of antineoplastic Kendall Koroma M.D., chemotherapy FAC 01/20/2019 M25.462 Effusion, left knee Luca Yusuf M.D. 01/20/2019 C79.51 Secondary malignant neoplasm of bone Luca Yusuf M.D. 01/19/2019 M25.562 Pain in left knee Kendall Koroma M.D., FAC 01/19/2019 C79.51 Secondary malignant neoplasm of bone Cyn Pacheco, 01/19/2019 M25.562 Pain in left knee Luca Yusuf M.D. 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 chemotherapy 01/19/2019 M25.462 Effusion, left knee Cyn Pacheco, 01/19/2019 M25.462 Effusion, left knee Luca Yusuf M.D. 01/19/2019 Z85.3 Personal history of malignant Cyn Pacheco DO neoplasm of breast 01/19/2019 C79.51 Secondary malignant neoplasm of bone Luca Yusuf M.D. 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 chemotherapy 01/18/2019 Z92.21 Personal history of antineoplastic Clari Chahal MD chemotherapy 01/18/2019 M25.462 Effusion, left knee Cyn Pacheco DO 01/18/2019 M25.462 Effusion, left knee Luca Yusuf M.D. 01/18/2019 Z85.3 Personal history of malignant Clari Chahal MD neoplasm of breast 01/18/2019 Z85.3 Personal history of malignant Cyn Pacheco DO neoplasm of breast 01/18/2019 C79.51 Secondary malignant neoplasm of bone Luca Yusuf M.D. 01/11/2019 Z51.11 Encounter for antineoplastic Savita Yung, [place] chemotherapy 01/11/2019 D48.61 Neoplasm of uncertain behavior of Savita Yung, [place] right breast 01/11/2019 C79.51 Secondary malignant neoplasm of bone Savita Yung, CUSTOMER RESPONSE REPRESENTATIVE 01/11/2019 K12.31 Oral mucositis (ulcerative) due to Savita Yung, [place] antineoplastic therapy 12/14/2018 Z51.11 Encounter for antineoplastic Savita Yung B., CUSTOMER RESPONSE REPRESENTATIVE chemotherapy 12/14/2018 D48.61 Neoplasm of uncertain behavior of LenaSavita B., CUSTOMER RESPONSE REPRESENTATIVE right breast 12/14/2018 C79.51 Secondary malignant neoplasm of bone LenaSavita B., CUSTOMER RESPONSE REPRESENTATIVE 12/14/2018 K12.31 Oral mucositis (ulcerative) due to LenaRyan amadorie B., CUSTOMER RESPONSE REPRESENTATIVE antineoplastic therapy 12/14/2018 D70.1 Agranulocytosis secondary to cancer AgaRyanie B., CUSTOMER RESPONSE REPRESENTATIVE chemotherapy 11/30/2018 Z51.11 Encounter for antineoplastic AgaRyan amadorie B., CUSTOMER RESPONSE REPRESENTATIVE chemotherapy 11/30/2018 C79.51 Secondary malignant neoplasm of bone Savita Yung B., CUSTOMER RESPONSE REPRESENTATIVE 11/30/2018 D48.61 Neoplasm of uncertain behavior of AgaSavita B., CUSTOMER RESPONSE REPRESENTATIVE right breast 11/30/2018 K12.31 Oral mucositis (ulcerative) due to AgaRyan amadorie B., CUSTOMER RESPONSE REPRESENTATIVE antineoplastic therapy 11/16/2018 Z51.11 Encounter for antineoplastic LenaRyanie B., CUSTOMER RESPONSE REPRESENTATIVE chemotherapy 11/16/2018 D48.61 Neoplasm of uncertain behavior of Savita Yung B., CUSTOMER RESPONSE REPRESENTATIVE right breast 11/16/2018 C79.51 Secondary malignant neoplasm of bone Savita Yung B., CUSTOMER RESPONSE REPRESENTATIVE 11/09/2018 D48.61 Neoplasm of uncertain behavior of Boufal, Cyn, DO right breast 11/09/2018 C79.51 Secondary malignant neoplasm of bone Boufal, Cyn, DO 11/09/2018 E53.9 Vitamin B deficiency, unspecified Boufal, Cyn, DO 10/28/2018 D48.61 Neoplasm of uncertain behavior of Boufal, Cyn, DO right breast 10/28/2018 C79.51 Secondary malignant neoplasm of bone Boufal, Cyn, DO 10/28/2018 E53.9 Vitamin B deficiency, unspecified Boufal, Cyn, DO 10/28/2018 D70.9 Neutropenia, unspecified Boufal, Cyn, DO 10/18/2018 D48.61 Neoplasm of uncertain behavior of Boufal, Cyn, DO right breast 10/18/2018 C79.51 Secondary malignant neoplasm of bone Boufal, Cyn, DO 10/14/2018 D48.61 Neoplasm of uncertain behavior of Radha Pachecot, DO right breast 10/14/2018 D48.61 Neoplasm of uncertain behavior of Oncology Nurse right breast 10/14/2018 E53.9 Vitamin B deficiency, unspecified Radha Pachecot, DO 10/14/2018 E53.9 Vitamin B deficiency, unspecified Oncology Nurse 10/03/2018 D48.61 Neoplasm of uncertain behavior of Radha Pachecot, DO right breast 10/03/2018 C79.51 Secondary malignant neoplasm of bone Radha Pachecot, DO 10/03/2018 E53.9 Vitamin B deficiency, unspecified Radha Pachecot, DO 09/20/2018 D48.61 Neoplasm of uncertain behavior of Radha Pachecot, DO right breast 09/20/2018 C79.51 Secondary malignant neoplasm of bone Radha Pachecot, DO 09/20/2018 D70.1 Agranulocytosis secondary to cancer Radha Pachecot, DO chemotherapy 08/29/2018 D48.61 Neoplasm of uncertain behavior of Radha Pachecot, DO right breast 08/29/2018 C79.51 Secondary malignant neoplasm of bone Radha Pachecot, DO 08/29/2018 D70.1 Agranulocytosis secondary to cancer Radha Pachecot, DO chemotherapy Plan of Treatment Future Appointment(s):03/08/2019 7:30 am - Infusion Chair 8 at Infusion [id number]/08/2019 8:00 am - Savita Yung, CUSTOMER RESPONSE REPRESENTATIVE at Infusion Sqydsd9102/15/2019 - Karen Ramos, VIANEY25.462 Effusion, left kneeComments:Overall she is doing well. She may gradually return to all activities as tolerated. I did explain that she does have a low threshold for returning back to our office or to the emergency room if symptoms were to return. But otherwise she'll follow up on an as-needed basis.AllFollow up:PRN Functional Status Description No Information Available Mental Status Description No Information Available Referrals Description No Information Available
--- OUTSIDE RECORDS SUMMARY | 2019-03-22 21:45 | XMS REPORT | Continuity of Care Document ---
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 Problems Active Problems Provider Date Personal [...] C79.51 Benadryl Itch apply to affected 28.300gm SeaRadha betancurt, 10/03/2018 Stopping area up to three DO 1-0.1% Cream times a day Miralax 1 tablespoon in 8 510gm K59.00 Clune, 04/28/2018 [id number] Powder ounces of water Jennikunjferchaka, MARBLE HELPER twice a day Xgeva SQ q6 Months LloydErinCyn, 08/18/2016 120mg/1.7ML DO Solution Vitamin D 1 by mouth every Lloyd Cyn, 07/08/2016 4000Units day DO Tablets Venlafaxine HCL 1 by mouth twice a 180tabs Clune, 05/03/2012 100mg day Jenniferleigh, MARBLE HELPER Tablets Citalopram 1 by mouth every 90tabs une, 05/03/2012 Hydrobromide day Jenniferleimartín, MARBLE HELPER 20mg Tablets Calcium 1200 chew one by mouth Unknown daily [id number] Chewtabs Faslodex once a month Unknown 250mg/5ML Solution History Medications Magic Mouthwash 1 part diphenhydramine 240ml HazelRadha woodrufft, 2018 - 12.5mg/5mL; 1 part DO 02/02/2019 viscous lidocaine 2%; 1 part Maalox Swish and spit 5 ml four times daily as needed Medications Administered in Office Medication SIG Qnty Indications Ordering Provider Date Vitamin B12 Injection 1000 SeaCyn betancur, DO 10/28/2018 mcg/Ml Injection Vitamin B12 Injection 1000 Oncology Nurse 10/14/2018 mcg/Ml Injection Immunizations CPT Code Status Date Vaccine Lot # [id number] Given 10/15/2015 Tdap injection [id number] U-[id number] Given 02/18/2000 Td(Adult),Unspecified Vital Signs Date Vital Result Comment 02/08/2019 7:52am BP Systolic 138 mmHg left BP Diastolic 90 mmHg left Body Temperature 97.7 F Heart Rate 95 /min Respiratory Rate 16 /min Weight 156.00 lb O2 % BldC Oximetry 98 % Ra Pain Level 0 02/02/2019 8:53am BP Systolic 107 mmHg BP Diastolic 71 mmHg Body Temperature 96.1 F Heart Rate 75 /min Height 64 inches 5'4" Weight 157.00 lb BMI (Body Mass Index) 26.9 kg/m2 BSA (Body Surface Area) 1.77 m2 [place] body weight in kilograms 54 kg O2 % BldC Oximetry 100 % Results Test Date Facility Test Result H/L Range Note CBC 02/08/2019 [facility] White Blood 3.9 K/uL Normal 3.1-10.7 1 W/Automated [address] [place] [address] [phone] Red Blood Count 4.51 M/uL Normal 3.90-5.40 [...] 40.4-72.8 Lymph % 22.1 % Normal 20.0-42.0 [place] % 9.2 % Normal 4.3-13.2 Eo% 5.6 % Normal 0.0-6.6 Bas% 1.3 % High 0.0-1.1 Immature Grans 0.3 % Normal 0.0-5.0 NRBC % 0.0 /100WBC < 10/ 100 WBC Neut# 2.40 K/uL Normal 1.8-7.0 Lymph # 0.86 K/uL Low 1.0-4.0 [place] # 0.36 K/uL Normal 0.3-0.9 Eos # 0.22 K/uL Normal 0.0-0.5 Baso # 0.05 K/uL Normal 0.0-0.1 Immature Grans Absolute 0.01 K/uL NRBC # 0.00 K/uL Comprehensive 02/08/2019 [facility] Glucose 103 mg/dL Normal 74-106 Metabolic Panel [address] [place] [address] [phone] BUN 19 mg/dL High 7-18 Creatinine 0.8 [...] U/L High 45-117 Laboratory test finding 02/08/2019 [facility] Triglycerides 62 mg/dL <150 3 [address] [place] [address] [phone] HDL Cholesterol 70 mg/dL >40 4 CBC 01/20/2019 [facility] White Blood Count 2.9 K/uL Low 3.1-10.7 5 [address] [place] [address] [phone] Red Blood Count 4.02 M/uL Normal 3.90-5.40 [...] < 10/ 100 WBC Path Review: 01/20/2019 [facility] Path Review: TNP [address] [place] [address] [phone] Basic Metabolic 01/20/2019 [facility] Glucose 90 mg/dL Normal 74-[address] [place] [address] [phone] BUN 14 mg/dL Normal 7-18 Creatinine 0.8 mg/dL Normal 0.6-1.3 Glom Filtration Rate, Estimate >60 mL/min >60 If >60 mL/min >60 6 BUN/Creat 17.5 ratio Sodium 142 mmol/L Normal 136-145 Potassium 4.2 mmol/L Normal 3.5-5.1 Chloride 108 mmol/L High 98-107 Carbon Dioxide 28 mmol/L Normal 21-32 Anion Gap 6 mEq/L Low 8-16 Calcium 7.8 mg/dL Low 8.5-10.1 Laboratory 01/20/2019 [facility] Vancomycin,Trough 11.1 Low 15.0-20.0 test finding [address] ug/[place] [address] [phone] Differential- 01/19/2019 [facility] Total Cells Counted 100 WBC Confirm [address] #[place] [address] [phone] Band% 9 % High 0-8 Neutrophils% 74 % High 33-73 Lymph% 14 % Low 20-42 Atypical Lymph% 1 % Normal 0-7 Monocyte% 1 % Normal 0-10 Basophil% 1 % Normal 0-2 Platelet Estimate NORMAL Poikilocytosis 0-1+ Anisocytosis 0-1+ Chlam/GC/Trichomonas 01/19/2019 [facility] Ur Trichomonas NEGATIVE Negative PCR, Ur [address] vaginalis,[place] [address] [phone] Ur Chlamydia trachomatis,PCR NEGATIVE Negative Ur Neisseria gonorrhoeae,PCR NEGATIVE Negative 7 Basic Metabolic Panel 01/19/2019 [facility] Glucose 157 mg/dL High 74-[address] [place] [address] [phone] BUN 14 mg/dL Normal 7-18 Creatinine 0.8 mg/dL Normal 0.6-1.3 Glom Filtration Rate, Estimate >60 mL/min >60 If >60 mL/min >60 8 BUN/Creat 17.5 ratio Sodium 139 mmol/L Normal 136-145 Potassium 4.0 mmol/L Normal 3.5-5.1 Chloride 105 mmol/L Normal 98-107 Carbon Dioxide 26 mmol/L Normal 21-32 Anion Gap 8 mEq/L Normal 8-16 Calcium 8.2 mg/dL Low 8.5-10.1 CBC W/Automated 01/19/2019 [facility] White Blood 2.3 K/uL Low 3.1-10.[address] [place] [address] [phone] Red Blood Count 3.98 M/uL Normal 3.90-5.40 [...] 40.4-72.8 Lymph % 18.2 % Low 20.0-42.0 [place] % 2.7 % Low 4.3-13.2 Eo% 0.0 % Normal 0.0-6.6 Bas% 0.4 % Normal 0.0-1.1 Immature Grans 0.0 % Normal 0.0-5.0 NRBC % 0.0 /100WBC < 10/ 100 WBC Neut# 1.77 K/uL Low 1.8-7.0 Lymph # 0.41 K/uL Low 1.0-4.0 [place] # 0.06 K/uL Low 0.3-0.9 Eos # 0.00 K/uL Normal 0.0-0.5 Baso # 0.01 K/uL Normal 0.0-0.1 Immature Grans Absolute 0.00 K/uL NRBC # 0.00 K/uL Slide Review 01/19/2019 [facility] Slide Review DIFF ORDERED [address] [place] [address] [phone] Laboratory test 01/19/2019 [facility] Path Review: <pending> finding [address] [place] [address] [phone] Anaerobic Culture 01/18/2019 [facility] Gram Stain NO ORGANISMS SEE 9 W/ GR Stain [address] <SEE NOTE> [place] [address] [phone] Gram Stain RARE WHITE BLOOD <SEE NOTE> 10 Anaerobic Culture NO GROWTH Routine Culture W/ 01/18/2019 [facility] Gram Stain NO ORGANISMS SEE 11 Gram Stain [address] <SEE NOTE> [place], [place] [id number] [phone] Gram Stain RARE WHITE BLOOD <SEE NOTE> 12 Aerobic Culture NO GROWTH: FINAL <SEE NOTE> 13 Aot Request 01/18/2019 [facility] Aot Request Already done [address] [place] [address] [phone] Tests to be added: serum lyme testi <SEE NOTE> 15 Synovial FLD 01/18/2019 [facility] Synovial FLD LEFT KNEE 16 cc/Diff [address] Source [place], [place] [id number] [phone] Synovial FLD Color RED Synovial FLD Appearance HAZY Total Nucleated Cells 15804 /uL < 200 RBC 09455 /uL None Polymorphonuclear % 95 % < 25 Mononuclear % 5 % 17 Smear Review (SEE NOTE) 18 Lyme AB/Western 01/18/2019 [facility] Lyme Total < 0.91 0.00-0.90 19, [address] Bl[address] Reflex [address] AB/[place] [address] WB [phone] Lyme Disease Antibody,QT,Igm < 0.80 index 0.00-0.79 21 Laboratory 01/18/2019 [facility] Sedimentation 59 mm/hr High 2-40 22, 23 test finding [address] [place] [address] [phone] CBC 01/18/2019 [facility] White Blood 3.1 K/uL Normal 3.1-10. W/Automated [address] Count 7 [place] [address] [phone] Red Blood Count 4.00 M/uL Normal 3.90-5.40 [...] 40.4-72.8 Lymph % 22.0 % Normal 20.0-42.0 [place] % 13.9 % High 4.3-13.2 Eo% 4.9 % Normal 0.0-6.6 Bas% 0.6 % Normal 0.0-1.1 Immature Grans 0.0 % Normal 0.0-5.0 NRBC % 0.0 /100WBC < 10/ 100 WBC Neut# 1.81 K/uL Normal 1.8-7.0 Lymph # 0.68 K/uL Low 1.0-4.0 [place] # 0.43 K/uL Normal 0.3-0.9 Eos # 0.15 K/uL Normal 0.0-0.5 Baso # 0.02 K/uL Normal 0.0-0.1 Immature Grans Absolute 0.00 K/uL NRBC # 0.00 K/uL Aot Request 01/18/2019 [facility] Aot Request Test(s) added , [address] [place] [address] [phone] Tests to be added: URIC ACID Laboratory test 01/18/2019 [facility] Synovial FLD NO CRYSTALS None Seen [address] Crystals SEEN [place], [place] [address] [phone] Fluid Culture 01/18/2019 [facility] Gram Stain MODERATE 27 W/ Gram Stain [address] WHITE B <[place] [address] NOTE> [phone] Gram Stain NO ORGANISMS SEE <SEE NOTE> 28 Fluid Culture NO GROWTH: FINAL <SEE NOTE> 29 Laboratory test 01/18/2019 [facility] Synovial FLD Total 3.0 g/dL . [address] Protein [place], [place] [address] [phone] Synovial FLD Glucose 55 mg/dL . 31 Laboratory test 01/18/2019 [facility] C-Reactive 14.7 mg/L High <3.[address] Protein,[place] [address] [phone] Uric Acid 2.9 mg/dL Normal 2.6-6.0 Comprehensive 01/18/2019 [facility] Glucose 97 mg/dL Normal 74-106 Metabolic Panel [address] [place], [place] [address] [phone] BUN 14 mg/dL Normal 7-18 Creatinine 0.8 mg/dL Normal 0.6-1.3 Glom Filtration Rate, Estimate >60 mL/min >60 If >60 mL/min >60 32 BUN/Creat 17.5 ratio Sodium 138 mmol/L Normal [...] 129 U/L High 45-117 Blood Culture 01/18/2019 [facility] Blood Culture NO GROWTH: FINAL [address] Aerobic <SEE NOTE> AVE [place] [address] [phone] Blood Culture Anaerobic NO GROWTH: FINAL <SEE NOTE> 34 Blood Culture 01/18/2019 [facility] Blood Culture NO GROWTH: FINAL [address] Aerobic <SEE NOTE> [place]VE [place] [address] [phone] Blood Culture Anaerobic NO GROWTH: FINAL <SEE NOTE> 36 CBC W/Automated 01/11/2019 [facility] White Blood 3.0 K/uL Low 3.1-10.7 [address] [place] [place] [address] [phone] Red Blood Count 4.18 M/uL Normal 3.90-5.40 [...] 40.4-72.8 Lymph % 24.0 % Normal 20.0-42.0 [place] % 11.0 % Normal 4.3-13.2 Eo% 4.7 % Normal 0.0-6.6 Bas% 0.7 % Normal 0.0-1.1 Immature Grans 0.3 % Normal 0.0-5.0 NRBC % 0.0 /100WBC < 10/ 100 WBC Neut# 1.78 K/uL Low 1.8-7.0 Lymph # 0.72 K/uL Low 1.0-4.0 [place] # 0.33 K/uL Normal 0.3-0.9 Eos # 0.14 K/uL Normal 0.0-0.5 Baso # 0.02 K/uL Normal 0.0-0.1 Immature Grans Absolute 0.01 K/uL NRBC # 0.00 K/uL Comprehensive Metabolic 01/11/2019 [facility] Glucose 127 mg/dL High 74-[address] [place] [address] [phone] BUN 17 mg/dL Normal 7-18 Creatinine 0.7 mg/dL Normal 0.6-1.3 Glom Filtration Rate, Estimate >60 mL/min >60 If >60 mL/min >60 38 BUN/Creat 24.2 ratio Sodium 137 mmol/L Normal [...] 130 U/L High 45-117 Laboratory test 01/11/2019 [facility] CA 27.29 391.6 U/mL High 0.0-38.6 [address] [place] [place] [address] [phone] Slide Review 01/11/2019 [facility] Slide (SEE NOTE) [address] Review [place] [address] [phone] Path Review: 01/11/2019 [facility] Path NI [address] Review: [place] [address] [phone] CBC W/Automated 12/14/2018 [facility] White Blood 3.5 K/uL Normal 3.1-10.7 [address] [place] [place] [address] [phone] Red Blood Count 4.22 M/uL Normal 3.90-5.40 [...] 40.4-72.8 Lymph % 26.8 % Normal 20.0-42.0 [place] % 10.1 % Normal 4.3-13.2 Eo% 19.3 % High 0.0-6.6 Bas% 1.4 % High 0.0-1.1 Immature Grans 0.0 % Normal 0.0-5.0 NRBC % 0.0 /100WBC < 10/ 100 WBC Neut# 1.47 K/uL Low 1.8-7.0 Lymph # 0.93 K/uL Low 1.0-4.0 [place] # 0.35 K/uL Normal 0.3-0.9 Eos # 0.67 K/uL High 0.0-0.5 Baso # 0.05 K/uL Normal 0.0-0.1 Immature Grans Absolute 0.00 K/uL NRBC # 0.00 K/uL Comprehensive Metabolic 12/14/2018 [facility] Glucose 128 mg/dL High 74-106 Panel [address] [place], [place] [address] [phone] BUN 20 mg/dL High 7-18 Creatinine 0.8 mg/dL Normal 0.6-1.3 Glom Filtration Rate, Estimate >60 mL/min >60 If >60 mL/min >60 43 BUN/Creat 25.0 ratio Sodium 140 mmol/L Normal [...] 126 U/L High 45-117 Laboratory test 12/14/2018 [facility] CA 27.29 510.0 U/mL High 0.0-38.6 [address] [place] [address] [phone] CBC W/Automated 11/30/2018 [facility] White Blood 2.4 K/uL Low 3.1-10.7 [address] [place] [address] [phone] Red Blood Count 4.06 M/uL Normal 3.90-5.40 [...] 40.4-72.8 Lymph % 30.6 % Normal 20.0-42.0 [place] % 8.7 % Normal 4.3-13.2 Eo% 14.5 % High 0.0-6.6 Bas% 0.8 % Normal 0.0-1.1 Immature Grans 0.0 % Normal 0.0-5.0 NRBC % 0.0 /100WBC < 10/ 100 WBC Neut# 1.10 K/uL Low 1.8-7.0 Lymph # 0.74 K/uL Low 1.0-4.0 [place] # 0.21 K/uL Low 0.3-0.9 Eos # 0.35 K/uL Normal 0.0-0.5 Baso # 0.02 K/uL Normal 0.0-0.1 Immature Grans Absolute 0.00 K/uL NRBC # 0.00 K/uL Comprehensive 11/30/2018 [facility] Glucose 102 mg/dL Normal 74-106 Metabolic Panel [address] [place] [address] [phone] BUN 21 mg/dL High 7-18 Creatinine 0.8 mg/dL Normal 0.6-1.3 Glom Filtration Rate, Estimate >60 mL/min >60 If >60 mL/min >60 46 BUN/Creat 26.2 ratio Sodium 140 mmol/L Normal [...] 108 U/L Normal 45-117 Slide Review 11/30/2018 [facility] Slide Review (SEE NOTE) [address] [place] [address] [phone] Laboratory test 11/30/2018 [facility] Path Review: <pending> finding [address] [place] [address] [phone] CBC W/Automated 11/15/2018 [facility] White Blood 4.1 K/uL 3.1-10. 48 Diff [address] Count 7 [place] [address] [phone] Red Blood Count 3.89 M/uL Low 3.90-5.40 [...] 40.4-72.8 Lymph % 31.0 % Normal 20.0-42.0 [place] % 11.1 % Normal 4.3-13.2 Eo% 1.5 % Normal 0.0-6.6 Bas% 2.0 % High 0.0-1.1 Immature Grans 0.2 % Normal 0.0-5.0 NRBC % 0.0 /100WBC < 10/ 100 WBC Neut# 2.20 K/uL Normal 1.8-7.0 Lymph # 1.26 K/uL Normal 1.0-4.0 [place] # 0.45 K/uL Normal 0.3-0.9 Eos # 0.06 K/uL Normal 0.0-0.5 Baso # 0.08 K/uL Normal 0.0-0.1 Immature Grans Absolute 0.01 K/uL NRBC # 0.00 K/uL Comprehensive Metabolic 11/15/2018 [facility] Glucose 70 mg/dL Low 74-106 Panel [address] [place] [address] [phone] BUN 24 mg/dL High 7-18 Creatinine 0.9 mg/dL Normal 0.6-1.3 Glom Filtration Rate, Estimate >60 mL/min >60 If >60 mL/min >60 49 BUN/Creat 26.6 ratio Sodium 139 mmol/L Normal [...] 108 U/L Normal 45-117 Laboratory test 11/15/2018 [facility] Magnesium 2.3 mg/dL Normal 1.8-2.[address] [place] [address] [phone] CBC W/Automated 11/09/2018 [facility] White Blood 2.4 K/uL Low 3.1-10.7 [address] [place] [address] [phone] Red Blood Count 3.80 M/uL Low 3.90-5.40 [...] 40.4-72.8 Lymph % 33.6 % Normal 20.0-42.0 [place] % 12.4 % Normal 4.3-13.2 Eo% 1.7 % Normal 0.0-6.6 Bas% 2.1 % High 0.0-1.1 Immature Grans 0.4 % Normal 0.0-5.0 NRBC % 0.0 /100WBC < 10/ 100 WBC Neut# 1.20 K/uL Low 1.8-7.0 Lymph # 0.81 K/uL Low 1.0-4.0 [place] # 0.30 K/uL Normal 0.3-0.9 Eos # 0.04 K/uL Normal 0.0-0.5 Baso # 0.05 K/uL Normal 0.0-0.1 Immature Grans Absolute 0.01 K/uL NRBC # 0.00 K/uL Comprehensive 11/09/2018 [facility] Glucose 89 mg/dL Normal 74-106 Metabolic Panel [address] [place] [id number] [phone] BUN 18 mg/dL Normal 7-18 Creatinine 0.8 mg/dL Normal 0.6-1.3 Glom Filtration Rate, Estimate >60 mL/min >60 If >60 mL/min >60 51 BUN/Creat 22.5 ratio Sodium 140 mmol/L Normal [...] Phosphatase 97 U/L Normal 45-117 Laboratory 11/09/2018 [facility] CA 27.29 635.6 High 0.0-38.6 52 test finding [address] U/mL AVE [place] [id number] [phone] Slide Review 11/09/2018 [facility] Slide (SEE [address] Review NOTE) AVE [place] [id number] [phone] Path Review: 11/09/2018 [facility] Path NI [address] Review: AVE [place] [address]99 [phone] CBC 10/28/2018 [facility] White 1.4 K/uL Critical 3.1-10.7 W/Automated [address] Blood low Diff AVE [place] [address] Count [phone] Red Blood Count 3.70 M/uL Low 3.90-5.40 [...] 40.4-72.8 Lymph % 42.4 % High 20.0-42.0 [place] % 11.8 % Normal 4.3-13.2 Eo% 1.4 % Normal 0.0-6.6 Bas% 3.5 % High 0.0-1.1 Immature Grans 0.0 % Normal 0.0-5.0 NRBC % 0.0 /100WBC < 10/ 100 WBC Neut# 0.59 K/uL Critical low 1.8-7.0 Lymph # 0.61 K/uL Low 1.0-4.0 [place] # 0.17 K/uL Low 0.3-0.9 Eos # 0.02 K/uL Normal 0.0-0.5 Baso # 0.05 K/uL Normal 0.0-0.1 Immature Grans Absolute 0.00 K/uL NRBC # 0.00 K/uL Comprehensive 10/28/2018 [facility] Glucose 88 mg/dL Normal 74-106 Metabolic Panel [address] [place] [address] [phone] BUN 21 mg/dL High 7-18 Creatinine 1.0 mg/dL Normal 0.6-1.3 Glom Filtration Rate, Estimate >60 mL/min >60 If >60 mL/min >60 55 BUN/Creat 21.0 ratio Sodium 139 mmol/L Normal [...] U/L Normal 45-117 Vitamin B12 And 10/28/2018 [facility] Vitamin B12 350 pg/mL Normal 193-[address] [place] [place] [address] [phone] Folic Acid 10.7 ng/mL Normal 3.1-17.5 Slide Review 10/28/2018 [facility] Slide (SEE NOTE) [address] [place] [place] [address] [phone] Laboratory test 10/28/2018 [facility] Path (SEE NOTE) [address] Review: AVE [place] [address] [phone] CBC W/Automated 10/18/2018 [facility] White Blood 1.8 K/uL Critical low 3.1- Diff [address] [place] [address] [phone] Red Blood Count 3.81 M/uL Low 3.90-5.40 [...] 40.4-72.8 Lymph % 27.2 % Normal 20.0-42.0 [place] % 6.1 % Normal 4.3-13.2 Eo% 1.1 % Normal 0.0-6.6 Bas% 2.8 % High 0.0-1.1 Immature Grans 0.6 % Normal 0.0-5.0 NRBC % 0.0 /100WBC < 10/ 100 WBC Neut# 1.12 K/uL Low 1.8-7.0 Lymph # 0.49 K/uL Low 1.0-4.0 [place] # 0.11 K/uL Low 0.3-0.9 Eos # 0.02 K/uL Normal 0.0-0.5 Baso # 0.05 K/uL Normal 0.0-0.1 Immature Grans Absolute 0.01 K/uL NRBC # 0.00 K/uL Anticoagulant Therapy? Unknown Protime 10/18/2018 [facility] Protime 13.2 seconds Normal 12.0-14.4 [address] [place], [place] [address] [phone] Inr 1.0 Normal 0.9-1.1 58 Anticoagulant Therapy? Unknown Act Partial 10/18/2018 [facility] Act Partial 26.8 seconds Normal 23.4-35.[address] [place] [place] [address] [phone] Anticoagulant Therapy? Unknown Path Review: 10/18/2018 [facility] Anticoagulant Unknown [address] Therapy? [place] [address] [phone] Laboratory test 10/18/2018 [facility] Ferritin 62 ng/mL Normal 8-[address] [place] [address] [phone] Laboratory test 10/18/2018 [facility] Nucleotidase,5 7 IU/L 0-10 [address] [place], [place] [phone] CA 27.29 595.7 U/mL High 0.0-38.6 61 Iron-Tibc-%Sat 10/18/2018 [facility] Serum Iron 92 g/dL Normal 50-170 [address] [place], [place] [address] [phone] Total Iron Binding Capacity 417 g/dL Normal 250-450 Transferrin %Saturation 22 % Normal 12-57 Vitamin B12 And 10/18/2018 [facility] Vitamin B12 471 pg/mL Normal 193-[address] [place], [place] [address] [phone] Folic Acid 9.2 ng/mL Normal 3.1-17.5 Slide Review 10/18/2018 [facility] Slide Review (SEE NOTE) [address] [place] [address] [phone] Anticoagulant Therapy? Unknown Comprehensive 10/18/2018 [facility] Glucose 90 mg/dL Normal 74-[address] [place] [address] [phone] BUN 26 mg/dL High 7-18 Creatinine 1.1 mg/dL Normal 0.6-1.3 Glom Filtration Rate, Estimate 56 mL/min >60 If >60 mL/min >60 63 BUN/Creat 23.6 ratio Sodium 139 mmol/L Normal [...] Alkaline Phosphatase 113 U/L Normal 45-117 Laboratory 10/18/2018 [facility] Vitamin 65.8 30.0-100.0 64 test finding [address] D,25-Hydroxy ng/[place] [address] [phone] Laboratory 09/20/2018 [facility] Vitamin 68.6 30.0-100.0 65 test finding [address] D,25-Hydroxy ng/[place] [address] [phone] Laboratory 09/20/2018 [facility] CA 27.29 506.9 High 0.0-38.6 66 test finding [address] U/[place] [address] [phone] Iron-Tibc-%Sa 09/20/2018 [facility] Serum Iron 106 Normal 50-[address] g/[place] [address] [phone] Total Iron Binding Capacity 452 g/dL High 250-450 Transferrin %Saturation 23 % Normal 12-57 Laboratory test 09/20/2018 [facility] Ferritin 58 ng/mL Normal 8-252 finding [address] [place], [place] [address] [phone] Vitamin B12 And 09/20/2018 [facility] Vitamin B12 273 pg/mL Normal 193-[address] [place] [address] [phone] Folic Acid 9.4 ng/mL Normal 3.1-17.5 CBC W/Automated 09/19/2018 [facility] White Blood 2.5 K/uL Low 3.1-10.7 [address] [place] [address] [phone] Red Blood Count 3.62 M/uL Low 3.90-5.40 [...] 40.4-72.8 Lymph % 26.1 % Normal 20.0-42.0 [place] % 5.2 % Normal 4.3-13.2 Eo% 1.2 % Normal 0.0-6.6 Bas% 2.8 % High 0.0-1.1 Immature Grans 0.0 % Normal 0.0-5.0 NRBC % 0.0 /100WBC < 10/ 100 WBC Neut# 1.61 K/uL Low 1.8-7.0 Lymph # 0.65 K/uL Low 1.0-4.0 [place] # 0.13 K/uL Low 0.3-0.9 Eos # 0.03 K/uL Normal 0.0-0.5 Baso # 0.07 K/uL Normal 0.0-0.1 Immature Grans Absolute 0.00 K/uL NRBC # 0.00 K/uL Slide Review 09/19/2018 [facility] Slide Review (SEE NOTE) [address] [place] [address] [phone] Laboratory test 09/19/2018 [facility] Path Review: <pending> finding [address] [place] [phone] Comprehensive 09/19/2018 [facility] Glucose 86 mg/dL Normal 74-10 Metabolic Panel [address] [place] [id number] [phone] BUN 24 mg/dL High 7-18 Creatinine 0.9 mg/dL Normal 0.6-1.3 Glom Filtration Rate, Estimate >60 mL/min >60 If >60 mL/min >60 69 BUN/Creat 26.6 ratio Sodium 136 mmol/L Normal [...] 12-78 Alkaline Phosphatase 96 U/L Normal 45-117 Comprehensive 08/22/2018 [facility] Glucose 82 mg/dL Normal 74-106 Metabolic Panel [address] [place] [address] [phone] BUN 24 mg/dL High 7-18 Creatinine 0.9 mg/dL Normal 0.6-1.3 Glom Filtration Rate, Estimate >60 mL/min >60 If >60 mL/min >60 70 BUN/Creat 26.6 ratio Sodium 134 mmol/L Low [...] 111 U/L Normal 45-117 CBC W/Automated 08/22/2018 [facility] White Blood 2.4 K/uL Low 3.1-10.[address] [place] [address] [phone] Red Blood Count 3.72 M/uL Low 3.90-5.40 [...] 40.4-72.8 Lymph % 35.0 % Normal 20.0-42.0 [place] % 5.8 % Normal 4.3-13.2 Eo% 2.5 % Normal 0.0-6.6 Bas% 2.1 % High 0.0-1.1 Immature Grans 0.8 % Normal 0.0-5.0 NRBC % 0.0 /100WBC < 10/ 100 WBC Neut# 1.29 K/uL Low 1.8-7.0 Lymph # 0.84 K/uL Low 1.0-4.0 [place] # 0.14 K/uL Low 0.3-0.9 Eos # 0.06 K/uL Normal 0.0-0.5 Baso # 0.05 K/uL Normal 0.0-0.1 Immature Grans Absolute 0.02 K/uL NRBC # 0.00 K/uL Slide Review 08/22/2018 [facility] Slide Review . [address] [place] [address] [phone] Laboratory test finding 08/22/2018 [facility] Path Review: <pending> [address] [place] [phone] 1 C79.51 C78.7 D48.61 Z51.11 E53.9 2 [...] mg/dL *The National Cholesterol Education Program(NCEP) 5 INTRACTABLE PAIN 6 Note: Persistent reduction for 3 months or more in an eGFR <60 mL/min/1.73 m2 defines CKD. Patients with eGFR values >/=60 mL/min/1.73 m2 may also have CKD if evidence of persistent proteinuria is present. The original MDRD equation for estimated GFR is not valid for patients less than 18 years of age. Additional information may be found at www.[email or web address]. 7 A negative result for either C. trachomatis and/or N. gonorrhoeae does not preclued an infection because results are dependent on adequate specimen collection, absence of inhibitors, and sufficient DNA to be detected. 8 Note: Persistent reduction for 3 months or more in an eGFR <60 mL/min/1.73 m2 defines CKD. Patients with eGFR values >/=60 mL/min/1.73 m2 may also have CKD if evidence of persistent proteinuria is present. The original MDRD equation for estimated GFR is not valid for patients less than 18 years of age. Additional information may be found at [email or web address]. 9 NO ORGANISMS SEEN 10 RARE WHITE BLOOD CELLS 11 NO ORGANISMS SEEN 12 RARE WHITE BLOOD CELLS 13 NO GROWTH: FINAL REPORT 14 Tests: serum lyme testing with reflex Instructions: 15 serum lyme testing with reflex 16 SWOLLEN LT KNEE,RED,HOT TO TOUCH 17 TNC (Total Nucleated Cells) = WBCs Mesothelials PMN% = Neutrophils Eosinophils MN% = Lymphocytes Monocytes 18 A cytospin smear has been reviewed. Cell types present in numbers that correlate with the automated differential. No atypical cells or cell clusters seen. 19 INTRACTABLE PAIN 20 Negative <0.91 Equivocal 0.91 - 1.09 Positive >1.09 21 Negative <0.80 Equivocal 0.80 - 1.19 Positive >1.19 IgM levels may peak at 3-6 weeks post infection, then gradually decline. Performed at: - [facility] [id number] Attorney General: Paulina Miranda MD, Phone: [phone] 22 SWOLLEN LT KNEE,RED,HOT TO TOUCH 23 This result was obtained with an ESR method that is not based on the standard Westergren Method. When comparing results obtained from the traditional Westergren ESR and this method it is important to refer to the reference range for each method. Method: Capillary Photometry 24 INTRACTABLE PAIN 25 Tests: URIC ACID Instructions: 26 NO CRYSTALS SEEN 27 MODERATE WHITE BLOOD CELLS 28 NO ORGANISMS SEEN 29 NO GROWTH: FINAL REPORT 30 : Peritoneal : Pleural : Synovial : [...] the clinical context for interpretation. Performed at: [address] [id number] Attorney General: Paulina Miranda MD, Phone: [phone] 31 : Peritoneal : Pleural : Synovial [...] integrated into the clinical context for interpretation. 32 Note: Persistent reduction for 3 months or more in an eGFR <60 mL/min/1.73 m2 defines CKD. Patients with eGFR values >/=60 mL/min/1.73 m2 may also have CKD if evidence of persistent proteinuria is present. The original MDRD equation for estimated GFR is not valid for patients less than 18 years of age. Additional information may be found at [email or web address]. 33 NO GROWTH: FINAL REPORT 34 NO GROWTH: FINAL REPORT 35 NO GROWTH: FINAL REPORT 36 NO GROWTH: FINAL REPORT 37 D48.61 C79.51 Z51.11 38 Note: Persistent reduction for 3 months or more in an eGFR <60 mL/min/1.73 m2 defines CKD. Patients with eGFR values >/=60 mL/min/1.73 m2 may also have CKD if evidence of persistent proteinuria is present. The original MDRD equation for estimated GFR is not valid for patients less than 18 years of age. Additional information may be found at [email or web address]. 39 Siemens Centaur Immunochemiluminometric Methodology (ICMA) Values obtained with different assay methods or kits cannot be used interchangeably. Results cannot be interpreted as absolute evidence of the presence or absence of malignant disease. Performed at: RN - [facility] [id number] Attorney General: Paulina Miranda MD, Phone: [phone] 40 Instrument flagged sample for slide review. Less than 10% Bands seen, no other immature WBC's seen. RBC morphology essentially normal. Platelet estimate = NORMAL 41 Reviewed previous history, path review not indicated 42 Z51.11 C79.51 D48.61 E53.9 D64.9 Z51.12 43 Note: Persistent reduction for 3 months or more in an eGFR <60 mL/min/1.73 m2 defines CKD. Patients with eGFR values >/=60 mL/min/1.73 m2 may also have CKD if evidence of persistent proteinuria is present. The original MDRD equation for estimated GFR is not valid for patients less than 18 years of age. Additional information may be found at [email or web address]. 44 Specimen was diluted in order to obtain results. Results were repeated. Siemens Viewpoint Digital Immunochemiluminometric Methodology (ICMA) Values obtained with different assay methods or kits cannot be used interchangeably. Results cannot be interpreted as absolute evidence of the presence or absence of malignant disease. Performed at: - [facility] [id number] Attorney General: Paulina Miranda MD, Phone: [phone] 45 Z51.11 D48.61 C79.51 E53.9 46 Note: Persistent reduction for 3 months or more in an eGFR <60 mL/min/1.73 m2 defines CKD. Patients with eGFR values >/=60 mL/min/1.73 m2 may also have CKD if evidence of persistent proteinuria is present. The original MDRD equation for estimated GFR is not valid for patients less than 18 years of age. Additional information may be found at [email or web address]. 47 Instrument flagged sample for slide review. Less than 10% Bands seen, no other immature WBC's seen. RBC morphology essentially normal. Platelet estimate = SLIGHTLY DECREASED 48 D48.61 C79.51 Z51.11 49 Note: Persistent reduction for 3 months or more in an eGFR <60 mL/min/1.73 m2 defines CKD. Patients with eGFR values >/=60 mL/min/1.73 m2 may also have CKD if evidence of persistent proteinuria is present. The original MDRD equation for estimated GFR is not valid for patients less than 18 years of age. Additional information may be found at [email or web address]. 50 D48.61 C79.51 51 Note: Persistent reduction for 3 months or more in an eGFR <60 mL/min/1.73 m2 defines CKD. Patients with eGFR values >/=60 mL/min/1.73 m2 may also have CKD if evidence of persistent proteinuria is present. The original MDRD equation for estimated GFR is not valid for patients less than 18 years of age. Additional information may be found at [email or web address]. 52 Specimen was diluted in order to obtain results. Results were repeated. Siemens Plasmonaur Immunochemiluminometric Methodology (ICMA) Values obtained with different assay methods or kits cannot be used interchangeably. Results cannot be interpreted as absolute evidence of the presence or absence of malignant disease. Performed at: [address] [id number] Attorney General: Paulina Miranad MD, Phone: [phone] 53 Instrument flagged sample for slide review. Less than 10% Bands seen, no other immature WBC's seen. RBC morphology essentially normal. Platelet estimate = NORMAL 54 Reviewed previous history, path review not indicated 55 Note: Persistent reduction for 3 months or more in an eGFR <60 mL/min/1.73 m2 defines CKD. Patients with eGFR values >/=60 mL/min/1.73 m2 may also have CKD if evidence of persistent proteinuria is present. The original MDRD equation for estimated GFR is not valid for patients less than 18 years of age. Additional information may be found at [email or web address]. 56 Instrument flagged sample for slide review. Less than 10% Bands seen, no other immature WBC's seen. RBC morphology essentially normal. Platelet estimate = NORMAL 57 CHECKED CALLED WBC, ANC TO CLAUDIA C AT 0945 10/28/18 by [facility] 58 THERAPEUTIC INR RANGE: 2.0 - 3.0 DVT, Pulmonary embolus, prophylaxis against venous thrombosis or systemic embolization in high risk patients. 2.5 - 3.5 Mechanical heart valves [address] [facility] 60 Performed at: [address] [id number] Attorney General: Paulina Miranda MD, Phone: [phone] Performed at: [address] [id number] Attorney General: Domenic Pulido MD, Phone: [phone] 61 Specimen was diluted in order to obtain results. Results were repeated. Siemens Centaur Immunochemiluminometric Methodology (ICMA) Values obtained with different assay methods or kits cannot be used interchangeably. Results cannot be interpreted as absolute evidence of the presence or absence of malignant disease. 62 Instrument flagged sample for slide review. Less than 10% Bands seen, no other immature WBC's seen. RBC morphology essentially normal. Platelet estimate = NORMAL 63 Note: Persistent reduction for 3 months or more in an eGFR <60 mL/min/1.73 m2 defines CKD. Patients with eGFR values >/=60 mL/min/1.73 m2 may also have CKD if evidence of persistent proteinuria is present. The original MDRD equation for estimated GFR is not valid for patients less than 18 years of age. Additional information may be found at [email or web address]. 64 Vitamin D deficiency has been defined by the [place] of [employer] and an Endocrine Society practice guideline as a level of serum 25-OH vitamin D less than 20 ng/mL (1,2). The Endocrine Society went on to further define vitamin D insufficiency as a level between 21 and 29 ng/mL (2). 1. IOM ([place] of Medicine). 2010. Dietary reference intakes for calcium and D. [place]: The National Academies Press. 2. Leticia Fox, Romina CHAVEZ, et al. Evaluation, treatment, and prevention of vitamin D deficiency: an Endocrine Society clinical practice guideline. JCEM. 2010; 96(7):1911-30. Performed at: [facility] [address] [id number] Attorney General: Paulina Miranda MD, Phone: [phone] 65 Vitamin D deficiency has been defined by the [place] of [employer] and an Endocrine Society practice guideline as a level of serum 25-OH vitamin D less than 20 ng/mL (1,2). The Endocrine Society went on to further define vitamin D insufficiency as a level between 21 and 29 ng/mL (2). 1. IOM ([place] of [employer]). 2010. Dietary reference intakes for calcium and D. [place]: The National Academies Press. 2. Leticia Fox, Romina CHAVEZ, et al. Evaluation, treatment, and prevention of vitamin D deficiency: an Endocrine Society clinical practice guideline. JCEM. 2010; 96(7):1911-30. Performed at: [facility] [id number] Attorney General: Paulina Miranda MD, Phone: [phone] 66 Specimen was diluted in order to obtain results. Results were repeated. Chroma Immunochemiluminometric Methodology (ICMA) Values obtained with different assay methods or kits cannot be used interchangeably. Results cannot be interpreted as absolute evidence of the presence or absence of malignant disease. Performed at: RN - [facility] [address] [id number] Attorney General: Paulina Miranda MD, Phone: [phone] 67 z51.11 d48.61 68 Instrument flagged sample for slide review. Less than 10% Bands seen, no other immature WBC's seen. RBC morphology essentially normal. Platelet estimate = NORMAL 69 Note: Persistent reduction for 3 months [...] NORMAL Procedures Date Code Description Status 01/20/2019 55652 EKG Interpretation And Report Only Completed 01/19/2019 65709 EKG Interpretation And Report Only Completed 01/18/2019 31685 I&D deep abscess busa hematoma thigh/knee Completed 10/28/2018 08684 Theraputic Or Diagnostic Injection Completed 10/14/2018 94882 Theraputic Or Diagnostic Injection Completed 05/13/2017 [id number] Bone Mineral Density Test Completed Medical Devices Description No Information Available Encounters Type Date Location Provider Dx Diagnosis Office Visit 02/02/2019 Orthopaedic Office Karen Ramos, M25.462 Effusion, left 8:45a PA knee R60.0 Localized edema Office Visit 01/27/2019 4:00p Walk In [facility], R60.0 Localized edema Clinic LEISA Menendez M79.605 Pain in left leg Office Visit 01/11/2019 8:00a [facility] [place], Z51.11 Encounter for Savita Hare., antineoplastic INFECTION PREVENTION SPECIALIST chemotherapy 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 K12.31 Oral mucositis (ulcerative) due to antineoplastic therapy Office Visit 12/14/2018 7:30a [facility] [place], Z51.11 Encounter for Savita B., antineoplastic INFECTION PREVENTION SPECIALIST chemotherapy 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 K12.31 Oral mucositis (ulcerative) due to antineoplastic therapy D70.1 Agranulocytosis secondary to cancer chemotherapy Office Visit 11/30/2018 7:30a [facility] [place], Z51.11 Encounter for Savita B., antineoplastic INFECTION PREVENTION SPECIALIST chemotherapy 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 K12.31 Oral mucositis (ulcerative) due to antineoplastic therapy Office Visit 11/16/2018 7:30a Infusion [facility] [place], Z51.11 Encounter for Savita B., antineoplastic INFECTION PREVENTION SPECIALIST chemotherapy D48.61 Neoplasm of uncertain behavior of [...] 4:30p Oncology Office [place], D48.61 Neoplasm of Cny, DO uncertain 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 E53.9 Vitamin B deficiency, unspecified Office Visit 09/20/2018 7:45a Oncology Office [place], D48.61 Neoplasm of Cyn, DO uncertain 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 D70.1 Agranulocytosis secondary to cancer chemotherapy Office Visit 08/29/2018 7:45a Oncology Office [place], D48.61 Neoplasm of Cyn, DO uncertain 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 D70.1 Agranulocytosis secondary to cancer chemotherapy Assessments Date Code Description Provider 02/08/2019 Z51.11 Encounter for antineoplastic Savita Yung, INFECTION PREVENTION SPECIALIST chemotherapy 02/08/2019 Z85.3 Personal history of malignant Savita Yung, INFECTION PREVENTION SPECIALIST neoplasm of breast 02/08/2019 C79.51 Secondary malignant neoplasm of bone Savita Yung, INFECTION PREVENTION SPECIALIST 02/08/2019 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 chemotherapy 01/20/2019 Z92.21 Personal history of antineoplastic Kendall Koroma M.D., chemotherapy FAC 01/20/2019 M25.462 Effusion, left knee Luca Yusuf M.D. 01/20/2019 C79.51 Secondary malignant neoplasm of bone Luca Yusuf M.D. 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 chemotherapy 01/19/2019 M25.462 Effusion, left knee Radha Pachecot, DO 01/19/2019 M25.462 Effusion, left knee Luca Yusuf M.D. 01/19/2019 Z85.3 Personal history of malignant Cyn Pacheco, neoplasm of breast 01/19/2019 C79.51 Secondary malignant neoplasm of bone Luca Yusuf M.D. 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, left knee Clari Chahal MD 01/18/2019 C79.51 Secondary malignant neoplasm of bone Lloyd Cyn, DO 01/18/2019 M25.562 Pain in left knee [...] Z51.11 Encounter for antineoplastic Aga, Savita B., INFECTION PREVENTION SPECIALIST chemotherapy 01/11/2019 D48.61 Neoplasm of uncertain behavior of Aga, Savita B., INFECTION PREVENTION SPECIALIST right breast 01/11/2019 C79.51 Secondary malignant neoplasm of bone Aga, Savita B., INFECTION PREVENTION SPECIALIST 01/11/2019 K12.31 Oral mucositis (ulcerative) due to [place], Savita B., INFECTION PREVENTION SPECIALIST antineoplastic therapy 12/14/2018 Z51.11 Encounter for antineoplastic [place], Savita B., INFECTION PREVENTION SPECIALIST chemotherapy 12/14/2018 D48.61 Neoplasm of uncertain behavior of [place], Savita B., INFECTION PREVENTION SPECIALIST right breast 12/14/2018 C79.51 Secondary malignant neoplasm of bone [place], Savita B., INFECTION PREVENTION SPECIALIST 12/14/2018 K12.31 Oral mucositis (ulcerative) due to Aag, Savita B., INFECTION PREVENTION SPECIALIST antineoplastic therapy 12/14/2018 D70.1 Agranulocytosis secondary to cancer Aga, Savita B., INFECTION PREVENTION SPECIALIST chemotherapy 11/30/2018 Z51.11 Encounter for antineoplastic Aga, Savita B., INFECTION PREVENTION SPECIALIST chemotherapy 11/30/2018 C79.51 Secondary malignant neoplasm of bone Aga, Savita B., INFECTION PREVENTION SPECIALIST 11/30/2018 D48.61 Neoplasm of uncertain behavior of [place], Savita B., INFECTION PREVENTION SPECIALIST right breast 11/30/2018 K12.31 Oral mucositis (ulcerative) due to Aga, Savita B., INFECTION PREVENTION SPECIALIST antineoplastic therapy 11/16/2018 Z51.11 Encounter for antineoplastic [place], Savita B., INFECTION PREVENTION SPECIALIST chemotherapy 11/16/2018 D48.61 Neoplasm of uncertain behavior of [place], Savita B., INFECTION PREVENTION SPECIALIST right breast 11/16/2018 C79.51 Secondary malignant neoplasm of bone Aga, Savita B., INFECTION PREVENTION SPECIALIST 11/09/2018 D48.61 Neoplasm of uncertain behavior of [...] Cyn, DO chemotherapy Plan of Treatment Future Appointment(s):03/08/2019 7:30 am - Infusion Chair 8 at Infusion Wddded9003/08/2019 8:00 am - Savita Yung INFECTION PREVENTION SPECIALIST at Infusion Center Functional Status Description No Information Available Mental Status Description No Information Available Referrals Description No Information Available
[2019-03-22 21:46] VITALS: BP 125/76
== END 2019-03-22 21:59 | disposition home or self-care (01) ==
LOC: UCCORT 21:36
DX: B02.9 Zoster without complications (principal); C79.81 Secondary malignant neoplasm of breast; Z88.0 Allergy status to penicillin
CPT/HCPCS: 99212; G0463